=== PATIENT | male | born 1960 | race Caucasian/White ===

== ENCOUNTER 2017-07-26 04:50 | Inpatient (IN) | payer OTHER, SELFPAY ==
[2017-07-26] MEDS ORDERED: Acetaminophen 500 MG TAB ONE (05:17)
[2017-07-26 06:10] LABS: #Basophils 0.1 thou/uL (0.0-0.2); #Eosinphils 0.1 thou/uL (0.0-0.7); #Lymphocytes 1.2 thou/uL (1.20-3.40); #Monocytes 0.4 thou/uL (0.11-0.59); #Neutrophils 7.2 thou/uL (1.40-6.50); %Eosinophils 1.2 % (0.0-10.0); %Lymphocytes 13.4 % (21.0-51.0); %Monocytes 4.5 % (0.0-10.0); Hematocrit 31.2 % (42.0-52.0); Mean Platelet Volume 7.3 fL (7.4-10.4); Red Blood Cell (RBC) Count 3.68 mill/uL (4.70-6.10)
[2017-07-26 06:40] LABS: ALT (SGPT) 30 U/L (8-55); AST (SGOT) 28 U/L (5-34); Alkaline Phosphatase 161 U/L (40-150); Anion Gap 14 mmol/L (10-20); BUN (Urea Nitrogen) 40 mg/dL (8.4-25.7); Bilirubin, Total Less than 0.2 mg/dL (0.2-1.2); CK (CPK) 163 U/L (30-200); Calc. Creatinine Clearance 0 mL/min (70-130); Calcium 7.5 mg/dL (7.8-10.44); Carbon Dioxide 17 mmol/L (22-29); Chloride 94 mmol/L (98-107); Estimated GFR-MDRD 53; Globulin 3.2 g/dL (2.4-3.5); Lipase 13 U/L (8-78); Protein, Total 5.5 g/dL (6.0-8.3)
[2017-07-26 06:49] LABS: Troponin I 0.165 ng/mL (< 0.028)
[2017-07-26] MEDS ORDERED: niCARdipine 20MG In NaCl 20 MG/200 ML BAG ONE (07:05)
[2017-07-26] MEDS ORDERED: Insulin Regular 300 UNITS/3 ML VIAL ONE (07:06)
[2017-07-26 07:12] LABS: Acetaminophen Less than 6.0 mcg/mL (10.0-30.0); Salicylate Less than 8.0 mg/dL (15.0-30.0)
[2017-07-26] MEDS ORDERED: Insulin Regular 100 units/100 ml in NS IVPB SCH (07:45)
[2017-07-26 07:56] LABS: Prothrombin Time 12.1 SEC (12.0-14.7)
[2017-07-26 08:03] LABS: PTT 22.5 SEC (22.9-36.1)
--- NOTE | 2017-07-26 08:35 | HP ---
PRIMARY CARE PHYSICIAN: Dr. Mena Duenas. However, the patient says that he was recently dropped by Dr. Mena Duenas because he said she could not do anything more for him. The patient currentl y does not have any physicians and recently lost his insurance. CHIEF COMPLAINT: Chest pain for 4 days as well as increasing leg weakness for 3 months. HISTORY OF PORESENT ILLNESS: Mr. Robles is a 57-year-old gentleman that has a history of hyperte nsion and diabetes as well as coronary artery disease. He presented to the emergency room with comp laints of pain in his chest, which has been constant for the last 4 days in the center of his chest and then radiating into his left arm. He says it is sharp, stabbing like pain and very severe. He does not really rate the pain. He denies any shortness of breath or diaphoresis, but did have some nausea. He also complains of pain in his legs, which he originally said was pain, but then said it was weakness as well. He says he has trouble standing and walking on them and this has been progres sive over the past 3 months. He says that his legs have no energy and they always heard. He says t hat he lost his insurance at the beginning of this month and as a result, he ran out of his medicati ons and he has not had any medications in the last 4 days. He also admits to chronic back pain. He says that he was going to have some type of back fusion a few years ago, which was recommended, but he did not have it done. The patient is currently a bit groggy and says that he is in pain. He do es not appear to be in any type of distress; however, he is lying on the stretcher and his most conc erned seems to be in relief of his pain in his legs and his chest at this time. REVIEW OF SYSTEMS: Constitutional: There have been no fevers, chills, no night sweats, no weight l oss. HEENT: No headaches, no dizziness, no visual changes, no sore throat, no rhinorrhea, neck courtney n or adenopathy. Pulmonary: No hemoptysis, no cough, no wheezing. Cardiovascular: As the history of present illness. There is no PND, no orthopnea, but he has had l ower extremity edema. Gastrointestinal: No abdominal pain. He has had some nausea, but no vomitin g, no change in bowels. Genitourinary: No urinary frequency, hematuria, no hesitancy. Neurologic: No focal weakness, numbness, no seizures. Psychiatric: No symptoms of anxiety or depression. Sk in and Integument: No significant skin changes. No rash. PAST MEDICAL HISTORY: Significant for coronary artery disease, status post 4-vessel bypass, diabete s mellitus, hypertension, chronic low back pain and chronic kidney disease. PAST SURGICAL HISTORY: Right knee surgery, right shoulder arthroplasty, esophageal ulcer repair, 4- vessel bypass surgery, cholecystectomy, and appendectomy. ALLERGIES: PENICILLIN, ULTRAM, VALIUM, VERSED and VANCOMYCIN. FAMILY HISTORY: Significant for cerebrovascular disease in his father. SOCIAL HISTORY: The patient has a 2 pack a day history of smoking, but says he is reduced somewhat, but he still smokes, denies any alcohol, no drug use. He is , has two children. His , Sussy is his surrogate decision maker and he wishes to be a full code. MEDICATIONS: He remembers some of the names, but not the doses of his medicines and these include C oreg, Imdur, lisinopril, Lasix, metolazone and another blood pressure medicine as well as Wylie. He takes insulin 70/30 15 units twice a day. PHYSICAL EXAMINATION: GENERAL: He is alert and oriented. He is moderately cooperative, sometimes he says he does not fee l like talking and just to leave him alone and other times, he will answer some questions, albeit re luctantly. VITAL SIGNS: His blood pressure was 229/109, heart rate is in the 80s, respiratory rate 18, tempera ture is 98.1. HEENT: Pupils equal, round, and reactive. Extraocular muscles are intact. Sclerae are anicteric. Throat, no erythema, no exudates. He has got very poor dentition. NECK: No adenopathy, no bruits. LUNGS: Clear. There is no wheezing, no rales. CARDIOVASCULAR: He has a normal S1 and S2. I did not appreciate an S3 or S4. No murmurs, clicks o r rubs. ABDOMEN: Soft, nontender, nondistended. Positive for bowel sounds. No rebound, no guarding. EXTREMITIES: He has got 1-2+ pitting edema bilaterally. He has got some chronic venous stasis hernández ges. His nails are mycotic and long. His pulses are palpable; however, his feet are warm and he quezada s got good capillary refill. NEUROLOGICALLY: His exam is grossly nonfocal. SIGNIFICANT LABORATORY DATA: White blood cell count was 9, hemoglobin 10.1, hematocrit 31.2, platel et count is 266. Sodium was 120, potassium 5.0, chloride is 94, CO2 17, anion gap is 14, BUN 40, cr eatinine 1.38, glucose is 795. ASSESSMENT AND PLAN: This is a 57-year-old gentleman that presents with hypertensive urgency. The chest pain of which is likely as a result of the hypertensive urgency and some demand ischemia due t o the blood pressure being so high. It is noted that he was here back in October and had a very si milar presentation. At that time, he had a very thorough workup including a CT angiogram of the ezio st to rule out dissection, which was negative. He had a cardiac catheterization, which showed that three of the 4 grafts were patent and he also had an echocardiogram done demonstrating an ejection f raction of 55%-60% and some evidence of diastolic dysfunction. His medications were adjusted and he was able to be discharged home. I suspect that his symptoms are likely the result of medical nonco mpliance and we will hold off on doing or repeating a lot of the tests that were done previously, st art him back on a medication regimen. Hopefully, some related to what he had been prescribed before and see if his symptoms resolve. Since he will be admitted to the ICU due to the elevated blood pr essure, we will get a Critical Care consult. 1. Diabetes mellitus, this is uncontrolled, likely again due to noncompliance. We will place him o n an insulin drip until his blood sugars are under reasonable control and then transition him to sub cu insulin. 2. Leg pain. This likely could be due to either neuropathy from his lower back or possibly from di abetes mellitus. It appears he has got fairly decent circulation clinically, but we can check an ar terial Doppler to be sure and we will also be placing him on deep venous thrombosis and gastrointest inal prophylaxis. Further treatment will be based on how the patient progresses during his hospital stay.
[2017-07-26] MEDS ORDERED: Ondansetron HCl/PF 4 MG/2 ML Vial IVP PRN (08:58)
[2017-07-26] MEDS ORDERED: D5 1/2 NS w/20 mEq KCL 1,000 ML IV PRN (08:58)
[2017-07-26] MEDS ORDERED: Insulin Regular (Human) 100 UNITS, Admixture Fee 1 EACH in Sodium Chloride 0.9% 100 ML IVPB SCH (08:58)
[2017-07-26] MEDS ORDERED: CCU Electrolyte Replacement 1 EACH IVPB SCH (08:58)
[2017-07-26] MEDS ORDERED: SODIUM CHLORIDE IVPB SCH (08:58)
[2017-07-26] MEDS ORDERED: Ondansetron ODT 4 MG TAB PO PRN (08:58)
[2017-07-26] MEDS ORDERED: Sodium Chloride 0.9% 1,000 ML IV PRN ×4 (08:58)
[2017-07-26] MEDS ORDERED: NS 0.9% w/ 20 MEQ KCL 1,000 ML IV PRN ×2 (08:58)
[2017-07-26] MEDS ORDERED: ADMIXTURE FEE IVPB SCH (08:58)
[2017-07-26] MEDS ORDERED: Acetaminophen 325 MG TAB PO PRN (08:58)
[2017-07-26] MEDS ORDERED: Dextrose 5 %-0.45 % NaCl 1,000 ML IV PRN (08:58)
[2017-07-26] MEDS ORDERED: NICARDIPINE HCL IVPB SCH (08:58)
[2017-07-26] MEDS ORDERED: Carvedilol 6.25 MG TAB PO SCH (09:00)
--- NOTE | 2017-07-26 09:04 | RAD ---
FRONTAL VIEW CHEST: COMPARISON: November 21, 2016. INDICATION: Emergent exam with new-onset chest pain. FINDINGS: Lungs are hyperinflated with interstitial prominence bilaterally. There is no lobar consolidation, effusion, or discrete pneumothorax. Postoperative findings of the chest are again seen. Mediastina l structures are stable. IMPRESSION: 1. Chronic obstructive pulmonary disease. 2. No lobar consolidation. POS: [facility]
[2017-07-26 09:08] LABS: Anion Gap 3 mmol/L (-14-95); Critical Call POC Critical Value; pH (Venous) 7.554 (7.35-7.45); vO2 Saturation-calc 99.9 % (0.0-100.0)
[2017-07-26 09:28] LABS: Troponin I 0.203 ng/mL (< 0.028)
[2017-07-26 09:48] LABS: Anion Gap 13 mmol/L (10-20); BUN (Urea Nitrogen) 38 mg/dL (8.4-25.7); Calc. Creatinine Clearance 0 mL/min (70-130); Calcium 7.6 mg/dL (7.8-10.44); Carbon Dioxide 17 mmol/L (22-29); Chloride 95 mmol/L (98-107); Estimated GFR-MDRD 52
[2017-07-26] MEDS ORDERED: HYDROcodone/Acetaminophen 10/325 mg Tablet ONE (09:49)
[2017-07-26 10:22] LABS: Bilirubin Negative (Negative); Glucose, Urine (Dipstick) 500 mg/dL (Negative); Ketone, Urine Negative (Negative); Nitrite Negative (Negative); Protein, Urine (Dipstick) 100 mg/dL (Neg-Trace); Urobilinogen 0.2 mg/dL (0.2-1.0)
[2017-07-26 10:23] LABS: Blood, Urine Moderate (Negative)
[2017-07-26 10:34] LABS: Bacteria/HPF None Seen HPF (None Seen); Hyaline Casts/LPF 0-3 HYALINE CAST LPF (0-3 Hyaline); Squamous Epithelial None Seen HPF (0-3); WBC/HPF None Seen HPF (0-3)
[2017-07-26] MEDS ORDERED: Famotidine 20 MG TAB ONE (10:52)
[2017-07-26] MEDS ORDERED: Clopidogrel Bisulfate 75 MG TAB ONE (10:52)
[2017-07-26 11:13] LABS: Amphetamine Not Detected (NotDetected); Methadone Not Detected (NotDetected); Methamphetamine Not Detected (NotDetected)
[2017-07-26] MEDS ORDERED: Morphine Sulfate 2 MG/ML SYRINGE ONE ×2 (12:50→17:35)
[2017-07-26 13:00] LABS: Anion Gap 11 mmol/L (10-20); BUN (Urea Nitrogen) 36 mg/dL (8.4-25.7); Calc. Creatinine Clearance 0 mL/min (70-130); Calcium 7.1 mg/dL (7.8-10.44); Carbon Dioxide 17 mmol/L (22-29); Chloride 101 mmol/L (98-107); Estimated GFR-MDRD 66; Troponin I 0.206 ng/mL (< 0.028)
[2017-07-26] MEDS ORDERED: Dextrose 5% in Water 1,000 ML IV PRN (13:02)
[2017-07-26] MEDS ORDERED: Dextrose 50% Abboject 50 ML SYRINGE SLOW IVP PRN (13:02)
[2017-07-26] MEDS ORDERED: Acetaminophen/Codeine 30-300mg Tablet PO PRN (13:04)
[2017-07-26] MEDS ORDERED: Insulin Detemir 100 UNITS/ML 15 UNITS in Pre-Filled Syringe 1 EACH SC SCH (13:30)
[2017-07-26] MEDS ORDERED: Labetalol HCl 100 MG/20 ML VIAL ONE ×2 (13:35→18:30)
[2017-07-26] MEDS ORDERED: Nicotine 14 MG PATCH TOP SCH (16:30)
[2017-07-26 17:57] LABS: Anion Gap 10 mmol/L (10-20); BUN (Urea Nitrogen) 34 mg/dL (8.4-25.7); Calc. Creatinine Clearance 0 mL/min (70-130); Calcium 7.2 mg/dL (7.8-10.44); Carbon Dioxide 18 mmol/L (22-29); Chloride 102 mmol/L (98-107); Estimated GFR-MDRD 70
[2017-07-26] MEDS: Morphine Sulfate 2 MG/ML SYRINGE SLOW IVP PRN (19:59)
[2017-07-26] MEDS: Carvedilol 25 MG TAB PO SCH (20:03)
[2017-07-26] MEDS: Nitroglycerin 2% Ointment 1 INCH/1 GM Packet TOP SCH ×2 (20:04→20:12)
[2017-07-26] MEDS: Clopidogrel Bisulfate 75 MG TAB PO SCH (20:04)
[2017-07-26] MEDS: Heparin 5,000 UNITS/ML VIAL SC SCH ×2 (20:04→20:06)
[2017-07-26] MEDS: Docusate 100 MG CAP PO SCH ×2 (20:05)
[2017-07-26] MEDS: Atorvastatin Calcium 20 MG TAB PO SCH (20:05)
[2017-07-26] MEDS: Famotidine 20 MG TAB PO SCH ×2 (20:05)
[2017-07-26] MEDS: HYDROcodone/Acetaminophen 10/325 mg Tablet PO PRN (20:14)
[2017-07-26] MEDS: HumaLOG 300 UNITS/3 ML VIAL SC PRN (20:50)
[2017-07-26] MEDS ORDERED: Labetalol HCl 100 MG/20 ML VIAL SLOW IVP PRN (22:02)
[2017-07-27] MEDS: HumaLOG 300 UNITS/3 ML VIAL SC PRN ×3 (00:05→12:22)
[2017-07-27] MEDS: HYDROcodone/Acetaminophen 10/325 mg Tablet PO PRN ×6 (01:20→23:05)
[2017-07-27] MEDS: Morphine Sulfate 2 MG/ML SYRINGE SLOW IVP PRN (04:04)
[2017-07-27 06:22] LABS: #Eosinphils 0.3 thou/uL (0.0-0.7); #Lymphocytes 2.7 thou/uL (1.20-3.40); #Monocytes 0.8 thou/uL (0.11-0.59); #Neutrophils 9.8 thou/uL (1.40-6.50); %Basophils 0.3 % (0.0-1.0); %Eosinophils 1.9 % (0.0-10.0); %Monocytes 5.7 % (0.0-10.0); Hematocrit 30.9 % (42.0-52.0); Mean Platelet Volume 7.4 fL (7.4-10.4); Red Blood Cell (RBC) Count 3.74 mill/uL (4.70-6.10); White Blood Cell (WBC) Count 13.6 thou/uL (4.8-10.8)
[2017-07-27 06:34] LABS: Anion Gap 13 mmol/L (10-20); BUN (Urea Nitrogen) 33 mg/dL (8.4-25.7); Calc. Creatinine Clearance 71 mL/min (70-130); Calcium 7.4 mg/dL (7.8-10.44); Carbon Dioxide 18 mmol/L (22-29); Chloride 103 mmol/L (98-107); Cholesterol 142 mg/dl (< 200 Desired); Estimated GFR-MDRD 72; LDL Cholesterol, Calculated 85 mg/dL
[2017-07-27] MEDS: Nitroglycerin 2% Ointment 1 INCH/1 GM Packet TOP SCH (07:10)
[2017-07-27] MEDS: Carvedilol 25 MG TAB PO SCH ×2 (08:10→16:30)
[2017-07-27] MEDS ORDERED: Lisinopril 10 MG TAB PO SCH (09:00)
[2017-07-27] MEDS: Famotidine 20 MG TAB PO SCH ×2 (09:15→20:38)
[2017-07-27] MEDS: Lisinopril 20 MG TAB PO SCH (09:15)
[2017-07-27] MEDS: Clopidogrel Bisulfate 75 MG TAB PO SCH (09:16)
[2017-07-27] MEDS: Docusate 100 MG CAP PO SCH ×2 (09:16→20:40)
[2017-07-27] MEDS: Heparin 5,000 UNITS/ML VIAL SC SCH ×3 (09:16→20:31)
--- NOTE | 2017-07-27 12:32 | PDOC.PN ---
- Subjective Encounter Start Date: 07/27/17 Encounter Start Time: 12:30 Mr. Robles is complaining of pain in his legs, and says they are still weak. He had refused to take the lower extremity doppler yesterday, because he says he was tired from laying on the stretcher in the ER all day. He says he is willing to do this now. He also says that Pawlet, and Morphine, even at 4 mg is not helping to alleviate his pain. - Objective Resuscitation Status: Resuscitation Status FULL:Full Resuscitation MAR Reviewed: Yes Vital Signs & Weight: Vital Signs (12 hours) Temp Pulse Resp BP BP Pulse Ox 07/27/17 09:15 180/87 H 07/27/17 09:13 59 L 07/27/17 07:43 98 F 59 L 20 187/87 H 99 07/27/17 01:22 62 161/80 H Weight Weight 142 lb 11.2 oz I&O: 07/26/17 07/27/17 07/28/17 06:59 06:59 06:59 Intake Total 1100 Output Total 565 Balance 535 Result Diagrams: 07/27/17 06:12 07/27/17 06:12 Additional Labs: Accuchecks 07/27/17 07/27/17 07/27/17 11:35 04:16 01:26 POC Glucose 235 H 190 H 236 H 07/27/17 07/26/17 07/26/17 00:00 20:16 16:23 POC Glucose 301 H 332 H 369 H 07/26/17 07/26/17 13:11 12:18 POC Glucose 402 H 472 H Phys Exam - Physical Examination HEENT: PERRLA Respiratory: no wheezing, no rales, no rhonchi, clear to auscultation bilateral Cardiovascular: RRR, no significant murmur Gastrointestinal: soft, non-tender, positive bowel sounds Musculoskeletal: edema present + bilateral lower extemity edema pulses are diminished but palpable Dx/Plan (1) Diabetes mellitus type 2 in nonobese Code(s): E11.9 - TYPE 2 DIABETES MELLITUS WITHOUT COMPLICATIONS Status: Acute (2) Acute on chronic combined systolic and diastolic CHF (congestive heart failure) Code(s): I50.43 - ACUTE ON CHRONIC COMBINED SYSTOLIC AND DIASTOLIC HRT FAIL Status: Chronic (3) Anxiety and depression Code(s): F41.9 - ANXIETY DISORDER, UNSPECIFIED; F32.9 - MAJOR DEPRESSIVE DISORDER, SINGLE EPISODE, UNSPECIFIED Status: Chronic (4) CAD (coronary artery disease), autologous vein bypass graft Code(s): I25.810 - ATHEROSCLEROSIS OF CABG W/O ANGINA PECTORIS Status: Chronic (5) Tobacco abuse Code(s): Z72.0 - TOBACCO USE Status: Chronic (6) Hypertensive urgency Code(s): I10 - ESSENTIAL (PRIMARY) HYPERTENSION Status: Resolved - Plan * Hypertensive Urgency, and Uncontrolled Diabetes mellitus- due to medical non- compliance * HTN- home medications for blood pressure have been re-started- will also add Amlodipine * DM- will re-start Insulin 70/30 * Leg Pain- this could be from Radiculopathy, or PVD- he is at risk for both- will check lower extremity arterial dopplers, and an MRI of his Lumbar spine * It is noted however that he has demonstrates some clinical characteristics of drug seeking behavior. * CAD- stable * Hyponatremia- better, after blood glucose has improved, but still low, in reviewing his previous records, he has chronic hyponatremia- will monitor
[2017-07-27] MEDS ORDERED: Lorazepam 2 MG/ML VIAL SLOW IVP PRN (13:10)
--- NOTE | 2017-07-27 15:23 | ULT ---
BILATERAL LOWER EXTREMITY ARTERIAL ULTRASOUND: Technique: Grayscale, color doppler and spectral analysis performed. Clinical history: Lower extremity pain and weakness. FINDINGS: The left common femoral artery demonstrates a triphasic waveform. Otherwise, within the left lower e xtremity there is diffuse monophasic waveform aside from the profunda femoris which revealed a bipha sic waveform. Within the right lower extremity, there is a biphasic waveform of the right common femoral artery. T he right superficial femoral artery demonstrates triphasic waveform. Profunda femoris artery of righ t lower extremity demonstrates a biphasic waveform. Below the level of the popliteal artery in the right lower extremity there is a diffuse monophasic w aveform. There is some tissue edema. Correlate clinically. Documented peak systolic velocity of the right lower extremity at the level of the right common femo ral artery is 137 cm/sec and of the left lower extremity at the level of the common femoral artery i s 174 cm/sec. IMPRESSION: Diffuse monophasic waveforms of the left lower extremity and monophasic waveforms of the right lower extremity at and below the level of the popliteal artery indicate moderate to severe degree of winsome pheral vascular disease. Correlate clinically. POS: [facility]
[2017-07-27] MEDS: Atorvastatin Calcium 20 MG TAB PO SCH (20:38)
[2017-07-27] MEDS: Insulin NPH/Reg Insulin Hm 300 UNITS/3 ML VIAL SC SCH (23:10)
[2017-07-28] MEDS: HYDROcodone/Acetaminophen 10/325 mg Tablet PO PRN ×5 (03:04→21:07)
[2017-07-28] MEDS: Metolazone 5 MG TAB PO SCH (04:36)
[2017-07-28] MEDS: Furosemide 80 MG TAB PO SCH (04:36)
[2017-07-28 06:43] LABS: Anion Gap 11 mmol/L (10-20); BUN (Urea Nitrogen) 35 mg/dL (8.4-25.7); Calc. Creatinine Clearance 59 mL/min (70-130); Calcium 7.5 mg/dL (7.8-10.44); Carbon Dioxide 18 mmol/L (22-29); Chloride 104 mmol/L (98-107); Estimated GFR-MDRD 56
[2017-07-28] MEDS: Carvedilol 25 MG TAB PO SCH ×2 (06:49→16:45)
[2017-07-28] MEDS: Morphine Sulfate 2 MG/ML SYRINGE SLOW IVP PRN ×2 (08:40→13:05)
[2017-07-28] MEDS: Docusate 100 MG CAP PO SCH ×2 (08:45→21:07)
[2017-07-28] MEDS: Famotidine 20 MG TAB PO SCH ×2 (08:45→21:08)
[2017-07-28] MEDS: Heparin 5,000 UNITS/ML VIAL SC SCH ×3 (08:45→21:08)
[2017-07-28] MEDS: Lisinopril 20 MG TAB PO SCH (08:46)
[2017-07-28] MEDS: Insulin NPH/Reg Insulin Hm 300 UNITS/3 ML VIAL SC SCH ×2 (10:00→21:12)
--- NOTE | 2017-07-28 10:59 | PDOC.PN ---
- Subjective Encounter Start Date: 07/28/17 Encounter Start Time: 10:58 Mr. Robles does not have any new complaints other than leg pain. The patient completed the arterial ultrasund, but did not do the MRI. They came to get him, but he had walked off the floor, even after being instructed by the nurse to stay. - Objective Resuscitation Status: Resuscitation Status FULL:Full Resuscitation MAR Reviewed: Yes Vital Signs & Weight: Vital Signs (12 hours) Temp Pulse Resp BP BP BP BP 07/28/17 08:46 59 L 154/77 H 07/28/17 08:45 59 L 07/28/17 08:00 97.6 F 59 L 18 154/77 H 07/28/17 06:50 66 16 181/84 H 07/28/17 04:40 98.1 F 66 18 162/78 H 07/28/17 03:09 66 183/86 H 07/28/17 00:30 67 16 166/80 H 07/27/17 23:14 70 191/86 H 07/27/17 23:07 70 16 191/86 H Pulse Ox 07/28/17 08:46 07/28/17 08:45 07/28/17 08:00 97 07/28/17 06:50 96 07/28/17 04:40 94 L 07/28/17 03:09 07/28/17 00:30 94 L 07/27/17 23:14 07/27/17 23:07 95 Weight Weight 146 lb 8 oz I&O: 07/27/17 07/28/17 07/29/17 06:59 06:59 06:59 Intake Total 1100 1797 Output Total 565 2740 Balance 535 -943 Result Diagrams: 07/27/17 06:12 07/28/17 04:58 Additional Labs: Accuchecks 07/28/17 07/27/17 07/27/17 04:27 23:08 20:05 POC Glucose 211 H 329 H 250 H 07/27/17 07/27/17 17:08 11:35 POC Glucose 118 H 235 H Phys Exam - Physical Examination HEENT: PERRLA Respiratory: no wheezing, no rales, no rhonchi, clear to auscultation bilateral Cardiovascular: RRR, no significant murmur Gastrointestinal: soft, non-tender, positive bowel sounds Musculoskeletal: no edema Dx/Plan (1) Diabetes mellitus type 2 in nonobese Code(s): E11.9 - TYPE 2 DIABETES MELLITUS WITHOUT COMPLICATIONS Status: Acute (2) Acute on chronic combined systolic and diastolic CHF (congestive heart failure) Code(s): I50.43 - ACUTE ON CHRONIC COMBINED SYSTOLIC AND DIASTOLIC HRT FAIL Status: Chronic (3) Anxiety and depression Code(s): F41.9 - ANXIETY DISORDER, UNSPECIFIED; F32.9 - MAJOR DEPRESSIVE DISORDER, SINGLE EPISODE, UNSPECIFIED Status: Chronic (4) CAD (coronary artery disease), autologous vein bypass graft Code(s): I25.810 - ATHEROSCLEROSIS OF CABG W/O ANGINA PECTORIS Status: Chronic (5) Tobacco abuse Code(s): Z72.0 - TOBACCO USE Status: Chronic (6) Hypertensive urgency Code(s): I10 - ESSENTIAL (PRIMARY) HYPERTENSION Status: Resolved - Plan * Leg pain- likely multi-factorial- from peripheral vascular disease, radiculopathy form L-S Spine disease, and peripheral neuropathy from diabetes. Arterial doppler demonstrates some degree of PVD- however his GFR is relatively low-, and his pulses are palpable- will consult CV surgery to determine if it is worth the risk of worsening his renal function to obtain a CTA of the legs * Patient says he will follow- through with the MRI today * HTN- blood pressure is better * DM- blood glucose is overall better * Continue PT/OT to assess needs ( however the nurses have noted that the patient will leave the floor on his own to go smoke.
--- NOTE | 2017-07-28 12:01 | PQF ---
RADHA FRANK TONI MD [id number] [facility]283 [id number] CLINICAL DOCUMENTATION IMPROVEMENT CLARIFICATION FORM: ICD-10 Updated PLEASE DO AN ADDENDUM TO THE PROGRESS NOTE WITH ANY DOCUMENTATION UPDATES OR ADDITIONS AND CARRY THROUGH TO DC SUMMARY. THANK YOU. DATE: 07-28-17 ATTN: DR. HULL Please provide a response below if a more specific term indicating a diagnosis and/or acuity level for this condition can be identified. Please exercise your independent, professional judgment in responding to the clarification form. Clinical indicators are provided at the bottom of this form for your review. Thank you. [ ] Diabetes Type I w/ Hyperglycemia [ X ] Diabetes Type II w/ Hyperglycemia [ ] Does not apply to this patient [ ] Unable to determine [ ] Other diagnosis [ ] Present on Admission (POA): [ X ] Yes [ ] No [ ] Unable to determine The following CLINICAL INDICATORS - SIGNS / SYMPTOMS are present in the medical record: ER: GLUCOSE 795 PMH - DIABETES TYPE 1 H&P: DM DM - UNCONTROLLED - NONCOMPLIANCE LABS: 07-26 @ 1042 GLUCOSE > 550 @ 1218 472 @ 1311 369 @ 1623 369 @ 2016 332 RISKS: H&P - HYPERTENSIVE URGENCY HX - DM PN 07-27 - DM TYPE 2 TREATMENTS: H&P - INSULIN DRIP THANK YOU, ALIYAH (This form is maintained as a part of the permanent medical record) 2014 [employer]. All Rights Reserved Aliyah Mcneil, RN, BS [email or web address] [facility]
--- NOTE | 2017-07-28 12:05 | PQF ---
RADHA FRANK TONI MD [id number] [facility]-283 [id number] CLINICAL DOCUMENTATION IMPROVEMENT CLARIFICATION FORM: ICD-10 Updated PLEASE DO AN ADDENDUM TO THE PROGRESS NOTE WITH ANY DOCUMENTATION UPDATES OR ADDITIONS AND CARRY THROUGH TO DC SUMMARY. THANK YOU. DATE: 07-28-17 ATTN: DR. HULL Please provide a response below if a more specific term indicating a diagnosis and/or acuity level for this condition can be identified. Please exercise your independent, professional judgment in responding to the clarification form. [ X] Chronic Renal Failure (CRF) / Chronic Kidney Disease (CKD) Stage: _3 (I to V or ESRDsee below) [ ] Does not apply to this to this patient [ ] Unable to determine [ ] Other diagnosis The following CLINICAL INDICATORS - SIGNS / SYMPTOMS are present in the medical record: ER: PMH - DM TYPE 1 HTN; LEFT KIDNEY DAMAGE H&P: CKD LABS: 07-26 BUN 34 - 40 33 35 CREAT 1.09 - 1.40 1.06 1.32 GFR 52 - 70 72 56 RISKS: H&P: HYPERTENSION ; CKD TREATMENTS: CPOE - SERIAL LABS CKD- National Kidney Foundation Guidelines for CKD Staging Stage I Kidney damage with normal or increased GFR GFR > 90 Stage II Kidney damage with mildly decreased GFR GFR 60-89 Stage III Kidney damage with moderately decreased GFR GFR 30-59 Stage IV Kidney damage with severely decreased GFR GFR 16-29 Stage V Kidney failure GFR<15 ESRD End Stage Renal Disease On dialysis THANK YOU, ALIYAH (This form is maintained as a part of the permanent medical record) 2014 [employer]. All Rights Reserved Aliyah Mcneil RN, BS [email or web address] Cell [facility]
--- NOTE | 2017-07-28 15:18 | MRI ---
MRI LUMBAR SPINE WITHOUT CONTRAST: History: Bilateral lower extremity pain and weakness. Comparison: None. FINDINGS: Mild straightening of the lumbar spine. The conus medullaris terminates at the mid body of L1. There are T2 hyperintense foci within both kidneys, the largest in the inferior pole of the left kidney m easuring 2.3 cm. Paraspinal musculature is normal. No dilated loops of bowel. Levels are as follows: T12-L1: Mild degenerative disc space height loss. Mild facet arthrosis. No significant neural forami nal, spinal canal narrowing. L1-2: There is a left paracentral and ==== posterior disc protrusion with moderate sized stenosis. T here is a mild left sided neural foraminal narrowing. Spinal canal is not narrowed. Right sided neur al foramen is not narrowed. L2-3: No significant degenerative disc space height loss. Mild facet arthrosis. L3-4: Mild degenerative disc space height loss. Moderate facet arthropathy. There is a right subfora paco and paracentral disc protrusion causing moderate neural foraminal narrowing. No significant ri ght sided neural foraminal narrowing. L4-5: Moderate circumferential disc space height bulge. Large right sided bridging osteophytes. The spinal canal is not narrowed. Moderate to severe facet arthropathy. Moderate to severe right and mod erate left sided neural foraminal narrowing. L5-S1: Moderate degenerative disc space height loss. Circumferential disc bulge. Moderate facet arth ropathy. Moderate to severe bilateral neural foraminal narrowing. Moderate degenerative disease of the spinus processes of the lumbar spine. IMPRESSION: 1. Moderate to severe spondylosis as described above. POS: [facility]
[2017-07-28] MEDS: Atorvastatin Calcium 20 MG TAB PO SCH (21:08)
[2017-07-29] MEDS: HYDROcodone/Acetaminophen 10/325 mg Tablet PO PRN ×6 (01:08→22:35)
[2017-07-29 07:07] LABS: Anion Gap 13 mmol/L (10-20); BUN (Urea Nitrogen) 43 mg/dL (8.4-25.7); Calc. Creatinine Clearance 55 mL/min (70-130); Calcium 7.4 mg/dL (7.8-10.44); Carbon Dioxide 17 mmol/L (22-29); Chloride 106 mmol/L (98-107); Estimated GFR-MDRD 51
[2017-07-29] MEDS: Famotidine 20 MG TAB PO SCH ×2 (09:29→20:03)
[2017-07-29] MEDS: Carvedilol 25 MG TAB PO SCH ×2 (09:29→18:19)
[2017-07-29] MEDS: Docusate 100 MG CAP PO SCH ×2 (09:29→20:03)
[2017-07-29] MEDS: Lisinopril 20 MG TAB PO SCH (09:30)
[2017-07-29] MEDS: Metolazone 5 MG TAB PO SCH (09:30)
[2017-07-29] MEDS: Furosemide 80 MG TAB PO SCH (09:30)
[2017-07-29] MEDS: Insulin NPH/Reg Insulin Hm 300 UNITS/3 ML VIAL SC SCH ×2 (11:02→22:35)
[2017-07-29] MEDS: Heparin 5,000 UNITS/ML VIAL SC SCH ×3 (11:05→20:03)
--- NOTE | 2017-07-29 11:55 | PDOC.PN ---
- Subjective Encounter Start Date: 07/29/17 Encounter Start Time: 11:53 Mr. Robles is complaining of leg pain. He denies chest pain or dyspnea. - Objective Resuscitation Status: Resuscitation Status FULL:Full Resuscitation MAR Reviewed: Yes Vital Signs & Weight: Vital Signs (12 hours) Temp Pulse Resp BP BP Pulse Ox 07/29/17 09:30 69 169/80 H 07/29/17 09:29 69 169/80 H 07/29/17 09:00 98.3 F 69 20 169/80 H 94 L 07/29/17 08:00 98.4 F 66 18 94 L 07/29/17 04:00 98.4 F 66 18 158/72 H 95 Weight Weight 148 lb 6.4 oz I&O: 07/28/17 07/29/17 07/30/17 06:59 06:59 06:59 Intake Total 1797 120 120 Output Total 2740 900 Balance -943 -780 120 Result Diagrams: 07/27/17 06:12 07/29/17 06:31 Additional Labs: Accuchecks 07/28/17 07/28/17 07/28/17 21:07 17:55 11:24 POC Glucose 242 H 158 H 213 H 07/26/17 08:40 POC Glucose Greater than 550 H* Phys Exam - Physical Examination HEENT: PERRLA Respiratory: no wheezing, no rales, no rhonchi, clear to auscultation bilateral Cardiovascular: RRR, no significant murmur Gastrointestinal: soft, non-tender, positive bowel sounds Musculoskeletal: edema present Dx/Plan (1) Diabetes mellitus type 2 in nonobese Code(s): E11.9 - TYPE 2 DIABETES MELLITUS WITHOUT COMPLICATIONS Status: Acute (2) Acute on chronic combined systolic and diastolic CHF (congestive heart failure) Code(s): I50.43 - ACUTE ON CHRONIC COMBINED SYSTOLIC AND DIASTOLIC HRT FAIL Status: Chronic (3) Anxiety and depression Code(s): F41.9 - ANXIETY DISORDER, UNSPECIFIED; F32.9 - MAJOR DEPRESSIVE DISORDER, SINGLE EPISODE, UNSPECIFIED Status: Chronic (4) CAD (coronary artery disease), autologous vein bypass graft Code(s): I25.810 - ATHEROSCLEROSIS OF CABG W/O ANGINA PECTORIS Status: Chronic (5) Tobacco abuse Code(s): Z72.0 - TOBACCO USE Status: Chronic (6) Hypertensive urgency Code(s): I10 - ESSENTIAL (PRIMARY) HYPERTENSION Status: Resolved - Plan * Leg Pain- again multi-factorial - will add Gabapentin- MRI results noted. Patient does not have any leg weakness- he is walking without difficulty, and there is no bowel or bladder dysfunction- therefore he does not require urgent Neurosurgical evaluation. * Peripheral vascular disease- will hold Lasix and Zaroxyln and see if his creatinine improves, possible can have CTA then if needed. smoking cessation was discussed * Chronic kidney disease stage 3- Lasix and Zaroxyln will be held * HTN- will increase Hydralazine * Hyperkalemia- will hold Lisinopril * DM- blood glucose is better .
[2017-07-29] MEDS: HumaLOG 300 UNITS/3 ML VIAL SC PRN (14:04)
[2017-07-29] MEDS: Atorvastatin Calcium 20 MG TAB PO SCH (20:03)
--- NOTE | 2017-07-29 20:43 | ULT ---
CAROTID ULTRASOUND: 07/29/17 COMPARISON: None. HISTORY: Right carotid bruit. TECHNIQUE: Multiplanar ram scale and color doppler images were obtained in a carotid ultrasound. Spectral beth lysis of the doppler waveforms were performed. FINDINGS: There is amount of plaque surrounding both carotid bifurcations. There is a small amount of complex plaque also seen in the right common carotid artery. The doppler waveforms are normal bilaterally . Peak systolic velocity in the right ICA is 88 cm/s. Peak systolic velocity in the right CCA is 92 cm /s. The right ICA/CCA ratio is 1.0. Peak systolic velocity in the left ICA is 67 cm/s. Peak systolic velocity in the left CCA is 113 cm/ s. The left ICA/CCA ratio is 0.6. Both vertebral arteries demonstrate antegrade flow without focal stenosis. IMPRESSION: No evidence of hemodynamically significant stenosis. POS: [facility]
--- NOTE | 2017-07-30 02:06 | CON ---
DATE OF CONSULTATION: 07/29/2017 REASON FOR CONSULTATION: Lower extremity vascular evaluation. PERTINENT HISTORY: Patient is a 57-year-old male admitted 3 days ago with chest pain and lower extremity discomfort. He was found to be in hypertensive crisis with out of controlled diabetes. Troponin I's were mildly elevated. BNP was elevated at 4133. Admission glucose was 795. The lower extremity discomfort began approximately 6 months ago at which time he developed significant tight and brawny edema involving each ankle and lower leg. The edema has been attempted to be managed with diuretic therapy consisting of Lasix 80 mg b.i.d. and Zaroxolyn 5 mg daily. The patient, however, has recently lost his insurance and ran out of his medications. Patient is able to walk without much difficulty; however, his lower extremities become weak with stairs. MRI of the back did demonstrate [id number] lumbar spondylosis. Lower extremity arterial Doppler study demonstrated triphasic waveforms at each common femoral artery, biphasic waveforms at each profunda femoris artery, monophasic waveforms through the remainder of the left lower extremity, and triphasic waveform at the right superficial femoral artery with monophasic waveforms below the right knee. On examination, each femoral pulse is strongly palpable. He has good Doppler signals heard at each popliteal, PT, and DP. The edema of each ankle and leg is indeed significant and appears to represent chronic venous insufficiency based on associated skin color and pigmented spots. He has no ulcerations or gangrene on either foot. PAST MEDICAL HISTORY: 1. Hypertension. 2. Diabetes. 3. Chronic pain syndrome. 4. Chronic anemia. 5. Chronic back pain. 6. Chronic renal insufficiency with current creatinine of 1.44. 7. Chronic obstructive pulmonary disease. 8. Coronary artery disease. PAST SURGICAL HISTORY: 1. Multiple bilateral lower extremity operations related to defects and trauma with left side culminating in total knee replacement in 2005. 2. Right rotator cuff repair. 3. Cholecystectomy. 4. Appendectomy. 5. Coronary artery bypass grafting x4 in 06/2015 with catheterization 11/2015 demonstrating patency of the left internal mammary artery graft to the LAD and vein grafts to the OM and distal RCA with occlusion of the vein graft to the ramus. 6. 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 ALLERGIES: PENICILLIN, VANCOMYCIN, ULTRAM, VERSED, and VALIUM. SOCIAL HISTORY: Long-term smoker, currently a half a pack per day. Denies drinking for the past 7+ years. FAMILY HISTORY: Noncontributory for lower extremity vascular disease. REVIEW OF SYSTEMS: No history of stroke. LABORATORY DATA AND X-RAY FINDINGS: Current creatinine 1.44. Hemoglobin 10.2, platelet count 287,000. INR of 0.9. Transthoracic echo in 10/2016, demonstrated preserved left ventricular function. Chest x-ray on this admission demonstrated changes consistent with COPD. CURRENT MEDICATIONS: Norvasc 5 mg daily, aspirin 162 mg daily, Lipitor 20 mg daily, Coreg 25 mg b.i.d., Colace 100 mg b.i.d., Pepcid 20 mg b.i.d., Lasix 80 mg daily, heparin 5000 units t.i.d., insulin 70/30 of 15 units b.i.d., Imdur 120 mg daily, Zaroxolyn 5 mg daily, and multiple p.r.n. medications. PHYSICAL EXAMINATION: VITAL SIGNS: Height 5 feet 10 inches, weight 148 pounds, blood pressure 187/87 , heart rate 59, temperature 98.0. GENERAL: Thin, disheveled male, in no acute distress. He is fully oriented. HEENT: Significant for poor dentition. NECK: Without JVD or adenopathy. LUNGS: With distant breath sounds, but no rales or wheeze. HEART: Sinus bradycardia without murmur or rub. ABDOMEN: Soft and nontender without palpable mass. EXTREMITIES: As described above. VASCULAR: As described above. Radial pulses are palpable. Abdominal aorta is nonpalpable. He does have a soft right carotid bruit. NEUROLOGIC: No focal motor deficits. IMPRESSION: 1. Bilateral lower extremity peripheral artery disease as indicated by examination and formal Doppler study as described above. This may, however, not be the most prominent issue contributing to his lower extremity discomfort. 2. Significant bilateral lower extremity chronic venous insufficiency as described above. This may be the more salient issue related to his lower extremity complaints. RECOMMENDATIONS: Consider CTA and/or conventional lower extremity angiography once his kidney function is stabilized and lower extremity edema better managed. Obtain carotid ultrasound at this time to evaluate the right carotid bruit. Will follow for now. [facility]
[2017-07-30] MEDS: HYDROcodone/Acetaminophen 10/325 mg Tablet PO PRN ×5 (02:55→20:22)
[2017-07-30] MEDS: Carvedilol 25 MG TAB PO SCH ×2 (08:18→16:19)
[2017-07-30] MEDS: Heparin 5,000 UNITS/ML VIAL SC SCH ×3 (08:19→20:23)
[2017-07-30] MEDS: Docusate 100 MG CAP PO SCH ×2 (08:19→20:22)
[2017-07-30] MEDS: Famotidine 20 MG TAB PO SCH ×2 (08:19→20:23)
[2017-07-30] MEDS: Insulin NPH/Reg Insulin Hm 300 UNITS/3 ML VIAL SC SCH (08:20)
[2017-07-30 09:34] LABS: Anion Gap 14 mmol/L (10-20); BUN (Urea Nitrogen) 51 mg/dL (8.4-25.7); Calc. Creatinine Clearance 45 mL/min (70-130); Calcium 7.9 mg/dL (7.8-10.44); Carbon Dioxide 17 mmol/L (22-29); Chloride 105 mmol/L (98-107); Estimated GFR-MDRD 43
--- NOTE | 2017-07-30 11:05 | PDOC.PN ---
- Subjective Encounter Start Date: 07/30/17 Encounter Start Time: 11:01 Mr. Robles is continue to complain of leg pain. He is requesting Morphine, but for Blood draws. He is leaving the room, and going to smoke. - Objective Resuscitation Status: Resuscitation Status FULL:Full Resuscitation MAR Reviewed: Yes Vital Signs & Weight: Vital Signs (12 hours) Temp Pulse Resp BP BP BP BP 07/30/17 09:47 97.1 F L 70 16 175/77 H 07/30/17 09:45 175/77 H 07/30/17 08:20 70 07/30/17 08:19 70 07/30/17 07:31 98.1 F 70 16 07/30/17 06:12 98.1 F 70 16 162/75 H 07/30/17 00:00 98.7 F 72 14 141/67 H Pulse Ox 07/30/17 09:47 96 07/30/17 09:45 07/30/17 08:20 07/30/17 08:19 07/30/17 07:31 97 07/30/17 06:12 93 L 07/30/17 00:00 94 L Weight Weight 142 lb 6.4 oz I&O: 07/29/17 07/30/17 07/31/17 06:59 06:59 06:59 Intake Total 120 1810 Output Total 900 1600 Balance -780 210 Result Diagrams: 07/27/17 06:12 07/30/17 08:54 Additional Labs: Accuchecks 07/30/17 07/29/17 07/29/17 05:59 20:36 16:57 POC Glucose 245 H 162 H 157 H 07/29/17 07/29/17 07/29/17 10:59 05:54 05:38 POC Glucose 291 H 175 H 344 H Phys Exam - Physical Examination HEENT: PERRLA Respiratory: no wheezing, no rales, no rhonchi, clear to auscultation bilateral Cardiovascular: RRR, no significant murmur Gastrointestinal: soft, non-tender, positive bowel sounds Musculoskeletal: edema present trace pedal edema Dx/Plan (1) Diabetes mellitus type 2 in nonobese Code(s): E11.9 - TYPE 2 DIABETES MELLITUS WITHOUT COMPLICATIONS Status: Acute (2) Acute on chronic combined systolic and diastolic CHF (congestive heart failure) Code(s): I50.43 - ACUTE ON CHRONIC COMBINED SYSTOLIC AND DIASTOLIC HRT FAIL Status: Chronic (3) Anxiety and depression Code(s): F41.9 - ANXIETY DISORDER, UNSPECIFIED; F32.9 - MAJOR DEPRESSIVE DISORDER, SINGLE EPISODE, UNSPECIFIED Status: Chronic (4) CAD (coronary artery disease), autologous vein bypass graft Code(s): I25.810 - ATHEROSCLEROSIS OF CABG W/O ANGINA PECTORIS Status: Chronic (5) Tobacco abuse Code(s): Z72.0 - TOBACCO USE Status: Chronic (6) Hypertensive urgency Code(s): I10 - ESSENTIAL (PRIMARY) HYPERTENSION Status: Resolved - Plan * Acute on chronic kidney disease- Lasix and Metolazone are on hold. Will give some fluid back and re-check his creatinine in the AM * If his GFR has improved, will proceed with a CTA of the lower extremities * Will discontinue Morphine, IV and will not re-start- [place], and Gabapentin, which was started yesterday should be sufficient. I explained to him that SOMA, and Lyrica also are medications which tend to be abused, and will not start these medications * HTN- blood pressure is slightly better * DM- blood glucose is labile, but overall better.
[2017-07-30] MEDS: Sodium Chloride 0.9% 1,000 ML IV SCH (11:12)
[2017-07-30] MEDS: HumaLOG 300 UNITS/3 ML VIAL SC PRN ×2 (11:47→16:15)
[2017-07-30] MEDS: Atorvastatin Calcium 20 MG TAB PO SCH (20:23)
[2017-07-31] MEDS: HYDROcodone/Acetaminophen 10/325 mg Tablet PO PRN ×6 (00:52→21:12)
[2017-07-31] MEDS: Sodium Chloride 0.9% 1,000 ML IV SCH ×3 (00:57→08:15)
[2017-07-31] MEDS: Insulin NPH/Reg Insulin Hm 300 UNITS/3 ML VIAL SC SCH ×3 (05:02→21:13)
[2017-07-31] MEDS: Carvedilol 25 MG TAB PO SCH ×2 (08:58→16:23)
[2017-07-31] MEDS: Docusate 100 MG CAP PO SCH ×2 (08:58→21:13)
[2017-07-31] MEDS: Heparin 5,000 UNITS/ML VIAL SC SCH ×3 (08:58→21:13)
[2017-07-31] MEDS: Famotidine 20 MG TAB PO SCH ×2 (08:58→21:11)
[2017-07-31 09:50] LABS: Anion Gap 11 mmol/L (10-20); BUN (Urea Nitrogen) 57 mg/dL (8.4-25.7); Calc. Creatinine Clearance 44 mL/min (70-130); Calcium 7.4 mg/dL (7.8-10.44); Carbon Dioxide 17 mmol/L (22-29); Chloride 106 mmol/L (98-107); Estimated GFR-MDRD 40
[2017-07-31] MEDS: Furosemide 80 MG TAB PO SCH (11:04)
--- NOTE | 2017-07-31 11:34 | PDOC.PN ---
- Subjective Encounter Start Date: 07/31/17 Encounter Start Time: 09:55 Pt seen on rounds earlier thismoviolettaning, chart reviewed in its entirety. This is my first visit with this patient No complaints of leg pain at present. Got IV fluids overnight, 1800ml positive over last 24 hours. Denied SOB or orthopnea. Was started on these IVFs to prehydrate with hopes to improve Cr today and then proceed with CTA of BLE. unfortunately, pt had increase in his Cr again. Dr Forrester had cleared for discharge if chem normal, i suspect not expecting to get the CTA at this time. I have asked renal to evalaute the pt for acute kidney injury and have restarted his diuretics. No F/C, no N/V/d/C, no CP 10 point ROS performed and neg except as above - Objective Resuscitation Status: Resuscitation Status FULL:Full Resuscitation MAR Reviewed: Yes Vital Signs & Weight: Vital Signs (12 hours) Temp Pulse Resp BP BP Pulse Ox 07/31/17 07:51 98.1 F 68 18 182/86 H 96 07/31/17 04:00 98.2 F 69 18 160/76 H 95 07/30/17 23:43 98.4 F 69 18 147/70 H 92 L Weight Weight 146 lb 8 oz I&O: 07/30/17 07/31/17 08/01/17 06:59 06:59 06:59 Intake Total 1810 3427 Output Total 1600 1550 Balance 210 1877 Result Diagrams: 07/27/17 06:12 07/31/17 09:18 Additional Labs: Accuchecks 07/30/17 07/30/17 16:14 11:43 POC Glucose 265 H 329 H Radiology Reviewed by me: Yes EKG Reviewed by me: Yes Phys Exam - Physical Examination Constitutional: NAD dissheveled/unkempt HEENT: PERRLA, moist MMs, sclera anicteric, oral pharynx no lesions Neck: no nodes, no JVD, supple, full ROM Respiratory: no wheezing, no rales, no rhonchi, clear to auscultation bilateral Cardiovascular: no significant murmur, no rub, gallop, irregular Gastrointestinal: soft, non-tender, no distention, positive bowel sounds Musculoskeletal: edema present weak DP, cannot palpate PT pulses bilaterally Neurological: non-focal, normal sensation, moves all 4 limbs BLE tender in the distla lower legs bilaterally Lymphatic: no nodes Psychiatric: normal affect, A&O x 3 Skin: no rash, normal turgor, cap refill <2 seconds Dx/Plan (1) Acute kidney injury Code(s): N17.9 - ACUTE KIDNEY FAILURE, UNSPECIFIED Status: Acute Comment: have asked nephrology to eval, stopped IVF and starte dhis po lasix. may need to restart ARABELLA as well (2) Fluid overload Code(s): E87.70 - FLUID OVERLOAD, UNSPECIFIED Status: Acute Qualifiers: Hypervolemia type: other Qualified Code(s): E87.79 - Other fluid overload (3) Acute on chronic combined systolic and diastolic CHF (congestive heart failure) Code(s): I50.43 - ACUTE ON CHRONIC COMBINED SYSTOLIC AND DIASTOLIC HRT FAIL Status: Acute Comment: responded well to diuresis, Cr improved, no worse after rehydrating (4) Anxiety and depression Code(s): F41.9 - ANXIETY DISORDER, UNSPECIFIED; F32.9 - MAJOR DEPRESSIVE DISORDER, SINGLE EPISODE, UNSPECIFIED Status: Chronic (5) CAD (coronary artery disease), autologous vein bypass graft Code(s): I25.810 - ATHEROSCLEROSIS OF CABG W/O ANGINA PECTORIS Status: Chronic Qualifiers: Associated angina: without angina Qualified Code(s): I25.810 - Atherosclerosis of coronary artery bypass graft(s) without angina pectoris (6) CKD (chronic kidney disease), stage III Status: Chronic (7) Diabetes type 2, controlled Code(s): E11.9 - TYPE 2 DIABETES MELLITUS WITHOUT COMPLICATIONS Status: Chronic Qualifiers: Diabetes mellitus complication status: with kidney complications Diabetes mellitus complication detail: with chronic kidney disease Diabetes mellitus adjunct faculty for medical terminology insulin use: without adjunct faculty for medical terminology use Chronic kidney disease stage: stage 3 (moderate) Qualified Code(s): E11.22 - Type 2 diabetes mellitus with diabetic chronic kidney disease; N18.3 - Chronic kidney disease, stage 3 ( moderate) (8) Dyslipidemia Code(s): E78.5 - HYPERLIPIDEMIA, UNSPECIFIED Status: Chronic (9) Hypertensive urgency Code(s): I10 - ESSENTIAL (PRIMARY) HYPERTENSION Status: Chronic - Plan 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
[2017-07-31] MEDS: HumaLOG 300 UNITS/3 ML VIAL SC PRN ×2 (12:07→18:03)
[2017-07-31 18:23] LABS: Anion Gap 15 mmol/L (10-20); BUN (Urea Nitrogen) 63 mg/dL (8.4-25.7); Calc. Creatinine Clearance 42 mL/min (70-130); Calcium 7.3 mg/dL (7.8-10.44); Carbon Dioxide 14 mmol/L (22-29); Chloride 107 mmol/L (98-107); Estimated GFR-MDRD 38
[2017-07-31] MEDS: Atorvastatin Calcium 20 MG TAB PO SCH (21:12)
--- NOTE | 2017-07-31 22:57 | CON ---
DATE OF CONSULTATION: 07/31/2017 CONSULTING PHYSICIAN: Dr. Reed. REASON FOR CONSULTATION: Acute kidney injury and hyperkalemia. REASON FOR ADMISSION: Increasing leg weakness. HISTORY OF PRESENT ILLNESS: A 57-year-old male with a history of coronary artery disease, type 2 di abetes, hypertension, and CKD, who came to the hospital with leg weakness and worsening leg swelling and Nephrology is currently consulted for acute kidney injury. His baseline creatinine is around 1 .06, which was on 07/27/2017 and this morning was 1.78 with a potassium of 6.1. The patient was on IV fluids and being on positive balance per the computer chart, negative balance couple of days back . The patient is complaining of massive leg swelling and leg weakness. No fever or chills. No [place] sea, vomiting, or diarrhea. No skin rash. No chills reported. PAST MEDICAL HISTORY: Positive for coronary artery disease, type 2 diabetes, hypertension, low back pain, CKD. PAST SURGICAL HISTORY: Right knee surgery, right shoulder surgery, cholecystectomy, appendectomy. HOME MEDICATIONS: Lasix, lisinopril, Imdur, Coreg, insulin. ALLERGIES: PENICILLIN, ULTRAM, VALIUM, VERSED, VANCOMYCIN. FAMILY HISTORY: Positive for CVA. SOCIAL HISTORY: Smokes 2 packs per day. No alcohol or illicit drug abuse. REVIEW OF SYSTEMS: The following complete review of systems was negative, unless otherwise mentione d in the HPI or below: Constitutional: Weight loss or gain, ability to conduct usual activities. Skin: Rash, itching. Eyes: Double vision, pain. ENT/Mouth: Nose bleeding, neck stiffness, pain, tenderness. Cardiovascular: Palpitations, dyspnea on exertion, orthopnea. Respiratory: Shortness of breath, wheezing, cough, hemoptysis, fever, or night sweats. Gastrointestinal: Poor appetite, abdominal pain, heartburn, nausea, vomiting, constipation, or diar franklyn. Genitourinary: Urgency, frequency, dysuria, nocturia. Musculoskeletal: Pain, swelling. Neurologic/Psychiatric: Anxiety, depression. Allergy/Immunologic: Skin rash, bleeding tendency. PHYSICAL EXAMINATION: GENERAL: This is an elderly male in no apparent distress. VITAL SIGNS: Temperature 98.3, pulse 74, respiratory rate 18, blood pressure 142/72. HEENT: Atraumatic, normocephalic. Oral mucosa is moist. NECK: Supple, no masses. CARDIOVASCULAR: S1, S2. Rate and rhythm regular. RESPIRATORY: Clear. ABDOMEN: Soft. MUSCULOSKELETAL: 3+ edema. DERMATOLOGIC: No rash. NEUROLOGIC: Alert and awake. PSYCHIATRIC: Mood and affect normal. LABORATORY DATA: Hemoglobin is 10.2. Potassium is 6.1, sodium is 128, BUN is 57, creatinine is 1.7 . ASSESSMENT AND PLAN: 1. Acute kidney injury, most likely cardiorenal syndrome. Agree with Lasix for now. 2. Hyperkalemia. I will give Lasix, recommend . 3. Hyponatremia. Limit fluid intake. 4. Edema. Lasix today. ____. 5. Anemia, rule out bleed. Plan is to try Lasix. The patient was given IV fluids. We will avoid nephrotoxins, avoid sepsis. Continue supportive care. Renally dose all the medicines. The patient is currently on metolazone a nd Lasix. The patient was started on home dose of Lasix. We will continue to follow. Thank you for the consultation.
[2017-08-01] MEDS: HYDROcodone/Acetaminophen 10/325 mg Tablet PO PRN ×6 (01:27→23:12)
[2017-08-01 08:33] LABS: Anion Gap 14 mmol/L (10-20); BUN (Urea Nitrogen) 62 mg/dL (8.4-25.7); Calc. Creatinine Clearance 48 mL/min (70-130); Calcium 7.8 mg/dL (7.8-10.44); Carbon Dioxide 16 mmol/L (22-29); Chloride 108 mmol/L (98-107); Estimated GFR-MDRD 43
[2017-08-01] MEDS: Famotidine 20 MG TAB PO SCH ×2 (09:08→23:08)
[2017-08-01] MEDS: Furosemide 80 MG TAB PO SCH (09:08)
[2017-08-01] MEDS: Metolazone 5 MG TAB PO SCH (09:08)
[2017-08-01] MEDS: Carvedilol 25 MG TAB PO SCH ×2 (09:08→18:33)
[2017-08-01] MEDS: Docusate 100 MG CAP PO SCH ×2 (09:09→23:17)
[2017-08-01] MEDS: Insulin NPH/Reg Insulin Hm 300 UNITS/3 ML VIAL SC SCH ×2 (09:09→23:11)
[2017-08-01] MEDS: Heparin 5,000 UNITS/ML VIAL SC SCH ×3 (09:09→23:18)
--- NOTE | 2017-08-01 11:02 | PDOC.PN ---
- Subjective Encounter Start Date: 08/01/17 Encounter Start Time: 10:15 Subjective: c/o back and legs pain. - Objective Resuscitation Status: Resuscitation Status FULL:Full Resuscitation Vital Signs & Weight: Vital Signs (12 hours) Temp Pulse Resp BP BP BP Pulse Ox 08/01/17 09:08 72 186/87 H 08/01/17 07:45 97.9 F 72 18 186/87 H 97 08/01/17 04:00 98.3 F 72 18 159/71 H 94 L 07/31/17 23:21 98.4 F 73 18 133/65 93 L Weight Weight 148 lb 12.8 oz I&O: 07/31/17 08/01/17 08/02/17 06:59 06:59 06:59 Intake Total 3427 2070 Output Total 1550 2500 Balance 1877 -430 Result Diagrams: 07/27/17 06:12 08/01/17 08:04 Additional Labs: Accuchecks 08/01/17 08/01/17 07/31/17 07:40 05:48 20:15 POC Glucose 116 H 69 L 260 H 07/31/17 07/31/17 16:51 12:00 POC Glucose 234 H 355 H Phys Exam - Physical Examination HEENT: sclera anicteric, oral pharynx no lesions Neck: no JVD Respiratory: clear to auscultation bilateral Cardiovascular: RRR Gastrointestinal: soft, non-tender, no distention Musculoskeletal: edema present Neurological: moves all 4 limbs Psychiatric: A&O x 3 Dx/Plan (1) Acute kidney injury Code(s): N17.9 - ACUTE KIDNEY FAILURE, UNSPECIFIED Status: Acute Comment: Kidney function better. f/u chemistry. (2) Diabetes mellitus type 2 in nonobese Code(s): E11.9 - TYPE 2 DIABETES MELLITUS WITHOUT COMPLICATIONS Status: Acute Comment: on sliding scale.. (3) Acute on chronic combined systolic and diastolic CHF (congestive heart failure) Code(s): I50.43 - ACUTE ON CHRONIC COMBINED SYSTOLIC AND DIASTOLIC HRT FAIL Status: Acute Comment: compensated.. (4) CAD (coronary artery disease), autologous vein bypass graft Code(s): I25.810 - ATHEROSCLEROSIS OF CABG W/O ANGINA PECTORIS Status: Chronic Qualifiers: Associated angina: without angina Qualified Code(s): I25.810 - Atherosclerosis of coronary artery bypass graft(s) without angina pectoris - Plan overall condition stable. -: Serum K is elevated. -: Not on ARABELLA inhibitor ,. -: Start [place]. -: Possible discharge tomorrow. * .
--- NOTE | 2017-08-01 18:14 | PRG ---
DATE OF SERVICE: 08/01/2017 SUBJECTIVE: Patient was seen and examined at bedside and overnight events noted. Patient denies an y shortness of breath or chest pain or palpitation. No history of nausea or vomiting or diarrhea or fever or chills or cramps. OBJECTIVE: GENERAL: This is a well-built male, in no apparent distress. VITAL SIGNS: Temperature 97.9, pulse 72, respirations 18, and blood pressure 186/87. HEENT: Atraumatic, normocephalic. Oral mucosa is moist. NECK: Supple. CARDIOVASCULAR: S1, S2 heard. Rate and rhythm regular. RESPIRATORY: Clear to auscultation. GASTROINTESTINAL: Abdomen is soft. MUSCULOSKELETAL: No tenderness, no edema. DERMATOLOGIC: No skin rash. NEUROLOGIC: Alert and awake and oriented x3. No focal neurologic deficits. Moving all the extremi ties. PSYCHIATRIC: Mood and affect normal. LABORATORY DATA: Potassium is 5.4, BUN is 62, creatinine 1.7. ASSESSMENT AND PLAN: 1. Acute kidney injury, getting better. Continue on Lasix. 2. Hyperkalemia. Limit potassium in the diet. 3. Hyponatremia, limit fluid. 4. Edema and tobacco abuse, counseled. 5. Anemia, possible chronic disease. We will followup.
[2017-08-01] MEDS: HumaLOG 300 UNITS/3 ML VIAL SC PRN (18:33)
[2017-08-01] MEDS: Atorvastatin Calcium 20 MG TAB PO SCH (23:10)
[2017-08-02] MEDS: HYDROcodone/Acetaminophen 10/325 mg Tablet PO PRN ×6 (03:49→23:22)
[2017-08-02] MEDS: Famotidine 20 MG TAB PO SCH ×2 (08:55→22:31)
[2017-08-02] MEDS: Docusate 100 MG CAP PO SCH ×2 (08:55→22:31)
[2017-08-02] MEDS: Carvedilol 25 MG TAB PO SCH ×2 (08:55→18:04)
[2017-08-02] MEDS: Furosemide 80 MG TAB PO SCH (08:55)
[2017-08-02] MEDS: Heparin 5,000 UNITS/ML VIAL SC SCH ×4 (08:55→22:32)
[2017-08-02] MEDS: Metolazone 5 MG TAB PO SCH (08:55)
[2017-08-02] MEDS: Insulin NPH/Reg Insulin Hm 300 UNITS/3 ML VIAL SC SCH ×2 (09:00→22:40)
--- NOTE | 2017-08-02 10:27 | PDOC.PN ---
- Subjective Encounter Start Date: 08/02/17 Encounter Start Time: 10:27 Subjective: 6 mos back pain into legs - Objective Resuscitation Status: Resuscitation Status FULL:Full Resuscitation Vital Signs & Weight: Vital Signs (12 hours) Temp Pulse Resp BP Pulse Ox 08/02/17 04:00 97.0 F L 68 20 192/88 H 97 Weight Weight 148 lb 4.8 oz I&O: 08/01/17 08/02/17 08/03/17 06:59 06:59 06:59 Intake Total 2070 1560 990 Output Total 2500 600 400 Balance -430 960 590 Result Diagrams: 07/27/17 06:12 08/01/17 08:04 Additional Labs: Accuchecks 08/01/17 08/01/17 08/01/17 20:59 17:53 11:18 POC Glucose 410 H 293 H 184 H Phys Exam - Physical Examination Constitutional: NAD Neck: no JVD Respiratory: clear to auscultation bilateral Cardiovascular: RRR, no significant murmur Gastrointestinal: soft, non-tender, positive bowel sounds Musculoskeletal: edema present Dx/Plan (1) DM type 2, uncontrolled, with renal complications Code(s): E11.29 - TYPE 2 DIABETES MELLITUS W OTH DIABETIC KIDNEY COMPLICATION; E11.65 - TYPE 2 DIABETES MELLITUS WITH HYPERGLYCEMIA Status: Acute Qualifiers: Diabetes mellitus complication detail: with chronic kidney disease Chronic kidney disease stage: stage 3 (moderate) (2) CKD (chronic kidney disease) stage 3, GFR 30-59 ml/min Code(s): N18.3 - CHRONIC KIDNEY DISEASE, STAGE 3 (MODERATE) Status: Chronic (3) Hypertension, uncontrolled Code(s): I10 - ESSENTIAL (PRIMARY) HYPERTENSION Status: Chronic (4) CAD (coronary artery disease) Code(s): I25.10 - ATHSCL HEART DISEASE OF [place] CORONARY ARTERY W/O ANG PCTRS Status: Chronic Qualifiers: Coronary Disease-Associated Artery/Lesion type: [place] artery [place] vs. transplanted heart: [place] heart Associated angina: without angina Qualified Code(s): I25.10 - Atherosclerotic heart disease of [place] coronary artery without angina pectoris (5) Chronic diastolic (congestive) heart failure Code(s): I50.32 - CHRONIC DIASTOLIC (CONGESTIVE) HEART FAILURE Status: Chronic (6) PAD (peripheral artery disease) Code(s): I73.9 - PERIPHERAL VASCULAR DISEASE, UNSPECIFIED Status: Chronic - Plan increase amlodipine to 10mg qd, increase ins 70/30 to 20 bid -: CT ls spine, RO spinal stenosis * .
[2017-08-02 11:18] LABS: Anion Gap 16 mmol/L (10-20); BUN (Urea Nitrogen) 62 mg/dL (8.4-25.7); Calc. Creatinine Clearance 46 mL/min (70-130); Calcium 7.4 mg/dL (7.8-10.44); Carbon Dioxide 16 mmol/L (22-29); Chloride 103 mmol/L (98-107); Estimated GFR-MDRD 42
[2017-08-02] MEDS ORDERED: Insulin NPH/Reg Insulin Hm 300 UNITS/3 ML VIAL SC SCH (12:00)
[2017-08-02] MEDS: HumaLOG 300 UNITS/3 ML VIAL SC PRN (12:25)
--- NOTE | 2017-08-02 15:53 | CT ---
HISTORY: Back pain, weakness in legs. CT LUMBAR SPINE; 08/02/17 FINDINGS/IMPRESSION: Axial images are obtained with coronal and sagittal reconstructions. There is vacuum disc changes wi th disc space height loss at L1-2, L3-4, L4-5 and L5-S1. Broad based central disc protrusions seen at L3-4, L4-5 and L5-S1. No significant evidence of lumbar spine fractures seen. There is some moderate significant right L3-4, L4-5 and L5-S1 neural foramina l narrowing. Moderate left L5-S1 neural foraminal narrowing is seen. Atherosclerotic calcifications of the abdominal aorta seen. Lower lumbar degenerative changes. Multilevel disc degeneration is seen as described above. Incidentally noted pancreatic calcifications also seen. Also see patient's MRI which was obtained on 07/28/17. POS: DESIREE
[2017-08-02] MEDS ORDERED: Furosemide 40 MG/4 ML VIAL SLOW IVP SCH (16:00)
--- NOTE | 2017-08-02 19:23 | PRG ---
DATE OF SERVICE: 08/02/2017 SUBJECTIVE: Patient was seen and examined at bedside and overnight events noted. Patient denies an y shortness of breath or chest pain or palpitation. No history of nausea or vomiting or diarrhea or fever or chills or cramps. OBJECTIVE: GENERAL: This is a well-built male, in no acute distress. VITAL SIGNS: Temperature 97.7, pulse 60, respirations 18, and blood pressure 192/88. HEENT: Atraumatic, normocephalic, oral mucosa is moist. NECK: Supple. CARDIOVASCULAR: S1, S2 heard, rate and rhythm regular. RESPIRATORY: Clear to auscultation. GASTROINTESTINAL: Abdomen is soft. MUSCULOSKELETAL: 2+ edema. DERMATOLOGIC: No skin rash. NEUROLOGIC: Alert and awake and oriented x3, no focal neurologic deficits. Moving all the extremit ies. PSYCHIATRIC: Mood and affect normal. LABORATORY DATA: Potassium is 5.5, sodium 129, BUN 62, creatinine was 1.7. ASSESSMENT AND PLAN: 1. Acute kidney injury, stable, most likely cardiorenal syndrome. We will change to IV Lasix. 2. Hyperkalemia. Limit potassium in the diet and recommend renal diet and we will add Lasix. We w ill stop metolazone for now. 3. Hyponatremia, we will stop metolazone and limit fluid intake. 4. Edema. 5. Tobacco abuse. 6. Anemia of chronic disease. The plan is to change Lasix to IV and we will follow.
[2017-08-02] MEDS: Atorvastatin Calcium 20 MG TAB PO SCH (22:31)
[2017-08-03] MEDS: HYDROcodone/Acetaminophen 10/325 mg Tablet PO PRN ×5 (04:00→20:26)
[2017-08-03] MEDS: Furosemide 40 MG/4 ML VIAL SLOW IVP SCH ×3 (05:19→21:38)
[2017-08-03] MEDS: Carvedilol 25 MG TAB PO SCH ×2 (08:26→16:34)
[2017-08-03] MEDS: Docusate 100 MG CAP PO SCH ×2 (08:29→20:26)
[2017-08-03] MEDS: Famotidine 20 MG TAB PO SCH ×2 (08:30→20:30)
[2017-08-03] MEDS: Heparin 5,000 UNITS/ML VIAL SC SCH ×3 (08:32→20:31)
[2017-08-03] MEDS: Insulin NPH/Reg Insulin Hm 300 UNITS/3 ML VIAL SC SCH ×2 (08:33→20:30)
[2017-08-03] MEDS: HumaLOG 300 UNITS/3 ML VIAL SC PRN (08:35)
--- NOTE | 2017-08-03 11:27 | PDOC.PN ---
- Subjective Encounter Start Date: 08/03/17 Encounter Start Time: 11:25 Subjective: only CO is back , leg pain - Objective Resuscitation Status: Resuscitation Status FULL:Full Resuscitation MAR Reviewed: Yes Vital Signs & Weight: Vital Signs (12 hours) Pulse BP 08/03/17 08:30 79 216/99 H 08/03/17 08:27 72 216/99 H Weight Weight 146 lb 14.4 oz I&O: 08/02/17 08/03/17 08/04/17 06:59 06:59 06:59 Intake Total 1560 5690 360 Output Total 600 1800 Balance 960 3890 360 Result Diagrams: 07/27/17 06:12 08/02/17 10:13 Additional Labs: Accuchecks 08/03/17 08/02/17 08/02/17 05:36 20:06 17:18 POC Glucose 291 H 536 H 321 H 08/02/17 08/02/17 10:46 04:05 POC Glucose 247 H 98 Phys Exam - Physical Examination Constitutional: NAD Neck: no JVD Respiratory: clear to auscultation bilateral Cardiovascular: RRR, no significant murmur Gastrointestinal: soft, positive bowel sounds Musculoskeletal: no edema Dx/Plan (1) DM type 2, uncontrolled, with renal complications Code(s): E11.29 - TYPE 2 DIABETES MELLITUS W OTH DIABETIC KIDNEY COMPLICATION; E11.65 - TYPE 2 DIABETES MELLITUS WITH HYPERGLYCEMIA Status: Acute Qualifiers: Diabetes mellitus complication detail: with chronic kidney disease Chronic kidney disease stage: stage 3 (moderate) (2) CKD (chronic kidney disease) stage 3, GFR 30-59 ml/min Code(s): N18.3 - CHRONIC KIDNEY DISEASE, STAGE 3 (MODERATE) Status: Chronic (3) CAD (coronary artery disease) Code(s): I25.10 - ATHSCL HEART DISEASE OF [place] CORONARY ARTERY W/O ANG PCTRS Status: Chronic Qualifiers: Coronary Disease-Associated Artery/Lesion type: [place] artery [place] vs. transplanted heart: [place] heart Associated angina: without angina Qualified Code(s): I25.10 - Atherosclerotic heart disease of [place] coronary artery without angina pectoris (4) Chronic diastolic (congestive) heart failure Code(s): I50.32 - CHRONIC DIASTOLIC (CONGESTIVE) HEART FAILURE Status: Chronic (5) PAD (peripheral artery disease) Code(s): I73.9 - PERIPHERAL VASCULAR DISEASE, UNSPECIFIED Status: Chronic (6) Malignant essential hypertension with CHF, NYHA class 3 Code(s): I11.0 - HYPERTENSIVE HEART DISEASE WITH HEART FAILURE Status: Acute - Plan htn remains uncontrolled, will add minoxidyl -: carlene SANDERS pending -: accu/ ss/ longacting insulin -: continues to refuse meds- suspect malingering in addition to other problems -: discussed with staff * .
[2017-08-03 12:42] LABS: Anion Gap 17 mmol/L (10-20); BUN (Urea Nitrogen) 61 mg/dL (8.4-25.7); Calc. Creatinine Clearance 45 mL/min (70-130); Calcium 7.7 mg/dL (7.8-10.44); Carbon Dioxide 16 mmol/L (22-29); Chloride 104 mmol/L (98-107); Estimated GFR-MDRD 41
[2017-08-03] MEDS: Minoxidil 10 MG TAB PO SCH (12:50)
--- NOTE | 2017-08-03 17:29 | PRG ---
DATE OF SERVICE: 08/03/2017 SUBJECTIVE: Patient was seen and examined at bedside and overnight events noted. Patient denies any shortness of breath or chest pain or palpitation. No history of nausea or vomiting or diarrhea or fever or chills or cramps. OBJECTIVE: GENERAL: This is a well-built male in no apparent distress. VITAL SIGNS: Temperature 97.9, pulse 71, respiratory rate 18, blood pressure 149/71. HEENT: Atraumatic, normocephalic. Oral mucosa is moist. NECK: Supple. CARDIOVASCULAR: S1 and S2 heard, rate and rhythm regular. RESPIRATORY: Clear to auscultation. GASTROINTESTINAL: Abdomen is soft. MUSCULOSKELETAL: No tenderness, no edema. DERMATOLOGIC: No skin rash. NEUROLOGIC: Alert and awake and oriented X3. No focal neurologic deficits. Moving all the extremities. PSYCHIATRIC: Mood and affect normal. LABORATORY DATA: Pending. ASSESSMENT AND PLAN: 1. Acute kidney injury. Recheck labs. 2. Hyperkalemia. Limit potassium intake. 3. Edema. 4. Tobacco abuse, counseled. 5. Anemia. 6. Hyponatremia. Overall prognosis is poor. Limit potassium intake and we will follow. SHIRAD
[2017-08-03] MEDS: Atorvastatin Calcium 20 MG TAB PO SCH (20:26)
[2017-08-03] MEDS: Hydrocortisone 1% Cream 1.5 GM Packet TOP PRN (20:42)
[2017-08-04] MEDS: HYDROcodone/Acetaminophen 10/325 mg Tablet PO PRN ×6 (00:17→21:31)
[2017-08-04 08:30] LABS: Anion Gap 13 mmol/L (10-20); BUN (Urea Nitrogen) 67 mg/dL (8.4-25.7); Calc. Creatinine Clearance 41 mL/min (70-130); Calcium 7.6 mg/dL (7.8-10.44); Carbon Dioxide 19 mmol/L (22-29); Chloride 102 mmol/L (98-107); Estimated GFR-MDRD 36
[2017-08-04] MEDS: Carvedilol 25 MG TAB PO SCH ×2 (08:44→17:40)
[2017-08-04] MEDS: Insulin NPH/Reg Insulin Hm 300 UNITS/3 ML VIAL SC SCH ×2 (08:44→20:34)
[2017-08-04] MEDS: Minoxidil 10 MG TAB PO SCH (08:45)
[2017-08-04] MEDS: Heparin 5,000 UNITS/ML VIAL SC SCH (08:46)
[2017-08-04] MEDS: Docusate 100 MG CAP PO SCH ×2 (08:48→20:25)
[2017-08-04] MEDS: Famotidine 20 MG TAB PO SCH ×2 (08:48→20:25)
[2017-08-04] MEDS: Sodium Chloride 0.9% 1,000 ML IV SCH (08:48)
--- NOTE | 2017-08-04 10:00 | PDOC.PN ---
- Subjective Encounter Start Date: 08/04/17 Encounter Start Time: 09:59 Subjective: runny nose, wants benedryl - Objective Resuscitation Status: Resuscitation Status FULL:Full Resuscitation MAR Reviewed: Yes Vital Signs & Weight: Vital Signs (12 hours) Temp Pulse Resp BP BP BP Pulse Ox 08/04/17 08:46 76 181/85 H 08/04/17 08:44 76 181/85 H 08/04/17 08:43 98.6 F 76 17 181/85 H 97 08/04/17 04:00 98.6 F 73 18 137/67 92 L Weight Weight 153 lb I&O: 08/03/17 08/04/17 08/05/17 06:59 06:59 06:59 Intake Total 5690 1440 Output Total 1800 Balance 3890 1440 Result Diagrams: 07/27/17 06:12 08/04/17 07:56 Additional Labs: Accuchecks 08/04/17 08/03/17 08/03/17 05:52 20:57 17:02 POC Glucose 250 H 169 H 74 08/03/17 11:24 POC Glucose 111 H Phys Exam - Physical Examination Constitutional: NAD Neck: no JVD Respiratory: clear to auscultation bilateral Cardiovascular: RRR, no significant murmur Gastrointestinal: soft, positive bowel sounds Musculoskeletal: edema present Dx/Plan (1) DM type 2, uncontrolled, with renal complications Code(s): E11.29 - TYPE 2 DIABETES MELLITUS W OTH DIABETIC KIDNEY COMPLICATION; E11.65 - TYPE 2 DIABETES MELLITUS WITH HYPERGLYCEMIA Status: Acute Qualifiers: Diabetes mellitus complication detail: with chronic kidney disease Chronic kidney disease stage: stage 3 (moderate) (2) CKD (chronic kidney disease) stage 3, GFR 30-59 ml/min Code(s): N18.3 - CHRONIC KIDNEY DISEASE, STAGE 3 (MODERATE) Status: Chronic (3) CAD (coronary artery disease) Code(s): I25.10 - ATHSCL HEART DISEASE OF [place] CORONARY ARTERY W/O ANG PCTRS Status: Chronic Qualifiers: Coronary Disease-Associated Artery/Lesion type: [place] artery [place] vs. transplanted heart: [place] heart Associated angina: without angina Qualified Code(s): I25.10 - Atherosclerotic heart disease of [place] coronary artery without angina pectoris (4) Chronic diastolic (congestive) heart failure Code(s): I50.32 - CHRONIC DIASTOLIC (CONGESTIVE) HEART FAILURE Status: Chronic (5) PAD (peripheral artery disease) Code(s): I73.9 - PERIPHERAL VASCULAR DISEASE, UNSPECIFIED Status: Chronic (6) Malignant essential hypertension with CHF, NYHA class 3 Code(s): I11.0 - HYPERTENSIVE HEART DISEASE WITH HEART FAILURE Status: Acute - Plan BP better on minovidyl(SP?) -: arteriograms legs today -: cont accu/ss, insulin * .
[2017-08-04] MEDS ORDERED: Fentanyl 100 MCG/2 ML VIAL ONE (11:34)
--- NOTE | 2017-08-04 11:58 | PRG ---
DATE OF SERVICE: 08/04/2017 SUBJECTIVE: This is a 57-year-old gentleman being seen for acute kidney injury. The patient denies any nausea, vomiting or chest pain. PHYSICAL EXAMINATION: GENERAL: Patient is awake, alert. VITAL SIGNS: Afebrile, pulse 66, breathing at 16, blood pressure 119/65. HEAD/NECK: Normocephalic, atraumatic. EYES: EOMI. No deformity. EARS: Clear. No ulcers. NOSE: Intact. No lesions. MOUTH: Clear. No discharge. THROAT: Clear. No exudate. LUNGS: Clear. No crackles. CARDIAC: S1, S2. No rub. ABDOMEN: Benign. BS+. GENITALIA/RECTUM: Flaherty absent. BACK/EXTREMITIES: Edema 0+ Ulcer-. NEUROLOGICAL: Alert and motor intact. SKIN: Rash- Bruise- LYMPHATICS: Edema- Ulcer-. LABORATORY DATA: Show hemoglobin 10.2. Sodium 129, potassium 5.0. ASSESSMENT AND RECOMMENDATIONS: 1. Chronic kidney disease stage 3, stable. 2. Hypertension, stable. 3. Anemia, stable. 4. Medications based on glomerular filtration rate are appropriate. [facility] and then decide if further intervention is needed.
[2017-08-04] MEDS ORDERED: Heparin 10,000 UNITS/1 ML VIAL ONE (12:03)
[2017-08-04] MEDS ORDERED: Protamine Sulfate 50 MG/5 ML VIAL ONE (13:12)
--- NOTE | 2017-08-04 14:49 | OP ---
PREOPERATIVE DIAGNOSES: Severe bilateral lower extremity peripheral arterial disease with lifestyle limiting calf claudication, left greater than right. SURGEON: Epi Forrester M.D. RESTAURANT AREA DIRECTOR: Jack. POSTOPERATIVE DIAGNOSES: Severe bilateral lower extremity peripheral arterial disease with lifestyle limiting calf claudication, left greater than right. ANESTHESIA: Intravenous sedation and local at right groin access site. PROCEDURES PERFORMED: 1. Ultrasound-guided access right common femoral artery. 2. Aortogram with iliofemoral runoff. 3. Selective left superficial femoral angiogram. 4. BILLIARD TABLE MECHANIC distal left SFA (Lutonix 6 x 80 at 7 atmospheres for 3 minutes). 5. BILLIARD TABLE MECHANIC mid left SFA (Lutonix 5 x 80 at 6 atmospheres for 3 minutes). 6. Sheath injection right lower extremity runoff. FINDINGS/INTERPRETATION: 1. Patent right and left renal arteries with no evident stenoses. 2. Patent but small infrarenal abdominal aorta. 3. Patent but small bilateral iliac artery systems with mild to moderate atherosclerotic irregularities. 4. Patent left common femoral artery and profunda. Diffusely calcified SFA. Moderate to severe mid SFA stenotic disease culminating in a focal, 1 cm subtotaled lesion. Severe distal SFA stenotic disease just prior to crossing the femur. Popliteal artery appeared patent across the knee giving rise to three-vessel runoff to the foot. The posterior tibial and peroneal arteries had no apparent disease. The proximal aspect of the anterior tibial artery had sequential areas of moderate stenosis. 6. Patent right common femoral artery and profunda. Diffuse SFA disease with multiple areas of mild to moderate stenosis. Popliteal artery appeared patent across the knee giving rise to what appeared to represent at least proximally 3- vessel runoff to the foot. DESCRIPTION OF PROCEDURE: The patient was taken to the angiography suite. He was prepped and draped in the usual sterile fashion. Intravenous sedation was achieved with fentanyl. At the proposed access site, local anesthesia was achieved with 1% Xylocaine. Using ultrasound guidance, the right common femoral artery was easily accessed with passage of the [employer] guidewire and 5- Irish sheath. Contra catheter was advanced. Aortogram with iliofemoral runoff was performed. Bifurcation was able to be negotiated. Catheter tip was parked in the proximal left common femoral artery and selective left lower extremity runoff performed. To better ascertain the runoff status below the knee, the Contra cath was exchanged for an angled glide cath. Catheter tip was parked just above the knee and selective left superficial femoral angiogram performed. Decision was made to intervene to the mid and distal SFA areas of stenosis. 5-Irish sheath was exchanged for a 6-Irish destination sheath. This was facilitated by exchanging the [employer] guidewire for Magic Torque wire. The distal SFA area of disease was treated with the Lutonix 6 x 80 balloon at 7 atmospheres for 3 minutes. This balloon was then carried cephalad and used to predilate the subtotaled mid SFA stenosis. Balloon catheter was removed and exchanged for the 5 x 80 Lutonix balloon. Inflation was carried across the mid SFA, including the area of subtotal stenosis, at 6 atmospheres for 3 minutes. Balloon catheter was removed. Sheath injection revealed what appeared to represent a mild area of dissection at the distal SFA. This was successfully treated with repassage of the 6 x 80 Lutonix balloon. Destination sheath was backed out over the Magic Torque Wire. Catheter tip was parked in the distal right external iliac artery. Sheath injection right lower extremity runoff was performed. Findings as described above. Previously, given total of 8,000 units of heparin was reversed with 15 mg of protamine as ACT was 180. Sheath was subsequently pulled and pressure held. The patient appeared to tolerate the procedure without evident problems. Blood loss less than 20 mL. Total contrast 36 mL FLUOROSCOPY TIME: 15.5 minutes. MTDD
[2017-08-04] MEDS ORDERED: Iopamidol 370 76% 50 ML VIAL FS ONE (17:13)
[2017-08-04] MEDS: Atorvastatin Calcium 20 MG TAB PO SCH (20:25)
[2017-08-05] MEDS: HYDROcodone/Acetaminophen 10/325 mg Tablet PO PRN ×5 (01:53→22:49)
[2017-08-05] MEDS: diphenhydrAMINE HCl 25 MG CAP PO PRN (01:55)
[2017-08-05] MEDS: Sodium Chloride 0.9% 1,000 ML IV SCH ×2 (01:59→22:55)
[2017-08-05] MEDS: Carvedilol 25 MG TAB PO SCH ×2 (08:31→17:12)
[2017-08-05] MEDS: Famotidine 20 MG TAB PO SCH ×2 (08:35→21:24)
[2017-08-05] MEDS: Minoxidil 10 MG TAB PO SCH (08:35)
[2017-08-05] MEDS: Docusate 100 MG CAP PO SCH ×2 (08:35→21:23)
[2017-08-05] MEDS: Insulin NPH/Reg Insulin Hm 300 UNITS/3 ML VIAL SC SCH ×2 (09:00→21:28)
--- NOTE | 2017-08-05 09:09 | PDOC.PN ---
- Subjective Encounter Start Date: 08/05/17 Encounter Start Time: 09:07 Subjective: No f/c -: No n/v -: b/l le pain controlled - Objective Resuscitation Status: Resuscitation Status FULL:Full Resuscitation MAR Reviewed: Yes Vital Signs & Weight: Vital Signs (12 hours) Temp Pulse Resp BP Pulse Ox 08/05/17 08:34 108 H 08/05/17 08:32 108 H 08/05/17 08:17 98.7 F 108 H 18 160/75 H 95 08/05/17 04:00 98.3 F 76 18 127/66 96 Weight Weight 161 lb I&O: 08/04/17 08/05/17 08/06/17 06:59 06:59 06:59 Intake Total 1440 Balance 1440 Result Diagrams: 07/27/17 06:12 08/05/17 08:32 Additional Labs: Accuchecks 08/05/17 08/04/17 08/04/17 05:41 20:31 17:48 POC Glucose 222 H 535 H Greater than 550 H* 08/04/17 11:10 POC Glucose 282 H Phys Exam - Physical Examination Constitutional: NAD HEENT: moist MMs, sclera anicteric Neck: no nodes, no JVD Respiratory: no wheezing, no rales Cardiovascular: no significant murmur, no rub Gastrointestinal: soft, non-tender, positive bowel sounds Neurological: non-focal Psychiatric: normal affect Dx/Plan (1) Acute kidney injury Code(s): N17.9 - ACUTE KIDNEY FAILURE, UNSPECIFIED Status: Acute Comment: Kidney function better. f/u chemistry. (2) DM type 2, uncontrolled, with renal complications Code(s): E11.29 - TYPE 2 DIABETES MELLITUS W OTH DIABETIC KIDNEY COMPLICATION; E11.65 - TYPE 2 DIABETES MELLITUS WITH HYPERGLYCEMIA Status: Acute Qualifiers: Diabetes mellitus complication detail: with chronic kidney disease Chronic kidney disease stage: stage 3 (moderate) (3) Hypertension, uncontrolled Code(s): I10 - ESSENTIAL (PRIMARY) HYPERTENSION Status: Chronic (4) PAD (peripheral artery disease) Code(s): I73.9 - PERIPHERAL VASCULAR DISEASE, UNSPECIFIED Status: Chronic - Plan Severe PAD resulting in b/l LE pain * appreciate cardiovascular surgery input * s/p b/l LE arteriograms on 08-04-17 with LEATHER BELT LOOP CUTTER of distal Left SFA and mid Left SFA * continue current meds * check labs in AM CHRISTINA on CKD3 * avoid nephrotoxic agents * check renal labs in AM Tobacco Abuse * pt counseled on cessation, but unfortunately he is very resistant. Last time he tried to quit, he lasted 9 months but "gained too much weight" and he doesn' t want to "go through that again". He is aware that smoking will contribute to the worsening of his PAD symptoms. Dispo: Continue inpt.
[2017-08-05 09:11] LABS: Anion Gap 11 mmol/L (10-20); BUN (Urea Nitrogen) 68 mg/dL (8.4-25.7); Calc. Creatinine Clearance 46 mL/min (70-130); Carbon Dioxide 19 mmol/L (22-29); Chloride 101 mmol/L (98-107); Estimated GFR-MDRD 38
[2017-08-05] MEDS: Hydrocortisone 1% Cream 1.5 GM Packet TOP PRN (10:12)
--- NOTE | 2017-08-05 10:31 | PRG ---
DATE OF SERVICE: 08/05/2017 SUBJECTIVE: This is a 57-year-old gentleman being seen for acute kidney injury. The patient denies any nausea, vomiting or chest pain. PHYSICAL EXAMINATION: GENERAL: Patient is awake, alert. VITAL SIGNS: Afebrile, pulse 108, breathing at 16, blood pressure 160/75. HEAD/NECK: Normocephalic, atraumatic. EYES: EOMI. No deformity. EARS: Clear. No ulcers. NOSE: Intact. No lesions. MOUTH: Clear. No discharge. THROAT: Clear. No exudate. LUNGS: Clear. No crackles. CARDIAC: S1, S2. No rub. ABDOMEN: Benign. BS+. GENITALIA/RECTUM: Flaherty absent. BACK/EXTREMITIES: Edema 0+ Ulcer-. NEUROLOGICAL: Alert and motor intact. SKIN: Rash- Bruise- LYMPHATICS: Edema- Ulcer-. LABORATORY DATA: Show hemoglobin 9.2, creatinine 1.8. ASSESSMENT AND RECOMMENDATIONS: 1. Chronic kidney disease stage 3, stable. 2. Hypertension, stable. 3. Hyponatremia. Recommend limiting fluid intake. 4. Medication based on glomerular filtration rate are appropriate. 5. Edema. 6. Congestive heart failure. We would recommend Lasix 40 mg p.o.
[2017-08-05] MEDS: HumaLOG 300 UNITS/3 ML VIAL SC PRN ×2 (14:49→17:13)
[2017-08-05] MEDS: Atorvastatin Calcium 20 MG TAB PO SCH (21:24)
[2017-08-06] MEDS: HYDROcodone/Acetaminophen 10/325 mg Tablet PO PRN ×6 (02:51→23:01)
[2017-08-06 07:23] LABS: Anion Gap 15 mmol/L (10-20); BUN (Urea Nitrogen) 73 mg/dL (8.4-25.7); Calc. Creatinine Clearance 40 mL/min (70-130); Calcium 7.5 mg/dL (7.8-10.44); Carbon Dioxide 16 mmol/L (22-29); Chloride 102 mmol/L (98-107); Estimated GFR-MDRD 32
[2017-08-06] MEDS: Carvedilol 25 MG TAB PO SCH ×2 (07:59→17:56)
--- NOTE | 2017-08-06 09:46 | PDOC.PN ---
- Subjective Encounter Start Date: 08/06/17 Encounter Start Time: 09:43 Subjective: B/L LE pain worse today -: No palpitations/cp/sob - Objective Resuscitation Status: Resuscitation Status FULL:Full Resuscitation MAR Reviewed: Yes Vital Signs & Weight: Vital Signs (12 hours) Temp Pulse Resp BP Pulse Ox 08/06/17 04:00 98.6 F 77 18 135/70 95 Weight Weight 160 lb I&O: 08/05/17 08/06/17 08/07/17 06:59 06:59 06:59 Intake Total 480 Output Total 420 Balance 60 Result Diagrams: 07/27/17 06:12 08/06/17 06:41 Additional Labs: Accuchecks 08/05/17 08/05/17 08/05/17 20:35 16:48 11:21 POC Glucose 288 H 272 H 246 H Phys Exam - Physical Examination Constitutional: NAD HEENT: moist MMs, sclera anicteric Neck: no nodes, no JVD Respiratory: no rales, no rhonchi Cardiovascular: no significant murmur, no rub Gastrointestinal: soft, non-tender, positive bowel sounds b/l le edema Deviation from normal: flat affect Dx/Plan (1) Acute kidney injury Code(s): N17.9 - ACUTE KIDNEY FAILURE, UNSPECIFIED Status: Acute Comment: Kidney function better. f/u chemistry. (2) DM type 2, uncontrolled, with renal complications Code(s): E11.29 - TYPE 2 DIABETES MELLITUS W OTH DIABETIC KIDNEY COMPLICATION; E11.65 - TYPE 2 DIABETES MELLITUS WITH HYPERGLYCEMIA Status: Acute Qualifiers: Diabetes mellitus complication detail: with chronic kidney disease Chronic kidney disease stage: stage 3 (moderate) (3) Hypertension, uncontrolled Code(s): I10 - ESSENTIAL (PRIMARY) HYPERTENSION Status: Chronic (4) PAD (peripheral artery disease) Code(s): I73.9 - PERIPHERAL VASCULAR DISEASE, UNSPECIFIED Status: Chronic - Plan Severe PAD resulting in b/l LE pain * appreciate cardiovascular surgery input * s/p b/l LE arteriograms on 08-04-17 with STORAGE GARAGE MANAGER of distal Left SFA and mid Left SFA * pain worse today - will need to get this controlled prior to discharge * check labs in AM CHRISTINA on CKD3 (now with hyperkalemia) * avoid nephrotoxic agents * check renal labs in AM Tobacco Abuse * pt counseled on cessation, but unfortunately he is very resistant. Last time he tried to quit, he lasted 9 months but "gained too much weight" and he doesn' t want to "go through that again". He is aware that smoking will contribute to the worsening of his PAD symptoms. Dispo: Continue inpt. Will need to work on pain control and hyperkalemia prior to discharge.
[2017-08-06] MEDS: Minoxidil 10 MG TAB PO SCH (09:57)
[2017-08-06] MEDS: Famotidine 20 MG TAB PO SCH ×2 (09:58→20:54)
[2017-08-06] MEDS: Docusate 100 MG CAP PO SCH ×2 (09:59→20:54)
[2017-08-06] MEDS ORDERED: Furosemide 20 MG/2 ML VIAL SLOW IVP SCH (10:30)
[2017-08-06] MEDS: Heparin 5,000 UNITS/ML VIAL SC SCH ×3 (10:49→20:55)
[2017-08-06] MEDS: Insulin NPH/Reg Insulin Hm 300 UNITS/3 ML VIAL SC SCH ×2 (11:19→20:55)
--- NOTE | 2017-08-06 12:13 | PRG ---
DATE OF SERVICE: 08/06/2017 SUBJECTIVE: This is a 57-year-old gentleman being seen for acute kidney injury. The patient denies any nausea, vomiting or chest pain. PHYSICAL EXAMINATION: GENERAL: Patient is awake, alert. VITAL SIGNS: Afebrile, pulse 72, breathing at 16, blood pressure 135/70. OBJECTIVE: See above. Awake, alert, in no acute distress. GENERAL APPEARANCE AND MENTAL STATUS: Fair. HEAD/NECK: Normocephalic. Atraumatic. EYES: EOMI. No deformity. EARS: Clear. No ulcers. NOSE: Intact. No lesions. MOUTH: Clear. No discharge. THROAT: Clear. No exudate. LUNGS: Clear. No crackles. CARDIAC: S1, S2. No rub. ABDOMEN: Benign. BS+. GENITALIA/RECTUM: Flaherty absent. BACK/EXTREMITIES: Edema 0+ Ulcer- NEUROLOGICAL: Alert and motor intact. SKIN: Rash- Bruise- LYMPHATICS: Edema- Ulcer- LABORATORY: Sodium 128, potassium 5.3, creatinine 2.1. ASSESSMENT AND RECOMMENDATIONS: 1. Acute kidney injury with chronic kidney disease due to cardiorenal syndrome. Continue diuresis. 2. Hypertension, stable. 3. Hyperkalemia. Start Lasix. 4. Metabolic acidosis. Start sodium bicarbonate. The risks versus benefits for treatment were discussed. Overall prognosis is poor.
[2017-08-06 14:23] VITALS: BMI 22.9
[2017-08-06] MEDS: Sodium Bicarbonate Tab 325 MG TAB PO SCH ×2 (15:14→20:54)
[2017-08-06] MEDS: Atorvastatin Calcium 20 MG TAB PO SCH (20:54)
[2017-08-06] MEDS: Sodium Chloride 0.9% 1,000 ML IV SCH (20:56)
[2017-08-07] MEDS: HYDROcodone/Acetaminophen 10/325 mg Tablet PO PRN ×6 (03:00→23:28)
[2017-08-07 08:02] LABS: Anion Gap 15 mmol/L (10-20); BUN (Urea Nitrogen) 74 mg/dL (8.4-25.7); Calc. Creatinine Clearance 39 mL/min (70-130); Calcium 8.1 mg/dL (7.8-10.44); Carbon Dioxide 17 mmol/L (22-29); Chloride 103 mmol/L (98-107); Estimated GFR-MDRD 31
--- NOTE | 2017-08-07 08:42 | PDOC.PN ---
- Subjective Encounter Start Date: 08/07/17 Encounter Start Time: 09:06 Subjective: B/l Leg pain still an issue -: Hyperkalemic today -: No f/c - Objective Resuscitation Status: Resuscitation Status FULL:Full Resuscitation MAR Reviewed: Yes Vital Signs & Weight: Vital Signs (12 hours) Temp Pulse Resp BP Pulse Ox 08/07/17 04:00 82 18 138/67 93 L 08/06/17 20:55 98.6 F 71 18 95 08/06/17 20:51 98.6 F 71 18 124/60 95 Weight Admit Weight 143 lb 9 oz Weight 162 lb I&O: 08/06/17 08/07/17 08/08/17 06:59 06:59 06:59 Intake Total 480 400 Output Total 420 Balance 60 400 Result Diagrams: 07/27/17 06:12 08/07/17 07:29 Additional Labs: Accuchecks 08/06/17 08/06/17 08/06/17 20:07 16:45 11:47 POC Glucose 401 H 321 H 374 H 08/06/17 06:09 POC Glucose 183 H Phys Exam - Physical Examination Constitutional: NAD HEENT: moist MMs, sclera anicteric Neck: no nodes, no JVD Respiratory: no rales, no rhonchi Cardiovascular: no significant murmur, no rub Gastrointestinal: non-tender, positive bowel sounds Neurological: non-focal Lymphatic: no nodes Deviation from normal: b/l LE edema Dx/Plan (1) Acute kidney injury Code(s): N17.9 - ACUTE KIDNEY FAILURE, UNSPECIFIED Status: Acute Comment: Kidney function better. f/u chemistry. (2) DM type 2, uncontrolled, with renal complications Code(s): E11.29 - TYPE 2 DIABETES MELLITUS W OTH DIABETIC KIDNEY COMPLICATION; E11.65 - TYPE 2 DIABETES MELLITUS WITH HYPERGLYCEMIA Status: Acute Qualifiers: Diabetes mellitus complication detail: with chronic kidney disease Chronic kidney disease stage: stage 3 (moderate) (3) Hypertension, uncontrolled Code(s): I10 - ESSENTIAL (PRIMARY) HYPERTENSION Status: Chronic (4) PAD (peripheral artery disease) Code(s): I73.9 - PERIPHERAL VASCULAR DISEASE, UNSPECIFIED Status: Chronic - Plan Severe PAD resulting in b/l LE pain * appreciate cardiovascular surgery input * s/p b/l LE arteriograms on 9-25-17 with SHOW JUMPING INSTRUCTOR of distal Left SFA and mid Left SFA * pain worse today - will need to get this controlled prior to discharge * check labs in AM CHRISTINA on CKD3 (now with hyperkalemia) * avoid nephrotoxic agents * check renal labs in AM Tobacco Abuse * pt counseled on cessation, but unfortunately he is very resistant. Last time he tried to quit, he lasted 9 months but "gained too much weight" and he doesn' t want to "go through that again". He is aware that smoking will contribute to the worsening of his PAD symptoms. Physical Deconditioning * consult CM for SNF eval Dispo: CM consulted for SNF eval.
[2017-08-07] MEDS: Carvedilol 25 MG TAB PO SCH ×2 (09:50→15:23)
[2017-08-07] MEDS: Docusate 100 MG CAP PO SCH ×2 (09:50→21:20)
[2017-08-07] MEDS: Minoxidil 10 MG TAB PO SCH (09:50)
[2017-08-07] MEDS: Famotidine 20 MG TAB PO SCH ×2 (09:50→21:20)
[2017-08-07] MEDS: Sodium Bicarbonate Tab 325 MG TAB PO SCH ×3 (09:50→21:21)
[2017-08-07] MEDS: Insulin NPH/Reg Insulin Hm 300 UNITS/3 ML VIAL SC SCH ×2 (09:53→23:34)
--- NOTE | 2017-08-07 10:21 | PRG ---
DATE OF SERVICE: 08/07/2017 SUBJECTIVE: This is a 57-year-old gentleman being seen for acute kidney injury, hyperkalemia. The patient denies any nausea, vomiting or chest pain. PHYSICAL EXAMINATION: GENERAL: Patient is awake, alert. VITAL SIGNS: Afebrile, pulse 82, breathing at 16, blood pressure 138/67. OBJECTIVE: See above. Awake, alert, in no acute distress. GENERAL APPEARANCE AND MENTAL STATUS: Fair. HEAD/NECK: Normocephalic. Atraumatic. EYES: EOMI. No deformity. EARS: Clear. No ulcers. NOSE: Intact. No lesions. MOUTH: Clear. No discharge. THROAT: Clear. No exudate. LUNGS: Clear. No crackles. CARDIAC: S1, S2. No rub. ABDOMEN: Benign. BS+. GENITALIA/RECTUM: Flaherty absent. BACK/EXTREMITIES: Edema 0+ Ulcer- NEUROLOGICAL: Alert and motor intact. SKIN: Rash- Bruise- LYMPHATICS: Edema- Ulcer- LABORATORY: Sodium 130, potassium 5.2, bicarbonate 17, creatinine 2.1. ASSESSMENT AND RECOMMENDATIONS: 1. Chronic kidney disease 3, stable with acute kidney injury. 2. Hyperkalemia. We will give Kayexalate. 3. Hyponatremia, stable. 4. Metabolic acidosis. Increase sodium bicarbonate to 975 t.i.d. No urgent indication for dialysis. Continue aggressive diuresis.
[2017-08-07] MEDS: Heparin 5,000 UNITS/ML VIAL SC SCH ×3 (11:33→21:19)
[2017-08-07] MEDS: Hydrocortisone 1% Cream 1.5 GM Packet TOP PRN (21:18)
[2017-08-07] MEDS: diphenhydrAMINE HCl 25 MG CAP PO PRN (21:19)
[2017-08-07] MEDS: Atorvastatin Calcium 20 MG TAB PO SCH (21:20)
[2017-08-08] MEDS: HYDROcodone/Acetaminophen 10/325 mg Tablet PO PRN ×5 (03:39→22:34)
[2017-08-08] MEDS ORDERED: Dextrose 50% Abboject 50 ML SYRINGE ONE (05:55)
[2017-08-08 06:12] LABS: Anion Gap 15 mmol/L (10-20); BUN (Urea Nitrogen) 69 mg/dL (8.4-25.7); Calc. Creatinine Clearance 41 mL/min (70-130); Calcium 7.8 mg/dL (7.8-10.44); Carbon Dioxide 18 mmol/L (22-29); Chloride 104 mmol/L (98-107); Estimated GFR-MDRD 33
[2017-08-08] MEDS ORDERED: Mag-Al 1200 mg/1200 mg/30 ML UDCUP PO PRN (07:23)
[2017-08-08] MEDS ORDERED: Milk Of Magnesia 30 ML UDCUP PO PRN (07:23)
[2017-08-08] MEDS ORDERED: Eucerin (Mineral Oil/Petrolatum,White) 30 gm Jar TOP PRN (07:23)
[2017-08-08] MEDS ORDERED: cloNIDine HCl 0.1 MG TAB PO PRN (07:23)
[2017-08-08] MEDS ORDERED: Artificial Tears 18 DROP/0.9 ML EA EYE PRN (07:23)
[2017-08-08] MEDS ORDERED: Sodium Chloride 0.65% Nasal 44 ML BOT EA NARE PRN (07:23)
[2017-08-08] MEDS ORDERED: Senokot 8.6 MG TAB PO PRN (07:23)
[2017-08-08] MEDS ORDERED: Diabetic Tussin 200 MG/10 ML UDCUP PO PRN (07:23)
--- NOTE | 2017-08-08 07:43 | PRG ---
DATE OF SERVICE: 08/08/2017 SUBJECTIVE: This is a 57-year-old gentleman being seen for acute kidney injury. The patient denies any nausea, vomiting or chest pain. PHYSICAL EXAMINATION: GENERAL: Patient is awake, alert. VITAL SIGNS: Afebrile, pulse 95, breathing 16, blood pressure 183/86. GENERAL APPEARANCE AND MENTAL STATUS: Fair. HEAD/NECK: Normocephalic. Atraumatic. EYES: EOMI. No deformity. EARS: Clear. No ulcers. NOSE: Intact. No lesions. MOUTH: Clear. No discharge. THROAT: Clear. No exudate. LUNGS: Clear. No crackles. CARDIAC: S1, S2. No rub. ABDOMEN: Benign. BS+. GENITALIA/RECTUM: Flaherty absent. BACK/EXTREMITIES: Edema 0+ Ulcer- NEUROLOGICAL: Alert and motor intact. SKIN: Rash- Bruise- LYMPHATICS: Edema- Ulcer- LABORATORY DATA: Show hemoglobin 10.2, creatinine 2.1. ASSESSMENT AND RECOMMENDATIONS: 1. Chronic kidney disease, stage 4, stable. 2. Hyponatremia, stable. 3. Anemia, stable. 4. Medications based on glomerular filtration rate are appropriate. 5. Edema. Continue Lasix 40 mg daily. I will order that medicine.
--- NOTE | 2017-08-08 09:12 | PDOC.PN ---
- Subjective Encounter Start Date: 08/08/17 Encounter Start Time: 07:50 -: old records requested/rev last night his blood sugar dropped, he prefers to go to [facility] on discharge - Objective Resuscitation Status: Resuscitation Status FULL:Full Resuscitation MAR Reviewed: Yes Vital Signs & Weight: Vital Signs (12 hours) Temp Pulse Resp BP BP BP Pulse Ox 08/08/17 08:21 72 16 154/72 H 93 L 08/08/17 05:37 80 182/86 H 08/08/17 04:33 95 200/90 H 08/08/17 04:32 98.4 F 87 18 200/90 H 97 08/07/17 21:20 95 Weight Admit Weight 143 lb 9 oz Weight 163 lb 8 oz I&O: 08/07/17 08/08/17 08/09/17 06:59 06:59 06:59 Intake Total 400 810 Output Total 1250 Balance 400 -440 Result Diagrams: 07/27/17 06:12 08/08/17 05:19 Additional Labs: Accuchecks 08/08/17 08/08/17 08/08/17 08:26 06:41 06:12 POC Glucose 159 H 135 H 198 H 08/08/17 08/07/17 08/07/17 05:53 23:33 20:33 POC Glucose Less than 35 L* 237 H 214 H 08/07/17 08/07/17 16:32 11:30 POC Glucose 139 H 235 H EKG Reviewed by me: Yes (nsr) Phys Exam - Physical Examination Constitutional: NAD HEENT: PERRLA, moist MMs, sclera anicteric Neck: no JVD, supple Respiratory: no wheezing, no rales, no rhonchi Cardiovascular: RRR, no significant murmur, no rub Gastrointestinal: soft, non-tender, no distention, positive bowel sounds Musculoskeletal: pulses present, edema present Neurological: non-focal, normal sensation Lymphatic: no nodes Psychiatric: normal affect Skin: no rash, normal turgor Dx/Plan (1) Acute kidney injury Code(s): N17.9 - ACUTE KIDNEY FAILURE, UNSPECIFIED Status: Acute (2) DM type 2, uncontrolled, with renal complications Code(s): E11.29 - TYPE 2 DIABETES MELLITUS W OTH DIABETIC KIDNEY COMPLICATION; E11.65 - TYPE 2 DIABETES MELLITUS WITH HYPERGLYCEMIA Status: Chronic Qualifiers: Diabetes mellitus complication detail: with chronic kidney disease Chronic kidney disease stage: stage 3 (moderate) (3) CAD (coronary artery disease) Code(s): I25.10 - ATHSCL HEART DISEASE OF [place] CORONARY ARTERY W/O ANG PCTRS Status: Chronic Qualifiers: Coronary Disease-Associated Artery/Lesion type: [place] artery [place] vs. transplanted heart: [place] heart Associated angina: without angina Qualified Code(s): I25.10 - Atherosclerotic heart disease of [place] coronary artery without angina pectoris (4) CKD (chronic kidney disease) stage 3, GFR 30-59 ml/min Code(s): N18.3 - CHRONIC KIDNEY DISEASE, STAGE 3 (MODERATE) Status: Chronic (5) Chronic diastolic (congestive) heart failure Code(s): I50.32 - CHRONIC DIASTOLIC (CONGESTIVE) HEART FAILURE Status: Chronic (6) Hypertension, uncontrolled Code(s): I10 - ESSENTIAL (PRIMARY) HYPERTENSION Status: Chronic (7) PAD (peripheral artery disease) Code(s): I73.9 - PERIPHERAL VASCULAR DISEASE, UNSPECIFIED Status: Chronic (8) Anxiety and depression Code(s): F41.9 - ANXIETY DISORDER, UNSPECIFIED; F32.9 - MAJOR DEPRESSIVE DISORDER, SINGLE EPISODE, UNSPECIFIED Status: Chronic (9) Diabetes type 2, controlled Code(s): E11.9 - TYPE 2 DIABETES MELLITUS WITHOUT COMPLICATIONS Status: Chronic Qualifiers: Diabetes mellitus complication status: with kidney complications Diabetes mellitus complication detail: with chronic kidney disease 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 use: without [place] [facility] use Chronic kidney disease stage: stage 3 (moderate) Qualified Code(s): E11.22 - Type 2 diabetes mellitus with diabetic chronic kidney disease; N18.3 - Chronic kidney disease, stage 3 ( moderate) (10) Diabetic neuropathy Code(s): E11.40 - TYPE 2 DIABETES MELLITUS WITH DIABETIC NEUROPATHY, UNSP Status: Chronic Qualifiers: Diabetes mellitus type: type 2 (11) Nephrotic syndrome Code(s): N04.9 - NEPHROTIC SYNDROME WITH UNSPECIFIED MORPHOLOGIC CHANGES Status: Chronic (12) Tobacco abuse Code(s): Z72.0 - TOBACCO USE Status: Chronic (13) Hypoglycemia associated with type 2 diabetes mellitus Code(s): E11.649 - TYPE 2 DIABETES MELLITUS WITH HYPOGLYCEMIA WITHOUT COMA Status: Acute - Plan cont current plan of care, psych social worker * nephrology following * watch for hypoglycemia * dc schedule insulin today * social work for his placement * medication reviewed as below * symptomatic treatment. * renal function slowly improving Review of Systems - Review of Systems ENT: negative: Ear Pain, Ear Discharge, Nose Pain, Nose Discharge, Nose Congestion, Mouth Pain, Mouth Swelling, Throat Pain, Throat Swelling, Other Respiratory: negative: Cough, Dry, Shortness of Breath, Hemoptysis, SOB with Excertion, Pleuritic Pain, Sputum, Wheezing Cardiovascular: negative: Chest Pain, Palpitations, Orthopnea, Paroxysmal Noc. Dyspnea, Edema, Light Headedness, Other Gastrointestinal: negative: Nausea, Vomiting, Abdominal Pain, Diarrhea, Constipation, Melena, Hematochezia, Other Genitourinary: negative: Dysuria, Frequency, Incontinence, Hematuria, Retention , Other Musculoskeletal: negative: Neck Pain, Shoulder Pain, Arm Pain, Back Pain, Hand Pain, Leg Pain, Foot Pain, Other - Medications/Allergies Allergies/Adverse Reactions: Allergies Allergy/AdvReac Type Severity Reaction Status Date / Time celecoxib [From Celebrex] Allergy Verified 07/11/16 22:46 clindamycin Allergy Verified 10/15/16 17:09 NSAIDS (Non-Steroidal Allergy Verified 07/11/16 22:46 Anti-Inflamma Penicillins Allergy Verified 07/11/16 22:46 tramadol HCl [From Ultram] Allergy Verified 07/11/16 22:46 vancomycin Allergy Verified 07/11/16 22:46 midazolam HCl [From Versed] AdvReac Intermediate Verified 08/08/17 03:44 Medications: Current Medications Acetaminophen (Tylenol) 650 mg PO Q4H PRN PRN Reason: Headache/Fever or Pain Hydrocodone Bitart/Acetaminophen ([place] 10/325) 1 tab PO Q4H PRN PRN Reason: Pain Last Admin: 08/08/17 03:39 Dose: 1 tab Al Hydroxide/Mg Hydroxide (Maalox) 15 ml PO Q4H PRN PRN Reason: Heartburn or Indigestion Artificial Tears (Tears Naturale) 0 drop EA EYE PRN PRN PRN Reason: Dry Eyes Aspirin (Aspirin Chewable) 162 mg PO DAILY [facility] Last Admin: 08/07/17 09:50 Dose: 162 mg Atorvastatin Calcium (Lipitor) 20 mg PO HS [facility] Last Admin: 08/07/17 21:20 Dose: 20 mg Carvedilol (Coreg) 25 mg PO BID[facility] Last Admin: 08/07/17 15:23 Dose: 25 mg Clonidine HCl (Catapres) 0.1 mg PO Q4H PRN PRN Reason: Systolic BP > 180 Dextrose/Water (Dextrose 50%) 25 gm SLOW IVP PRN PRN PRN Reason: Hypoglycemia Diphenhydramine HCl (Benadryl) 25 mg PO Q6H PRN PRN Reason: Itching & Insomnia Last Admin: 08/07/17 21:19 Dose: 25 mg Docusate Sodium (Colace) 100 mg PO BID [facility] Last Admin: 08/07/17 21:20 Dose: 100 mg Famotidine (Pepcid) 20 mg PO BID [facility] Last Admin: 08/07/17 21:20 Dose: 20 mg Furosemide (Lasix) 40 mg PO DAILY[facility] Glucagon (Glucagon) 1 mg IM PRN PRN PRN Reason: Hypoglycemia Last Admin: 08/08/17 06:00 Dose: 1 mg Guaifenesin (Robitussin Sf) 200 mg PO Q4H PRN PRN Reason: Cough Heparin Sodium (Porcine) (Heparin) 5,000 units SC TID [facility] Last Admin: 08/07/17 21:19 Dose: Not Given Hydralazine HCl (Apresoline) 10 mg SLOW IVP Q6H PRN PRN Reason: FOR SBP > 170 mmHg Last Admin: 08/08/17 04:33 Dose: 10 mg Hydralazine HCl (Apresoline) 50 mg PO TID [facility] Last Admin: 08/07/17 21:20 Dose: 50 mg Hydrocortisone Sodium Succinate (Hydrocortisone 1%) 0 gm TOP PRN PRN PRN Reason: . Last Admin: 08/07/17 21:18 Dose: 1.5 gm Dextrose/Water (D5w) 1,000 mls @ 0 mls/hr IV .Q0M PRN; As Directed PRN Reason: Hypoglycemia Insulin Human Lispro (Humalog) 0 units SC .MODERATE SLIDING SC PRN PRN Reason: Moderate Correctional Scale Last Admin: 08/05/17 17:13 Dose: 6 units Isosorbide Mononitrate (Imdur) 120 mg PO DAILY [facility] Last Admin: 08/07/17 09:49 Dose: 120 mg Labetalol HCl (Normodyne) 10 mg SLOW IVP Q6H PRN PRN Reason: SBP > 160, DBP > 100 Last Admin: 07/27/17 23:14 Dose: 10 mg Magnesium Hydroxide (Milk Of Magnesium) 30 ml PO DAILYPRN PRN PRN Reason: Constipation Mineral Oil/White Petrolatum (Eucerin Cream) 0 gm TOP BIDPRN PRN PRN Reason: Dry Skin Minoxidil (Minoxidil) 5 mg PO DAILY [facility] Last Admin: 08/07/17 09:50 Dose: 5 mg Nifedipine (Procardia Xl) 60 mg PO DAILY [facility] Ondansetron HCl (Zofran Odt) 4 mg PO Q6H PRN PRN Reason: Nausea/Vomiting Ondansetron HCl (Zofran) 4 mg IVP Q6H PRN PRN Reason: Nausea/Vomiting Promethazine HCl (Phenergan) 12.5 mg PO Q6H PRN PRN Reason: Nausea Senna (Senokot) 2 tab PO HSPRN PRN PRN Reason: Constipation Sodium Bicarbonate (Bicarbonate, Sodium) 975 mg PO TID [facility] Last Admin: 08/07/17 21:21 Dose: Not Given Sodium Chloride (Flush - Normal Saline) 10 ml IVF Q12HR [facility] Last Admin: 08/07/17 21:23 Dose: 10 ml Sodium Chloride (Flush - Normal Saline) 10 ml IVF PRN PRN PRN Reason: Saline Flush Last Admin: 08/03/17 05:19 Dose: 10 ml Sodium Chloride ([place] 0.65%) 0 ml EA NARE QIDPRN PRN PRN Reason: Nasal Congestion Temazepam (Restoril) 15 mg PO HSPRN PRN PRN Reason: Insomnia
[2017-08-08] MEDS: Sodium Bicarbonate Tab 325 MG TAB PO SCH ×3 (10:06→21:08)
[2017-08-08] MEDS: Minoxidil 10 MG TAB PO SCH (10:08)
[2017-08-08] MEDS: Famotidine 20 MG TAB PO SCH ×2 (10:08→21:07)
[2017-08-08] MEDS: Heparin 5,000 UNITS/ML VIAL SC SCH ×3 (10:09→21:06)
[2017-08-08] MEDS: NIFEdipine XL 60 MG TAB PO SCH (10:09)
[2017-08-08] MEDS: Carvedilol 25 MG TAB PO SCH ×2 (10:09→17:16)
[2017-08-08] MEDS: Docusate 100 MG CAP PO SCH ×2 (10:10→21:06)
[2017-08-08] MEDS: Atorvastatin Calcium 20 MG TAB PO SCH (21:07)
[2017-08-08] MEDS: HumaLOG 300 UNITS/3 ML VIAL SC PRN (21:09)
[2017-08-08] MEDS: Temazepam 15 MG CAP PO PRN (22:53)
[2017-08-09] MEDS: HYDROcodone/Acetaminophen 10/325 mg Tablet PO PRN ×6 (02:33→22:50)
[2017-08-09] MEDS: diphenhydrAMINE HCl 25 MG CAP PO PRN (02:38)
[2017-08-09] MEDS: HumaLOG 300 UNITS/3 ML VIAL SC PRN ×2 (06:33→10:47)
[2017-08-09] MEDS ORDERED: Furosemide 40 MG TAB PO SCH ×2 (07:30→14:00)
[2017-08-09] MEDS: Carvedilol 25 MG TAB PO SCH ×2 (08:00→18:19)
[2017-08-09] MEDS: Famotidine 20 MG TAB PO SCH ×2 (08:00→21:07)
[2017-08-09] MEDS: NIFEdipine XL 60 MG TAB PO SCH (08:02)
[2017-08-09] MEDS: Minoxidil 10 MG TAB PO SCH (08:02)
[2017-08-09] MEDS: Docusate 100 MG CAP PO SCH ×2 (08:03→21:06)
[2017-08-09] MEDS: Heparin 5,000 UNITS/ML VIAL SC SCH ×2 (08:03→14:54)
[2017-08-09 09:11] LABS: #Basophils 0.1 thou/uL (0.0-0.2); #Eosinphils 0.4 thou/uL (0.0-0.7); #Lymphocytes 1.6 thou/uL (1.20-3.40); #Monocytes 0.8 thou/uL (0.11-0.59); #Neutrophils 7.4 thou/uL (1.40-6.50); %Basophils 1.2 % (0.0-1.0); %Eosinophils 3.8 % (0.0-10.0); %Lymphocytes 15.8 % (21.0-51.0); %Monocytes 7.3 % (0.0-10.0); Hematocrit 27.1 % (42.0-52.0); Mean Platelet Volume 6.6 fL (7.4-10.4); Red Blood Cell (RBC) Count 3.08 mill/uL (4.70-6.10); White Blood Cell (WBC) Count 10.3 thou/uL (4.8-10.8)
[2017-08-09 09:12] LABS: ALT (SGPT) 14 U/L (8-55); AST (SGOT) 13 U/L (5-34); Alkaline Phosphatase 93 U/L (40-150); Bilirubin, Direct 0.1 mg/dL (0.1-0.3); Bilirubin, Total 0.2 mg/dL (0.2-1.2); Protein, Total 6.1 g/dL (6.0-8.3)
[2017-08-09 09:13] LABS: Anion Gap 14 mmol/L (10-20); BUN (Urea Nitrogen) 69 mg/dL (8.4-25.7); Calc. Creatinine Clearance 41 mL/min (70-130); Calcium 7.7 mg/dL (7.8-10.44); Carbon Dioxide 17 mmol/L (22-29); Chloride 102 mmol/L (98-107); Estimated GFR-MDRD 31; Phosphorus 5.9 mg/dL (2.3-4.7)
[2017-08-09] MEDS: Sodium Bicarbonate Tab 325 MG TAB PO SCH ×3 (09:19→21:15)
--- NOTE | 2017-08-09 09:35 | PDOC.PN ---
- Subjective Encounter Start Date: 08/09/17 Encounter Start Time: 08:50 pt is walking around but he is interested in going to rehab as he has difficulty with his daily activities at home, c/o edema leg - Objective Resuscitation Status: Resuscitation Status FULL:Full Resuscitation MAR Reviewed: Yes Vital Signs & Weight: Vital Signs (12 hours) Temp Pulse Resp BP BP BP Pulse Ox 08/09/17 08:02 81 184/89 H 08/09/17 08:00 81 184/89 H 08/09/17 07:53 98.0 F 81 18 184/89 H 99 08/09/17 04:00 97.7 F 71 20 153/69 H 95 Weight Admit Weight 143 lb 9 oz Weight 171 lb 6.4 oz I&O: 08/08/17 08/09/17 08/10/17 06:59 06:59 06:59 Intake Total 810 1680 Output Total 1250 1000 Balance -440 680 Result Diagrams: 08/09/17 08:36 08/09/17 08:36 Additional Labs: Accuchecks 08/09/17 08/08/17 08/08/17 05:43 20:34 18:07 POC Glucose 390 H 454 H 329 H 08/08/17 11:36 POC Glucose 82 EKG Reviewed by me: Yes Phys Exam - Physical Examination Constitutional: NAD HEENT: PERRLA, moist MMs, sclera anicteric Neck: no JVD, supple Respiratory: no wheezing, no rales, no rhonchi Cardiovascular: RRR, no significant murmur, no rub Gastrointestinal: soft, non-tender, no distention, positive bowel sounds Musculoskeletal: pulses present, edema present Neurological: non-focal, normal sensation Lymphatic: no nodes Psychiatric: normal affect Skin: no rash, normal turgor Dx/Plan (1) Acute kidney injury Code(s): N17.9 - ACUTE KIDNEY FAILURE, UNSPECIFIED Status: Acute (2) DM type 2, uncontrolled, with renal complications Code(s): E11.29 - TYPE 2 DIABETES MELLITUS W OTH DIABETIC KIDNEY COMPLICATION; E11.65 - TYPE 2 DIABETES MELLITUS WITH HYPERGLYCEMIA Status: Chronic Qualifiers: Diabetes mellitus complication detail: with chronic kidney disease Chronic kidney disease stage: stage 3 (moderate) (3) CAD (coronary artery disease) Code(s): I25.10 - ATHSCL HEART DISEASE OF [place] CORONARY ARTERY W/O ANG PCTRS Status: Chronic Qualifiers: Coronary Disease-Associated Artery/Lesion type: [place] artery [place] vs. transplanted heart: [place] heart Associated angina: without angina Qualified Code(s): I25.10 - Atherosclerotic heart disease of [place] coronary artery without angina pectoris (4) CKD (chronic kidney disease) stage 3, GFR 30-59 ml/min Code(s): N18.3 - CHRONIC KIDNEY DISEASE, STAGE 3 (MODERATE) Status: Chronic (5) Chronic diastolic (congestive) heart failure Code(s): I50.32 - CHRONIC DIASTOLIC (CONGESTIVE) HEART FAILURE Status: Chronic (6) Hypertension, uncontrolled Code(s): I10 - ESSENTIAL (PRIMARY) HYPERTENSION Status: Chronic (7) PAD (peripheral artery disease) Code(s): I73.9 - PERIPHERAL VASCULAR DISEASE, UNSPECIFIED Status: Chronic (8) Anxiety and depression Code(s): F41.9 - ANXIETY DISORDER, UNSPECIFIED; F32.9 - MAJOR DEPRESSIVE DISORDER, SINGLE EPISODE, UNSPECIFIED Status: Chronic (9) Diabetic neuropathy Code(s): E11.40 - TYPE 2 DIABETES [place]LL[place] WITH DIABETIC NEUROPATHY, UNSP Status: Chronic Qualifiers: Diabetes mellitus type: type 2 (10) Nephrotic syndrome Code(s): N04.9 - NEPHROTIC SYNDROME WITH UNSPECIFIED MORPHOLOGIC CHANGES Status: Chronic (11) Tobacco abuse Code(s): Z72.0 - TOBACCO USE Status: Chronic (12) Hypoglycemia associated with type 2 diabetes mellitus Code(s): E11.649 - TYPE 2 DIABETES MELLITUS WITH HYPOGLYCEMIA WITHOUT COMA Status: Acute (13) Anasarca associated with disorder of kidney Code(s): N04.9 - NEPHROTIC SYNDROME WITH UNSPECIFIED MORPHOLOGIC CHANGES Status: Acute (14) Hyperkalemia Code(s): E87.5 - HYPERKALEMIA Status: Acute (15) Metabolic acidosis Code(s): E87.2 - ACIDOSIS Status: Chronic (16) Dyslipidemia Code(s): E78.5 - HYPERLIPIDEMIA, UNSPECIFIED Status: Chronic (17) Anemia of renal disease Code(s): D63.1 - ANEMIA IN CHRONIC KIDNEY DISEASE Status: Chronic (18) Secondary hyperparathyroidism of renal origin Code(s): N25.81 - SECONDARY HYPERPARATHYROIDISM OF RENAL ORIGIN Status: Acute - Plan cont current plan of care, PT/OT, social contact worker * nephrology following and managing diuretics * medication reviewed as below * symptomatic treatment * await rehab decision. * will check urine protein/creatinine ratio * will check PTH Review of Systems - Review of Systems Eyes: negative: Pain, Vision Change, Conjunctivae Inflammation, Eyelid Inflammation, Redness, Other ENT: negative: Ear Pain, Ear Discharge, Nose Pain, Nose Discharge, Nose Congestion, Mouth Pain, Mouth Swelling, Throat Pain, Throat Swelling, Other Respiratory: negative: Cough, Dry, Shortness of Breath, Hemoptysis, SOB with Excertion, Pleuritic Pain, Sputum, Wheezing Cardiovascular: Edema. negative: Chest Pain, Palpitations, Orthopnea, Paroxysmal Noc. Dyspnea, Light Headedness, Other Gastrointestinal: negative: Nausea, Vomiting, Abdominal Pain, Diarrhea, Constipation, Melena, Hematochezia, Other Genitourinary: negative: Dysuria, Frequency, Incontinence, Hematuria, Retention , Other Skin: negative: Rash, Lesions, Kevin, Bruising, Other - Medications/Allergies Allergies/Adverse Reactions: Allergies Allergy/AdvReac Type Severity Reaction Status Date / Time celecoxib [From Celebrex] Allergy Verified 07/11/16 22:46 clindamycin Allergy Verified 10/15/16 17:09 NSAIDS (Non-Steroidal Allergy Verified 07/11/16 22:46 Anti-Inflamma Penicillins Allergy Verified 07/11/16 22:46 tramadol HCl [From Ultram] Allergy Verified 07/11/16 22:46 vancomycin Allergy Verified 07/11/16 22:46 midazolam HCl [From Versed] AdvReac Intermediate Verified 08/08/17 20:56 Medications: Current Medications Acetaminophen (Tylenol) 650 mg PO Q4H PRN PRN Reason: Headache/Fever or Pain Hydrocodone Bitart/Acetaminophen ([place] 10/325) 1 tab PO Q4H PRN PRN Reason: Pain Last Admin: 08/09/17 06:33 Dose: 1 tab Al Hydroxide/Mg Hydroxide (Maalox) 15 ml PO Q4H PRN PRN Reason: Heartburn or Indigestion Artificial Tears (Tears Naturale) 0 drop EA EYE PRN PRN PRN Reason: Dry Eyes Aspirin (Aspirin Chewable) 162 mg PO DAILY [facility] Last Admin: 08/09/17 08:00 Dose: 162 mg Atorvastatin Calcium (Lipitor) 20 mg PO HS [facility] Last Admin: 08/08/17 21:07 Dose: 20 mg Carvedilol (Coreg) 25 mg PO BID-[facility] Last Admin: 08/09/17 08:00 Dose: 25 mg Clonidine HCl (Catapres) 0.1 mg PO Q4H PRN PRN Reason: Systolic BP > 180 Dextrose/Water (Dextrose 50%) 25 gm SLOW IVP PRN PRN PRN Reason: Hypoglycemia Diphenhydramine HCl (Benadryl) 25 mg PO Q6H PRN PRN Reason: Itching & Insomnia Last Admin: 08/09/17 02:38 Dose: 25 mg Docusate Sodium (Colace) 100 mg PO BID [facility] Last Admin: 08/09/17 08:03 Dose: Not Given Famotidine (Pepcid) 20 mg PO BID [facility] Last Admin: 08/09/17 08:00 Dose: 20 mg Furosemide (Lasix) 40 mg PO DAILY-[facility] Last Admin: 08/09/17 08:00 Dose: 40 mg Glucagon (Glucagon) 1 mg IM PRN PRN PRN Reason: Hypoglycemia Last Admin: 08/08/17 06:00 Dose: 1 mg Guaifenesin (Robitussin Sf) 200 mg PO Q4H PRN PRN Reason: Cough Heparin Sodium (Porcine) (Heparin) 5,000 units SC TID [facility] Last Admin: 08/09/17 08:03 Dose: Not Given Hydralazine HCl (Apresoline) 10 mg SLOW IVP Q6H PRN PRN Reason: FOR SBP > 170 mmHg Last Admin: 08/08/17 04:33 Dose: 10 mg Hydralazine HCl (Apresoline) 50 mg PO TID [facility] Last Admin: 08/09/17 08:00 Dose: 50 mg Hydrocortisone Sodium Succinate (Hydrocortisone 1%) 0 gm TOP PRN PRN PRN Reason: . Last Admin: 08/07/17 21:18 Dose: 1.5 gm Dextrose/Water (D5w) 1,000 mls @ 0 mls/hr IV .Q0M PRN; As Directed PRN Reason: Hypoglycemia Insulin Human Lispro (Humalog) 0 units SC .MODERATE SLIDING SC PRN PRN Reason: Moderate Correctional Scale Last Admin: 08/09/17 06:33 Dose: 10 units Isosorbide Mononitrate (Imdur) 120 mg PO DAILY [facility] Last Admin: 08/09/17 08:01 Dose: 120 mg Labetalol HCl (Normodyne) 10 mg SLOW IVP Q6H PRN PRN Reason: SBP > 160, DBP > 100 Last Admin: 07/27/17 23:14 Dose: 10 mg Magnesium Hydroxide (Milk Of Magnesium) 30 ml PO DAILYPRN PRN PRN Reason: Constipation Mineral Oil/White Petrolatum (Eucerin Cream) 0 gm TOP BIDPRN PRN PRN Reason: Dry Skin Minoxidil (Minoxidil) 5 mg PO DAILY [facility] Last Admin: 08/09/17 08:02 Dose: 5 mg Nifedipine (Procardia Xl) 60 mg PO DAILY [facility] Last Admin: 08/09/17 08:02 Dose: 60 mg Ondansetron HCl (Zofran Odt) 4 mg PO Q6H PRN PRN Reason: Nausea/Vomiting Ondansetron HCl (Zofran) 4 mg IVP Q6H PRN PRN Reason: Nausea/Vomiting Promethazine HCl (Phenergan) 12.5 mg PO Q6H PRN PRN Reason: Nausea Senna (Senokot) 2 tab PO HSPRN PRN PRN Reason: Constipation Sodium Bicarbonate (Bicarbonate, Sodium) 975 mg PO TID [facility] Last Admin: 08/09/17 09:19 Dose: 975 mg Sodium Chloride (Flush - Normal Saline) 10 ml IVF Q12HR [facility] Last Admin: 08/09/17 08:03 Dose: 10 ml Sodium Chloride (Flush - Normal Saline) 10 ml IVF PRN PRN PRN Reason: Saline Flush Last Admin: 08/03/17 05:19 Dose: 10 ml Sodium Chloride ([place] Nasal [place] 0.65%) 0 ml EA NARE QIDPRN PRN PRN Reason: Nasal Congestion Temazepam (Restoril) 15 mg PO HSPRN PRN PRN Reason: Insomnia Last Admin: 08/08/17 22:53 Dose: 15 mg
--- NOTE | 2017-08-09 10:22 | PRG ---
DATE OF SERVICE: 08/09/2017 SUBJECTIVE: This is a 57-year-old gentleman being seen for acute kidney injury. The patient denies any nausea, vomiting or chest pain. PHYSICAL EXAMINATION: GENERAL: Patient is awake, alert. VITAL SIGNS: Afebrile, pulse 71, breathing at 16, blood pressure was 150/69. GENERAL APPEARANCE AND MENTAL STATUS: Fair. HEAD/NECK: Normocephalic. Atraumatic. EYES: EOMI. No deformity. EARS: Clear. No ulcers. NOSE: Intact. No lesions. MOUTH: Clear. No discharge. THROAT: Clear. No exudate. LUNGS: Clear. No crackles. CARDIAC: S1, S2. No rub. ABDOMEN: Benign. BS+. GENITALIA/RECTUM: [place] absent. BACK/EXTREMITIES: Edema 0+ Ulcer- NEUROLOGICAL: Alert and motor intact. SKIN: Rash- Bruise- LYMPHATICS: Edema- Ulcer- LABORATORY DATA: Show hemoglobin is 8.8, creatinine is 2.1. ASSESSMENT AND PLAN: 1. Chronic kidney disease stage 3, stable. 2. Hypertension, stable. 3. Hyperkalemia. Would recommend giving Kayexalate and increasing Lasix 40 b.i.d. and increase ___ __. 4. Anemia, stable. 5. Metabolic acidosis. Continue sodium bicarbonate.
[2017-08-09] MEDS ORDERED: Furosemide 20 MG TAB PO SCH (14:00)
[2017-08-09 16:21] LABS: Anion Gap 15 mmol/L (10-20); BUN (Urea Nitrogen) 71 mg/dL (8.4-25.7); Calc. Creatinine Clearance 42 mL/min (70-130); Calcium 7.5 mg/dL (7.8-10.44); Carbon Dioxide 19 mmol/L (22-29); Chloride 102 mmol/L (98-107); Estimated GFR-MDRD 32
[2017-08-09] MEDS ORDERED: Albuterol Sulfate 2.5 mg/3 ml Neb NEB SCH (17:30)
[2017-08-09] MEDS ORDERED: Sodium Bicarb 50 MEQ/50 ML Abboject 8.4% SYRINGE IVP SCH (17:30)
[2017-08-09] MEDS ORDERED: Furosemide 40 MG/4 ML VIAL SLOW IVP SCH (17:45)
[2017-08-09 18:57] LABS: Sodium 130 mmol/L (135-148)
[2017-08-09 18:58] LABS: Mode Room Air @21%; Modified Allen's Test POSITIVE; Vent NO
[2017-08-09] MEDS ORDERED: Sodium Bicarbonate 50 MEQ in Dextrose 5% in Water 250 ML IV SCH ×2 (20:15)
[2017-08-09] MEDS ORDERED: Heparin 5,000 UNITS/ML VIAL SC SCH (21:00)
[2017-08-09] MEDS: Atorvastatin Calcium 20 MG TAB PO SCH (21:07)
[2017-08-09] MEDS: Temazepam 15 MG CAP PO PRN (22:51)
[2017-08-10] MEDS: HYDROcodone/Acetaminophen 10/325 mg Tablet PO PRN ×5 (03:29→21:12)
[2017-08-10 06:03] LABS: Anion Gap 11 mmol/L (10-20); BUN (Urea Nitrogen) 69 mg/dL (8.4-25.7); Calc. Creatinine Clearance 40 mL/min (70-130); Calcium 7.4 mg/dL (7.8-10.44); Carbon Dioxide 21 mmol/L (22-29); Chloride 103 mmol/L (98-107); Estimated GFR-MDRD 30
[2017-08-10] MEDS: HumaLOG 300 UNITS/3 ML VIAL SC PRN ×3 (06:21→17:42)
[2017-08-10] MEDS: Famotidine 20 MG TAB PO SCH ×2 (08:23→21:11)
[2017-08-10] MEDS: Furosemide 20 MG TAB PO SCH ×2 (08:23→14:28)
[2017-08-10] MEDS: NIFEdipine XL 60 MG TAB PO SCH (08:25)
[2017-08-10] MEDS: Carvedilol 25 MG TAB PO SCH ×2 (08:25→17:43)
[2017-08-10] MEDS: Sodium Bicarbonate Tab 325 MG TAB PO SCH ×4 (08:25→21:10)
[2017-08-10] MEDS: Minoxidil 10 MG TAB PO SCH (08:26)
[2017-08-10] MEDS: Docusate 100 MG CAP PO SCH ×2 (08:26→21:11)
--- NOTE | 2017-08-10 10:41 | PRG ---
DATE OF SERVICE: 08/10/2017 SUBJECTIVE: This is a 57-year-old gentleman being seen for acute kidney injury with stable creatini ne. The patient denies any nausea, vomiting or chest pain. PHYSICAL EXAMINATION: GENERAL: Patient is awake, alert. VITAL SIGNS: Afebrile, pulse 61, breathing at 16, blood pressure 121/69. GENERAL APPEARANCE AND MENTAL STATUS: Fair. HEAD/NECK: Normocephalic. Atraumatic. EYES: EOMI. No deformity. EARS: Clear. No ulcers. NOSE: Intact. No lesions. MOUTH: Clear. No discharge. THROAT: Clear. No exudate. LUNGS: Clear. No crackles. CARDIAC: S1, S2. No rub. ABDOMEN: Benign. BS+. GENITALIA/RECTUM: [place] absent. BACK/EXTREMITIES: Edema 0+ Ulcer- NEUROLOGICAL: Alert and motor intact. SKIN: Rash- Bruise- LYMPHATICS: Edema- Ulcer- LABORATORY DATA: Show hemoglobin 8.8, potassium 4.7. ASSESSMENT AND RECOMMENDATIONS: 1. Acute kidney injury, improved. 2. Hyperkalemia, improved. 3. Metabolic acidosis, stable. 4. Chronic kidney disease stage 4, stable. No indication for dialysis.
--- NOTE | 2017-08-10 14:35 | PDOC.PN ---
- Subjective Encounter Start Date: 08/10/17 Encounter Start Time: 11:10 -: old records requested/rev Patient seen and examined. No new complaints. No overnight events - Objective Resuscitation Status: Resuscitation Status FULL:Full Resuscitation MAR Reviewed: Yes Vital Signs & Weight: Vital Signs (12 hours) Temp Pulse Resp BP BP Pulse Ox 08/10/17 08:25 89 158/76 H 08/10/17 08:24 89 158/76 H 08/10/17 08:00 98.1 F 89 20 93 L 08/10/17 04:00 89 20 161/77 H 93 L Weight Admit Weight 143 lb 9 oz Weight 171 lb 6.4 oz I&O: 08/09/17 08/10/17 08/11/17 06:59 06:59 06:59 Intake Total 1680 440 730 Output Total 1000 Balance 680 440 730 Result Diagrams: 08/09/17 08:36 08/10/17 04:48 Additional Labs: Accuchecks 08/10/17 08/10/17 08/09/17 11:30 05:39 19:09 POC Glucose 263 H 245 H 259 H 08/09/17 16:07 POC Glucose 207 H Phys Exam - Physical Examination Constitutional: NAD HEENT: PERRLA, moist MMs, sclera anicteric Neck: no JVD, supple Respiratory: no wheezing, no rales, no rhonchi Cardiovascular: RRR, no significant murmur, no rub Gastrointestinal: soft, non-tender, no distention, positive bowel sounds Musculoskeletal: pulses present, edema present Neurological: non-focal, normal sensation Psychiatric: normal affect, A&O x 3 Skin: no rash, normal turgor Dx/Plan (1) Acute kidney injury Code(s): N17.9 - ACUTE KIDNEY FAILURE, UNSPECIFIED Status: Acute (2) DM type 2, uncontrolled, with renal complications Code(s): E11.29 - TYPE 2 DIABETES MELLITUS W OTH DIABETIC KIDNEY COMPLICATION; E11.65 - TYPE 2 DIABETES MELLITUS WITH HYPERGLYCEMIA Status: Chronic Qualifiers: Diabetes mellitus complication detail: with chronic kidney disease Chronic kidney disease stage: stage 3 (moderate) (3) CAD (coronary artery disease) Code(s): I25.10 - ATHSCL HEART DISEASE OF [place] CORONARY ARTERY W/O ANG PCTRS Status: Chronic Qualifiers: Coronary Disease-Associated Artery/Lesion type: [place] artery [place] vs. transplanted heart: [place] heart Associated angina: without angina Qualified Code(s): I25.10 - Atherosclerotic heart disease of [place] coronary artery without angina pectoris (4) CKD (chronic kidney disease) stage 3, GFR 30-59 ml/min Code(s): N18.3 - CHRONIC KIDNEY DISEASE, STAGE 3 (MODERATE) Status: Chronic (5) Chronic diastolic (congestive) heart failure Code(s): I50.32 - CHRONIC DIASTOLIC (CONGESTIVE) HEART FAILURE Status: Chronic (6) Hypertension, uncontrolled Code(s): I10 - ESSENTIAL (PRIMARY) HYPERTENSION Status: Chronic (7) PAD (peripheral artery disease) Code(s): I73.9 - PERIPHERAL VASCULAR DISEASE, UNSPECIFIED Status: Chronic (8) Anxiety and depression Code(s): F41.9 - ANXIETY DISORDER, UNSPECIFIED; F32.9 - MAJOR DEPRESSIVE DISORDER, SINGLE EPISODE, UNSPECIFIED Status: Chronic (9) Diabetic neuropathy Code(s): E11.40 - TYPE 2 DIABETES MELLITUS WITH DIABETIC NEUROPATHY, UNSP Status: Chronic Qualifiers: Diabetes mellitus type: type 2 (10) Nephrotic syndrome Code(s): N04.9 - NEPHROTIC SYNDROME WITH UNSPECIFIED MORPHOLOGIC CHANGES Status: Chronic (11) Tobacco abuse Code(s): Z72.0 - TOBACCO USE Status: Chronic (12) Hypoglycemia associated with type 2 diabetes mellitus Code(s): E11.649 - TYPE 2 DIABETES MELLITUS WITH HYPOGLYCEMIA WITHOUT COMA Status: Acute (13) Anasarca associated with disorder of kidney Code(s): N04.9 - NEPHROTIC SYNDROME WITH UNSPECIFIED MORPHOLOGIC CHANGES Status: Acute (14) Hyperkalemia Code(s): E87.5 - HYPERKALEMIA Status: Acute (15) Metabolic acidosis Code(s): E87.2 - ACIDOSIS Status: Chronic (16) Dyslipidemia Code(s): E78.5 - HYPERLIPIDEMIA, UNSPECIFIED Status: Chronic (17) Anemia of renal disease Code(s): D63.1 - ANEMIA IN CHRONIC KIDNEY DISEASE Status: Chronic (18) Secondary hyperparathyroidism of renal origin Code(s): N25.81 - SECONDARY HYPERPARATHYROIDISM OF RENAL ORIGIN Status: Acute - Plan cont current plan of care * will add morphi for his leg pain * pt does not want to go to home but he prefers to go to rehab if accepted * will see tomorrow if this option is open to pt or not * medication reviewed as below * symptomatic treatment. Review of Systems - Review of Systems Eyes: negative: Pain, Vision Change, Conjunctivae Inflammation, Eyelid Inflammation, Redness, Other ENT: negative: Ear Pain, Ear Discharge, Nose Pain, Nose Discharge, Nose Congestion, Mouth Pain, Mouth Swelling, Throat Pain, Throat Swelling, Other Respiratory: negative: Cough, Dry, Shortness of Breath, Hemoptysis, SOB with Excertion, Pleuritic Pain, Sputum, Wheezing Cardiovascular: Edema. negative: Chest Pain, Palpitations, Orthopnea, Paroxysmal Noc. Dyspnea, Light Headedness, Other Gastrointestinal: negative: Nausea, Vomiting, Abdominal Pain, Diarrhea, Constipation, Melena, Hematochezia, Other Genitourinary: negative: Dysuria, Frequency, Incontinence, Hematuria, Retention , Other Musculoskeletal: Leg Pain. negative: Neck Pain, Shoulder Pain, Arm Pain, Back Pain, Hand Pain, Foot Pain, Other - Medications/Allergies Allergies/Adverse Reactions: Allergies Allergy/AdvReac Type Severity Reaction Status Date / Time celecoxib [From Celebrex] Allergy Verified 07/11/16 22:46 clindamycin Allergy Verified 10/15/16 17:09 NSAIDS (Non-Steroidal Allergy Verified 07/11/16 22:46 Anti-Inflamma Penicillins Allergy Verified 07/11/16 22:46 tramadol HCl [From Ultram] Allergy Verified 07/11/16 22:46 vancomycin Allergy Verified 07/11/16 22:46 midazolam HCl [From Versed] AdvReac Intermediate Verified 08/08/17 20:56 Medications: Current Medications Acetaminophen (Tylenol) 650 mg PO Q4H PRN PRN Reason: Headache/Fever or Pain Hydrocodone Bitart/Acetaminophen ([place] 10/325) 1 tab PO Q4H PRN PRN Reason: Pain Last Admin: 08/10/17 13:12 Dose: 1 tab Artificial Tears (Tears Naturale) 0 drop EA EYE PRN PRN PRN Reason: Dry Eyes Aspirin (Aspirin Chewable) 162 mg PO DAILY [facility] Last Admin: 08/10/17 08:23 Dose: 162 mg Atorvastatin Calcium (Lipitor) 20 mg PO HS [facility] Last Admin: 08/09/17 21:07 Dose: 20 mg Carvedilol (Coreg) 25 mg PO BID-[facility] Last Admin: 08/10/17 08:25 Dose: 25 mg Clonidine HCl (Catapres) 0.1 mg PO Q4H PRN PRN Reason: Systolic BP > 180 Dextrose/Water (Dextrose 50%) 25 gm SLOW IVP PRN PRN PRN Reason: Hypoglycemia Diphenhydramine HCl (Benadryl) 25 mg PO Q6H PRN PRN Reason: Itching & Insomnia Last Admin: 08/09/17 02:38 Dose: 25 mg Docusate Sodium (Colace) 100 mg PO BID [facility] Last Admin: 08/10/17 08:26 Dose: Not Given Famotidine (Pepcid) 20 mg PO BID [facility] Last Admin: 08/10/17 08:23 Dose: 20 mg Furosemide (Lasix) 80 mg PO 0900,1400 [facility] Last Admin: 08/10/17 14:28 Dose: 80 mg Glucagon (Glucagon) 1 mg IM PRN PRN PRN Reason: Hypoglycemia Last Admin: 08/08/17 06:00 Dose: 1 mg Guaifenesin (Robitussin Sf) 200 mg PO Q4H PRN PRN Reason: Cough Hydralazine HCl (Apresoline) 10 mg SLOW IVP Q6H PRN PRN Reason: FOR SBP > 170 mmHg Last Admin: 08/08/17 04:33 Dose: 10 mg Hydralazine HCl (Apresoline) 50 mg PO TID [facility] Last Admin: 08/10/17 14:28 Dose: 50 mg Hydrocortisone Sodium Succinate (Hydrocortisone 1%) 0 gm TOP PRN PRN PRN Reason: . Last Admin: 08/07/17 21:18 Dose: 1.5 gm Dextrose/Water (D5w) 1,000 mls @ 0 mls/hr IV .Q0M PRN; As Directed PRN Reason: Hypoglycemia Insulin Human Lispro (Humalog) 0 units SC .MODERATE SLIDING SC PRN PRN Reason: Moderate Correctional Scale Last Admin: 08/10/17 13:12 Dose: 6 units Isosorbide Mononitrate (Imdur) 120 mg PO DAILY [facility] Last Admin: 08/10/17 08:25 Dose: 120 mg Labetalol HCl (Normodyne) 10 mg SLOW IVP Q6H PRN PRN Reason: SBP > 160, DBP > 100 Last Admin: 07/27/17 23:14 Dose: 10 mg Magnesium Hydroxide (Milk Of Magnesium) 30 ml PO DAILYPRN PRN PRN Reason: Constipation Mineral Oil/White Petrolatum (Eucerin Cream) 0 gm TOP BIDPRN PRN PRN Reason: Dry Skin Minoxidil (Minoxidil) 5 mg PO DAILY [facility] Last Admin: 08/10/17 08:26 Dose: 5 mg Morphine Sulfate (Morphine Sulfate) 4 mg SLOW IVP Q4H PRN PRN Reason: Pain Last Admin: 08/10/17 14:27 Dose: 4 mg Nifedipine (Procardia Xl) 60 mg PO DAILY [facility] Last Admin: 08/10/17 08:25 Dose: 60 mg Ondansetron HCl (Zofran Odt) 4 mg PO Q6H PRN PRN Reason: Nausea/Vomiting Ondansetron HCl (Zofran) 4 mg IVP Q6H PRN PRN Reason: Nausea/Vomiting Promethazine HCl (Phenergan) 12.5 mg PO Q6H PRN PRN Reason: Nausea Senna (Senokot) 2 tab PO HSPRN PRN PRN Reason: Constipation Sodium Bicarbonate (Bicarbonate, Sodium) 975 mg PO QID [facility] Last Admin: 08/10/17 13:13 Dose: 975 mg Sodium Chloride (Flush - Normal Saline) 10 ml IVF Q12HR [facility] Last Admin: 08/10/17 08:26 Dose: 10 ml Sodium Chloride (Flush - Normal Saline) 10 ml IVF PRN PRN PRN Reason: Saline Flush Last Admin: 08/03/17 05:19 Dose: 10 ml Sodium Chloride ([place] Nasal Trout 0.65%) 0 ml EA NARE QIDPRN PRN PRN Reason: Nasal Congestion Temazepam (Restoril) 15 mg PO HSPRN PRN PRN Reason: Insomnia Last Admin: 08/09/17 22:51 Dose: 15 mg
[2017-08-10] MEDS: Atorvastatin Calcium 20 MG TAB PO SCH (21:11)
[2017-08-10] MEDS: Temazepam 15 MG CAP PO PRN (21:12)
[2017-08-10 21:35] VITALS: TEMP 98.4
[2017-08-11] MEDS: HYDROcodone/Acetaminophen 10/325 mg Tablet PO PRN ×3 (01:12→09:46)
[2017-08-11] MEDS: HumaLOG 300 UNITS/3 ML VIAL SC PRN (05:40)
[2017-08-11 08:36] VITALS: BP 191/93
[2017-08-11] MEDS: Sodium Bicarbonate Tab 325 MG TAB PO SCH (09:43)
[2017-08-11] MEDS: Carvedilol 25 MG TAB PO SCH (09:44)
[2017-08-11] MEDS: NIFEdipine XL 60 MG TAB PO SCH (09:44)
[2017-08-11] MEDS: Furosemide 20 MG TAB PO SCH (09:45)
[2017-08-11] MEDS: Famotidine 20 MG TAB PO SCH (09:48)
[2017-08-11] MEDS: Docusate 100 MG CAP PO SCH (09:49)
[2017-08-11] MEDS: Minoxidil 10 MG TAB PO SCH (09:54)
--- NOTE | 2017-08-11 11:18 | DIS ---
DATE OF ADMISSION: 07/26/2017 DATE OF DISCHARGE: 08/11/2017 PRIMARY CARE PHYSICIAN: [facility] call admission. DISCHARGE DISPOSITION: Home. PRIMARY DISCHARGE DIAGNOSES: Acute kidney failure, anasarca associated with disorder of kidney, hyp erkalemia, hypoglycemia associated with diabetes type 2. SECONDARY DISCHARGE DIAGNOSES: Ongoing tobacco abuse disorder, noncompliance with medical treatment ; peripheral arterial disease; nephrotic syndrome; metabolic acidosis; secondary hyperparathyroidism of renal origin; hypertension, uncontrolled; dyslipidemia; diabetes type 2, uncontrolled with renal complications; diabetic neuropathy; chronic kidney disease stage 3; chronic diastolic heart failure ; coronary artery disease; anxiety and depression; anemia of renal disease; secondary hyperparathyro idism of renal origin. PRIMARY PROCEDURE/OPERATION: Dr. Ryan Briscoe did lower extremity angiography. RADIOLOGICAL INVESTIGATION: Chest x-ray, lower extremity arterial Doppler, lumbar spine MRI, caroti d Doppler, lumbar spine CT. SIGNIFICANT LABORATORY DATA: Hemoglobin 8.8. INR 0.9. Sodium 130, creatinine 2.27, potassium 4.7. Urinalysis protein plus. Urine drug screen unremarkable, positive for opiates. DISCHARGE MEDICATIONS: Aspirin 81 mg p.o. daily, Coreg 25 mg p.o. b.i.d., Lasix 80 mg p.o. b.i.d., [place] 10 one tablet q.4 hourly p.r.n., Humulin 70/30 15 units subcu b.i.d., Imdur 120 mg p.o. daily, Zaroxolyn 5 mg p.o. daily, minoxidil 5 mg p.o. daily, Procardia-XL 60 mg p.o. daily, promethazine 1 2.5 mg q.6 hourly p.r.n., sodium bicarbonate 975 mg p.o. q.i.d., hydralazine 50 mg t.i.d. CONTRAINDICATIONS: None. CODE STATUS: FULL CODE. INPATIENT CONSULTANTS: Dr. Escalona was following while in hospital. Dr. Forrester was consulted for [facility] ular study. TEST RESULTS PENDING ON DISCHARGE: None. ALLERGIES: CELECOXIB, CLINDAMYCIN, NSAID. DISCHARGE PLAN: Post hospital, the patient will follow up with primary care physician and above-men tioned consultants as instructed. HOSPITAL COURSE: A 57-year-old male who was admitted by Dr. Mckinney. Please see her H\T\P for furth er details. The patient was admitted on 07/26/2017, he was having chest pain and lower extremity pa in. During this admission, the patient had multiple investigations including lower extremity Dopple r study which showed vascular insufficiency and that is why Dr. Forrester was consulted who did angiogr aphy. Patient also had lumbar spine CT scan and lumbar spine MRI because he continued to complain of lower extremity pain, but that was unremarkable. Patient also developed acute kidney failure and that is why Dr. Escalona and group were managing his kid rd failure. He had hyperkalemia that was improved. He had metabolic acidosis that was also improv ed with bicarbonate therapy. Initially, this patient was interested in going to rehabilitation, but he is walking around and benoit g outside for smoking, he is noncompliant even in hospital with treatment. We provided counseling f or avoidance of smoking and compliance with medical treatment while in hospital. At this point, Nephrology and all consultants cleared him for discharge. Patient is not able to go to rehabilitation because he was not accepted for that as well. Today, we are discharging him home. He will follow up with primary care physician and the above-mentioned consultants. PHYSICAL EXAMINATION: VITAL SIGNS: The patient was seen and examined currently with temperature 98.4, pulse 84, respirato ry rate 18, saturation 94%, blood pressure 165/75, weight 171 pounds. GENERAL: The patient is alert, awake, no acute distress. HEAD: Normocephalic, atraumatic. LUNGS: Clear. CARDIAC: S1 and S2 regular without any murmur. ABDOMEN: Soft and benign. EXTREMITIES: Edema noted. NEUROLOGIC: Nonfocal examination. During this hospital course, we adjusted blood pressure medication as above. All new medication pre scriptions sent to his pharmacy.
--- NOTE | 2017-08-11 11:38 | PRG ---
DATE OF SERVICE: 08/11/2017 SUBJECTIVE: Patient was seen and examined at bedside and overnight events noted. Patient denies an y shortness of breath or chest pain or palpitation. No history of nausea or vomiting or diarrhea or fever or chills or cramps. OBJECTIVE: GENERAL: This is an elderly male in no apparent distress. VITAL SIGNS: Temperature 98.4, pulse 64, respiratory rate 18, blood pressure 165/75. HEENT: Atraumatic, normocephalic. Oral mucosa is moist. NECK: Supple. CARDIOVASCULAR: S1 and S2 heard, rate and rhythm regular. RESPIRATORY: Clear to auscultation. GASTROINTESTINAL: Abdomen is soft. MUSCULOSKELETAL: No tenderness, no edema. DERMATOLOGIC: No skin rash. NEUROLOGIC: Alert and awake and oriented X3. No focal neurologic deficits. Moving all the extremi ties. PSYCHIATRIC: Mood and affect normal. LABORATORY DATA: No labs done today. ASSESSMENT AND PLAN: 1. Acute kidney injury on chronic kidney disease stage 3. Renal function is stable. try and avoid nephrotoxins and hydration as tolerated. The patient continues to have edema though. 2. Chronic kidney disease. 3. Hyperkalemia, limit potassium in the diet. 4. Hyponatremia, limit fluid intake. 5. Anemia, rule out any bleed. 6. Monitor labs. Avoid nephrotoxins. Currently on furosemide. We will recommend to reduce fluids as tolerated. Limit fluid intake. 7. Avoid nephrotoxins, cautious diuretic use with close monitoring of creatinine. The patient migh t go to rehabilitation.
== END 2017-08-11 11:31 | disposition home or self-care (01) | DRG 252 ==
LOC: ERS 04:50 → ERHOLD 07:35 → 2NO 18:50 → T4-B 08-09 11:06
PROVIDERS: ADMIT Internal Medicine; ATTEND Internal Medicine
PROC: [UNRECOGNIZED PROCEDURE] (principal; 2017-08-04)
DX: I13.0 Hypertensive heart and chronic kidney disease with heart failure and stage 1 through stage 4 chronic kidney disease, or unspecified chronic kidney disease (principal); E11.00 Type 2 diabetes mellitus with hyperosmolarity without nonketotic hyperglycemic-hyperosmolar coma (NKHHC); I24.8 Other forms of acute ischemic heart disease; E87.2 Acidosis; I50.43 Acute on chronic combined systolic (congestive) and diastolic (congestive) heart failure; N17.9 Acute kidney failure, unspecified; E87.1 Hypo-osmolality and hyponatremia; N04.9 Nephrotic syndrome with unspecified morphologic changes; N25.81 Secondary hyperparathyroidism of renal origin; N18.3 Chronic kidney disease, stage 3 (moderate); E11.22 Type 2 diabetes mellitus with diabetic chronic kidney disease; I16.0 Hypertensive urgency; Z95.1 Presence of aortocoronary bypass graft; Z96.611 Presence of right artificial shoulder joint; Z90.49 Acquired absence of other specified parts of digestive tract; G89.29 Other chronic pain; M54.5 Low back pain; Z72.0 Tobacco use; E11.51 Type 2 diabetes mellitus with diabetic peripheral angiopathy without gangrene; E11.65 Type 2 diabetes mellitus with hyperglycemia; I70.213 Atherosclerosis of native arteries of extremities with intermittent claudication, bilateral legs; E87.5 Hyperkalemia; D63.1 Anemia in chronic kidney disease; E11.649 Type 2 diabetes mellitus with hypoglycemia without coma; E11.21 Type 2 diabetes mellitus with diabetic nephropathy; E78.5 Hyperlipidemia, unspecified; I25.10 Atherosclerotic heart disease of native coronary artery without angina pectoris; F41.9 Anxiety disorder, unspecified; F32.9 Major depressive disorder, single episode, unspecified; Z88.1 Allergy status to other antibiotic agents; Z88.0 Allergy status to penicillin; Z88.8 Allergy status to other drugs, medicaments and biological substances; M47.896 Other spondylosis, lumbar region; J44.9 Chronic obstructive pulmonary disease, unspecified; I87.2 Venous insufficiency (chronic) (peripheral)
CPT/HCPCS: 36415; 36416; 37224; 71010; 72131; 72148; 76942; 80048; 80053; 80061; 80076; 80306; 80307; 81003; 81015; 82010; 82330; 82550; 82553; 82570; 82803; 82805; 83690; 83880; 83930; 83935; 83970; 84100; 84156; 84300; 84484; 85025; 85347; 85610; 85730; 93005; 93880; 93923; 94760; 96361; 96365; 96366; 96367; 96372; 96375; 96376; A4216; C1769; G8978-GP-CJ; G8979-GP-CI; G8987-GO-CJ; G8988-GO-CJ; G8989-GO-CJ; J0360; J1610; J1644; J1815; J1940; J2060; J2270; J2405; J2720; J3010; J7050; J7070

== ENCOUNTER 2017-08-18 15:25 | Emergency (ER) | payer SELFPAY ==
[2017-08-18] MEDS ORDERED: Acetaminophen 325 MG TAB ONE (17:44)
[2017-08-18 17:45] LABS: #Basophils 0.1 thou/uL (0.0-0.2); #Eosinphils 0.2 thou/uL (0.0-0.7); #Lymphocytes 1.5 thou/uL (1.20-3.40); #Monocytes 0.6 thou/uL (0.11-0.59); #Neutrophils 6.2 thou/uL (1.40-6.50); %Basophils 0.8 % (0.0-1.0); %Eosinophils 2.2 % (0.0-10.0); %Lymphocytes 17.7 % (21.0-51.0); %Monocytes 6.7 % (0.0-10.0); Hematocrit 27.9 % (42.0-52.0); Red Blood Cell (RBC) Count 3.21 mill/uL (4.70-6.10); White Blood Cell (WBC) Count 8.6 thou/uL (4.8-10.8)
[2017-08-18] MEDS ORDERED: Carvedilol 25 MG TAB PO SCH (18:00)
[2017-08-18 18:07] LABS: ALT (SGPT) 10 U/L (8-55); AST (SGOT) 13 U/L (5-34); Alkaline Phosphatase 92 U/L (40-150); Anion Gap 14 mmol/L (10-20); BUN (Urea Nitrogen) 49 mg/dL (8.4-25.7); Bilirubin, Total 0.2 mg/dL (0.2-1.2); CK (CPK) 178 U/L (30-200); Calc. Creatinine Clearance 0 mL/min (70-130); Calcium 7.8 mg/dL (7.8-10.44); Carbon Dioxide 23 mmol/L (22-29); Chloride 101 mmol/L (98-107); Estimated GFR-MDRD 50; Globulin 3.4 g/dL (2.4-3.5); Magnesium 1.9 mg/dL (1.6-2.6); Protein, Total 6.1 g/dL (6.0-8.3)
[2017-08-18 18:11] LABS: Troponin I 0.202 ng/mL (< 0.028)
== END 2017-08-18 18:00 | disposition left against medical advice (07) ==
LOC: ERS 15:25
DX: Z76.5 Malingerer [conscious simulation] (principal); I11.0 Hypertensive heart disease with heart failure; I50.9 Heart failure, unspecified; Z91.14 Patient's other noncompliance with medication regimen; R60.1 Generalized edema; E10.9 Type 1 diabetes mellitus without complications; F17.210 Nicotine dependence, cigarettes, uncomplicated
CPT/HCPCS: 36415; 80053; 82550; 82553; 83735; 84484; 85025; 99285; J2270

== ENCOUNTER 2017-09-03 07:14 | Emergency (ER) | payer SELFPAY ==
[2017-09-03] MEDS ORDERED: Insulin Regular 300 UNITS/3 ML VIAL ONE (08:52)
[2017-09-03] MEDS ORDERED: Furosemide 40 MG/4 ML VIAL ONE (08:52)
--- NOTE | 2017-09-03 08:59 | RAD ---
PORTABLE CHEST ONE VIEW: Date: 09-03-17 Time: 7:47 a.m. History: Dyspnea, weakness, low back pain, abdominal pain, bilateral leg edema. FINDINGS/IMPRESSION: Comparison made with exam of 07-26-17. Changes of median sternotomy again seen. The heart size is normal. The aorta is tortuous. The lungs are well expanded with pulmonary vascular congestion. No pneumothoraces or large effusions are seen. No lobar consolidation is identified. POS: [facility]
[2017-09-03 09:05] LABS: #Eosinphils 0.2 thou/uL (0.0-0.7); #Lymphocytes 1.4 thou/uL (1.20-3.40); #Monocytes 0.6 thou/uL (0.11-0.59); #Neutrophils 4.9 thou/uL (1.40-6.50); %Basophils 0.6 % (0.0-1.0); %Eosinophils 3.3 % (0.0-10.0); %Lymphocytes 19.7 % (21.0-51.0); Hematocrit 29.6 % (42.0-52.0); Mean Platelet Volume 6.8 fL (7.4-10.4); Red Blood Cell (RBC) Count 3.43 mill/uL (4.70-6.10); White Blood Cell (WBC) Count 7.1 thou/uL (4.8-10.8)
[2017-09-03 09:09] LABS: PTT 25.8 SEC (22.9-36.1); Prothrombin Time 12.9 SEC (12.0-14.7)
[2017-09-03 09:25] LABS: ALT (SGPT) 12 U/L (8-55); AST (SGOT) 10 U/L (5-34); Alkaline Phosphatase 99 U/L (40-150); Anion Gap 9 mmol/L (10-20); BUN (Urea Nitrogen) 39 mg/dL (8.4-25.7); Bilirubin, Total Less than 0.2 mg/dL (0.2-1.2); CK (CPK) 119 U/L (30-200); Calc. Creatinine Clearance 0 mL/min (70-130); Calcium 7.8 mg/dL (7.8-10.44); Carbon Dioxide 24 mmol/L (22-29); Chloride 97 mmol/L (98-107); Estimated GFR-MDRD 49; Globulin 3.3 g/dL (2.4-3.5); Protein, Total 5.7 g/dL (6.0-8.3)
--- OUTSIDE RECORDS SUMMARY | 2017-09-04 14:04 | XMS | Clinical Summary ---
:1960 Author Organization [facility] Address [address] [place] [address] Phone Care Team Providers Name Role Phone , Primary Care Provider Unavailable Allergies Not on File Current Medications Not on file Active Problems Not on file Social History Tobacco Use Types Packs/Day Years Used Date Never Assessed Sex Assigned at Date Recorded Not on file Last Filed Vital Signs Not on file Plan of Treatment Not on file Results Not on filefrom Last 3 Months
== END 2017-09-03 13:13 | disposition home or self-care (01) ==
LOC: ERS 07:14
DX: E10.65 Type 1 diabetes mellitus with hyperglycemia (principal); G89.4 Chronic pain syndrome; E87.1 Hypo-osmolality and hyponatremia; F17.210 Nicotine dependence, cigarettes, uncomplicated; I11.0 Hypertensive heart disease with heart failure; I50.9 Heart failure, unspecified; Z91.14 Patient's other noncompliance with medication regimen; Z79.82 Long term (current) use of aspirin; Z79.4 Long term (current) use of insulin; Z79.899 Other long term (current) drug therapy
CPT/HCPCS: 36416; 71010; 80053; 82550; 85025; 85610; 85730; 86140; 93005; 94760; 96374; 96375; 96376; 99406; J1815; J1940

== ENCOUNTER 2017-09-07 03:16 | Observation (INO) | payer SELFPAY ==
--- OUTSIDE RECORDS SUMMARY | 2017-09-07 03:19 | XMS | Clinical Summary ---
:1960 Author Organization [facility] Address [address] [place] [address] Phone Care Team Providers Name Role Phone [...]
[2017-09-07] MEDS ORDERED: Furosemide 40 MG/4 ML VIAL ONE (03:55)
[2017-09-07 04:01] LABS: #Eosinphils 0.3 thou/uL (0.0-0.7); #Lymphocytes 1.1 thou/uL (1.20-3.40); #Monocytes 0.3 thou/uL (0.11-0.59); #Neutrophils 9.7 thou/uL (1.40-6.50); %Basophils 0.2 % (0.0-1.0); %Eosinophils 2.8 % (0.0-10.0); %Lymphocytes 9.9 % (21.0-51.0); Hematocrit 23.3 % (42.0-52.0); Mean Platelet Volume 6.7 fL (7.4-10.4); Red Blood Cell (RBC) Count 2.71 mill/uL (4.70-6.10); White Blood Cell (WBC) Count 11.5 thou/uL (4.8-10.8)
[2017-09-07 04:24] LABS: ALT (SGPT) 13 U/L (8-55); AST (SGOT) 14 U/L (5-34); Alkaline Phosphatase 91 U/L (40-150); Anion Gap 11 mmol/L (10-20); BUN (Urea Nitrogen) 41 mg/dL (8.4-25.7); Bilirubin, Total 0.2 mg/dL (0.2-1.2); CK (CPK) 208 U/L (30-200); Calc. Creatinine Clearance 0 mL/min (70-130); Calcium 7.5 mg/dL (7.8-10.44); Carbon Dioxide 24 mmol/L (22-29); Chloride 98 mmol/L (98-107); Estimated GFR-MDRD 53; Globulin 2.9 g/dL (2.4-3.5); Protein, Total 5.4 g/dL (6.0-8.3)
[2017-09-07] MEDS ORDERED: Enoxaparin Sodium 80 MG/0.8 ML SYRINGE ONE (06:03)
[2017-09-07 07:24] LABS: Troponin I 0.216 ng/mL (< 0.028)
--- NOTE | 2017-09-07 07:54 | ULT ---
PRELIMINARY REPORT/[facility]/EMERGENCY AFTER HOURS PROCEDURE: EXAM: US Scrotum CLINICAL HISTORY: 57 years old, male; Pain; Scrotum pain and other: Swelling TECHNIQUE: Real-time ultrasound of the scrotum with color Doppler and image documentation. COMPARISON: No relevant prior studies available. FINDINGS: Right testicle: Unremarkable. No mass. No torsion. Left testicle: Unremarkable. No mass. No torsion. Epididymides: Within normal limits. Question visualized appendix epididymis on the left Scrotum: Bilateral hydroceles. Scrotal wall thickening and but edema noted bilaterally IMPRESSION: No sonographic evidence for testicular torsion. Bilateral hydroceles and scrotal wall thickening/edema Thank you for allowing us to participate in the care of your patient. Dictated and Authenticated by: Juliocesar Zamarripa MD 09/07/2017 5:20 AM Central Time ([place] \T\ [place]) FINAL REPORT TESTICULAR DOPPLER: Date: 09/07/17 HISTORY: Bilateral testicular pain and swelling. COMPARISON: None. TECHNIQUE: Hyatt scale, color flow, Doppler imaging and spectral waveform analysis performed of left and right t esticle. FINDINGS: This report is in agreement with the preliminary report by Karmen. There is appropriate echotexture of the left and right testicle. There is symmetric vascular flow. There are bilateral hydroceles with bilateral scrotal wall thickening. POS: [facility]
[2017-09-07] MEDS ORDERED: Chloraseptic Spray 180 ml Bottle PO PRN (08:17)
[2017-09-07] MEDS ORDERED: Mag-Al 1200 mg/1200 mg/30 ML UDCUP PO PRN (08:17)
[2017-09-07] MEDS ORDERED: Eucerin (Mineral Oil/Petrolatum,White) 30 gm Jar TOP PRN (08:17)
[2017-09-07] MEDS ORDERED: Sodium Chloride 0.65% Nasal 44 ML BOT EA NARE PRN (08:17)
[2017-09-07] MEDS ORDERED: Acetaminophen 325 MG TAB PO PRN (08:17)
[2017-09-07] MEDS ORDERED: Dextrose 5% in Water 1,000 ML IV PRN (08:17)
[2017-09-07] MEDS ORDERED: Ondansetron HCl/PF 4 MG/2 ML Vial IVP PRN (08:17)
[2017-09-07] MEDS ORDERED: cloNIDine 0.1 MG TAB PO PRN (08:17)
[2017-09-07] MEDS ORDERED: Loperamide HCl 2 MG CAP PO PRN (08:17)
[2017-09-07] MEDS ORDERED: Artificial Tears 18 DROP/0.9 ML EA EYE PRN (08:17)
[2017-09-07] MEDS ORDERED: Diabetic Tussin 200 MG/10 ML UDCUP PO PRN (08:17)
[2017-09-07] MEDS ORDERED: Zolpidem Tartrate 5 MG TAB PO PRN (08:17)
[2017-09-07] MEDS ORDERED: Milk Of Magnesia 30 ML UDCUP PO PRN (08:17)
[2017-09-07] MEDS ORDERED: Nitroglycerin 0.4 MG TAB (25 Tab Bottle) SL PRN (08:17)
[2017-09-07] MEDS ORDERED: Labetalol HCl 100 MG/20 ML VIAL SLOW IVP PRN (08:17)
[2017-09-07] MEDS ORDERED: hydrALAZINE 20 MG/ML VIAL SLOW IVP PRN (08:17)
[2017-09-07] MEDS ORDERED: Benzonatate 100 MG CAP PO PRN (08:17)
[2017-09-07] MEDS ORDERED: Senokot 8.6 MG TAB PO PRN (08:17)
[2017-09-07] MEDS ORDERED: Insulin Regular 300 UNITS/3 ML VIAL SC PRN (08:17)
[2017-09-07] MEDS ORDERED: Loratadine 10 MG TAB PO PRN (08:17)
[2017-09-07] MEDS ORDERED: Ondansetron ODT 4 MG TAB PO PRN (08:17)
[2017-09-07] MEDS ORDERED: Dextrose 50% Abboject 50 ML SYRINGE SLOW IVP PRN (08:17)
[2017-09-07] MEDS: hydrALAZINE 25 MG TAB PO SCH ×2 (08:57→21:08)
[2017-09-07] MEDS: Minoxidil 2.5 MG TAB PO SCH (08:57)
[2017-09-07] MEDS: Metolazone 5 MG TAB PO SCH (08:58)
[2017-09-07] MEDS: NIFEdipine XL 60 MG TAB PO SCH (08:58)
[2017-09-07] MEDS: Heparin 5,000 UNITS/ML VIAL SC SCH ×2 (08:59→23:29)
[2017-09-07] MEDS: Carvedilol 25 MG TAB PO SCH ×2 (09:02→17:38)
[2017-09-07 09:27] VITALS: BMI 22.2
[2017-09-07] MEDS: HYDROcodone/Acetaminophen 10/325 mg Tablet PO PRN ×3 (10:13→20:06)
[2017-09-07] MEDS: Insulin Regular 300 UNITS/3 ML VIAL SC PRN ×3 (12:03→17:11)
[2017-09-07] MEDS: Insulin NPH/Reg Insulin Hm 300 UNITS/3 ML VIAL SC SCH ×2 (12:06→23:30)
[2017-09-07] MEDS ORDERED: Insulin Regular 300 UNITS/3 ML VIAL SC SCH (12:30)
[2017-09-07] MEDS: Nitroglycerin 2% Ointment 1 INCH/1 GM Packet TOP SCH ×2 (13:34→21:09)
[2017-09-07] MEDS: Furosemide 40 MG/4 ML VIAL SLOW IVP SCH (13:34)
--- NOTE | 2017-09-07 15:21 | HP ---
PRIMARY CARE PHYSICIAN: [facility]. REASON FOR ADMISSION: Chest pain, acute on chronic, diastolic congestive heart failure exacerbation and hyperglycemia. HISTORY OF PRESENT ILLNESS: A 57-year-old male who has multiple medical problems including nephroti c syndrome, diabetes type 2 which is pretty much labile, chronic kidney disease stage 3 and chronic diastolic heart failure who came to the emergency room mainly complaining of scrotal swelling and sc rotal pain. Patient also noticed that his both lower extremities more swollen and more edematous th an he was recently discharged from the hospital. He also gained some weight. He was also having co nstant ongoing chest pain on the left side without any stop and that was sharp in nature without any specific relation with food, respiration or activity. He is also having bilateral lower extremity pain. Patient reports that after walking a few distance, he gets claudication in his both lower ext remities and that is why he has to rest. This is going on for the last several months. The patient also continued to smoke and he is trying to cut down to smoke up to about 6 cigarettes per day. When he presented to emergency room, he was having high blood pressure with blood pressure 214/102 a nd his blood sugar was also out of control. He has chronically elevated troponin and his BNP was mo re better than before. Patient was mainly interested in getting pain medication in the emergency room. He was on room air. When I saw this patient at that time, patient's blood pressure was already improved. He had a janie ticular ultrasound in the emergency room for his testicular pain, which did not show any acute proce ss, only found with bilateral hydrocele and scrotal wall thickening. PAST MEDICAL HISTORY: Coronary artery disease required CABG, diabetes type 2, hypertension, chronic low back pain, chronic kidney disease, diabetic nephropathy, chronic diastolic heart failure, perip heral vascular disease, diabetic neuropathy, dyslipidemia, tobacco abuse disorder, medication noncom pliance. PAST SURGICAL HISTORY: CABG x4, right shoulder arthroplasty, right knee surgery, esophageal ulcer r epair, cholecystectomy, appendicectomy. PAST PSYCHIATRIC HISTORY: Anxiety and depression. SOCIAL HISTORY: Patient has now cut down to smoke 6 cigarettes on a daily basis. He denies any alc ohol abuse. He denies any other illicit drug abuse. He lives at home with his family. FAMILY HISTORY: Positive for stroke to his father. No strong family history of cancer or heart dis ease. ALLERGIES: PENICILLIN, ULTRAM, VALIUM, VERSED, VANCOMYCIN. CURRENT HOME MEDICATIONS: The patient does not have any medication when he arrived to the ER. Base d on our previous discharge summary, the patient is on following medication: Aspirin 81 mg p.o. carlos ly, Coreg 25 mg twice daily, Lasix 80 mg daily, Humulin 70/30, 15 units subQ b.i.d., Imdur 120 mg p. o. daily, Zaroxolyn 5 mg p.o. daily, Procardia-XL 60 mg daily, promethazine 12.5 mg q.6 hourly p.r.n ., hydralazine 50 mg t.i.d. REVIEW OF SYSTEMS: The following complete review of systems was negative, unless otherwise mentione d in the HPI or below: CONSTITUTIONAL: Weight loss or gain, ability to conduct usual activities. SKIN: Rash, itching. EYES: Double vision, pain. ENT/MOUTH: Nose bleeding, neck stiffness, pain, tenderness. CARDIOVASCULAR: Palpitations, dyspnea on exertion, orthopnea. RESPIRATORY: Shortness of breath, wheezing, cough, hemoptysis, fever or night sweats. GASTROINTESTINAL: Poor appetite, abdominal pain, heartburn, nausea, vomiting, constipation, or diar franklyn. GENITOURINARY: Urgency, frequency, dysuria, nocturia. MUSCULOSKELETAL: Pain, swelling. NEUROLOGIC/PSYCHIATRIC: Anxiety, depression. ALLERGY/IMMUNOLOGIC: Skin rash, bleeding tendency. Please see my HPI for pertinent positives and negatives. All other review of systems reviewed and n egative except as mentioned in the HPI. EMERGENCY ROOM COURSE: Reviewed. The patient is given Lovenox 70 mg and Lasix 40 mg. PHYSICAL EXAMINATION: VITAL SIGNS: On arrival, blood pressure 214/102, pulse 87, respiratory rate 18, temperature 98.7, s aturation 98%. Weight 77.1 kilograms. GENERAL: Patient is currently alert, awake, no obvious acute distress. HEAD: Normocephalic, atraumatic. EYES: Pupils round, reactive to light. Extraocular muscles intact. ENT: Oropharynx within normal limits. Moist mucous membranes. No oral lesions. No pharyngeal nemesio thema. No exudate. NECK: Supple. Range of motion is normal. No meningeal signs of irritation. LUNGS: Clear to auscultation without any rhonchi or rales. CARDIAC: S1, S2 regular. No murmur elicited, no gallop, no rub. ABDOMEN: Soft, bowel sounds present, nontender, nondistended. No organomegaly, no mass, no suprapu bic tenderness. BACK: Unremarkable, no CVA tenderness. GENITOURINARY: Testicle is normal. Epididymis is normal. Scrotal wall edema noted. EXTREMITIES: Upper extremity: Passive movement of all joints are normal. Lower extremity: Bilate ral lower extremity pitting edema noted. Good peripheral pulsation. SKIN: No skin rash. HEMATOLOGICAL SYSTEM: No lymphadenopathy. PSYCHIATRIC: Normal affect. SIGNIFICANT LABS: EKG showing normal sinus rhythm, left axis deviation, nonspecific ST-T changes. CBC: WBC 11.5, hemoglobin 7.8, platelet 296. BMP: Sodium 129, potassium 4.1, chloride 98, carbon dioxide 24, anion gap 11, BUN 41, creatinine 1.38, glucose 461, calcium 7.5. LFT: AST 14, ALT 13, alkaline phosphatase 91, albumin 2.5. CK of 208, CK-MB 3.5, troponin 0.210. BNP 2774. ASSESSMENT AND PLAN/IMPRESSION: 1. Chest pain. Patient has 12 hours constant chest pain on the left side, which is sharp in nature without any new EKG changes consistent with musculoskeletal pain. This patient has troponin indete rminate range, which is chronically elevated. His chest pain description is noncardiac and nonangin al. At this point, this patient does not need any further investigation. 2. Hyperglycemia associated with diabetes type 2. At this point, I will treat his hyperglycemia wi th Accu-Chek every 2 hourly and will cover each time aggressive sliding scale, Humulin regular insul in and I will continue him insulin 70/30, 15 units subQ b.i.d. and based on his requirement, we will increase insulin 70/30 dose tomorrow. We will provide diabetic diet. 3. Acute on chronic diastolic congestive heart failure. We will continue with Lasix 60 mg IV b.i.d . along with Zaroxolyn 5 mg p.o. daily with a fluid restriction 1200 mL per day. 4. Diabetic nephropathy with chronic kidney disease stage 3. This patient has hypoalbuminemia and he has nephrotic syndrome that also contributes to his bilateral lower extremity edema. We will con tinue diuresis with Lasix and Zaroxolyn and we will monitor renal function. 5. Hypertensive urgency. At this point, we will continue the nitropatch q.8 hourly. We will ion nue with minoxidil 5 mg p.o. daily, Procardia-XL 60 mg p.o. daily, hydralazine 50 mg twice daily and will use hydralazine and clonidine on p.r.n. basis. We will also continue Coreg 25 mg p.o. b.i.d. 6. Hyponatremia likely due to hyperglycemia and this is pseudohyponatremia. We will repeat BMP pancho orrow. 7. Chronic kidney disease stage 3. Currently, renal function is stable at baseline. We will repea t BMP tomorrow. We will avoid nephrotoxic agents. 8. Anemia of renal disease. We will continue with ferrous sulfate 325 mg p.o. b.i.d. 9. Elevated troponin. This is chronically elevated troponin. Does not have any acute coronary syn drome. 10. Tobacco abuse disorder. Smoking cessation counseling given. Healthy lifestyle measures discus sed with the patient. 11. Peripheral vascular disease with claudication. Patient already had vascular evaluation during previous admission. Patient needs to stop smoking and he needs to continue aspirin. We will also a dd Lipitor therapy. 12. Deep venous thrombosis prophylaxis, heparin 5000 units subQ twice daily. 13. Gastrointestinal prophylaxis, Protonix 40 mg p.o. daily. 14. CODE STATUS: The patient is FULL CODE. The patient's is surrogate decision maker. Disposition plan based on clinical course. Most likely, this patient will be discharged in 24-48 ho urs.
[2017-09-07] MEDS: Ferrous Sulfate 325 MG TAB PO SCH (17:38)
[2017-09-07] MEDS ORDERED: Atorvastatin Calcium 10 MG TAB PO SCH (21:00)
[2017-09-08] MEDS: HYDROcodone/Acetaminophen 10/325 mg Tablet PO PRN ×4 (01:30→14:38)
[2017-09-08] MEDS ORDERED: Morphine 10 MG/ML VIAL SLOW IVP PRN (05:04)
[2017-09-08 05:24] LABS: #Basophils 0.1 thou/uL (0.0-0.2); #Eosinphils 0.7 thou/uL (0.0-0.7); #Lymphocytes 1.7 thou/uL (1.20-3.40); #Monocytes 0.6 thou/uL (0.11-0.59); #Neutrophils 8.6 thou/uL (1.40-6.50); %Basophils 0.8 % (0.0-1.0); %Eosinophils 5.9 % (0.0-10.0); %Lymphocytes 14.5 % (21.0-51.0); Mean Platelet Volume 6.9 fL (7.4-10.4); Red Blood Cell (RBC) Count 3.02 mill/uL (4.70-6.10); White Blood Cell (WBC) Count 11.6 thou/uL (4.8-10.8)
[2017-09-08 05:48] LABS: Anion Gap 12 mmol/L (10-20); BUN (Urea Nitrogen) 44 mg/dL (8.4-25.7); Calc. Creatinine Clearance 51 mL/min (70-130); Calcium 7.4 mg/dL (7.8-10.44); Carbon Dioxide 23 mmol/L (22-29); Chloride 99 mmol/L (98-107); Estimated GFR-MDRD 45; Magnesium 1.5 mg/dL (1.6-2.6); Phosphorus 3.4 mg/dL (2.3-4.7); Uric Acid 9.9 mg/dL (3.5-7.2)
[2017-09-08] MEDS: Furosemide 40 MG/4 ML VIAL SLOW IVP SCH ×2 (06:16→15:17)
[2017-09-08] MEDS: Insulin Regular 300 UNITS/3 ML VIAL SC PRN ×2 (06:23→11:15)
[2017-09-08] MEDS: Nitroglycerin 2% Ointment 1 INCH/1 GM Packet TOP SCH ×2 (06:33→15:17)
--- NOTE | 2017-09-08 09:11 | PDOC.PN ---
- Subjective Encounter Start Date: 09/08/17 Encounter Start Time: 09:00 Subjective: Patient with improved scrotal swelling. Chest pain resolved. Patient not -: taking any meds for past 6 days due to pain in legs when ran out of his -: home [place]. Working on getting SS back on tomorrow so can see PCP - Objective Resuscitation Status: Resuscitation Status FULL:Full Resuscitation MAR Reviewed: Yes Vital Signs & Weight: Vital Signs (12 hours) Temp Pulse Resp BP BP Pulse Ox 09/08/17 07:38 97.5 F L 70 16 179/87 H 98 09/08/17 04:00 97.8 F 67 16 139/65 93 L 09/08/17 00:52 68 18 131/67 92 L Weight Weight 155 lb I&O: 09/07/17 09/08/17 09/09/17 06:59 06:59 06:59 Intake Total 1478 Output Total 1550 Balance -72 Result Diagrams: 09/08/17 04:50 09/08/17 04:50 Additional Labs: Accuchecks 09/08/17 09/08/17 09/08/17 08:10 06:16 03:06 POC Glucose 109 225 H 232 H 09/08/17 09/07/17 09/07/17 00:52 22:31 20:34 POC Glucose 201 H 166 H 127 H 09/07/17 09/07/17 09/07/17 18:35 16:35 14:37 POC Glucose 217 H 341 H 470 H 09/07/17 11:30 POC Glucose Greater than 550 H* Phys Exam - Physical Examination Constitutional: NAD HEENT: moist MMs Respiratory: no wheezing, no rales, no rhonchi Cardiovascular: RRR, no significant murmur Gastrointestinal: soft, positive bowel sounds Neurological: non-focal, moves all 4 limbs Psychiatric: normal affect, A&O x 3 Dx/Plan (1) Acute on chronic diastolic (congestive) heart failure Code(s): I50.33 - ACUTE ON CHRONIC DIASTOLIC (CONGESTIVE) HEART FAILURE Status : Acute Comment: Improved with resuming home diuretics. (2) Chest pain not due to acute coronary syndrome Code(s): R07.89 - OTHER CHEST PAIN Status: Resolved Comment: Non-cardiac, CM neg x3. (3) Hypertension, uncontrolled Code(s): I10 - ESSENTIAL (PRIMARY) HYPERTENSION Status: Chronic Comment: Improved in hospital with institution of home medications and nitro patch. (4) DM type 2, uncontrolled, with renal complications Code(s): E11.29 - TYPE 2 DIABETES MELLITUS W OTH DIABETIC KIDNEY COMPLICATION; E11.65 - TYPE 2 DIABETES MELLITUS WITH HYPERGLYCEMIA Status: Chronic Comment : Blood sugar normalized with small amount of sliding scale insulin and control of diet. Suspect medication non-compliance and diet as source of hyperglycemia. Stay at 15 units NPH BID for now. - Plan cont current plan of care D/c Home. Will give some Tramadol for pain. Refill home meds x1 month while -: waiting to get back in with PCP. * . - Discharge Day Encounter end time: 09:40
[2017-09-08] MEDS: Insulin NPH/Reg Insulin Hm 300 UNITS/3 ML VIAL SC SCH (10:27)
[2017-09-08] MEDS: Heparin 5,000 UNITS/ML VIAL SC SCH (10:51)
[2017-09-08] MEDS: Ferrous Sulfate 325 MG TAB PO SCH (10:55)
[2017-09-08] MEDS: Metolazone 5 MG TAB PO SCH (10:56)
[2017-09-08] MEDS: NIFEdipine XL 60 MG TAB PO SCH (10:57)
[2017-09-08] MEDS: Minoxidil 2.5 MG TAB PO SCH (10:58)
[2017-09-08] MEDS: hydrALAZINE 25 MG TAB PO SCH (10:59)
[2017-09-08] MEDS: Carvedilol 25 MG TAB PO SCH (10:59)
[2017-09-08 11:09] VITALS: BP 172/84; TEMP 98
--- NOTE | 2017-09-08 14:00 | DIS ---
DATE OF ADMISSION: 09/07/2017 DATE OF DISCHARGE: 09/08/2017 PRIMARY CARE PHYSICIAN: [facility]. DIAGNOSES ON ADMISSION: 1. Atypical chest pain. 2. Hyperglycemia from diabetes mellitus type 2. 3. Acute on chronic diastolic congestive heart failure with scrotal edema. 4. Hypertensive urgency. 5. Chronic kidney disease, stage 3. 6. Chronic lower extremity pain from peripheral vascular disease, out of narcotics. DIAGNOSES ON DISCHARGE: 1. Chest pain, resolved, negative cardiac markers x3. 2. Hyperglycemia, resolved with resumption of home insulin. 3. Acute on chronic diastolic congestive heart failure, resolving with reinstitution of diuretics. 4. Hypertensive urgency, resolved with resumption of home blood pressure medications. 5. Chronic lower extremity pain from peripheral vascular disease. 6. Chronic kidney disease, stage 3, slightly worsened after diuretic resumption. CONSULTATIONS: None. PROCEDURE: Testicular ultrasound showing no evidence of torsion, just bilateral hydrocele, some scr otal wall thickening and edema. PERTINENT LABORATORY DATA: Hemoglobin 8.2, stable. Initial creatinine 1.38, up to 1.60 after resum ption of the diuretics, which is his baseline. Blood sugars initially 600, down to 109 at discharge . Troponins 0.21 up to 0.24; this is a chronic elevation for him. SUMMARY OF HOSPITAL COURSE: This is a 57-year-old white male with multiple medical problems includi ng nephrotic syndrome; diabetes mellitus, type 2; chronic kidney disease, stage 3; chronic diastolic congestive heart failure; and coronary artery disease with a previous CABG. Patient reports that guerita conway has lost his primary care doctor, who was providing [employer] for the last couple of years. Over the last month, he has run out of his [place], had severe worsening of his bilateral lower extremity pain, which is related to back problems as well as peripheral vascular disease. He stated the pain becam e so worse. About 5 days ago, he stopped taking any of his other medications. After this, he noted increasing scrotal swelling, so they brought him into the emergency room. He was also having some left-sided chest pain that was big concern for him and it has since resolved. This pain was sharp i n nature and not related to any food, respiration, or activity. He also was noted to have severe hy perglycemia in the emergency room and hypertensive urgency. The patient's home medications were res umed with resolution of his hyperglycemia and hypertension. He was given pain medications in the ho spital with improvement in his lower extremity pain, and he was given IV Lasix along with his metola zone with improvement in his lower extremity edema and good diuresis. Day of discharge, the patient was doing much better, had no more chest pain. His cardiac marker sets were at baseline for him an d stable. So, he is being discharged home. DISCHARGE MANAGEMENT: Discharge home. The patient is going to work with social security, so that h e can get back in to see his primary care physician in the next 1-2 weeks. We will give him 1 month supply of all of his medications and we will give him some tramadol to go home on. DIET: Low sodium, diabetic diet. ACTIVITIES: As tolerated. MEDICATIONS: 1. Tramadol 50 mg 2 tablets 4 times a day as needed for pain, 100 tablets dispensed. 2. Hydralazine 50 mg 3 times a day, 90 tablets dispensed. 3. Promethazine 12.5 mg every 6 hours as needed for nausea and vomiting, 60 tablets dispensed. 4. Procardia-XL 60 mg daily, 30 tablets dispensed. 5. Zaroxolyn 5 mg daily, 30 tablets dispensed. 6. Imdur ER 120 mg daily, 30 tablets dispensed. 7. Humulin 70/30 15 units subcu twice a day, 3 vials dispensed. 8. Lasix 80 mg daily, 30 tablets dispensed. 9. Coreg 25 mg twice a day, 60 tablets dispensed. 10. Lipitor 10 mg daily, 30 tablets dispensed. 11. Aspirin 81 mg 1 tablet daily, 30 tablets dispensed.
== END 2017-09-08 16:40 | disposition home or self-care (01) ==
LOC: ERS 03:16 → 2SW 07:56
PROVIDERS: ADMIT Internal Medicine; ATTEND Internal Medicine
DX: R07.89 Other chest pain (principal); E11.65 Type 2 diabetes mellitus with hyperglycemia; E11.22 Type 2 diabetes mellitus with diabetic chronic kidney disease; I16.0 Hypertensive urgency; I13.0 Hypertensive heart and chronic kidney disease with heart failure and stage 1 through stage 4 chronic kidney disease, or unspecified chronic kidney disease; N18.3 Chronic kidney disease, stage 3 (moderate); I50.33 Acute on chronic diastolic (congestive) heart failure; I73.9 Peripheral vascular disease, unspecified; G89.29 Other chronic pain; I25.10 Atherosclerotic heart disease of native coronary artery without angina pectoris; E11.21 Type 2 diabetes mellitus with diabetic nephropathy; N50.89 Other specified disorders of the male genital organs; E11.40 Type 2 diabetes mellitus with diabetic neuropathy, unspecified; F17.210 Nicotine dependence, cigarettes, uncomplicated; F41.9 Anxiety disorder, unspecified; F32.9 Major depressive disorder, single episode, unspecified; Z91.14 Patient's other noncompliance with medication regimen; Z79.4 Long term (current) use of insulin; Z79.82 Long term (current) use of aspirin; Z79.899 Other long term (current) drug therapy; Z88.6 Allergy status to analgesic agent; Z88.1 Allergy status to other antibiotic agents; Z88.0 Allergy status to penicillin; Z88.8 Allergy status to other drugs, medicaments and biological substances; Z95.1 Presence of aortocoronary bypass graft; Z90.49 Acquired absence of other specified parts of digestive tract; Z98.890 Other specified postprocedural states; Z82.3 Family history of stroke
CPT/HCPCS: 36415; 36416; 76870; 80053; 80069; 82550; 82553; 83735; 83880; 84484; 84550; 85025; 90471; 90732; 93005; 93798; 93976; 96372; 96374; 96375; 96376; G0009; G0378; J1644; J1650; J1815; J1940; J2270

== ENCOUNTER 2017-09-18 05:43 | Observation (INO) | payer SELFPAY ==
[2017-09-18 06:30] LABS: #Basophils 0.1 thou/uL (0.0-0.2); #Eosinphils 0.2 thou/uL (0.0-0.7); #Lymphocytes 1.2 thou/uL (1.20-3.40); #Monocytes 0.6 thou/uL (0.11-0.59); #Neutrophils 8.8 thou/uL (1.40-6.50); %Basophils 0.8 % (0.0-1.0); %Lymphocytes 11.3 % (21.0-51.0); %Monocytes 5.5 % (0.0-10.0); Hematocrit 29.5 % (42.0-52.0); Mean Platelet Volume 7.2 fL (7.4-10.4); Red Blood Cell (RBC) Count 3.46 mill/uL (4.70-6.10)
[2017-09-18] MEDS ORDERED: Aspirin 325 MG TAB ONE (06:40)
[2017-09-18] MEDS ORDERED: Nitroglycerin 0.4 MG TAB (25 Tab Bottle) ONE (06:40)
[2017-09-18 06:52] LABS: ALT (SGPT) 11 U/L (8-55); AST (SGOT) 10 U/L (5-34); Alkaline Phosphatase 128 U/L (40-150); Anion Gap 13 mmol/L (10-20); BUN (Urea Nitrogen) 38 mg/dL (8.4-25.7); Bilirubin, Total 0.2 mg/dL (0.2-1.2); CK (CPK) 105 U/L (30-200); Calc. Creatinine Clearance 0 mL/min (70-130); Calcium 7.6 mg/dL (7.8-10.44); Carbon Dioxide 21 mmol/L (22-29); Chloride 95 mmol/L (98-107); Estimated GFR-MDRD 41; Globulin 3.4 g/dL (2.4-3.5); Lipase 8 U/L (8-78); Protein, Total 5.9 g/dL (6.0-8.3)
[2017-09-18] MEDS ORDERED: Nitroglycerin 2% Ointment 1 INCH/1 GM Packet ONE (06:55)
[2017-09-18 06:56] LABS: Troponin I 0.225 ng/mL (< 0.028)
[2017-09-18] MEDS ORDERED: Lisinopril 10 MG TAB ONE (07:20)
[2017-09-18] MEDS ORDERED: hydrALAZINE 25 MG TAB ONE (07:20)
[2017-09-18] MEDS ORDERED: Furosemide 40 MG/4 ML VIAL ONE (07:21)
[2017-09-18] MEDS ORDERED: Carvedilol 25 MG TAB PO SCH (07:30)
[2017-09-18] MEDS ORDERED: Insulin NPH/Reg Insulin Hm 300 UNITS/3 ML VIAL SC SCH (07:30)
--- NOTE | 2017-09-18 07:50 | RAD ---
SINGLE VIEW OF CHEST: Date: 09/18/17 COMPARISON: 09/03/17 . HISTORY: Low back pain with weakness. FINDINGS: Single view of the chest shows a normal sized cardiomediastinal silhouette with atherosclerotic calc ifications in the aorta. There is no evidence of consolidation, mass, or pleural effusion. IMPRESSION: 1. No evidence of acute cardiopulmonary disease. 2. Atherosclerotic disease. POS: [facility]
[2017-09-18] MEDS ORDERED: Nitroglycerin 0.4 MG TAB (25 Tab Bottle) PO PRN (08:41)
[2017-09-18] MEDS ORDERED: Dextrose 5% in Water 1,000 ML IV PRN (08:41)
[2017-09-18] MEDS ORDERED: Dextrose 50% Abboject 50 ML SYRINGE SLOW IVP PRN (08:41)
[2017-09-18] MEDS ORDERED: Insulin Regular 300 UNITS/3 ML VIAL SC PRN (08:41)
[2017-09-18] MEDS ORDERED: HYDROcodone/Acetaminophen 5/325 mg Tablet PO PRN (08:47)
[2017-09-18] MEDS ORDERED: hydrALAZINE 20 MG/ML VIAL SLOW IVP PRN (08:47)
[2017-09-18] MEDS ORDERED: Calcium Carbonate 500 MG ChewTAB PO PRN (08:49)
[2017-09-18] MEDS ORDERED: Ondansetron HCl/PF 4 MG/2 ML Vial IVP PRN (08:49)
[2017-09-18] MEDS ORDERED: Ondansetron ODT 4 MG TAB PO PRN (08:49)
[2017-09-18] MEDS ORDERED: Senokot 8.6 MG TAB PO PRN (08:49)
--- NOTE | 2017-09-18 09:04 | HP ---
DATE OF ADMISSION: 09/18/2017 PRIMARY CARE PHYSICIAN: Patient does not have a primary care. He goes to [facility] on and off . CHIEF COMPLAINT: Chest discomfort. HISTORY OF PRESENT ILLNESS: The patient is a 57-year-old male with diabetes mellitus type 2, chroni c diastolic heart failure, CKD stage 3, chronic pain syndrome and status post CABG in the past, pres ented to the emergency room with chest discomfort. He was discharged from this facility more than 1 week ago. He was admitted for congestive heart failure exacerbation. He lost around 12 pounds pos t-discharge and he did well. His weight on the day of discharge was 155 pounds. The patient presented to the emergency room with chest discomfort that has been going on since 6 p.m . yesterday. He felt nauseous; however, denies any vomiting or syncope. No palpitations reported. He does not take any medications at this time since he lost social security per patient's report. He was advised to take multiple medications including Lasix 80 mg daily, Imdur, Zaroxolyn, Procardia -XL, hydralazine, and carvedilol. Please note that over the last one week, patient has not taken an y of the above medications. He also had some shortness of breath without any leg swelling. He has chronic low back pain and has been taking over the counter medications. He only takes 81 mg aspirin on a daily basis. His pain was dull/aching in nature /10, worse on exertion. In the emergency room, initial vital signs showed temperature 97.7, respirations 16, pulse of 92, an d blood pressure of 216/115 with O2 saturation 92% on room air. His labs were consistent with blood sugar of 581 with BNP of 4481. Please note that patient has chronically elevated BNP. A month ago , it was 4000 and last month it was around 3000. His troponin was 0.2. Patient also has chronicall y elevated troponins in 0.2 range. His sodium was also 125. A week ago, it was 129. He received i nsulin, carvedilol 40 mg, IV Lasix, lisinopril, hydralazine, nitroglycerin patch with 2 sublingual n itroglycerin and aspirin. His chest pain has improved since then. PAST MEDICAL HISTORY: 1. Medication noncompliance. 2. Diabetes mellitus type 2. 3. Chronic diastolic heart failure with recent exacerbation. 4. Hypertension. 5. CKD stage 3. 6. Chronic pain syndrome. 7. Coronary artery disease, status post CABG. 8. GERD. 9. Dyslipidemia. 10. Ongoing tobacco abuse. 11. Anxiety and depression. PAST SURGICAL HISTORY: 1. Coronary artery bypass grafting x4. 2. Right shoulder surgery. 3. Right knee surgery. 4. Esophageal ulcer repair. 5. Cholecystectomy. 6. Appendectomy. ALLERGIES: The patient IS ALLERGIC TO PENICILLIN, ULTRAM, VALIUM, VERSED, and VANCOMYCIN. CURRENT HOME MEDICATION: Patient only takes aspirin 81 mg daily. SOCIAL HISTORY: Patient continues to smoke on a daily basis, no alcohol or drug use. His urine debbie g screen a month ago was negative. FAMILY HISTORY: Stroke in his father. No premature coronary artery disease. REVIEW OF SYSTEMS: The following complete review of systems was negative, unless otherwise mentione d in the HPI or below: Constitutional: Weight loss or gain, ability to conduct usual activities. Skin: Rash, itching. Eyes: Double vision, pain. ENT/Mouth: Nose bleeding, neck stiffness, pain, tenderness. Cardiovascular: Palpitations, dyspnea on exertion, orthopnea. Respiratory: Shortness of breath, wheezing, cough, hemoptysis, fever or night sweats. Gastrointestinal: Poor appetite, abdominal pain, heartburn, nausea, vomiting, constipation, or diar franklyn. Genitourinary: Urgency, frequency, dysuria, nocturia. Musculoskeletal: Pain, swelling. Neurologic/Psychiatric: Anxiety, depression. Allergy/Immunologic: Skin rash, bleeding tendency. PHYSICAL EXAMINATION: VITAL SIGNS: As discussed above. GENERAL: A 57-year-old male in no significant distress. Complaining of low back pain which is slurry tank tender libby. HEENT: Head is atraumatic, normocephalic. Sclerae are anicteric. Moist mucous membranes. No oral lesion. NECK: Supple, no JVD, no carotid bruit. LUNGS: Showed scattered bibasilar rales. HEART: S1 and S2 present. Regular rate and rhythm. A 2/6 systolic murmur over the mitral area. H ealed midline scar from previous CABG. ABDOMEN: Soft, nontender, bowel sounds present, no rebound or guarding. There was some tenderness over the paraspinal region. EXTREMITIES: 1+ edema in bilateral lower extremities. SKIN: Warm and dry. LYMPH NODES: No palpable lymph nodes in the neck. PERIPHERAL VASCULAR: Radial pulses palpable bilaterally. MUSCULOSKELETAL: As discussed above. SKIN: Warm and dry. LYMPH NODES: No palpable lymph nodes in the neck. PERIPHERAL VASCULAR: Radial pulses palpable bilaterally. MUSCULOSKELETAL: No joint swelling or tenderness. LABORATORY DATA AND IMAGIN. Troponins chronically elevated at 0.2. BNP 4481, albumin 2.5, creatinine 1.75, sodium 125, hemo globin 9.7. 2. Chest x-ray by my review was negative for infiltrate or edema. There was no significant pulmona ry vascular congestion. 3. EKG by my review showed normal sinus rhythm with nonspecific ST-T wave changes. IMPRESSION: 1. Chest discomfort, probably precipitated by hypertensive urgency. 2. Uncontrolled hypertension secondary to medication noncompliance. 3. Coronary artery disease status post coronary artery bypass graft. 4. Peripheral vascular disease. 5. Chronic kidney disease stage 3, probably secondary to diabetic nephropathy. 6. Hypoalbuminemia, probably secondary to proteinuria from diabetes. 7. Dyslipidemia. 8. Chronic low back pain. 9. Ongoing tobacco abuse. 10. Diabetes mellitus type 2, uncontrolled. 11. Acute on chronic hyponatremia, probably secondary to hyperglycemia. 12. Chronically elevated troponins. 13. Chronic anemia. PLAN: The patient will be monitored as a 23-hour observation. We will try to resume all of his michael e medications. We will start him on insulin sliding scale. We will consult case assistant for assist ance with medications if possible. Most of his medications are in the 4 dollar list. Tobacco cessa tion was emphasized. Pain controlled. Patient is allergic to nonsteroidal antiinflammatory drugs. We will repeat labs in a.m. Sodium is low, probably secondary to hyperglycemia. He also has chron ic hyponatremia. His troponins are also chronically elevated. acute on chronic hyponatremia, probably secondary to hyperglycemia. Plan of care was discussed with the patient and he stated understanding.
[2017-09-18] MEDS ORDERED: Morphine PF 1 MG/ML SYR IVP PRN (09:13)
[2017-09-18 09:17] VITALS: BMI 19.3
[2017-09-18] MEDS: Aspirin 325 MG TAB PO SCH (09:22)
[2017-09-18] MEDS: hydrALAZINE 25 MG TAB PO SCH ×3 (09:22→19:44)
[2017-09-18 10:21] LABS: Troponin I 0.232 ng/mL (< 0.028)
[2017-09-18] MEDS: NIFEdipine XL 60 MG TAB PO SCH (10:41)
[2017-09-18] MEDS ORDERED: NPH, Human Insulin Isophane 300 UNIT/3 ML VIAL SC SCH (12:30)
[2017-09-18] MEDS: HYDROcodone/Acetaminophen 5/325 mg Tablet PO PRN ×2 (12:46→18:48)
[2017-09-18] MEDS: Insulin Regular 300 UNITS/3 ML VIAL SC PRN ×2 (12:52→20:17)
[2017-09-18] MEDS ORDERED: Nitroglycerin 2% Ointment 1 INCH/1 GM Packet TOP SCH (14:00)
[2017-09-18] MEDS ORDERED: Furosemide 20 MG TAB PO SCH (14:00)
[2017-09-18] MEDS: Furosemide 40 MG TAB PO SCH (15:07)
[2017-09-18] MEDS: traMADol HCl 50 MG TAB PO PRN ×3 (15:12→23:53)
[2017-09-18 15:23] LABS: Troponin I 0.268 ng/mL (< 0.028)
[2017-09-18] MEDS: Carvedilol 25 MG TAB PO SCH (16:46)
[2017-09-18] MEDS: Acetaminophen 325 MG TAB PO PRN ×2 (19:44→23:54)
[2017-09-18] MEDS ORDERED: Atorvastatin Calcium 10 MG TAB PO SCH (21:00)
[2017-09-19] MEDS: HYDROcodone/Acetaminophen 5/325 mg Tablet PO PRN ×2 (00:56→06:04)
[2017-09-19] MEDS: traMADol HCl 50 MG TAB PO PRN ×3 (04:03→12:11)
[2017-09-19 05:47] LABS: Anion Gap 11 mmol/L (10-20); BUN (Urea Nitrogen) 41 mg/dL (8.4-25.7); Calc. Creatinine Clearance 41 mL/min (70-130); Calcium 7.8 mg/dL (7.8-10.44); Carbon Dioxide 23 mmol/L (22-29); Chloride 96 mmol/L (98-107); Estimated GFR-MDRD 40
[2017-09-19] MEDS: Insulin Regular 300 UNITS/3 ML VIAL SC PRN (06:05)
[2017-09-19] MEDS: Carvedilol 25 MG TAB PO SCH (08:24)
[2017-09-19] MEDS: Furosemide 40 MG TAB PO SCH (08:24)
[2017-09-19] MEDS: Aspirin 325 MG TAB PO SCH (08:24)
[2017-09-19] MEDS: hydrALAZINE 25 MG TAB PO SCH (08:24)
[2017-09-19] MEDS: NIFEdipine XL 60 MG TAB PO SCH (08:26)
[2017-09-19 11:04] VITALS: BP 149/72; TEMP 98.1
--- NOTE | 2017-09-19 14:18 | DIS ---
DATE OF ADMISSION: 09/18/2017 DATE OF DISCHARGE: 09/19/2017 DIAGNOSES AT THE TIME OF DISCHARGE: 1. Chest discomfort, probably precipitated by hypertensive urgency. 2. Uncontrolled hypertension, secondary to medication noncompliance. 3. Coronary artery disease, status post coronary artery bypass graft. 4. Peripheral vascular disease. 5. Chronic kidney disease, stage 3, most likely secondary to diabetic nephropathy. 6. Hypoalbuminemia, secondary to proteinuria from diabetes. 7. Dyslipidemia. 8. Chronic low back pain. 9. Ongoing tobacco abuse. 10. Diabetes mellitus, type 2, uncontrolled. 11. Acute on chronic hyponatremia, probably secondary to hyperglycemia. 12. Chronic elevated troponins. 13. Chronic anemia. HOSPITAL COURSE: The patient is a 57-year-old male with diabetes mellitus, type 2; chroni c diastolic heart failure; CKD, stage 3; chronic pain syndrome; and status post CABG in the past; wh o presented to the emergency room with chest discomfort. He was just discharged 1 week ago from the same hospital. Apparently, he has multiple admissions to this hospital. He is not very compliant. He does not take his medications at home and he comes in frequently. This time, his troponins wer e elevated at 0.2, which was found to be chronic, and BNP was at 4481, which was chronic too. Creat inine was 1.75 and hemoglobin was 9.7. Chest x-ray did not show any infiltrate or edema. There was not any pulmonary vascular congestion. EKG showed normal sinus rhythm with no specific ST-T wave c hanges. The patient was admitted for 23-hour observation. He received insulin and his glycemia imp roved significantly to 150 level. 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 We stopped his Vicodin and gave him just tramadol, and he met with [facility] and we arranged that. All medications are paid in the local pharmacy, and they are waiting f or him to go there and to pick it up and he is discharged home with a recommendation to get medicine s, be compliant, take medications as how it is ordered, and follow up with the primary care physicia n in 1 week, and he is going to continue his all medications what he was discharged with last time f rom the hospital.
[2017-09-19] MEDS ORDERED: NPH, Human Insulin Isophane 300 UNIT/3 ML VIAL SC SCH (21:00)
== END 2017-09-19 13:57 | disposition home or self-care (01) ==
LOC: ERS 05:43 → 2SW 07:53
PROVIDERS: ADMIT Internal Medicine; ATTEND Internal Medicine
DX: R07.89 Other chest pain (principal); I25.10 Atherosclerotic heart disease of native coronary artery without angina pectoris; E11.51 Type 2 diabetes mellitus with diabetic peripheral angiopathy without gangrene; E11.22 Type 2 diabetes mellitus with diabetic chronic kidney disease; N18.3 Chronic kidney disease, stage 3 (moderate); E88.09 Other disorders of plasma-protein metabolism, not elsewhere classified; E78.5 Hyperlipidemia, unspecified; F17.200 Nicotine dependence, unspecified, uncomplicated; E11.65 Type 2 diabetes mellitus with hyperglycemia; E87.1 Hypo-osmolality and hyponatremia; D64.9 Anemia, unspecified; G89.4 Chronic pain syndrome; I13.0 Hypertensive heart and chronic kidney disease with heart failure and stage 1 through stage 4 chronic kidney disease, or unspecified chronic kidney disease; I50.32 Chronic diastolic (congestive) heart failure; F41.8 Other specified anxiety disorders; K21.9 Gastro-esophageal reflux disease without esophagitis; Z91.14 Patient's other noncompliance with medication regimen; Z79.4 Long term (current) use of insulin; Z79.82 Long term (current) use of aspirin; Z79.899 Other long term (current) drug therapy; Z88.6 Allergy status to analgesic agent; Z88.1 Allergy status to other antibiotic agents; Z88.0 Allergy status to penicillin; Z88.8 Allergy status to other drugs, medicaments and biological substances; Z95.1 Presence of aortocoronary bypass graft; Z90.49 Acquired absence of other specified parts of digestive tract; Z98.890 Other specified postprocedural states; Z82.3 Family history of stroke
CPT/HCPCS: 36415; 36416; 71010; 80048; 80053; 82553; 83690; 83880; 84484; 85025; 93005; 94760; 96374; 96375; A4216; G0378; J1815; J1940; J2274

== ENCOUNTER 2017-09-26 01:57 | Inpatient (IN) | payer SELFPAY ==
[2017-09-26] MEDS ORDERED: Nitroglycerin 2% Ointment 1 INCH/1 GM Packet ONE (02:31)
[2017-09-26] MEDS ORDERED: Aspirin 325 MG TAB ONE ×2 (02:31→09:19)
[2017-09-26 02:43] LABS: #Basophils 0.1 thou/uL (0.0-0.2); #Eosinphils 0.2 thou/uL (0.0-0.7); #Lymphocytes 1.4 thou/uL (1.20-3.40); #Monocytes 0.6 thou/uL (0.11-0.59); #Neutrophils 7.4 thou/uL (1.40-6.50); %Basophils 0.7 % (0.0-1.0); %Lymphocytes 14.3 % (21.0-51.0); %Monocytes 6.4 % (0.0-10.0); Hematocrit 26.8 % (42.0-52.0); Mean Platelet Volume 7.3 fL (7.4-10.4); Red Blood Cell (RBC) Count 3.09 mill/uL (4.70-6.10); White Blood Cell (WBC) Count 9.6 thou/uL (4.8-10.8)
[2017-09-26 02:53] LABS: PTT 25.7 SEC (22.9-36.1); Prothrombin Time 13.1 SEC (12.0-14.7)
[2017-09-26 02:55] LABS: ALT (SGPT) 8 U/L (8-55); AST (SGOT) 10 U/L (5-34); Alkaline Phosphatase 110 U/L (40-150); Anion Gap 11 mmol/L (10-20); BUN (Urea Nitrogen) 37 mg/dL (8.4-25.7); Bilirubin, Total 0.2 mg/dL (0.2-1.2); CK (CPK) 94 U/L (30-200); Calc. Creatinine Clearance 0 mL/min (70-130); Calcium 7.3 mg/dL (7.8-10.44); Carbon Dioxide 22 mmol/L (22-29); Chloride 94 mmol/L (98-107); Estimated GFR-MDRD 40; Globulin 3.2 g/dL (2.4-3.5); Lipase 17 U/L (8-78); Magnesium 1.8 mg/dL (1.6-2.6); Phosphorus 3.7 mg/dL (2.3-4.7); Protein, Total 5.7 g/dL (6.0-8.3)
[2017-09-26 02:58] LABS: Troponin I 0.165 ng/mL (< 0.028)
[2017-09-26] MEDS ORDERED: Acetaminophen 500 MG TAB ONE (03:17)
[2017-09-26] MEDS ORDERED: Insulin Regular 300 UNITS/3 ML VIAL ONE (03:17)
[2017-09-26] MEDS ORDERED: Ketorolac Tromethamine 30 MG/ML VIAL ONE (03:46)
[2017-09-26] MEDS ORDERED: Labetalol HCl 100 MG/20 ML VIAL ONE (03:46)
[2017-09-26 04:18] LABS: Anion Gap 10 mmol/L (-14-95); T. Carbon Dioxide 23.1 mmol/L (1.0-85.0); pH (Venous) 7.419 (7.35-7.45); vO2 Saturation-calc 99.3 % (0.0-100.0)
[2017-09-26] MEDS ORDERED: Mag-Al 1200 mg/1200 mg/30 ML UDCUP PO PRN (04:59)
[2017-09-26] MEDS ORDERED: Insulin Regular 300 UNITS/3 ML VIAL SC PRN ×2 (04:59)
[2017-09-26] MEDS ORDERED: Senokot 8.6 MG TAB PO PRN (04:59)
[2017-09-26] MEDS ORDERED: Loperamide HCl 2 MG CAP PO PRN ×2 (04:59)
[2017-09-26] MEDS ORDERED: Sodium Chloride 0.65% Nasal 44 ML BOT EA NARE PRN (04:59)
[2017-09-26] MEDS ORDERED: Eucerin (Mineral Oil/Petrolatum,White) 30 gm Jar TOP PRN (04:59)
[2017-09-26] MEDS ORDERED: Nitroglycerin 0.4 MG TAB (25 Tab Bottle) SL PRN (04:59)
[2017-09-26] MEDS ORDERED: Acetaminophen 325 MG TAB PO PRN (04:59)
[2017-09-26] MEDS ORDERED: Benzonatate 100 MG CAP PO PRN (04:59)
[2017-09-26] MEDS ORDERED: Loratadine 10 MG TAB PO PRN (04:59)
[2017-09-26] MEDS ORDERED: traMADol HCl 50 MG TAB PO PRN (04:59)
[2017-09-26] MEDS ORDERED: cloNIDine 0.1 MG TAB PO PRN (04:59)
[2017-09-26] MEDS ORDERED: Labetalol HCl 100 MG/20 ML VIAL SLOW IVP PRN (04:59)
[2017-09-26] MEDS ORDERED: Artificial Tears 18 DROP/0.9 ML EA EYE PRN (04:59)
[2017-09-26] MEDS ORDERED: Dextrose 5% in Water 1,000 ML IV PRN (04:59)
[2017-09-26] MEDS ORDERED: Chloraseptic Spray 180 ml Bottle PO PRN (04:59)
[2017-09-26] MEDS ORDERED: hydrALAZINE 20 MG/ML VIAL SLOW IVP PRN (04:59)
[2017-09-26] MEDS ORDERED: Zolpidem Tartrate 5 MG TAB PO PRN (04:59)
[2017-09-26] MEDS ORDERED: Milk Of Magnesia 30 ML UDCUP PO PRN (04:59)
[2017-09-26] MEDS ORDERED: Diabetic Tussin 200 MG/10 ML UDCUP PO PRN (04:59)
[2017-09-26] MEDS ORDERED: HYDROcodone/Acetaminophen 10/325 mg Tablet PO PRN (04:59)
[2017-09-26] MEDS ORDERED: Dextrose 50% Abboject 50 ML SYRINGE SLOW IVP PRN (04:59)
[2017-09-26 05:00] LABS: Bilirubin Negative (Negative); Blood, Urine Large (Negative); Glucose, Urine (Dipstick) >=1000 mg/dL (Negative); Ketone, Urine Negative (Negative); Nitrite Negative (Negative); Protein, Urine (Dipstick) 100 mg/dL (Neg-Trace); Urobilinogen 0.2 mg/dL (0.2-1.0)
[2017-09-26 05:10] LABS: Bacteria/HPF None Seen HPF (None Seen); Hyaline Casts/LPF 0-3 HYALINE CAST LPF (0-3 Hyaline); Squamous Epithelial 0-3 HPF (0-3); WBC/HPF 0-3 HPF (0-3)
--- NOTE | 2017-09-26 05:50 | HP ---
PRIMARY CARE PHYSICIAN: [facility]. REASON FOR ADMISSION: Chest pain. HISTORY OF PRESENT ILLNESS: A 57-year-old male who has multiple medical problems including diabetes type 2, hypertension, dyslipidemia, coronary artery disease, gastroesophageal reflux disease, chronic pain disorder, and medication noncompliance who came to the emergency room today with a complaint of chest pain for the last 5 hours. The patient reports that he is describing tightness and stabbing p ain at the same time on the left side of the chest, which radiates to entire left side of the body. He also reports leg pain. He denies any relation of chest pain with respiration, but it gets worse w ith movement. He denies any associated nausea, vomiting, diaphoresis. He denies any specific reliev ing factor. Patient did not take his diabetes medicine as well as blood pressure medicine before coming to the em ergency room. The patient was given aspirin on the route. When he came to the emergency room, he wa s hypertensive and hyperglycemic. The patient had elevated D-dimer and that is why ultrasound was or dered and we are also going to do a VQ scan. This patient also has recurrent admissions in our hospital. Lately, he has two admission back to [facility] in our hospital. Most recently, he was admitted on 09/07/2017, at that time he was having chest pa in and similarly when he presented again on 09/18/2017, he had chest pain. This patient is fully rubin luated in the recent past including cardiac catheterization was done. The patient denies any hemopty sis. He denies any calf tenderness. He denies any pleuritic chest pain. He denies any cough, short ness of breath. In the emergency room, he was saturating normal on room air. PAST MEDICAL HISTORY: Medication noncompliance, diabetes type 2, hypertension, dyslipidemia, coronar y artery disease required CABG, chronic systolic and diastolic heart failure, chronic kidney disease stage 3, gastroesophageal reflux disease, ongoing tobacco abuse. PAST PSYCHIATRIC HISTORY: Anxiety and depression. PAST SURGICAL HISTORY: Coronary artery bypass grafting x4, right shoulder surgery, right knee surger y, esophageal ulcer repair, cholecystectomy, appendicectomy. ALLERGIES: The patient is allergic to PENICILLIN, ULTRAM, VALIUM, VERSED and VANCOMYCIN. SOCIAL HISTORY: Patient is smoking on daily basis. His quantity of smoking is variable. He denies any alcohol or other illicit drug abuse. FAMILY HISTORY: Stroke to his father. No premature coronary artery disease or cancer. CURRENT HOME MEDICATIONS: The patient was discharged from the hospital on following medication. He does not have any medication to verify. Currently, the patient is on following medication: Aspirin 81 mg p.o. daily, Lipitor 10 mg p.o. at bedtime, Coreg 25 mg p.o. b.i.d., Lasix 80 mg p.o. daily, hyd ralazine 50 mg p.o. t.i.d. and Humulin 70/30 15 units subcu b.i.d., Imdur 120 mg p.o. daily, Zaroxoly n 5 mg p.o. daily, Procardia-XL 60 mg p.o. daily, promethazine 12.5 mg p.o. q.6 hours p.r.n., tramado l 100 mg q.i.d. p.r.n. REVIEW OF SYSTEMS: The following complete review of systems was negative, unless otherwise mentioned in the HPI or below: Constitutional: Weight loss or gain, ability to conduct usual activities. Skin: Rash, itching. Eyes: Double vision, pain. ENT/Mouth: Nose bleeding, neck stiffness, pain, tenderness. Cardiovascular: Palpitations, dyspnea on exertion, orthopnea. Respiratory: Shortness of breath, wheezing, cough, hemoptysis, fever or night sweats. Gastrointestinal: Poor appetite, abdominal pain, heartburn, nausea, vomiting, constipation, or diarr hea. Genitourinary: Urgency, frequency, dysuria, nocturia. Musculoskeletal: Pain, swelling. Neurologic/Psychiatric: Anxiety, depression. Allergy/Immunologic: Skin rash, bleeding tendency. Please see my HPI for pertinent positives and negatives. All other review of systems reviewed and ne gative except that mentioned in the HPI. EMERGENCY ROOM COURSE: Today, the patient is given Toradol 15 mg, labetalol 10 mg, Novolin R 10 unit s, Tylenol 1 gram, IV fluid 1 liter, nitroglycerin patch and aspirin 324 mg. PHYSICAL EXAMINATION: VITAL SIGNS: On arrival, blood pressure 203/115, pulse 81, respiratory rate 18, temperature 98.4, sa turation 95% on room air, weight 77.1 kilograms. GENERAL: Patient is currently alert, awake, no obvious acute distress. HEAD: Normocephalic, atraumatic. EYES: Pupils round, reactive to light. Extraocular muscle intact. ENT: Oropharynx within normal limits. Moist mucous membranes. No oral lesions. No pharyngeal eryt kelvin, no exudate. NECK: Supple. Range of motion is normal. No meningeal signs of irritation. LUNGS: Clear to auscultation without any rhonchi or rales. CARDIAC: S1, S2 regular without any murmur. ABDOMEN: Soft, bowel sounds present, nontender, nondistended. No organomegaly, no mass, no suprapub ic tenderness. BACK: Unremarkable, no CVA tenderness. EXTREMITIES: Upper extremity: Passive movement of all joints are normal. Lower extremity: Trace e tony noted. Good peripheral pulsation. SKIN: No skin rash. HEMATOLOGICAL: No lymphadenopathy. SIGNIFICANT LABORATORY DATA AND IMAGING: EKG showing first degree AV block, nonspecific intraventric ular conduction delay, nonspecific ST-T changes noted. Chest x-ray based on my review, no acute card iopulmonary process. CBC: WBC 9.6, hemoglobin 8.9, platelets 300. INR 1.0. D-dimer 1.76. VBG: p H 7.41, CO2 34.2, O2 146.6, bicarbonate 22.1. BMP shows sodium 122, potassium 4.6, chloride 94, carb on dioxide 22, anion gap 11, BUN 37, creatinine 1.78, glucose 704, calcium 7.3. LFT: AST 10, ALT 8, alkaline phosphatase 110, albumin 2.5. Lipase 17, CK 94, CK-MB 3.8, troponin I 0.165. Lactic acid 0.95 subsequently. Serum ketones 0.08. ASSESSMENT AND PLAN: 1. Chest pain. Patient has recurrent chest pain. The patient's description is atypical. It does n ot sound like anginal pain. This patient will require to rule out thromboembolic disorder. We will do ultrasound of bilateral lower extremity, as well as VQ scan given his slightly elevated D-dimer. If both test is negative, then we will consider discharging him home and he will continue all his michael e medication. 2. Hypertensive urgency, likely due to noncompliance with treatment. I will start back on his hydra lazine, Imdur, Procardia-XL, Lasix, Coreg, and then we will monitor blood pressure while in hospital and adjust blood pressure medication if needed. 3. Hyperglycemia associated with diabetes type 2, likely due to noncompliance. We will resume the p atbushra's insulin 70/30 15 units subcu b.i.d. and Humulin regular insulin as per sliding scale and tit rate insulin dose based on requirement. 4. Chronic systolic and diastolic heart failure. Currently, the patient appears euvolemic. We will continue Lasix 80 mg in the morning and 40 mg in the evening. We will also continue Coreg 25 mg p.o . b.i.d. along with hydralazine 50 mg t.i.d. and Imdur 120 mg p.o. daily. The patient is not on ARABELLA inhibitor, because of renal insufficiency, instead the patient is on hydralazine and mononitrate elena men. 5. Hyponatremia likely due to hyperglycemia and this is pseudohyponatremia. We will repeat BMP neva rrow. 6. Chronically elevated troponin. No need of repeating serial cardiac enzymes at this point. 7. Anemia of renal disease versus normocytic normochromic. We will continue ferrous sulfate 325 mg p.o. daily. 8. Chronic pain disorder. We will avoid narcotic medication on this particular patient, because of his drug seeking behavior. We will continue his home medication. 9. Dyslipidemia. Continue Lipitor 10 mg p.o. at bedtime. 10. Deep venous thrombosis prophylaxis not needed, because we are expecting discharge in 24 hours. 11. Gastrointestinal prophylaxis, Protonix 40 mg p.o. daily. CODE STATUS: The patient is FULL CODE. The patient's is the surrogate decision maker. Disposition and plan based on clinical course. We are expecting the patient's stay in hospital 24 ho urs and we will consider discharging him home tomorrow.
[2017-09-26 06:14] LABS: Troponin I 0.148 ng/mL (< 0.028)
[2017-09-26] MEDS ORDERED: Carvedilol 25 MG TAB PO SCH (08:00)
[2017-09-26] MEDS ORDERED: Sodium Chloride 0.9% 1,000 ML IV SCH (08:00)
--- NOTE | 2017-09-26 08:10 | RAD ---
PORTABLE CHEST: HISTORY: Chest pain. COMPARISON: 09/18/17 exam. FINDINGS: Heart size appears borderline enlarged with postop sternotomy changes. There is some blunting to the left costophrenic angle suggesting small pleural effusion or pleural thickening. No signs of overt failure. IMPRESSION: 1. Mild cardiomegaly. 2. Small left pleural effusion versus pleural thickening. POS: [facility]
--- NOTE | 2017-09-26 08:12 | ULT ---
PRELIMINARY REPORT/[facility]/EMERGENCY AFTER HOURS PROCEDURE: EXAM: US Duplex Left Lower Extremity Veins CLINICAL HISTORY: 57 years old, male; Pain; Leg, upper; Left TECHNIQUE: Real-time ultrasound scan of the veins of the left lower extremity with color Doppler flow, spectral waveform analysis and compression. COMPARISON: No relevant prior studies available. FINDINGS: Deep veins: No acute findings. No DVT in the visualized common femoral, femoral, popliteal, visualize d calf veins. The veins demonstrate normal color flow, are normally compressible, with normal phasic flow and/or augmentation response. Superficial veins: No acute findings. No thrombus in the visualized great saphenous vein. Other findings: Soft tissue edema. Atherosclerotic plaques in the visualized arteries. IMPRESSION: No deep venous thrombosis. Edema. Arterial atherosclerotic disease. Thank you for allowing us to participate in the care of your patient. Dictated and Authenticated by: Bal Javed MD 09/26/2017 4:47 AM Central Time ([place] & [place]) FINAL REPORT EXAM: LEFT LOWER EXTREMITY VENOUS ULTRASOUND WITH DOPPLER: HISTORY: Pain. COMPARISON: None. TECHNIQUE: Hyatt scale, color flow, Doppler imaging with spectral waveform analysis was performed of the left low er extremity venous system. FINDINGS: There is compressibility, presence of flow, and augmentation in the common femoral vein, femoral vein , and popliteal vein. There is flow in the greater saphenous vein and profunda vein. Posterior tibi al vein compresses and has flow and augmentation. There is atherosclerosis of the popliteal artery. Soft tissue edema is present. IMPRESSION: 1. No evidence of thrombus in the left lower extremity deep venous system. 2. Atherosclerosis of the popliteal artery. 3. Soft tissue edema. 4. This report is in agreement with the preliminary report by [facility]. POS: [facility]
[2017-09-26] MEDS ORDERED: HYDROcodone/Acetaminophen 10/325 mg Tablet ONE (08:42)
[2017-09-26] MEDS ORDERED: Metolazone 5 MG TAB PO SCH (09:00)
[2017-09-26] MEDS ORDERED: Enoxaparin Sodium 40 MG/0.4 ML SYRINGE SC SCH (09:00)
[2017-09-26] MEDS ORDERED: Aspirin 325 MG TAB PO SCH (09:00)
[2017-09-26] MEDS ORDERED: Insulin NPH/Reg Insulin Hm 300 UNITS/3 ML VIAL SC SCH (09:00)
[2017-09-26] MEDS ORDERED: NIFEdipine XL 60 MG TAB PO SCH (09:00)
[2017-09-26] MEDS ORDERED: Enoxaparin Sodium 40 MG/0.4 ML SYRINGE ONE (09:19)
[2017-09-26] MEDS ORDERED: hydrALAZINE 25 MG TAB ONE (09:19)
[2017-09-26 09:21] LABS: Troponin I 0.179 ng/mL (< 0.028)
[2017-09-26] MEDS ORDERED: Lorazepam 2 MG/ML VIAL SLOW IVP ONE (11:07)
--- NOTE | 2017-09-26 11:08 | PDOC.EVN ---
Event Note - Event Note Event Note: pt seen and evaluated continue current mx f/u v/q scan
[2017-09-26 12:25] VITALS: BP 174/85; TEMP 97.4
--- NOTE | 2017-09-26 12:27 | NM ---
RADIONUCLIDE VENTILATION PERFUSION LUNG SCAN: HISTORY: Chest pain. Dyspnea. FINDINGS: Ventilation images show patchy areas of air trapping. Perfusion images show nonsegmental tiny defect s with a heterogeneous uptake throughout each lung. No segmental perfusion mismatches are apparent. IMPRESSION: Exam is low probability for clinically significant pulmonary embolus. POS: [facility]
[2017-09-26 14:32] VITALS: BMI 20.3
[2017-09-26] MEDS: Nitroglycerin 2% Ointment 1 INCH/1 GM Packet TOP SCH ×2 (14:38→15:29)
[2017-09-26] MEDS: hydrALAZINE 25 MG TAB PO SCH ×2 (14:39→15:29)
[2017-09-26] MEDS ORDERED: Atorvastatin Calcium 10 MG TAB PO SCH (21:00)
--- NOTE | 2017-09-26 22:34 | DIS ---
DATE OF ADMISSION: 09/26/2017 DATE OF DISCHARGE: 09/26/2017 DIAGNOSES ON DISCHARGE: Chest pain, noncardiac in origin; deep venous thrombosis is negative for amelie t and V/Q scan is low probability for clot; hypertensive urgency secondary to noncompliance; hypergly cemia associated with diabetes type 2 due to noncompliance; chronic systolic and diastolic congestive heart failure; chronic elevated troponin; anemia of renal disease versus normocytic normochromic dis ease; chronic pain disorder; drug-seeking behavior; dyslipidemia. DISCHARGE MEDICATIONS: Same as medications. DISPOSITION: Against medical advice. BRIEF HOSPITAL COURSE: A 57-year-old pleasant gentleman came in with chest pain. Please refer to Dr Radha Poon's H&P for further details. The primary diagnosis was possible PE. Because of his creatini ne, he had a V/Q scan and had DVT Doppler. The Doppler ruled out DVT in the lower extremity and V/Q scan was low probability. He wanted to go down to smoke when I was called and I spoke to him. I willard d him that I could not take the responsibility for him to go down out of the hospital when he was adm itted under my name. When he was admitted to me, he chose to leave the hospital against medical advi ce and he said that he will come back to the hospital in case he needs it. He understands the conseq uences of his situation. He is right now going to leave the hospital against medical advice. He is asked to come back to the hospital anyway in case symptoms recur. Total time for this discharge took 35 minutes.
== END 2017-09-26 16:42 | disposition left against medical advice (07) | DRG 638 ==
LOC: ERS 01:57 → ERHOLD 04:20 → 2NO 11:33
PROVIDERS: ADMIT Internal Medicine; ATTEND Internal Medicine
DX: E11.65 Type 2 diabetes mellitus with hyperglycemia (principal); I13.0 Hypertensive heart and chronic kidney disease with heart failure and stage 1 through stage 4 chronic kidney disease, or unspecified chronic kidney disease; E11.22 Type 2 diabetes mellitus with diabetic chronic kidney disease; I50.42 Chronic combined systolic (congestive) and diastolic (congestive) heart failure; E87.1 Hypo-osmolality and hyponatremia; R07.89 Other chest pain; I25.10 Atherosclerotic heart disease of native coronary artery without angina pectoris; N18.3 Chronic kidney disease, stage 3 (moderate); E78.5 Hyperlipidemia, unspecified; K21.9 Gastro-esophageal reflux disease without esophagitis; G89.4 Chronic pain syndrome; Z91.14 Patient's other noncompliance with medication regimen; Z95.1 Presence of aortocoronary bypass graft; F17.210 Nicotine dependence, cigarettes, uncomplicated; F41.9 Anxiety disorder, unspecified; F32.9 Major depressive disorder, single episode, unspecified; Z88.0 Allergy status to penicillin; Z88.8 Allergy status to other drugs, medicaments and biological substances; Z79.82 Long term (current) use of aspirin; Z79.4 Long term (current) use of insulin; I44.0 Atrioventricular block, first degree; I16.0 Hypertensive urgency; D63.1 Anemia in chronic kidney disease
CPT/HCPCS: 36415; 36416; 71010; 78582; 80053; 81003; 81015; 82010; 82330; 82550; 82553; 82803; 83690; 83735; 84100; 84484; 85025; 85379; 85610; 85730; 93005; 94760; 96361; 96372; 96374; 96375; 96376; 99406; A9540; A9558; J1650; J1815; J1885; J2060

== ENCOUNTER 2017-09-28 17:10 | Inpatient (IN) | payer OTHER, SELFPAY ==
[2017-09-28] MEDS ORDERED: hydrALAZINE 20 MG/ML VIAL ONE ×2 (18:00→22:00)
[2017-09-28] MEDS ORDERED: Nitroglycerin 2% Ointment 1 INCH/1 GM Packet ONE (18:00)
[2017-09-28 18:11] LABS: #Basophils 0.1 thou/uL (0.0-0.2); #Eosinphils 0.1 thou/uL (0.0-0.7); #Monocytes 0.4 thou/uL (0.11-0.59); #Neutrophils 7.8 thou/uL (1.40-6.50); %Basophils 0.7 % (0.0-1.0); %Lymphocytes 10.7 % (21.0-51.0); %Monocytes 4.7 % (0.0-10.0); Hematocrit 27.6 % (42.0-52.0); Mean Platelet Volume 7.2 fL (7.4-10.4); Red Blood Cell (RBC) Count 3.19 mill/uL (4.70-6.10); White Blood Cell (WBC) Count 9.4 thou/uL (4.8-10.8)
[2017-09-28 18:24] LABS: ALT (SGPT) 7 U/L (8-55); AST (SGOT) 8 U/L (5-34); Alkaline Phosphatase 117 U/L (40-150); Anion Gap 12 mmol/L (10-20); BUN (Urea Nitrogen) 37 mg/dL (8.4-25.7); Bilirubin, Total 0.2 mg/dL (0.2-1.2); Calc. Creatinine Clearance 0 mL/min (70-130); Calcium 7.6 mg/dL (7.8-10.44); Carbon Dioxide 20 mmol/L (22-29); Chloride 97 mmol/L (98-107); Estimated GFR-MDRD 46; Globulin 3.3 g/dL (2.4-3.5); Protein, Total 5.8 g/dL (6.0-8.3)
[2017-09-28 18:28] LABS: Troponin I 0.229 ng/mL (< 0.028)
[2017-09-28] MEDS ORDERED: Insulin Regular 300 UNITS/3 ML VIAL ONE (19:12)
[2017-09-28] MEDS ORDERED: Morphine 4 MG/ML VIAL ONE (19:14)
[2017-09-28] MEDS ORDERED: Labetalol HCl 100 MG/20 ML VIAL ONE (19:35)
--- NOTE | 2017-09-28 19:55 | RAD ---
CHEST 1 VIEW: Date: 09/28/17 HISTORY: Chest pain. COMPARISON: Chest 1 view two days prior. FINDINGS: There are progression lower lobe air space opacities. Small left effusion. No pneumothorax. There is engorgement of the pulmonary vasculature. IMPRESSION: 1. Worsening lower lobe opacities and pulmonary vascular engorgement suggests edema. 2. small left effusion. Follow-up recommended. POS: [facility]
[2017-09-28 20:16] LABS: Troponin I 0.232 ng/mL (< 0.028)
[2017-09-28] MEDS ORDERED: Lidocaine Viscous Sol 2% 15 ml UD Cup ONE (22:02)
[2017-09-28] MEDS ORDERED: Mag-Al 1200 mg/1200 mg/30 ML UDCUP ONE (22:02)
[2017-09-28] MEDS ORDERED: Insulin Regular 100 units/100 ml in NS IVPB SCH (22:15)
[2017-09-28] MEDS ORDERED: Acetaminophen 325 MG TAB PO PRN (22:53)
[2017-09-28] MEDS ORDERED: Ondansetron HCl/PF 4 MG/2 ML Vial IVP PRN (22:53)
--- NOTE | 2017-09-28 22:53 | PDOC.EVN ---
Event Note - Event Note Event Note: [id number] 1. Abnormal cardiac enzymes + Chest pain 2. HTN 3. DM type2 uncontrolled + Non gap metabolic acidosis Plan: see orders
[2017-09-28] MEDS ORDERED: hydrALAZINE 20 MG/ML VIAL SLOW IVP PRN (22:58)
[2017-09-28] MEDS ORDERED: cloNIDine 0.1 MG TAB PO PRN (22:59)
[2017-09-28 23:12] LABS: Troponin I 0.226 ng/mL (< 0.028)
[2017-09-28] MEDS: HYDROcodone/Acetaminophen 5/325 mg Tablet PO PRN (23:39)
[2017-09-28] MEDS: Sodium Chloride 0.9% 1,000 ML IV SCH (23:40)
[2017-09-28 23:51] VITALS: BMI 29.0
[2017-09-29] MEDS: Nitroglycerin 2% Ointment 1 INCH/1 GM Packet TOP SCH ×3 (01:26→17:27)
[2017-09-29] MEDS: Nicotine 14 MG PATCH TOP SCH (01:26)
[2017-09-29 04:24] LABS: #Basophils 0.1 thou/uL (0.0-0.2); #Eosinphils 0.2 thou/uL (0.0-0.7); #Lymphocytes 2.3 thou/uL (1.20-3.40); #Monocytes 0.8 thou/uL (0.11-0.59); #Neutrophils 6.6 thou/uL (1.40-6.50); %Basophils 0.6 % (0.0-1.0); %Eosinophils 1.8 % (0.0-10.0); %Lymphocytes 23.1 % (21.0-51.0); %Monocytes 7.6 % (0.0-10.0); Hematocrit 25.6 % (42.0-52.0); Mean Platelet Volume 7.2 fL (7.4-10.4); Red Blood Cell (RBC) Count 3.01 mill/uL (4.70-6.10); White Blood Cell (WBC) Count 9.8 thou/uL (4.8-10.8)
[2017-09-29] MEDS: HYDROcodone/Acetaminophen 5/325 mg Tablet PO PRN ×2 (04:42→09:11)
[2017-09-29 04:44] LABS: Anion Gap 11 mmol/L (10-20); BUN (Urea Nitrogen) 35 mg/dL (8.4-25.7); Calc. Creatinine Clearance 86 mL/min (70-130); Calcium 7.5 mg/dL (7.8-10.44); Carbon Dioxide 16 mmol/L (22-29); Chloride 103 mmol/L (98-107); Estimated GFR-MDRD 69
[2017-09-29 04:46] LABS: Troponin I 0.226 ng/mL (< 0.028)
--- NOTE | 2017-09-29 06:00 | HP ---
DATE OF ADMISSION: 09/28/2017 CHIEF COMPLAINT: Chest pain. HISTORY OF PRESENT ILLNESS: The patient is a 57-year-old male with past medical history of diabetes type 2, hypertension, hyperlipidemia, coronary artery disease, chronic pain, history of GI bleed, now came to the ER because of chest pain. The patient left 2 days back from the hospital against medical advice on 09/26/2017. The patient came today complaining of chest pain, chest pain started all of a sudden, left side of the chest, constant pain, 10/10, and improved with some pain medication. Denies any nausea, denies any vomiting, denies any dizziness, denies any lightheadedness, denies any fever, denies any chills, denies any cough, denies sputum production. Chest pain is spasm kind of pain, improved with pain medication. PAST MEDICAL HISTORY: As per HPI. PAST SURGICAL HISTORY: CABG, knee and shoulder surgery, ulcer repair. SOCIAL HISTORY: Denies any drugs. Positive for smoking. Denies alcohol. FAMILY HISTORY: Positive for heart problems. REVIEW OF SYSTEMS: Constitutional: Denies any fever, denies any chills. Eyes : Denies vision problems. Ears: Denies hearing loss. Neck: Denies any neck pain. Cardiovascular System: Positive for chest pain. Respiratory System: Denies any cough, denies sputum production. Gastrointestinal: Denies any nausea or vomiting. Cranial Nerve System: Denies syncope. Psychiatric: Denies anxiety. Integumentary: Denies any rash. Musculoskeletal: Denies any joint deformities. All other review of systems are reviewed and are negative. PHYSICAL EXAMINATION: CONSTITUTIONAL/VITAL SIGNS: At the time of H and P performed, blood pressure is 200/90, afebrile, pulse ox 97%. GENERAL: The patient appears comfortable. HEENT: Pupils are equal, round, and reactive. Anterior nares patent. Nose normal. Ears normal. Teeth intact. Tongue is moist. NECK: Supple. No JVD. CARDIOVASCULAR SYSTEM: S1, S2 present. Regular rate and rhythm. No murmurs, no rubs, no gallops. RESPIRATORY SYSTEM: No wheezing, no rhonchi. Breath sounds bilaterally. GASTROINTESTINAL: Abdomen is soft, nontender, no guarding, no organomegaly. MUSCULOSKELETAL: Positive for edema 1+. CRANIAL NERVES SYSTEM: Awake, follows commands. Strength intact. Sensory intact. PSYCHIATRIC: Mood appropriate at this time. INTEGUMENT: No rashes were seen. LABORATORY DATA: At the time of H and P performed, white count is 9.4, hemoglobin 9, platelet count is 296. Sodium 124, potassium 3.5, chloride 97, CO2 of 20, BUN of 37, creatinine 1.57. ASSESSMENT AND PLAN: The patient is a 57-year-old male: 1. Abnormal cardiac enzymes plus chest pain. Need to rule out cardiac etiology. Plan to consult Cardiology to evaluate the patient. Plan to admit the patient to the IMU for close monitoring. 2. Hypertension, uncontrolled. Monitor blood pressure. Continue blood pressure medications. 3. Diabetes mellitus type 2, uncontrolled, plus pseudohyponatremia. Monitor sodium level. Continue insulin drip at 4 units. Will wean off subcu insulin in the a.m. We will start the patient on some IV fluids also. 4. History of coronary artery disease. Continue aspirin. The case was discussed in detail with the patient. JENNIFFER
[2017-09-29] MEDS: Famotidine 20 MG TAB PO SCH ×2 (08:00→20:59)
[2017-09-29] MEDS: Heparin 5,000 UNITS/ML VIAL SC SCH ×3 (08:00→20:59)
[2017-09-29 09:09] LABS: #Eosinphils 0.3 thou/uL (0.0-0.7); #Lymphocytes 2.1 thou/uL (1.20-3.40); #Monocytes 0.6 thou/uL (0.11-0.59); #Neutrophils 5.3 thou/uL (1.40-6.50); %Basophils 0.3 % (0.0-1.0); %Eosinophils 3.2 % (0.0-10.0); %Lymphocytes 25.4 % (21.0-51.0); %Monocytes 7.2 % (0.0-10.0); Hematocrit 25.9 % (42.0-52.0); Mean Platelet Volume 6.8 fL (7.4-10.4); Red Blood Cell (RBC) Count 3.05 mill/uL (4.70-6.10); White Blood Cell (WBC) Count 8.3 thou/uL (4.8-10.8)
[2017-09-29 09:34] LABS: Troponin I 0.235 ng/mL (< 0.028)
--- NOTE | 2017-09-29 10:30 | CON ---
DATE OF CONSULTATION: 09/29/2017 REASON FOR CONSULTATION: [facility] protocol. HISTORY OF PRESENT ILLNESS: Mr. Robles is a 57-year-old male who presented to the hospital yester day with back and chest pain. Symptoms have been present for quite sometime. He is dependent on [facility]ics for management of chronic back pain. He says that the chest pain that he has had at left side has been somewhat different. He had a ventilation perfusion scan done few days ago here, which was negative. He claims he had a reaction to the Ativan he got it coming down for the procedure. PAST MEDICAL HISTORY: 1. Chronic pain. 2. Hyperlipidemia. 3. Coronary artery disease. 4. Gastrointestinal bleeding. PAST SURGICAL HISTORY: 1. Coronary artery bypass grafting surgery 2 years ago at [facility] by Dr. Forrester. 2. Knee surgery. 3. Ulcer repair. SOCIAL HISTORY: Smokes about a pack per day. Does not consume alcohol, does not use illicit drugs. FAMILY MEDICAL HISTORY: Remarkable for coronary artery disease. REVIEW OF SYSTEMS: Complains of chest pain. No fever, chills, nausea, vomiting, hematemesis, melena , hematochezia, hematuria, or dysuria. PHYSICAL EXAMINATION: VITAL SIGNS: Temperature 98.8, pulse 78, respirations 18, O2 saturation 98%, blood pressure 151/72. HEENT: Unremarkable. NECK: No adenopathy or JVD. LUNGS: Clear to auscultation and he has palpable chest wall pain on the left. CARDIAC: S1, S2 regular, without murmur. ABDOMEN: Soft and nontender. EXTREMITIES: No clubbing, cyanosis, or edema. LABORATORY DATA: White blood cell count 8.3, hematocrit 45.9, platelet count 269. Sodium 126, potas sium 4.4, chloride 103, CO2 16, BUN 35, creatinine 1.1, glucose 164, troponin 0.226. X-RAY FINDINGS: Chest x-ray shows hyperinflation, no infiltrates. ASSESSMENT: 1. Chest pain - slight bump in troponins. 2. Chronic pain. 3. No evidence of pulmonary embolism by recent perfusion imaging. RECOMMENDATIONS: 1. Proceed with cardiac evaluation. 2. Smoking cessation is advised. 3. Hydrocodone for his chronic pain.
[2017-09-29] MEDS: HYDROcodone/Acetaminophen 10/325 mg Tablet PO PRN ×3 (12:59→21:25)
--- NOTE | 2017-09-29 14:02 | PDOC.PN ---
- Subjective Encounter Start Date: 09/29/17 Encounter Start Time: 08:25 -: old records requested/rev PT seen and examined, chart reviewed in its entirety. This is my first visit with this patient. Pt complaining of ongoing twisting pain in his central chest. No diaphoresis, no N/V, no SOB, no f/C, no cough. Pulm to see, awaiting cardiology eval. PT in here regularly with pain, get meds , goes. Was here last week, got Ativan and left AMA, though pt doesnt recall anything after getting the ativan] 10 point ROS performed and neg for all systems except as per HPI - Objective Resuscitation Status: FULL MAR Reviewed: Yes Vital Signs & Weight: Vital Signs (12 hours) Temp Pulse Resp BP Pulse Ox 09/29/17 12:21 97.9 F 74 18 157/80 H 95 09/29/17 07:30 98.8 F 78 18 98 09/29/17 07:00 98.8 F 77 16 151/72 H 93 L 09/29/17 04:46 98.8 F 78 18 147/72 H 95 Weight Weight 179 lb 9.6 oz Result Diagrams: 09/29/17 08:53 09/29/17 04:11 Additional Labs: Accuchecks 09/29/17 09/29/17 09/29/17 12:19 06:10 04:17 POC Glucose 131 H 126 H 182 H 09/29/17 09/29/17 09/29/17 03:04 02:04 01:03 POC Glucose 252 H 315 H 399 H 09/29/17 09/28/17 00:05 23:09 POC Glucose 408 H 467 H Radiology Reviewed by me: Yes EKG Reviewed by me: Yes Phys Exam - Physical Examination Constitutional: NAD HEENT: PERRLA, moist MMs, sclera anicteric, oral pharynx no lesions Neck: no nodes, no JVD, supple, full ROM Respiratory: no wheezing, no rales, no rhonchi, clear to auscultation bilateral Cardiovascular: RRR, no significant murmur, no rub Gastrointestinal: soft, non-tender, no distention, positive bowel sounds Musculoskeletal: no edema, pulses present Neurological: non-focal, normal sensation, moves all 4 limbs Lymphatic: no nodes Psychiatric: normal affect, A&O x 3 Skin: no rash, normal turgor, cap refill <2 seconds Dx/Plan (1) Chest pain Code(s): R07.9 - CHEST PAIN, UNSPECIFIED Status: Acute Qualifiers: Chest pain type: precordial pain Qualified Code(s): R07.2 - Precordial pain (2) CKD (chronic kidney disease) stage 3, GFR 30-59 ml/min Code(s): N18.3 - CHRONIC KIDNEY DISEASE, STAGE 3 (MODERATE) Status: Chronic (3) Chronic diastolic (congestive) heart failure Code(s): I50.32 - CHRONIC DIASTOLIC (CONGESTIVE) HEART FAILURE Status: Chronic (4) DM type 2, uncontrolled, with renal complications Code(s): E11.29 - TYPE 2 DIABETES MELLITUS W OTH DIABETIC KIDNEY COMPLICATION; E11.65 - TYPE 2 DIABETES MELLITUS WITH HYPERGLYCEMIA Status: Chronic Qualifiers: Diabetes mellitus complication detail: with chronic kidney disease Diabetes mellitus detention insulin use: without 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 operator 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 use Chronic kidney disease stage: stage 3 (moderate) Qualified Code(s): E11.22 - Type 2 diabetes mellitus with diabetic chronic kidney disease; E11.65 - Type 2 diabetes mellitus with hyperglycemia; E11.65 - Type 2 diabetes mellitus with hyperglycemia; E11.65 - Type 2 diabetes mellitus with hyperglycemia; E11.65 - Type 2 diabetes mellitus with hyperglycemia; N18.3 - Chronic kidney disease, stage 3 (moderate); N18.3 - Chronic kidney disease, stage 3 (moderate) Comment: [facility] (5) Diabetic neuropathy Code(s): E11.40 - TYPE 2 DIABETES MELLITUS WITH DIABETIC NEUROPATHY, UNSP Status: Chronic Qualifiers: Diabetes mellitus type: type 2 (6) Dyslipidemia Code(s): E78.5 - HYPERLIPIDEMIA, UNSPECIFIED Status: Chronic (7) Hypertension, uncontrolled Code(s): I10 - ESSENTIAL (PRIMARY) HYPERTENSION Status: Chronic Comment: continue home meds (8) Metabolic acidosis Code(s): E87.2 - ACIDOSIS Status: Chronic (9) PAD (peripheral artery disease) Code(s): I73.9 - PERIPHERAL VASCULAR DISEASE, UNSPECIFIED Status: Chronic (10) Tobacco abuse Code(s): Z72.0 - TOBACCO USE Status: Chronic (11) Chest pain not due to acute coronary syndrome Code(s): R07.89 - OTHER CHEST PAIN Status: Resolved Comment: Non-cardiac, CM neg x3. - Plan cont current plan of care, out of bed/ambulate * . Low risk CP, Troponin stable, follow up on cards eval. ? stress test, pt states no dstres since CABG/OK back in 2015
[2017-09-29] MEDS: Sodium Chloride 0.9% 1,000 ML IV SCH (17:27)
[2017-09-29] MEDS: Carvedilol 25 MG TAB PO SCH (17:27)
[2017-09-29] MEDS ORDERED: Dextrose 5% in Water 1,000 ML IV PRN (18:41)
[2017-09-29] MEDS ORDERED: Dextrose 50% Abboject 50 ML SYRINGE IVP PRN (18:41)
[2017-09-29] MEDS: HumaLOG 300 UNITS/3 ML VIAL SC PRN ×2 (18:50→20:57)
--- NOTE | 2017-09-29 20:57 | CON ---
DATE OF CONSULTATION: 09/29/2017 PRIMARY CARE PHYSICIAN: Dr. Wise. PRIMARY COMPTOMETRIST: Dr. Leyva. REFERRING PHYSICIAN: Stalin Breen MD REASON FOR CARDIOLOGY CONSULTATION: Positive troponins. HISTORY OF PRESENT ILLNESS: Mr. Robles is a 57-year-old male with a significant history of coronary artery disease with status post CABG x4 in 2014, insulin-dependent diabetes, hypertension, and a smoker. Patient was in the [facility] 2 days ago for shortness of breath. The patient left from the hospital against medical advice on 09/26/2017. The patient was transferred to the emergency department by EMS due to squeeze-like discomfort in his left upper chest for several hours, which started when he was lying in the bed around 5:00 p.m. He denies shortness of breath, numbness in his left arm, nausea, vomiting or diaphoresis or any other cardiac complaints during that episode. He did not take nitroglycerin. He said he does not have it home. After he received nitroglycerin at the ER, his symptoms were improved. During the initial Cardiology consult assessment, patient complained about an aching like pain in the left upper chest. He described the pain level was 2/10 on the pain scale. He have not taken his blood pressure medicine for 1 week because of the financial status. During the initial Cardiology consult assessment, patient denies shortness of breath, dizziness, lightheadedness, numbness in the left arm, nausea, diaphoresis or any other cardiac complaints and he expressed that he does not wish to have any cardiac studies such as stress test or cardiac catheterization at this time. He underwent coronary artery bypass graft x4 by Dr. Forrester in 2014 with MARAVILLA to LAD, vein graft to diagonal, vein graft of obtuse marginal, and vein graft to distal right coronary artery. The patient underwent cardiac catheterization in 2016, which revealed patent graft. Patient had an echocardiogram in 10/2016, which shows EF of 50-60%, grade 2/3 diastolic dysfunction, dilated left atrium, and mild dilated right atrium and mild aortic valve insufficiency. 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 PAST MEDICAL HISTORY: 1. Coronary artery disease. 2. Insulin-dependent diabetes mellitus. 3. Damaged left kidney. 4. Status post cardiac arrest in 2005. 5. Chronic joint and low back pain. 6. Hypertension. PAST SURGICAL HISTORY: 1. Coronary artery bypass grafting x4 in 2015. 2. Cardiac catheterization in 2016, which revealed patent graft. 3. Multiple total of 7 knee surgeries. 4. History of esophageal and gastrointestinal bleeding after taking CELEBREX. 5. A right shoulder surgery. 6. Appendectomy. 7. Cholecystectomy. FAMILY HISTORY: Patient's father due to stroke at age of 59 and the patient's paternal grandmother had a history of diabetes. Other than that, the patient does not have any significant cardiac related family history. SOCIAL HISTORY: He is . He is disabled. He had 2 children who are alive and live well. One of his children has a history of autism. He still smokes a half pack of cigarettes a day, but he denies ETOH or illicit drug abuse. REVIEW OF SYSTEMS: The following complete review of systems was negative, unless otherwise mentioned in the HPI or below. Constitutional: Weight loss or gain, sense of well being, ability to conduct usual activities and exercise tolerance. Skin: Positive for dry skin in his bilateral lower extremities, but negative for rash, itching, change in hair growth or loss, nail change, breast lump, tenderness, swelling, nipple discharge. Eyes: Vision change, double vision, tearing, blind spots, pain. ENT: Headache, vertigo, lightheadedness, obstruction, discharge dental difficulty, gingival bleeding, dentures. Neck: Neck stiffness, pain, tenderness or masses in thyroid or other areas. Cardiovascular: He denies palpitations, syncope, dyspnea on exertion, orthopnea, nocturnal dyspnea, cyanosis, heart murmurs, varicosities and claudication after he has peripheral vascular procedure by Dr. Forrester in 07/2017. Respiratory: Shortness of breath , wheezing, stridor, cough, hemoptysis. Gastrointestinal: Poor appetite, dysphagia, indigestion, abdominal pain, heartburn, eructation, nausea, vomiting , hematemesis, jaundice, constipation, or diarrhea, abnormal stool. Genitourinary: Urgency, frequency, dysuria, nocturia, hematuria, polyuria, oliguria, unusual color of urine. Musculoskeletal: Pain, swelling, redness or heat of muscle or joint, limited motion, muscular weakness, atrophy, cramps. Neurologic: paralysis, tremor, incoordination, difficulty with memory of speech, sensory or motor disturbance. Psychiatric: Emotional problem, anxiety , depression, previous psychiatric care, unusual perception, hallucination. PHYSICAL EXAMINATION: VITAL SIGNS: Blood pressure 157/80, heart rate is 74 with sinus rhythm, respiratory rate is 18, O2 sat 95% with room air, temperature 97.9. GENERAL: Well-developed, well-nourished without any acute distress. HEAD: Normocephalic, atraumatic. EYES: Extraocular muscle movement intact. ENT: Oral and nasal mucosa were moist without lesion. NECK: No JVD. Neck is supple. Normal range of motion. LUNGS: Clear to auscultation bilaterally, but diminished at the bases. No wheezing, rales or rhonchi noted. CARDIOVASCULAR: Regular rate and rhythm. Normal S1, S2. There are no S3 or S4. No significant murmur, hives, thrill, bruit or rub noted. EXTREMITIES: There are 2+ pulses in bilateral dorsal pedis, posterior tibial, and popliteal. Carotid pulse present without bruits or thrills, 1+ pitting edema in his right lower extremity and 2+ pitting edema in his left lower extremity. ABDOMEN: Bowel sounds are present. Soft and nontender to palpate, nondistended. MUSCULOSKELETAL: Able to move all extremities. SKIN: Warm and dry skin in the bilateral lower extremities. No skin rash, lesion or bruise noted. NEUROLOGIC: Alert, oriented x4, awake. Normal affect and nonfocal. PSYCHIATRIC: Mood and affect are normal. IMAGING: EKG: A 12 lead EKG in the ER showing sinus rhythm with a heart rate 84 with T- wave inversion in V4, V5, V6 and lateral leads. LABORATORY DATA: Patient's WBC 8.3, hemoglobin 8.2, hematocrit 25.9 and platelet 269. Sodium 126, potassium 4.4, BUN 35, creatinine 1.11, glucose 164. Patient's troponin, last 3 number today was 0.230, 0.226 and 0.235, CK-MB was 4.5. ALLERGIES: He is allergic to CELEBREX, PENICILLIN, VANCOMYCIN, VALIUM and VERSED. HOME MEDICATIONS: Atorvastatin 10 mg once a day, aspirin 81 mg once a day, Carvedilol 25 mg twice a day, insulin NPH 50 units twice a day, Imdur 30 mg once a day, metolazone 5 mg once a day, Procardia 60 mg once a day, promethazine 12.5 mg every 16 hours as needed, hydralazine 50 mg 3 times a day, Lasix 40 mg twice a day, tramadol 50 mg every 4 hours p.r.n. ASSESSMENT AND PLAN: 1. Chest pain with indeterminate troponin level. The patient's condition and the symptom is stable at this time, possible high troponin level is secondary due to patient's high blood pressure which was 199/90 while the patient was admitted to the hospital. He describes he has not take the blood pressure medicine for 1 week. His systolic blood pressure was more than 200 in the ER prior to admission to the hospital. Patient's Coreg 25 mg twice a day will be resumed for his high blood pressure and hypertension and history of coronary artery disease. 2. Hypertension. Again, we would like to resume the patient to Coreg 25 mg twice a day. We would like to continue to monitor. 3. Hyperlipidemia. We like to resume the patient's atorvastatin 10 mg once a day. 4. Insulin dependent diabetes. His blood glucose is stable with a.c. and h.s. blood glucose check with sliding insulin scale. 5. Tobacco abuse. Smoking cessation education was given to the patient. He does not want to quit smoking at this time. We would like to continue educate the patient. Thank you very much for allowing the Cardiology service to participate in the care of this patient. We will follow along with the patient care team and make further recommendations as appropriate. JENNIFFER
[2017-09-29] MEDS ORDERED: Atorvastatin Calcium 10 MG TAB PO SCH (21:00)
--- NOTE | 2017-09-29 21:31 | CON ---
DATE OF CONSULTATION: 09/29/2017 DATE OF ADMISSION: 09/28/2017 INDICATION FOR CONSULTATION: A 57-year-old patient with a history of known coronary artery disease w mamadou presented with chest pain. Please refer to the notes already dictated by the nurse practitioner Dallin taylor. I have discussed the patient with her and was agreeing with her assessment and plan. This gen selinaman has a history of coronary artery disease who underwent bypass surgery in 2014 with a MARAVILLA to l eft anterior descending artery. He has also been followed by Dr. Forrester. He has had peripheral vasc ular disease. He recently had what appeared to be an angioplasty to the left lower extremity. He sa id he was doing better, but he complains of weakness in the legs, not able to do very much ambulation . He has multiple medical problems. He has been in the hospital several times. He has history of i nsulin-dependent diabetes as well as the GI bleeding. He has had knee surgeries, but able to walk a few blocks without having pain. He presented at this time, saying that he was having problems with h is blood pressure, but apparently has stopped taking his medications several days ago, [facility], he was found to have blood pressure over 200 and was admitted to the [facility]. At this time, his blood pressure is under better control at 157/80, heart rate is 74. PHYSICAL EXAMINATION: HEENT: His examination shows the head to be normocephalic and atraumatic. At this time I did not he ar any significant bruits. CHEST: Actually clear to auscultation. I did not hear any rales, rhonchi or wheezing. CARDIOVASCULAR: Reveals a regular rate and rhythm, did not hear any gross murmurs at this time. ABDOMEN: Soft and nontender. Positive bowel sounds are present. EXTREMITIES: Showed mild pedal edema. I cannot palpate pedal pulses. NEUROLOGIC: The patient appears to be intact. IMPRESSION: 1. Patient with coronary artery disease and hypertension. He had been noncompliant with medications . Unfortunately, he continues to smoke and says he cannot afford his medications. He smokes at leas t half to 1 pack a day. 2. Slight abnormality of the cardiac enzymes which is still felt to be indeterminate. His first set was 0.226, second set was 0.235. This could be related to his significant hypertension, which had b een uncontrolled. 3. Anemia. His hemoglobin was 8.2. This would also contribute to some ischemia, most likely in thi s gentleman. 4. Hyponatremia, uncertain etiology of his hyponatremia, but we will volume restrict this patient in order to allow the sodium to increase. Otherwise he has some of the etiology for losing the sodium as his BUN and creatinine ratio would appear that he may be slightly dehydrated actually with a BUN o f 35 and creatinine at 1.1. His last cardiac catheterization by Dr. Leyva was I believe in 6 at which time the left main was normal. The left anterior descending had a 60% proximal stenosis a nd was filling from the left internal mammary artery. He had a saphenous vein graft to the [facility], the distal portion of the graft appeared to be occluded. Circumflex had a 90% mid stenosis. Th e right coronary had an 80% stenosis followed by 70% mid stenosis and then 50% distally. The left in ternal mammary artery to the left anterior descending was patent. The saphenous vein graft to the ra mus branch was piggyback from the obtuse marginal branch of the left circumflex, which was occluded. The portion to the obtuse marginal graft remained patent. The distal right coronary artery graft wa s patent and then the 20% stenosis in the right posterolateral artery, ejection fraction at that time was 50-55%. At this time, we will continue to just to monitor his cardiac enzymes. He did not appe ar to have any acute ST segment changes. The patient has refused to undergo stress testing or cardia c catheterization. His EKG does show evidence of nonspecific T-wave changes, which could be due to l eft ventricular hypertrophy. He has diffuse T-wave inversions in the lateral leads which could be re lated to his previous closure of the saphenous vein graft. At this time, he is pain free. He is asy mptomatic and we will continue to follow him with you. I believe Dr. Leyva will visit with the marion dickey tomorrow.
[2017-09-30] MEDS: HYDROcodone/Acetaminophen 10/325 mg Tablet PO PRN ×3 (02:01→10:02)
[2017-09-30] MEDS: Nitroglycerin 2% Ointment 1 INCH/1 GM Packet TOP SCH (02:02)
[2017-09-30] MEDS: Nicotine 14 MG PATCH TOP SCH (05:59)
[2017-09-30] MEDS: HumaLOG 300 UNITS/3 ML VIAL SC PRN (06:00)
[2017-09-30] MEDS ORDERED: Furosemide 40 MG TAB PO SCH (08:00)
[2017-09-30] MEDS ORDERED: hydrALAZINE 25 MG TAB PO SCH (09:00)
[2017-09-30] MEDS ORDERED: Aspirin 81 mg Enteric Coated Tablet PO SCH (09:00)
[2017-09-30] MEDS ORDERED: NIFEdipine XL 60 MG TAB PO SCH (09:00)
[2017-09-30] MEDS ORDERED: Insulin NPH/Reg Insulin Hm 300 UNITS/3 ML VIAL SC SCH (09:00)
[2017-09-30] MEDS ORDERED: Metolazone 5 MG TAB PO SCH (09:00)
[2017-09-30] MEDS: Carvedilol 25 MG TAB PO SCH (09:41)
[2017-09-30] MEDS: Famotidine 20 MG TAB PO SCH (09:41)
[2017-09-30 11:50] VITALS: BP 181/81; TEMP 97.7
--- NOTE | 2017-10-01 14:10 | DIS ---
DATE OF ADMISSION: 09/28/2017 DATE OF DISCHARGE: 09/30/2017 PRIMARY CARE PHYSICIAN: [facility]. DISCHARGE DIAGNOSES: 1. Polysubstance abuse with tobacco, cocaine in his history. 2. Noncardiac chest pain. 3. Chronic diastolic congestive heart failure without acute exacerbation. 4. Diabetes mellitus type 2, uncontrolled due to nonadherence with renal complications. 5. Diabetic neuropathy and nephropathy. 6. Hyperlipidemia, unspecified. 7. Essential hypertension. 8. Peripheral arterial disease without gangrene. 9. Ongoing tobacco abuse. CONSULTATIONS: 1. Cardiology, Dr. Almanza. 2. Pulmonary, Dr. Fernandez. PROCEDURES: 1. Echocardiogram 09/30/2017, which showed marked concentric left ventricular hypertrophy. 2. Ejection fraction 50% to 55%. 3. Mild MR, moderate AI and mild TR and PI. HISTORY OF PRESENT ILLNESS: Mr. Robles is a 57-year-old white male with a history as above who pr esented to the Emergency Department complaining of chest pain. He described it as a twisting sensati on in the center of his chest. He was seen in the ER, negative workup and was subsequently admitted to our service for further evaluation. HOSPITAL COURSE: The patient was seen and examined by Dr. Breen. On 09/28, his creatinine was el evated at his baseline of 1.57 and he had a mildly elevated troponin. The patient was placed in the IMCU for close monitoring, Cardiology has been consulted, serial cardiac biomarkers and cardioprotect vinicisu medications were ordered and the patient was watched overnight. Hypertension was uncontrolled. He was continued on his normal blood pressure medications and on insu denise drip for his uncontrolled diabetes. Overnight 09/28-09/29, the patient still complained of chest pain. I took the case over. His pain m edicines orally were restarted and his IVs were stopped. He was restarted on his home dose of insuli n and placed on diabetic diet. Cardiology evaluated the patient and felt there was no further cardia c workup needed and biomarkers remained negative. Echocardiogram was reviewed. Overnight 09/29-09/30, his sugars were brought under control. Blood pressure was better controlled, and he was stable for discharge with outpatient followup. PHYSICAL EXAMINATION: The patient was seen and examined on the day of discharge. Discharge plan and disposition was discussed with the patient [id number] at the bedside. DISCHARGE MEDICATIONS: 1. Aspirin 81 mg daily. 2. Lipitor 10 mg p.o. at bedtime. 3. Coreg 25 mg p.o. b.i.d. 4. Lasix 40 mg p.o. b.i.d. 5. Hydralazine 50 mg p.o. t.i.d. 6. Insulin 70/30, 15 units subcu b.i.d. 7. Isosorbide mononitrate 120 mg daily. 8. Metolazone 5 mg daily. 9. Nifedipine 60 mg daily. 10. Promethazine 12.5 mg p.o. q.6 hours p.r.n. 11. Ultram 50 mg p.o. q.4 hours p.r.n., a prescription for 60 tablets with no refills given. FOLLOWUP APPOINTMENTS: Primary care physician, [facility] within a week. DISCHARGE ACTIVITY: Per cardiopulmonary limits. Patient was encouraged to stay away from cocaine an d crack. DISCHARGE DIET: Heart healthy, diabetic, which the patient likely will not follow. DISCHARGE INSTRUCTIONS: Return to the Emergency Department for worsening symptoms.
== END 2017-09-30 12:33 | disposition home or self-care (01) | DRG 313 ==
LOC: ERS 17:10 → IMCU/EMU 23:06
PROVIDERS: ADMIT Internal Medicine; ATTEND Internal Medicine
DX: R07.89 Other chest pain (principal); I25.10 Atherosclerotic heart disease of native coronary artery without angina pectoris; I50.32 Chronic diastolic (congestive) heart failure; I13.0 Hypertensive heart and chronic kidney disease with heart failure and stage 1 through stage 4 chronic kidney disease, or unspecified chronic kidney disease; E87.2 Acidosis; E87.1 Hypo-osmolality and hyponatremia; E11.21 Type 2 diabetes mellitus with diabetic nephropathy; E11.40 Type 2 diabetes mellitus with diabetic neuropathy, unspecified; E11.65 Type 2 diabetes mellitus with hyperglycemia; D64.9 Anemia, unspecified; E78.5 Hyperlipidemia, unspecified; E86.0 Dehydration; F14.10 Cocaine abuse, uncomplicated; F17.210 Nicotine dependence, cigarettes, uncomplicated; M54.9 Dorsalgia, unspecified; G89.29 Other chronic pain; R74.8 Abnormal levels of other serum enzymes; Z95.1 Presence of aortocoronary bypass graft; Z91.19 Patient's noncompliance with other medical treatment and regimen; Z79.4 Long term (current) use of insulin; Z88.8 Allergy status to other drugs, medicaments and biological substances; Z88.0 Allergy status to penicillin; Z88.1 Allergy status to other antibiotic agents; Z87.19 Personal history of other diseases of the digestive system; Z82.49 Family history of ischemic heart disease and other diseases of the circulatory system; Z82.3 Family history of stroke; Z83.3 Family history of diabetes mellitus; N18.3 Chronic kidney disease, stage 3 (moderate)
CPT/HCPCS: 36415; 36416; 71010; 80048; 80053; 82553; 82947; 84484; 85025; 93005; 93306; 96361; 96365; 96375; 96376; J0360; J1815; J2270; J7050

== ENCOUNTER 2017-10-06 19:25 | Inpatient (IN) | payer SELFPAY ==
[~2017-10-06 19:25] MED LIST: ISOVUE-370 76%-LOCM 1 ML ONE; Iopamidol 370 76% 50 ML VIAL FS ONE
--- NOTE | 2017-10-06 20:17 | RAD ---
CHEST ONE VIEW HISTORY: Abdominal pain and chest pain. COMPARISON: Chest radiograph 09/28/2017. FINDINGS: There are bibasilar airspace opacities and small effusion bilaterally. Heart size is prominent as well as pulmonary vasculature. Mild pulmonary vascular congestion. IMPRESSION: 1. Layering effusions and left lower lobe consolidation suggesting pneumonia. 2. Concern for superimposed mild pulmonary edema. POS: [facility]
[2017-10-06 22:05] LABS: #Eosinphils 0.1 thou/uL (0.0-0.7); #Lymphocytes 1.2 thou/uL (1.20-3.40); #Monocytes 0.6 thou/uL (0.11-0.59); %Basophils 0.3 % (0.0-1.0); %Eosinophils 1.2 % (0.0-10.0); %Lymphocytes 15.3 % (21.0-51.0); %Monocytes 7.8 % (0.0-10.0); Hematocrit 25.4 % (42.0-52.0); Mean Platelet Volume 6.8 fL (7.4-10.4); Red Blood Cell (RBC) Count 2.96 mill/uL (4.70-6.10)
[2017-10-06 22:20] LABS: Troponin I 0.208 ng/mL (< 0.028)
[2017-10-06 22:22] LABS: ALT (SGPT) 9 U/L (8-55); AST (SGOT) 10 U/L (5-34); Alkaline Phosphatase 110 U/L (40-150); Anion Gap 11 mmol/L (10-20); BUN (Urea Nitrogen) 55 mg/dL (8.4-25.7); Bilirubin, Total 0.2 mg/dL (0.2-1.2); Calc. Creatinine Clearance 0 mL/min (70-130); Calcium 7.7 mg/dL (7.8-10.44); Carbon Dioxide 21 mmol/L (22-29); Chloride 98 mmol/L (98-107); Estimated GFR-MDRD 45; Globulin 3.2 g/dL (2.4-3.5); Protein, Total 5.9 g/dL (6.0-8.3)
[2017-10-06] MEDS ORDERED: Ketorolac Tromethamine 30 MG/ML VIAL ONE ×2 (23:13→23:47)
[2017-10-06] MEDS ORDERED: hydrALAZINE 20 MG/ML VIAL ONE (23:13)
[2017-10-07] MEDS ORDERED: cloNIDine 0.1 MG TAB ONE (00:25)
[2017-10-07] MEDS ORDERED: HYDROcodone/Acetaminophen 10/325 mg Tablet ONE (01:00)
[2017-10-07 01:43] LABS: Troponin I 0.216 ng/mL (< 0.028)
[2017-10-07] MEDS ORDERED: metroNIDAZOLE 500 MG/100 ML BAG ONE (03:25)
[2017-10-07 04:22] VITALS: BMI 21.2
[2017-10-07] MEDS ORDERED: Ondansetron HCl/PF 4 MG/2 ML Vial IVP PRN (04:24)
[2017-10-07] MEDS ORDERED: Acetaminophen 325 MG TAB PO PRN ×2 (04:24→07:38)
[2017-10-07] MEDS ORDERED: Ondansetron ODT 4 MG TAB SL PRN (04:24)
[2017-10-07] MEDS ORDERED: Sodium Chloride 0.9% 1,000 ML IV SCH (04:24)
[2017-10-07] MEDS ORDERED: HYDROcodone/Acetaminophen 10/325 mg Tablet PO PRN (05:11)
[2017-10-07] MEDS ORDERED: Ondansetron ODT 4 MG TAB PO PRN (07:38)
[2017-10-07] MEDS ORDERED: Non-Formulary Item 1 EACH (Promethazine Hcl [Promethazine Hcl] 12.5 MG) PO PRN (07:39)
[2017-10-07] MEDS ORDERED: Dextrose 5% in Water 1,000 ML IV PRN (08:08)
[2017-10-07] MEDS ORDERED: Dextrose 50% Abboject 50 ML SYRINGE SLOW IVP PRN (08:08)
[2017-10-07] MEDS: Sodium Chloride 0.9% 1,000 ML IV SCH ×2 (08:49→17:39)
[2017-10-07] MEDS: NIFEdipine XL 60 MG TAB PO SCH (08:52)
[2017-10-07] MEDS: Carvedilol 25 MG TAB PO SCH ×2 (08:53→17:39)
[2017-10-07] MEDS: hydrALAZINE 25 MG TAB PO SCH ×2 (08:54→20:02)
[2017-10-07] MEDS: Metolazone 5 MG TAB PO SCH (08:54)
[2017-10-07] MEDS: Furosemide 40 MG TAB PO SCH ×2 (08:54→14:09)
[2017-10-07] MEDS: Insulin NPH/Reg Insulin Hm 300 UNITS/3 ML VIAL SC SCH ×2 (08:56→21:40)
[2017-10-07] MEDS: cefTRIAXone\\ROCEPHIN 2 GM, Admixture Fee 1 EACH in Sodium Chloride 0.9% 100 ML IVPB SCH (09:45)
[2017-10-07] MEDS: Azithromycin 500 MG, Admixture Fee 1 EACH in Sodium Chloride 0.9% 250 ML 250 ML IVPB SCH (09:45)
--- NOTE | 2017-10-07 10:58 | HP ---
PRIMARY CARE PROVIDER: [facility] call admission for [facility]. Referred to the [facility] Hospitalist Service by [facility]. CHIEF COMPLAINT: Referred to [facility] Hospitalist Service by [facility] for chest pain, abdominal pain. HISTORY OF PRESENT ILLNESS: This is the sixth admission in the past couple of months for similar com plaints for this gentleman. The patient reports constipation 4 days ago. 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 He was told he had impacted bowel. He was discharged after enemas and manual disimpa ction. He said he has had pain in his lower abdomen since. No bowel movement since. No nausea and vomiting, no blood in his stools. He also complains of squeezing chest pain that lasts seconds, occu rs 3 to 4 times a minute for hours at a time. He states he has been taking his blood pressure medici guadalupe, but they are not working. He states he has no blood pressure machine at home, but every time he comes to the emergency room, it is elevated. PAST MEDICAL HISTORY: Medication noncompliance, coronary artery disease, post-coronary artery bypass graft, peripheral vascular disease post stents, hypertension, diabetes mellitus type 2 insulin-depen dent, dyslipidemia, cardiomyopathy, chronic kidney disease stage 3, gastroesophageal reflux disease, tobacco abuse, anxiety and depression. PAST SURGICAL HISTORY: Coronary artery bypass graft, right shoulder surgery, right knee surgery, eso phageal ulcer repair, cholecystectomy, and appendectomy. ALLERGIES: PENICILLIN, ULTRAM, VALIUM, VERSED and VANCOMYCIN. CURRENT MEDICATIONS: Hydrocodone 10/325 one every 6 hours for pain, aspirin 81 mg a day, Imdur 120 m g a day, NPH insulin 15 units subcu twice a day, Lasix 40 mg twice a day, Coreg 25 mg twice a day, Li pitor 10 mg at bedtime, nifedipine 60 mg a day, metolazone 5 mg a day, hydralazine 50 mg p.o. b.i.d. SOCIAL HISTORY: Smokes daily. He states he smokes 5 cigarettes a day. No alcohol or illicit drug u se. CODE STATUS: FULL CODE status. next of kin. FAMILY HISTORY: Stroke in father. No history of premature coronary artery disease or malignancies. REVIEW OF SYSTEMS: GENERAL: No headaches, dizziness, fainting. EYES: No double vision, blurred vi royce, flashing lights. EAR, NOSE, AND THROAT: No ear pain or drainage. No nasal bleeding. No trou ble swallowing. CARDIAC: See present illness. No orthopnea or paroxysmal nocturnal dyspnea. RESPI RATIONS: Dry cough, no wheezing or asthma. GASTROINTESTINAL: See present illness. GENITOURINARY: He stated he could not urinate when he was constipated, but sometimes he feels his urine passing whe n he did not know he needed to go. No blood in his urine. MUSCULOSKELETAL: No swelling in his legs . No pain in his legs at the current time. He does have chronic pain in legs. He has no acute pain . NEUROLOGIC: He states he had seizures as a child, nothing since. PSYCHIATRIC: Anxiety, depressi on. SKIN: Easy bruising or chronic rash on his legs. HEME/LYMPH: No tender or swollen lymph nodes in axilla, inguinal or cervical area. PHYSICAL EXAMINATION: GENERAL: Weeks of tobacco, unkempt, dirty, oriented x3, fair historian. VITAL SIGNS: Blood pressure 185/87, pulse 65, respirations 18, O2 sat 97%, temperature 98.4. HEENT: Examination of head, eyes, ears, nose, and throat reveal pupils are equal, round, and reactiv e to light. Extraocular movements are intact. Sclerae are white. Tympanic membranes clear. Nose c lear. Oral mucous membranes are wet. Dental hygiene is adequate. NECK: Supple without jugular venous distention, adenopathy, thyromegaly or bruits. CHEST: Hyperresonant with scattered wheezes and rhonchi in all morales. HEART: Had regular rate and rhythm. First and second heart sounds are clear, 2/6 systolic murmur. ABDOMEN: Minimally tender over the suprapubic area. Bowel sounds were good. There are no palpable masses, hepatosplenomegaly, no bruit. He declined a rectal exam saying that it was painful. EXTREMITIES: No cyanosis, clubbing or edema. SKIN: Warm and dry with ecchymoses on his arms. Chronic rash on his lower extremities. Dirt under his nails. LYMPHATIC: On survey, no tender or swollen lymph nodes in axilla, inguinal or cervical area. PULSES: Carotid, radial, and femoral pulses are intact. Pedal pulses markedly diminished. NEUROLOGIC: Cranial nerves II-XII are intact. Deep tendon reflexes grossly diminished. Moves all e xtremities. IMAGING: EKG, regular sinus rhythm, nonspecific ST-T abnormality, no acute findings reviewed by me. CT exam reveals some ascites, small bilateral pleural effusion, probable proctitis. Chest x-ray; pu lmonary vascular congestion, possible left lower lobe pneumonia, postoperative changes. LABORATORY DATA: Sodium 126, potassium 4.0, BUN 55, creatinine 1.61. Blood sugar 249. Cardiac enzy mes, 0.2, 0.21, and 0.21. These are comparable to previous numbers I have reviewed on his old chart. White count 8.0 with absolute neutrophilia, hemoglobin 8.4, platelet count 332,000. ADMITTING DIAGNOSES: 1. Abdominal pain, history of recent impaction, evidence of proctitis on CT scan. 2. Chest pain, atypical for coronary artery disease. Serial enzymes are unchanged from previous. 3. Pulmonary vascular congestion on chest x-ray consistent with acute on chronic diastolic heart dougie lure. Review of echocardiogram reveals a normal ejection fraction with grade 2/3 dysfunction. 4. Coronary artery disease. 5. Hypertension. 6. Chronic kidney disease stage 3. 7. Diabetes mellitus type 2, insulin-dependent. 8. Ascites. PLAN: 1. Blood and urine cultures, IV antibiotics with Rocephin and Zithromax. 2. Lactulose to clear stool. Consider GI consult for colonoscopy. 3. Diuresis with acute on chronic diastolic heart failure with ascites, edema and pulmonary va scular congestion. 4. Anemia. We will need anemia workup with stools for occult blood, iron studies, B12 studies.
[2017-10-07] MEDS: HYDROcodone/Acetaminophen 10/325 mg Tablet PO PRN ×3 (11:25→23:30)
--- NOTE | 2017-10-07 11:44 | CT ---
PRELIMINARY REPORT/[facility]/EMERGENCY AFTER HOURS PROCEDURE: EXAM: CT Abdomen and Pelvis With Intravenous Contrast EXAM DATE/TIME: 10/07/2017 12:08 AM CLINICAL HISTORY: 57 years old, male; Pain; Abdominal pain; Generalized; Prior surgery; Surgery type: Surgical history of coronary artery bypass graft surgery, four vessels (08/2015), 7 knee (bilateral); Right shoulder l apsocopy, surgical history of appendectomy, surgical history of cholecystectomy. Esophageal repair fr om "celebrex bleed". Right shoulder; Patient HX: 57 yo m here for cp and lower abd pain. Pt notes he had a fecal impaction on oct 01 and was disimpacted in er. CT scan show no obstruction. Pt notes he h as not had a bm since then. Denies urinary SX. He denies nv. Pt on chronic narcotics for back and kne e pain. He is taking narcotics 5 days per day. Pt is not on stool softeners. Pt denies hematochezia TECHNIQUE: Axial computed tomography images of the abdomen and pelvis with intravenous contrast. All CT scans at this facility use one or more dose reduction techniques, viz.: automated exposure control; ma/kV adj ustment per patient size (including targeted exams where dose is matched to indication; i.e. head); or iterative reconstruction technique. Coronal reformatted images were created and reviewed. CONTRAST: 70 mL of [id number] administered intravenously. COMPARISON: No relevant prior studies available. FINDINGS: Lower thorax: Small bilateral pleural effusions with adjacent atelectasis.Moderate bilateral centrilo bular emphysematous changes are present. ABDOMEN: Liver: Unremarkable. No mass. Gallbladder and bile ducts: There has been a cholecystectomy. No ductal dilation. Pancreas: The pancreas demonstrates diffuse parenchymal calcification and duct dilatation consistent with chronic pancreatitis. Spleen: Unremarkable. No splenomegaly. Adrenals: Unremarkable. No mass. Kidneys and ureters: There are multiple simple renal cysts. No hydronephrosis. Stomach and bowel: Rectal wall thickening. No obstruction. Appendix: No findings to suggest acute appendicitis. PELVIS: Bladder: Distended bladder. No mass. Reproductive: Unremarkable as visualized. ABDOMEN and PELVIS: Intraperitoneal space: Moderate ascites. No free air. Bones/joints: Degenerative changes of the spine without acute osseous abnormality. No acute fracture. No dislocation. Soft tissues: There is generalized anasarca. Vasculature: The aorta demonstrates marked atherosclerotic calcification without aneurysm. Lymph nodes: Unremarkable. No enlarged lymph nodes. IMPRESSION: Moderate ascites and bilateral pleural effusions. Rectal wall thickening consistent with proctitis. Additional findings as described. Thank you for allowing us to participate in the care of your patient. Dictated and Authenticated by: Francine Soriano MD 10/07/2017 12:39 AM Central Time ([place] & [place]) FINAL REPORT EMERGENCY AFTER HOURS CT ABDOMEN AND PELVIS WITH IV CONTRAST: Date: 10/07/17 HISTORY: Chest pain and lower abdominal pain. Patient denies recent bowel movement. COMPARISON: 11/17/16. IMPRESSION: 1. Small to moderate size bilateral pleural effusions. Pleural effusion at the right lung base has i ncreased from the prior exam. There is associated bibasilar atelectasis. 2. Pleural based nodular density right middle lobe adjacent to the fissure measuring 12.0 mm, which could be related to an area of pleural thickening, but this has increased in size when compared to [facility] on 05/21/15. This area was not imaged on the most recent exam. 3. Median sternotomy. Vascular calcifications are seen in the abdominal aorta and iliac arteries. 4. Calcifications in the region of the pancreas likely sequelae of prior pancreatitis. 5. Cholecystectomy. 6. Subcentimeter, too small to characterize, hypodense lesions in each kidney, with the larger exoph ytic hypodense lesion mid portion of left kidney, also seen on prior study and probably represents a cyst. 7. Prominent distention of the urinary bladder. 8. Anasarca, as well as diffuse haziness within the mesentery suggesting edema within the mesentery. 9. Thickening of the hong of the rectum, which may be related to proctitis. There is pericolonic in flammatory change in this region, but this may be related to the generalized anasarca. Findings are in agreement with the preliminary report by Karmen. POS: [facility]
[2017-10-07] MEDS: HumaLOG 300 UNITS/3 ML VIAL SC PRN (17:39)
[2017-10-07] MEDS: Atorvastatin Calcium 10 MG TAB PO SCH (20:02)
[2017-10-07] MEDS ORDERED: Insulin Regular 300 UNITS/3 ML VIAL SC PRN (20:20)
[2017-10-07] MEDS ORDERED: HumaLOG 300 UNITS/3 ML VIAL SC PRN (21:18)
[2017-10-08] MEDS: Zolpidem Tartrate 5 MG TAB PO PRN (00:39)
[2017-10-08] MEDS: Sodium Chloride 0.9% 1,000 ML IV SCH ×3 (03:55→22:55)
[2017-10-08] MEDS ORDERED: cloNIDine 0.1 MG TAB PO PRN (04:11)
[2017-10-08] MEDS ORDERED: Morphine 4 MG/ML VIAL SLOW IVP SCH (04:15)
[2017-10-08 05:17] LABS: #Eosinphils 0.1 thou/uL (0.0-0.7); #Lymphocytes 1.2 thou/uL (1.20-3.40); #Monocytes 0.6 thou/uL (0.11-0.59); #Neutrophils 5.3 thou/uL (1.40-6.50); %Basophils 0.4 % (0.0-1.0); %Eosinophils 1.8 % (0.0-10.0); %Lymphocytes 15.8 % (21.0-51.0); %Monocytes 8.7 % (0.0-10.0); Hematocrit 26.6 % (42.0-52.0); Mean Platelet Volume 7.4 fL (7.4-10.4); Red Blood Cell (RBC) Count 3.11 mill/uL (4.70-6.10); White Blood Cell (WBC) Count 7.3 thou/uL (4.8-10.8)
[2017-10-08 05:23] LABS: Anion Gap 12 mmol/L (10-20); BUN (Urea Nitrogen) 56 mg/dL (8.4-25.7); Calc. Creatinine Clearance 43 mL/min (70-130); Calcium 7.3 mg/dL (7.8-10.44); Carbon Dioxide 20 mmol/L (22-29); Chloride 98 mmol/L (98-107); Estimated GFR-MDRD 37
[2017-10-08] MEDS ORDERED: HumaLOG 300 UNITS/3 ML VIAL SC SCH (06:00)
[2017-10-08] MEDS: HYDROcodone/Acetaminophen 10/325 mg Tablet PO PRN ×4 (06:00→23:20)
--- NOTE | 2017-10-08 09:22 | PDOC.PN ---
- Subjective Encounter Start Date: 10/08/17 Encounter Start Time: 09:19 Subjective: smoking in room, refusing meds - Objective Resuscitation Status: Resuscitation Status FULL:Full Resuscitation MAR Reviewed: Yes Vital Signs & Weight: Vital Signs (12 hours) Temp Pulse Resp BP BP BP Pulse Ox 10/08/17 05:57 68 16 186/88 H 10/08/17 04:20 217/98 H 10/08/17 04:00 98.5 F 77 20 93 L 10/08/17 00:00 98.4 F 73 20 157/71 H 94 L Weight Weight 153 lb 8 oz I&O: 10/07/17 10/08/17 10/09/17 06:59 06:59 06:59 Intake Total 3280 Output Total 700 Balance 2580 Result Diagrams: 10/08/17 04:18 10/08/17 04:18 Additional Labs: Accuchecks 10/08/17 10/07/17 10/07/17 05:34 19:58 17:15 POC Glucose 506 H 442 H 349 H 10/07/17 11:47 POC Glucose 190 H Phys Exam - Physical Examination unkempt Neck: no nodes distant, non focal Cardiovascular: RRR, no significant murmur Gastrointestinal: soft, positive bowel sounds Musculoskeletal: edema present Dx/Plan (1) PNA (pneumonia) Code(s): J18.9 - PNEUMONIA, UNSPECIFIED ORGANISM Status: Acute Qualifiers: Pneumonia type: due to unspecified organism Laterality: left Lung location: lower lobe of lung Qualified Code(s): J18.1 - Lobar pneumonia, unspecified organism (2) Anasarca associated with disorder of kidney Code(s): N04.9 - NEPHROTIC SYNDROME WITH UNSPECIFIED MORPHOLOGIC CHANGES Status: Chronic (3) Anemia of renal disease Code(s): D63.1 - ANEMIA IN CHRONIC KIDNEY DISEASE Status: Chronic (4) Anxiety and depression Code(s): F41.9 - ANXIETY DISORDER, UNSPECIFIED; F32.9 - MAJOR DEPRESSIVE DISORDER, SINGLE EPISODE, UNSPECIFIED Status: Chronic (5) Chronic diastolic (congestive) heart failure Code(s): I50.32 - CHRONIC DIASTOLIC (CONGESTIVE) HEART FAILURE Status: Chronic (6) DM type 2, uncontrolled, with renal complications Code(s): E11.29 - TYPE 2 DIABETES MELLITUS W OTH DIABETIC KIDNEY COMPLICATION; E11.65 - TYPE 2 DIABETES MELLITUS WITH HYPERGLYCEMIA Status: Chronic Qualifiers: Diabetes mellitus complication detail: with chronic kidney disease Diabetes mellitus group home insulin use: without group home use Chronic kidney disease stage: stage 3 (moderate) Qualified Code(s): E11.22 - Type 2 diabetes mellitus with diabetic chronic kidney disease; E11.65 - Type 2 diabetes mellitus with hyperglycemia; E11.65 - Type 2 diabetes mellitus with hyperglycemia; E11.65 - Type 2 diabetes mellitus with hyperglycemia; E11.65 - Type 2 diabetes mellitus with hyperglycemia; N18.3 - Chronic kidney disease, stage 3 (moderate); N18.3 - Chronic kidney disease, stage 3 (moderate) Comment: [facility] (7) Diabetic neuropathy Code(s): E11.40 - TYPE 2 DIABETES MELLITUS WITH DIABETIC NEUROPATHY, UNSP Status: Chronic Qualifiers: Diabetes mellitus type: type 2 (8) Dyslipidemia Code(s): E78.5 - HYPERLIPIDEMIA, UNSPECIFIED Status: Chronic (9) Hypertension, uncontrolled Code(s): I10 - ESSENTIAL (PRIMARY) HYPERTENSION Status: Chronic Comment: continue home meds (10) PAD (peripheral artery disease) Code(s): I73.9 - PERIPHERAL VASCULAR DISEASE, UNSPECIFIED Status: Chronic (11) Tobacco abuse Code(s): Z72.0 - TOBACCO USE Status: Chronic (12) Chest pain not due to acute coronary syndrome Code(s): R07.89 - OTHER CHEST PAIN Status: Resolved Comment: Non-cardiac, CM neg x3. - Plan very uncooperative patient, needs colon exam, GI in consult -: cont antibx, etc. * .
[2017-10-08] MEDS: cefTRIAXone\\ROCEPHIN 2 GM, Admixture Fee 1 EACH in Sodium Chloride 0.9% 100 ML IVPB SCH (09:34)
[2017-10-08] MEDS: Furosemide 40 MG TAB PO SCH ×2 (09:36→14:43)
[2017-10-08] MEDS: Metolazone 5 MG TAB PO SCH (09:36)
[2017-10-08] MEDS: NIFEdipine XL 60 MG TAB PO SCH (09:36)
[2017-10-08] MEDS: hydrALAZINE 25 MG TAB PO SCH ×2 (09:37→20:43)
[2017-10-08] MEDS: Carvedilol 25 MG TAB PO SCH ×2 (09:37→17:11)
[2017-10-08] MEDS: Insulin NPH/Reg Insulin Hm 300 UNITS/3 ML VIAL SC SCH ×2 (09:38→20:44)
[2017-10-08] MEDS: Azithromycin 500 MG, Admixture Fee 1 EACH in Sodium Chloride 0.9% 250 ML 250 ML IVPB SCH (09:38)
[2017-10-08] MEDS: HumaLOG 300 UNITS/3 ML VIAL SC PRN ×2 (11:46→17:11)
[2017-10-08] MEDS: Atorvastatin Calcium 10 MG TAB PO SCH (20:43)
[2017-10-09] MEDS: Zolpidem Tartrate 5 MG TAB PO PRN (00:56)
[2017-10-09] MEDS: HYDROcodone/Acetaminophen 10/325 mg Tablet PO PRN (05:22)
[2017-10-09] MEDS: HumaLOG 300 UNITS/3 ML VIAL SC PRN (05:43)
[2017-10-09] MEDS: NIFEdipine XL 60 MG TAB PO SCH (07:54)
[2017-10-09] MEDS: Carvedilol 25 MG TAB PO SCH (07:55)
[2017-10-09] MEDS: hydrALAZINE 25 MG TAB PO SCH (07:55)
[2017-10-09] MEDS: Furosemide 40 MG TAB PO SCH (07:55)
[2017-10-09 07:56] VITALS: BP 178/91
[2017-10-09] MEDS: Insulin NPH/Reg Insulin Hm 300 UNITS/3 ML VIAL SC SCH (07:56)
--- NOTE | 2017-10-09 08:06 | PDOC.PN ---
- Subjective Encounter Start Date: 10/09/17 Encounter Start Time: 07:58 - Objective Resuscitation Status: Resuscitation Status FULL:Full Resuscitation MAR Reviewed: Yes Vital Signs & Weight: Vital Signs (12 hours) Temp Pulse Resp BP BP Pulse Ox 10/09/17 07:55 69 178/91 H 10/09/17 07:54 69 10/09/17 00:14 98.2 F 69 20 141/72 H 94 L 10/08/17 20:43 65 147/74 H 10/08/17 20:00 97.9 F 65 20 94 L Weight Weight 153 lb 8 oz I&O: 10/08/17 10/09/17 10/10/17 06:59 06:59 06:59 Intake Total 3280 185 Output Total 700 Balance 2580 185 Result Diagrams: 10/08/17 04:18 10/08/17 04:18 Additional Labs: Accuchecks 10/09/17 10/08/17 10/08/17 04:38 19:33 16:08 POC Glucose 155 H 195 H 176 H 10/08/17 11:22 POC Glucose 300 H Dx/Plan (1) PNA (pneumonia) Code(s): J18.9 - PNEUMONIA, UNSPECIFIED ORGANISM Status: Acute Qualifiers: Pneumonia type: due to unspecified organism Laterality: left Lung location: lower lobe of lung Qualified Code(s): J18.1 - Lobar pneumonia, unspecified organism (2) Anasarca associated with disorder of kidney Code(s): N04.9 - NEPHROTIC SYNDROME WITH UNSPECIFIED MORPHOLOGIC CHANGES Status: Chronic (3) Anemia of renal disease Code(s): D63.1 - ANEMIA IN CHRONIC KIDNEY DISEASE Status: Chronic (4) Anxiety and depression Code(s): F41.9 - ANXIETY DISORDER, UNSPECIFIED; F32.9 - MAJOR DEPRESSIVE DISORDER, SINGLE EPISODE, UNSPECIFIED Status: Chronic (5) Chronic diastolic (congestive) heart failure Code(s): I50.32 - CHRONIC DIASTOLIC (CONGESTIVE) HEART FAILURE Status: Chronic (6) DM type 2, uncontrolled, with renal complications Code(s): E11.29 - TYPE 2 DIABETES MELLITUS W OTH DIABETIC KIDNEY COMPLICATION; E11.65 - TYPE 2 DIABETES MELLITUS WITH HYPERGLYCEMIA Status: Chronic Qualifiers: Diabetes mellitus complication detail: with chronic kidney disease Diabetes mellitus [facility] insulin use: without rat exterminator use Chronic kidney disease stage: stage 3 (moderate) Qualified Code(s): E11.22 - Type 2 diabetes mellitus with diabetic chronic kidney disease; E11.65 - Type 2 diabetes mellitus with hyperglycemia; E11.65 - Type 2 diabetes mellitus with hyperglycemia; E11.65 - Type 2 diabetes mellitus with hyperglycemia; E11.65 - Type 2 diabetes mellitus with hyperglycemia; N18.3 - Chronic kidney disease, stage 3 (moderate); N18.3 - Chronic kidney disease, stage 3 (moderate) Comment: [facility] (7) Diabetic neuropathy Code(s): E11.40 - TYPE 2 DIABETES MELLITUS WITH DIABETIC NEUROPATHY, UNSP Status: Chronic Qualifiers: Diabetes mellitus type: type 2 (8) Dyslipidemia Code(s): E78.5 - HYPERLIPIDEMIA, UNSPECIFIED Status: Chronic (9) Hypertension, uncontrolled Code(s): I10 - ESSENTIAL (PRIMARY) HYPERTENSION Status: Chronic Comment: continue home meds (10) PAD (peripheral artery disease) Code(s): I73.9 - PERIPHERAL VASCULAR DISEASE, UNSPECIFIED Status: Chronic (11) Tobacco abuse Code(s): Z72.0 - TOBACCO USE Status: Chronic - Plan * .
[2017-10-09 08:17] VITALS: TEMP 98.3
[2017-10-09] MEDS ORDERED: Cefdinir 300 MG CAP PO SCH (09:00)
--- NOTE | 2017-10-09 10:04 | DIS ---
DATE OF ADMISSION: 10/07/2017 DATE OF DISCHARGE: 10/09/2017 DISCHARGE DISPOSITION: Home. FINAL DIAGNOSES: 1. Pneumonia, culture negative. 2. Abdominal pain, resolved. 3. Atypical chest pain. 4. Diabetes mellitus type 2 with chronic kidney disease stage 3. 5. Nephrotic syndrome. 6. Anasarca secondary to nephrotic syndrome. 7. Anemia of chronic renal disease. 8. Anxiety. 9. Depression. 10. History of coronary artery disease. 11. Diabetic neuropathy. 12. Dyslipidemia. 13. Hypertension. 14. Peripheral arterial disease. 15. Tobacco abuse. DISCHARGE MEDICATIONS: Omnicef 300 mg p.o. b.i.d. for 7 more days, tramadol 50 mg p.o. q.i.d. p.r.n. , hydralazine 50 mg p.o. b.i.d., Zaroxolyn 5 mg a day, nifedipine 60 mg a day, Lipitor 10 mg a day, C oreg 25 mg p.o. b.i.d., Lasix 40 mg p.o. b.i.d., 70/30 insulin 15 units subcu twice a day, Imdur 120 mg a day, and aspirin 81 mg a day. ALLERGIES: CELEBREX, CLINDAMYCIN, all NSAIDS, PENICILLIN, VANCOMYCIN, and VERSED CODE STATUS: FULL. PENDING AT THE TIME OF DISCHARGE: Cultures are negative at 48 hours. HOSPITAL COURSE: The patient with multiple admissions to the hospital in the past few months. He quezada s chronic atypical chest pain with chronic elevated troponins in the range of 0.2 documented on multi ple admissions. This time he was complaining of some abdominal pain and rectal pain. He had been in the [facility] Room with a fecal impaction, was digitally disimpacted, was complaining he still w ould not have a bowel movement. His CT of the abdomen reveals some proctitis. He was given lactulos e, it was clearing of his constipation. Unfortunately, this gentleman is abusive to the staff, uncoo perative, he was found smoking in the bathroom of his room and in his room multiple occasions requiri ng sweeps of his room to get cigarettes out. He refused his insulin over and over and over again and had blood sugars as high as 500. After a ghazal discussion of his lack of cooperation and abusive na dannye, he has taken his insulin and he is back to the 155 range at this time. He is currently alert a nd appropriate. Vital signs are stable. He is no longer having abdominal pain or rectal pain, consi deration because of the CT scan was given to obtaining a sigmoidoscopic exam. He is currently not de sirous of having that done. He is desirous of being discharged. He is being discharged on the medic ations as written. He states he is getting his insurance back tomorrow and he will find a new PCP an d see them within a week. Otherwise, he is to see [facility] in a week. PERTINENT LABORATORY DATA: At the time of admission with a chronic hyponatremia of 126, elevated BUN 55, creatinine 1.61. These numbers remained elevated and consistent. His hemoglobin is 8.4 and 8.5 , white count was 8.0, 7.3, platelet count was normal. CONSULTATIONS: None. PROCEDURES: None.
== END 2017-10-09 08:20 | disposition home or self-care (01) | DRG 194 ==
LOC: ERS 19:25 → 2NO 10-07 01:21 → T4-A 10-08 16:35
PROVIDERS: ADMIT Internal Medicine; ATTEND Internal Medicine
DX: J18.1 Lobar pneumonia, unspecified organism (principal); N04.9 Nephrotic syndrome with unspecified morphologic changes; R18.8 Other ascites; E11.22 Type 2 diabetes mellitus with diabetic chronic kidney disease; I13.0 Hypertensive heart and chronic kidney disease with heart failure and stage 1 through stage 4 chronic kidney disease, or unspecified chronic kidney disease; E87.1 Hypo-osmolality and hyponatremia; I50.32 Chronic diastolic (congestive) heart failure; N18.3 Chronic kidney disease, stage 3 (moderate); E11.40 Type 2 diabetes mellitus with diabetic neuropathy, unspecified; I12.9 Hypertensive chronic kidney disease with stage 1 through stage 4 chronic kidney disease, or unspecified chronic kidney disease; D63.1 Anemia in chronic kidney disease; E78.5 Hyperlipidemia, unspecified; F17.210 Nicotine dependence, cigarettes, uncomplicated; E11.51 Type 2 diabetes mellitus with diabetic peripheral angiopathy without gangrene; I25.10 Atherosclerotic heart disease of native coronary artery without angina pectoris; F41.9 Anxiety disorder, unspecified; F32.9 Major depressive disorder, single episode, unspecified; R07.89 Other chest pain; K59.00 Constipation, unspecified; K62.89 Other specified diseases of anus and rectum; Z53.20 Procedure and treatment not carried out because of patient's decision for unspecified reasons; Z91.14 Patient's other noncompliance with medication regimen; R46.89 Other symptoms and signs involving appearance and behavior; Z95.1 Presence of aortocoronary bypass graft; Z79.4 Long term (current) use of insulin; K21.9 Gastro-esophageal reflux disease without esophagitis; E11.65 Type 2 diabetes mellitus with hyperglycemia; R74.8 Abnormal levels of other serum enzymes
CPT/HCPCS: 36415; 36416; 71010; 74177; 80048; 80053; 82553; 84484; 85025; 93005; 96361; 96365; 96366; 96375; 96376; 99406; A4216; J0360; J0456; J0696; J1885; J1956; J2270; J7050

== ENCOUNTER 2017-10-20 03:50 | Emergency (ER) | payer SELFPAY | END 2017-10-20 05:03 | disposition left against medical advice (07) | LOC: ERS 03:50 | DX: M25.422 Effusion, left elbow (principal); M25.421 Effusion, right elbow; M79.89 Other specified soft tissue disorders; R51 Headache; R07.9 Chest pain, unspecified; M54.9 Dorsalgia, unspecified; M79.605 Pain in left leg; M79.604 Pain in right leg; E10.9 Type 1 diabetes mellitus without complications; I10 Essential (primary) hypertension; F17.210 Nicotine dependence, cigarettes, uncomplicated; Z79.899 Other long term (current) drug therapy; Z79.82 Long term (current) use of aspirin | CPT/HCPCS: 93005; 99406 ==

== ENCOUNTER 2017-10-22 08:21 | Inpatient (IN) | payer OTHER, SELFPAY ==
[2017-10-22] MEDS ORDERED: hydrALAZINE 20 MG/ML VIAL ONE (09:18)
[2017-10-22 09:27] LABS: #Basophils 0.1 thou/uL (0.0-0.2); #Eosinphils 0.1 thou/uL (0.0-0.7); #Lymphocytes 1.4 thou/uL (1.20-3.40); #Monocytes 0.4 thou/uL (0.11-0.59); #Neutrophils 5.4 thou/uL (1.40-6.50); %Basophils 0.7 % (0.0-1.0); %Eosinophils 1.2 % (0.0-10.0); %Lymphocytes 18.5 % (21.0-51.0); %Monocytes 5.5 % (0.0-10.0); Hematocrit 26.8 % (42.0-52.0); Red Blood Cell (RBC) Count 3.22 mill/uL (4.70-6.10); White Blood Cell (WBC) Count 7.4 thou/uL (4.8-10.8)
[2017-10-22 09:44] LABS: Troponin I 0.276 ng/mL (< 0.028)
[2017-10-22 09:46] LABS: ALT (SGPT) 15 U/L (8-55); AST (SGOT) 27 U/L (5-34); Alkaline Phosphatase 111 U/L (40-150); Anion Gap 12 mmol/L (10-20); BUN (Urea Nitrogen) 51 mg/dL (8.4-25.7); Bilirubin, Total 0.2 mg/dL (0.2-1.2); CK (CPK) 132 U/L (30-200); Calc. Creatinine Clearance 0 mL/min (70-130); Calcium 7.8 mg/dL (7.8-10.44); Carbon Dioxide 20 mmol/L (22-29); Chloride 97 mmol/L (98-107); Estimated GFR-MDRD 44; Globulin 3.4 g/dL (2.4-3.5); Lipase 14 U/L (8-78); Protein, Total 5.8 g/dL (6.0-8.3)
--- NOTE | 2017-10-22 10:14 | RAD ---
RADIOGRAPH CHEST 1 VIEW: Date: 10-22-17 Time: 8:52 a.m. HISTORY: 57-year-old male with chest pain for two days. COMPARISON: 10-06-17 FINDINGS: Sternotomy wires. Hyperinflation consistent with COPD. New or interval increase in small right pleura l effusion. Small left pleural effusion appears smaller now than before, with improved aeration of le ft lung base. Previously demonstrated diffuse interstitial densities which may have representing mild pulmonary interstitial edema appears to have improved in the left lung. On the right, new finding of diffuse, veil-like opacity involving the entire right lung except for the apex, may represent administrative liaison iorly layering pleural effusion. New finding of a focal ill-defined mass-like right inferior hilar op acity probably represents either atelectasis or pneumonia. No pneumothorax identified. IMPRESSION: 1. Bilateral pleural effusions, shifting in volume since the prior study. 2. Emphysema. 3. A new right inferior hilar, dense airspace opacity. JN POS: [facility]
[2017-10-22] MEDS ORDERED: Insulin Regular 300 UNITS/3 ML VIAL ONE (10:23)
[2017-10-22] MEDS ORDERED: Azithromycin 500 MG VIAL ONE (10:23)
[2017-10-22 10:31] LABS: Lactic Acid - Sepsis 1.6 mmol/L (0.5-2.2)
[2017-10-22] MEDS ORDERED: cefTRIAXone\\ROCEPHIN 2 GM, Admixture Fee 1 EACH in Sodium Chloride 0.9% 100 ML IVPB SCH (10:45)
[2017-10-22] MEDS ORDERED: Morphine 4 MG/ML VIAL ONE (10:58)
[2017-10-22] MEDS ORDERED: Ondansetron HCl/PF 4 MG/2 ML Vial IVP PRN (11:24)
[2017-10-22] MEDS ORDERED: Dextrose 5% in Water 1,000 ML IV PRN (11:24)
[2017-10-22] MEDS ORDERED: Acetaminophen 325 MG TAB PO PRN (11:24)
[2017-10-22] MEDS ORDERED: Dextrose 50% Abboject 50 ML SYRINGE SLOW IVP PRN (11:24)
--- NOTE | 2017-10-22 12:22 | CT ---
CT OF THE THORAX WITH IV CONTRAST: Date: 10/22/17 INDICATION: Possible obstructing mass lesion of the chest. COMPARISON: Chest radiograph dated 10/22/17. FINDINGS: There is subsegmental volume loss seen within the right middle lobe. There is suggestion of some bron chiectasis within the medial bronchus of the right middle lobe. The lateral segment bronchus is not w ell seen. No definite intraluminal mass is grossly evident. There is suspicion of some mucus debris s een within the distal aspect of the right mainstem bronchus. There are moderate bilateral pleural effusions. There is a moderate pericardial effusion. There is po stsurgical change of prior CABG. There is scattered emphysema. There is diffuse anasarca. There are numerous calcifications involving the visualized aspect of the pancreas, suspicious for cliff nges of chronic pancreatitis. Visualized aspects of the adrenal glands appear within normal limits. T here are suspected small cysts within the superior pole of the left kidney. There is scattered degenerative and osteoarthritic change. IMPRESSION: 1. Diffuse anasarca with moderate size bilateral pleural effusions. 2. There is atelectasis of the majority of the right middle lobe without visible obstructing mass le royce. This may be related to an obscured endobronchial lesion within the right middle lobe versus muc us debris. Recommend pulmonary consultation and consideration for bronchoscopy. 3. Postsurgical change of a prior CABG. 4. Findings of chronic pancreatitis. POS: [facility]
--- NOTE | 2017-10-22 12:23 | HP ---
HISTORY OF PRESENT ILLNESS: [facility] admission for Jacky, brought to the hospital by EMS complainin g of stabbing chest pain, low back pain, worse in his legs, worse and worse, wheezing, cough producti ve of clear white sputum, short of breath, no fever, chills or sweats. He admits to smoking 4-5 ciga rettes a day. He was recently in the hospital, discharged on Omnicef 300 mg twice a day for 7 more d ays. He states the pharmacist told him that since he was allergic to PENICILLIN, he might have troub les with it and he did not complete it. PAST MEDICAL HISTORY: Pertinent for recurrent admissions for atypical chest pain, diabetes mellitus type 2 with chronic kidney disease stage 3, nephrotic syndrome, anasarca secondary to nephrotic syndr ome, anemia of chronic disease, anxiety, depression, coronary artery disease, diabetic neuropathy, dy slipidemia, hypertension, severe peripheral arterial disease, ongoing tobacco abuse. CURRENT MEDICATIONS: At the time of discharge were Omnicef 300 mg twice a day which he did not compl ete, tramadol 50 mg p.o. q.i.d. p.r.n., hydralazine 50 mg p.o. b.i.d., Zaroxolyn 5 mg, nifedipine 60 mg a day, Lipitor 10 mg day, Coreg 25 mg p.o. b.i.d., Lasix 40 mg p.o. b.i.d., insulin 70/30 15 units subcu twice a day, Imdur 120 mg a day, aspirin 81 mg a day. ALLERGIES: CELEBREX, CLINDAMYCIN, ALL NSAIDS, PENICILLIN, VANCOMYCIN and VERSED. CODE STATUS: FULL. is next of kin. PAST SURGICAL HISTORY: Coronary artery bypass graft, right shoulder surgery, right knee surgery, eso phageal ulcer repair, cholecystectomy, and appendectomy. SOCIAL HISTORY: Smokes daily. He states he smokes 5 cigarettes a day. No alcohol or illicit drug u se. FAMILY HISTORY: Father had a stroke. No premature coronary artery disease or malignancies. REVIEW OF SYSTEMS: General: He gets little dizzy with the present illness. No fainting. No headac hes. Eyes: He states his vision is little blurry vision. No double vision, flashing lights. Ears, nose and throat: No ear pain or drainage. No nasal bleeding. No trouble swallowing. Cardiac: No pressure, chest pain, no orthopnea, no paroxysmal nocturnal dyspnea. Respiratory: Dyspnea on exert ion, wheezing, cough. Gastrointestinal: Nausea, no vomiting, no abdominal pain, no diarrhea or cons tipation. Genitourinary: He has some occasional incontinence. No painful urination, no blood in hi s urine. Musculoskeletal: Swells in his legs, has chronic neuropathic pain in his legs. Neurologic : No strokes, seizures or focal weakness. Psychiatric: Chronic anxiety or depression. Skin: No b ruising, bleeding or rash. HEME/LYMPH: No tender or swollen lymph nodes in axilla, inguinal or cervical area. PHYSICAL EXAMINATION: GENERAL: He is alert, unkempt, cooperative. VITAL SIGNS: Blood pressure 150/79, pulse 76, respirations 17-21, temperature 97.8, O2 sat 94-95 on room air, pain recorded to 10 at all times. HEENT: Reveal pupils equal, round, and reactive. Extraocular movements are intact. Sclerae white. Tympanic membranes clear. Nose clear. Oral mucous membranes are wet. Dental hygiene is fair. NECK: No jugular venous distention, adenopathy, thyromegaly or bruits. CHEST: Hyperresonant with marked wheezes in all lung morales. No focal findings. HEART: Regular rate and rhythm. First and second heart sounds clear, 2/6 systolic murmur. ABDOMEN: Soft, bowel sounds normal. No hepatosplenomegaly, no mass, no bruits. EXTREMITIES: 1+ edema, no cyanosis or clubbing. SKIN: Warm and dry, dirt under nails, dirt in the creases of his skin. LYMPHATIC: No tender or swollen lymph nodes in the inguinal, axillary or cervical area. No petechia l hemorrhages. PULSES: Carotid, radial, and femoral pulses intact. Pedal pulses minimally palpable. Feet are warm ; however. NEUROLOGICAL: Cranial nerves II-XII are intact. Deep tendon reflexes diminished. Moves all extremi ties. LABORATORY DATA AND X-RAY FINDINGS: EKG: Regular sinus rhythm, ST-T abnormality consistent with LVH and repolarization abnormality. Chest x-ray surgical changes apparent mass infiltrate in the right hilar area, definite bilateral pleural effusion, worse on the right than the left, reviewed by me. L aboratory: White count 7.4, hemoglobin 8.6, platelet count 250,000. Chemistries: Sodium 124, potas sium 5.4, creatinine 1.6, BUN 51, CO2 20, chloride 97, troponin 0.276 which is consistent with past v alues. BNP 8600. Liver function tests normal. Echocardiogram done on 09/30/2017, LVEF 50%-55% with LVH. ADMITTING DIAGNOSES: Apparent treatment failure of pneumonia. Blood cultures have been drawn. I se e no evidence of Staphylococcal pneumonia in this patient at this time. We will treat with cefepime and Levaquin pending cultures. The patient has had a CT of the abdomen and pelvis. We will proceed with a CT of the chest looking for an obstructing mass in the bronchi. Accu-Cheks and sliding scale will be followed. Selected home medicines will be continued. The patient has ongoing evidence of ch ronic obstructive pulmonary disease and continued tobacco abuse. He will be treated with steroids an d q.6 hours nebulizer therapies. Other diagnoses, coronary artery disease without evidence of involv ement at this time; hypertension, tobacco abuse, anxiety, severe peripheral vascular disease.
[2017-10-22] MEDS ORDERED: ISOVUE-370 76%-LOCM 1 ML ONE (13:53)
[2017-10-22 13:56] LABS: #Eosinphils 0.1 thou/uL (0.0-0.7); #Lymphocytes 1.2 thou/uL (1.20-3.40); #Monocytes 0.4 thou/uL (0.11-0.59); #Neutrophils 5.8 thou/uL (1.40-6.50); %Basophils 0.2 % (0.0-1.0); %Eosinophils 1.4 % (0.0-10.0); %Lymphocytes 15.7 % (21.0-51.0); %Monocytes 5.4 % (0.0-10.0); Hematocrit 24.9 % (42.0-52.0); White Blood Cell (WBC) Count 7.5 thou/uL (4.8-10.8)
[2017-10-22 14:10] LABS: Lactic Acid - Sepsis 2.1 mmol/L (0.5-2.2)
[2017-10-22 15:33] VITALS: BMI 22.4
[2017-10-22] MEDS ORDERED: Promethazine 25 MG TAB PO PRN (16:14)
[2017-10-22] MEDS: traMADol HCl 50 MG TAB PO SCH ×2 (16:36→21:03)
[2017-10-22] MEDS: Carvedilol 25 MG TAB PO SCH (16:37)
[2017-10-22] MEDS ORDERED: Cefepime 2 GM in Sodium Chloride 0.9% 100 ML IVPB SCH (21:00)
[2017-10-22] MEDS: hydrALAZINE 25 MG TAB PO SCH (21:02)
[2017-10-22] MEDS: Atorvastatin Calcium 10 MG TAB PO SCH (21:03)
[2017-10-22] MEDS: Zolpidem Tartrate 5 MG TAB PO PRN (22:11)
[2017-10-22] MEDS: Insulin NPH/Reg Insulin Hm 300 UNITS/3 ML VIAL SC SCH (22:11)
[2017-10-22] MEDS: Cefepime 2 GM, Syringe 2.5 ML in Sterile Water 10 ML SLOW IVP SCH (22:12)
[2017-10-22] MEDS: HYDROcodone/Acetaminophen 10/325 mg Tablet PO PRN (23:15)
[2017-10-23] MEDS: HYDROcodone/Acetaminophen 10/325 mg Tablet PO PRN ×4 (05:22→21:52)
[2017-10-23 05:47] LABS: Anion Gap 12 mmol/L (10-20); BUN (Urea Nitrogen) 53 mg/dL (8.4-25.7); Calc. Creatinine Clearance 55 mL/min (70-130); Calcium 7.6 mg/dL (7.8-10.44); Carbon Dioxide 20 mmol/L (22-29); Chloride 101 mmol/L (98-107); Estimated GFR-MDRD 48
[2017-10-23 06:16] LABS: Band 1 % (5-11); Hematocrit 28.6 % (42.0-52.0); Mean Platelet Volume 8.1 fL (7.4-10.4); Neutrophil 90 % (42-75); Red Blood Cell (RBC) Count 3.39 mill/uL (4.70-6.10)
[2017-10-23] MEDS: Metolazone 5 MG TAB PO SCH (07:59)
[2017-10-23] MEDS: Furosemide 40 MG TAB PO SCH ×2 (07:59→14:28)
[2017-10-23] MEDS: Carvedilol 25 MG TAB PO SCH ×2 (07:59→15:59)
[2017-10-23] MEDS: NIFEdipine XL 60 MG TAB PO SCH (07:59)
[2017-10-23] MEDS: hydrALAZINE 25 MG TAB PO SCH ×2 (08:00→21:51)
[2017-10-23] MEDS: Enoxaparin Sodium 40 MG/0.4 ML SYRINGE SC SCH (08:01)
[2017-10-23] MEDS: Insulin NPH/Reg Insulin Hm 300 UNITS/3 ML VIAL SC SCH ×2 (08:15→21:53)
--- NOTE | 2017-10-23 09:41 | PDOC.PN ---
- Subjective Encounter Start Date: 10/23/17 Encounter Start Time: 09:37 Subjective: back pain persists, chronic - Objective Resuscitation Status: Resuscitation Status FULL:Full Resuscitation MAR Reviewed: Yes Vital Signs & Weight: Vital Signs (12 hours) Temp Pulse Resp BP Pulse Ox 10/23/17 08:00 97.4 F L 74 18 10/23/17 07:59 74 10/23/17 07:29 97.4 F L 74 22 H 179/89 H 95 10/23/17 07:20 72 20 92 L 10/23/17 04:05 97.7 F 72 18 189/99 H 92 L 10/23/17 02:00 97.4 F L 73 20 174/93 H 93 L 10/23/17 01:42 73 16 93 L Weight Weight 156 lb Result Diagrams: 10/23/17 04:52 10/23/17 04:52 Additional Labs: Accuchecks 10/23/17 10/22/17 10/22/17 06:03 20:07 16:36 POC Glucose 139 H 225 H 194 H 10/22/17 11:31 POC Glucose 363 H Radiology Reviewed by me: Yes (CT chest- collapse middle lobe) Phys Exam - Physical Examination Constitutional: NAD Neck: no JVD decreased BS, diffuse wheezes Cardiovascular: RRR, no significant murmur Gastrointestinal: soft, positive bowel sounds Musculoskeletal: no edema Dx/Plan (1) Chest pain Code(s): R07.9 - CHEST PAIN, UNSPECIFIED Status: Acute Qualifiers: Chest pain type: precordial pain Qualified Code(s): R07.2 - Precordial pain (2) PNA (pneumonia) Code(s): J18.9 - PNEUMONIA, UNSPECIFIED ORGANISM Status: Acute Qualifiers: Pneumonia type: due to unspecified organism Laterality: right Lung location: middle lobe of lung Qualified Code(s): J18.1 - Lobar pneumonia, unspecified organism (3) Anasarca associated with disorder of kidney Code(s): N04.9 - NEPHROTIC SYNDROME WITH UNSPECIFIED MORPHOLOGIC CHANGES Status: Chronic (4) Chronic diastolic (congestive) heart failure Code(s): I50.32 - CHRONIC DIASTOLIC (CONGESTIVE) HEART FAILURE Status: Chronic (5) DM type 2, uncontrolled, with renal complications Code(s): E11.29 - TYPE 2 DIABETES MELLITUS W OTH DIABETIC KIDNEY COMPLICATION; E11.65 - TYPE 2 DIABETES MELLITUS WITH HYPERGLYCEMIA Status: Chronic Qualifiers: Diabetes mellitus complication detail: with chronic kidney disease Diabetes mellitus intermodal dispatcher insulin use: without intermediate use Chronic kidney disease stage: stage 3 (moderate) Qualified Code(s): E11.22 - Type 2 diabetes mellitus with diabetic chronic kidney disease; E11.65 - Type 2 diabetes mellitus with hyperglycemia; E11.65 - Type 2 diabetes mellitus with hyperglycemia; E11.65 - Type 2 diabetes mellitus with hyperglycemia; E11.65 - Type 2 diabetes mellitus with hyperglycemia; N18.3 - Chronic kidney disease, stage 3 (moderate); N18.3 - Chronic kidney disease, stage 3 (moderate) Comment: [facility] (6) Diabetic neuropathy Code(s): E11.40 - TYPE 2 DIABETES MELLITUS WITH DIABETIC NEUROPATHY, UNSP Status: Chronic Qualifiers: Diabetes mellitus type: type 2 (7) Dyslipidemia Code(s): E78.5 - HYPERLIPIDEMIA, UNSPECIFIED Status: Chronic (8) Hypertension, uncontrolled Code(s): I10 - ESSENTIAL (PRIMARY) HYPERTENSION Status: Chronic Comment: continue home meds (9) Nephrotic syndrome Code(s): N04.9 - NEPHROTIC SYNDROME WITH UNSPECIFIED MORPHOLOGIC CHANGES Status: Chronic (10) PAD (peripheral artery disease) Code(s): I73.9 - PERIPHERAL VASCULAR DISEASE, UNSPECIFIED Status: Chronic (11) Tobacco abuse Code(s): Z72.0 - TOBACCO USE Status: Chronic (12) Chest pain not due to acute coronary syndrome Code(s): R07.89 - OTHER CHEST PAIN Status: Resolved Comment: Non-cardiac, CM neg x3. - Plan consult pulmonology -: cont antibx, nebs, steroids -: cont accu/ss/etc * .
[2017-10-23] MEDS: Cefepime 2 GM, Syringe 2.5 ML in Sterile Water 10 ML SLOW IVP SCH ×2 (11:07→21:53)
[2017-10-23] MEDS: HumaLOG 300 UNITS/3 ML VIAL SC PRN (11:30)
[2017-10-23] MEDS: Atorvastatin Calcium 10 MG TAB PO SCH (21:51)
[2017-10-24] MEDS: HYDROcodone/Acetaminophen 10/325 mg Tablet PO PRN ×2 (03:52→09:04)
[2017-10-24] MEDS: HumaLOG 300 UNITS/3 ML VIAL SC PRN ×2 (05:53→16:33)
[2017-10-24] MEDS: NIFEdipine XL 60 MG TAB PO SCH (08:56)
[2017-10-24] MEDS: hydrALAZINE 25 MG TAB PO SCH ×2 (08:56→20:56)
[2017-10-24] MEDS: Metolazone 5 MG TAB PO SCH (09:05)
[2017-10-24] MEDS: Furosemide 40 MG TAB PO SCH ×2 (09:05→11:46)
[2017-10-24] MEDS: Carvedilol 25 MG TAB PO SCH ×2 (09:11→16:29)
[2017-10-24] MEDS: Insulin NPH/Reg Insulin Hm 300 UNITS/3 ML VIAL SC SCH ×2 (09:11→21:08)
[2017-10-24] MEDS: Enoxaparin Sodium 40 MG/0.4 ML SYRINGE SC SCH (09:11)
[2017-10-24] MEDS: Cefepime 2 GM, Syringe 2.5 ML in Sterile Water 10 ML SLOW IVP SCH ×2 (09:11→22:12)
[2017-10-24] MEDS ORDERED: hydrALAZINE 20 MG/ML VIAL SLOW IVP PRN (09:57)
[2017-10-24] MEDS ORDERED: HumaLOG 300 UNITS/3 ML VIAL SC SCH (10:15)
--- NOTE | 2017-10-24 11:06 | PRG ---
DATE OF SERVICE: 10/24/2017 SUBJECTIVE: The patient is seen and examined at the bedside. He is complaining about a lot of pain in his back, knees, and feet. Apparently, he had this issue for quite sometime in July, he was cut off his social security and he could not get his medications because they are too expensive and h e did not have bowel movement for the last 2 days. His appetite is fair. Apparently, he smoked 1 ci garette at 10:00 p.m. last night, then his oxygenation went down to 70s during the night. OBJECTIVE: VITAL SIGNS: Blood pressure is 191/92, respirations 22, pulse is 88, and temperature is 97.8. GENERAL: He looks tired, sick, emaciated and malnourished. HEENT: His head is atraumatic, normocephalic. Eyes are PERRLA. Conjunctivae pinkish. Sclerae alley cteric. Oral mucosa is moist. NECK: Supple, no lymphadenopathy. Thyroid is not palpable. LUNGS: Breath sounds diminished at the both bases with left side base dullness. HEART: S1, S2 normal, no S3, no S4. ABDOMEN: Soft, nontender, nondistended. Bowel sounds are present. No organomegaly. EXTREMITIES: 1+ peripheral edema and the right lower extremity shows little bit more than probably 1 .5-2 plus peripheral edema. He has scars on both knees, which are well healed. NEUROLOGIC: He follows my commands. He does not have any motor deficits. SKIN: No rash or erythema. LABORATORY DATA: Showed a glucose ranging from 139-506. CBC is not ordered and chemistry is not ord ered. Microbiology showed 2 blood cultures, no growth. IMPRESSION: 1. Chest pain, most likely related to his bilateral pleural effusions. The patient does not have an y chest pain at the time of my visit. 2. Pneumonia, right hilar area. The patient is on cefepime and levofloxacin. 3. Anasarca associated with disorder of kidney. 4. Chronic diastolic congestive heart failure. 5. Diabetes mellitus, uncontrolled. The patient is placed back on his long-acting insulin and that he will use also sliding scale. 6. Diabetic neuropathy. 7. Dyslipidemia. 8. Hypertension, uncontrolled. The patient is placed on all his home medications plus hydralazine p .r.n. every 4 hours for systolic blood pressure more than 160 and diastolic more than 100. 9. Hyponatremia, unclear etiology at this point. We will restrict his p.o. fluids to 1000 and check his comprehensive metabolic panel today and tomorrow morning. 10. Peripheral artery disease. 11. Tobacco abuse. We will put him on Nicoderm patch 14 mg changed everyday, since he smoked yester day and his oxygenation went down to 70s after he smoked. PLAN: To restrict his p.o. oral intake, fluids to 1000 to help his hyponatremia, change his pain med ications to every 4 hours from every 6. Obtain medical records about his back problem. Obtain UA on him and place him on Nicoderm 14 grams. Audio Visual Specialist is supposed to see him and we are going to wa it until we have an echocardiogram, also I am planning to do the BNP on him.
[2017-10-24] MEDS: HYDROcodone/Acetaminophen 10/325 mg Tablet PO SCH ×3 (11:32→20:57)
[2017-10-24 12:00] LABS: ALT (SGPT) 13 U/L (8-55); AST (SGOT) 15 U/L (5-34); Alkaline Phosphatase 92 U/L (40-150); Anion Gap 13 mmol/L (10-20); BUN (Urea Nitrogen) 63 mg/dL (8.4-25.7); Bilirubin, Total Less than 0.2 mg/dL (0.2-1.2); Calc. Creatinine Clearance 45 mL/min (70-130); Calcium 7.5 mg/dL (7.8-10.44); Carbon Dioxide 20 mmol/L (22-29); Chloride 101 mmol/L (98-107); Estimated GFR-MDRD 38; Globulin 3.3 g/dL (2.4-3.5)
[2017-10-24 13:44] LABS: Bilirubin Negative (Negative); Blood, Urine Small (Negative); Glucose, Urine (Dipstick) 500 mg/dL (Negative); Ketone, Urine Negative (Negative); Nitrite Negative (Negative); Protein, Urine (Dipstick) 300 mg/dL (Neg-Trace); Urobilinogen 0.2 mg/dL (0.2-1.0)
[2017-10-24 13:46] LABS: Bacteria/HPF None Seen HPF (None Seen); Hyaline Casts/LPF 0-3 HYALINE CAST LPF (0-3 Hyaline); Squamous Epithelial None Seen HPF (0-3); WBC/HPF None Seen HPF (0-3)
--- NOTE | 2017-10-24 13:48 | CON ---
DATE OF CONSULTATION: 10/24/2017 A 57-year-old gentleman, 5 feet 10, 156 pounds, who admitted to the hospital with chest pain, leg courtney n, back pain. Here for several days. His x-ray and CT showed bilateral pleural effusion and right middle lung atel ectasis is the reason for consultation. He saw Dr. Fernandez no more than 3 weeks ago. He has had chr onic pain, lipidemia, coronary artery disease, and GI bleed. He smokes, but mostly he can walk a block without getting marked short of breath. He is coughing up some yellow sputum, green sputum, but no blood. PAST MEDICAL HISTORY: Coronary artery disease 2 years ago, knee surgery, ulcer disease. He smokes. No alcohol or tobacco abuse. Disabled from previous trauma that he sustained. HOME MEDICATIONS: List of medicine from home includes Tramadol, hydralazine 50, Procardia 60, Zaroxo jorge l 5, 120, insulin, Lasix, Coreg, and aspirin. SOCIAL HISTORY: Unremarkable. FAMILY HISTORY: Unremarkable. PHYSICAL EXAMINATION: VITAL SIGNS: On examination, his blood pressure is 190/92, sats are 90%, respiratory rate 18, temper ature 97. CHEST: Decreased breath sounds without any wheezing. CARDIAC: Normal S1 and S2. No gallops. IMAGING AND LABORATORY DATA: CAT scan shows pleural effusions, right middle lobe atelectasis. The p luis fernando's chest x-ray normal 3 weeks ago, did not show any atelectatic area. White count 5.8, hemoglo bin and hematocrit 9 and 28, platelet count normal. Blood sugar is elevated. Chemistry profile show ed BUN 53 and creatinine 1.5. IMPRESSION: Bilateral pleural effusion, right middle lung atelectasis, tobacco abuse, coronary arter y disease, congestive heart failure, renal failure, diabetes. PLAN: Continue present treatment. Cardiac consult would be appropriate. I have ordered an echo. Most of the findings appeared to be secondary to CHF. We will follow.
[2017-10-24] MEDS ORDERED: Polyethylene Glycol 3350 17 GM Packet PO SCH (19:15)
[2017-10-24] MEDS: Atorvastatin Calcium 10 MG TAB PO SCH (21:03)
[2017-10-24] MEDS: Zolpidem Tartrate 5 MG TAB PO PRN (22:12)
[2017-10-25] MEDS: HYDROcodone/Acetaminophen 10/325 mg Tablet PO SCH ×6 (01:16→20:32)
[2017-10-25 04:48] LABS: ALT (SGPT) 12 U/L (8-55); AST (SGOT) 17 U/L (5-34); Alkaline Phosphatase 79 U/L (40-150); Anion Gap 13 mmol/L (10-20); BUN (Urea Nitrogen) 66 mg/dL (8.4-25.7); Bilirubin, Total Less than 0.2 mg/dL (0.2-1.2); Calc. Creatinine Clearance 46 mL/min (70-130); Calcium 7.4 mg/dL (7.8-10.44); Carbon Dioxide 20 mmol/L (22-29); Chloride 103 mmol/L (98-107); Estimated GFR-MDRD 39; Globulin 3.1 g/dL (2.4-3.5); Protein, Total 5.6 g/dL (6.0-8.3)
[2017-10-25] MEDS: HumaLOG 300 UNITS/3 ML VIAL SC PRN ×4 (06:25→20:44)
[2017-10-25] MEDS: NIFEdipine XL 60 MG TAB PO SCH (08:22)
[2017-10-25] MEDS: Carvedilol 25 MG TAB PO SCH ×2 (08:23→16:06)
[2017-10-25] MEDS: Furosemide 40 MG TAB PO SCH (08:23)
[2017-10-25] MEDS: hydrALAZINE 25 MG TAB PO SCH ×2 (08:23→20:31)
[2017-10-25] MEDS: Metolazone 5 MG TAB PO SCH (08:23)
[2017-10-25] MEDS: Cefepime 2 GM, Syringe 2.5 ML in Sterile Water 10 ML SLOW IVP SCH ×2 (08:24→20:32)
[2017-10-25] MEDS: Enoxaparin Sodium 40 MG/0.4 ML SYRINGE SC SCH ×2 (08:24→08:27)
[2017-10-25] MEDS: Insulin NPH/Reg Insulin Hm 300 UNITS/3 ML VIAL SC SCH ×2 (08:28→20:33)
--- NOTE | 2017-10-25 11:42 | PRG ---
DATE OF SERVICE: 10/25/2017 SUBJECTIVE: This morning, he is complaining of back pain, less shortness of breath. OBJECTIVE: VITAL SIGNS: Blood pressure is markedly elevated in 190/80, pulse 83, sats 95% on 4 liters, temperat ure 97. CHEST: Chest reveals decreased breath sounds without any wheezing. CARDIAC: Normal S1, S2, no gallops. LABORATORY DATA: His creatinine 1.8, BUN 66, glucose 208. IMPRESSION AND PLAN: 1. Bilateral pleural effusion, right lung atelectasis. Continue aggressive diuretics. His echocard iogram shows EF was 35% accounting for large account of his problem. 2. Congestive heart failure, questionable right middle lung atelectasis. Continue cardiac care, neb treatments, antibiotics, steroids. We will notify Dr. Fernandez on Friday.
[2017-10-25] MEDS: Furosemide 40 MG/4 ML VIAL SLOW IVP SCH (13:50)
--- NOTE | 2017-10-25 14:54 | PRG ---
DATE OF SERVICE: 10/25/2017 SUBJECTIVE: The patient is seen and examined at the bedside. He is asking for more pain medications for his back pain. He states that his current medications are helping him, but he used to get Dilau did when he was in the hospital and this was very effective for his pain. His appetite is fair. He is telling me that for the last few months, he is not able to a walk much. He can take a few steps, but that is all he can do. It sounds that he is in a difficult financial situation he is not able to afford his medications. OBJECTIVE: VITAL SIGNS: Blood pressure is 193/93, pulse is 83, temperature is 97.6, respiratory rate is 18, and O2 saturation is 90% on 4 liters by nasal cannula. GENERAL: He is malnourished. He looks sick. HEENT: Sclerae nonicteric. Conjunctivae pinkish. Oral mucosa is moist. There is significant loss of subcutaneous tissue present almost everywhere. LUNGS: Breath sounds diminished significantly at both bases with crackles at both bases. No wheezin g. HEART: S1, S2 normal, no S3, no S4. ABDOMEN: Soft, nontender, bowel sounds are present, no organomegaly. EXTREMITIES: No clubbing, cyanosis or edema. NEUROLOGIC: He follows my commands. He moves all 4 extremities. There is no any motor deficits. S ensory system is affected below both knees. LABORATORY DATA: Showed sodium of 131, potassium 4.7, chloride 103, CO2 20, BUN 66, creatinine 1.81. Glycemia is ranging from 208-447. Urinalysis showed clear urine pH of 7.0, specific gravity 1.013, 300 of protein, 500 of glucose, small amount of blood, and 11-20 rbc's. IMPRESSION: 1. Congestive heart failure with bilateral pleural effusion on decreased left ventricular ejection f raction 35% on last echo done during this hospitalization. The patient is on IV Lasix. He will be s een by blockers skiver today. 2. Uncontrolled diabetes. The patient is on 70/30 Humulin 15 units twice a day. I am going to incr ease the dose to 25 twice a day along with sliding scale. 3. Questionable right hilar area pneumonia and covered with cefepime and ciprofloxacin. 4. Hypertension, uncontrolled. We will try to modify his regimen for now, but partially it is relat ed to the pain, he has in his back and feet. 5. L3-4, L4-5 and L5-S1 discopathy, which is presenting with quite severe back pain. Patient is on oral opioids. We will obtain PT and OT. 6. Malnutrition. We will get dietitian consult. We will ask him to drink more Ensure for now until he is seen by dietitian. 7. Severe peripheral artery disease. 8. Urine incontinence of unclear etiology. I will put the Flaherty in to input and output to help us manage his congestive heart failure. 9. Poor financial situation. The patient does not have finances to buy medications and follow up wi th the doctor. We will obtain a housing case manager consultation.
[2017-10-25 16:27] LABS: Oxyhemoglobin 78.6 % (94.0-97.0); Sodium 128 mmol/L (135-148)
[2017-10-25 16:30] LABS: Mode 4L NC; Vent NO
[2017-10-25] MEDS: Atorvastatin Calcium 10 MG TAB PO SCH (20:31)
[2017-10-26] MEDS: HYDROcodone/Acetaminophen 10/325 mg Tablet PO SCH ×6 (00:39→20:43)
[2017-10-26] MEDS: Furosemide 40 MG/4 ML VIAL SLOW IVP SCH ×2 (05:01→12:09)
[2017-10-26] MEDS: HumaLOG 300 UNITS/3 ML VIAL SC PRN ×3 (06:07→17:28)
[2017-10-26] MEDS: Carvedilol 25 MG TAB PO SCH ×2 (08:08→16:07)
[2017-10-26] MEDS: NIFEdipine XL 60 MG TAB PO SCH (08:08)
[2017-10-26] MEDS: hydrALAZINE 25 MG TAB PO SCH ×2 (08:10→20:43)
[2017-10-26] MEDS: Metolazone 5 MG TAB PO SCH (08:10)
[2017-10-26] MEDS: Enoxaparin Sodium 40 MG/0.4 ML SYRINGE SC SCH ×2 (08:10→08:25)
[2017-10-26] MEDS: Multivitamin W/ Minerals 1 TAB PO SCH (08:10)
[2017-10-26] MEDS: Insulin NPH/Reg Insulin Hm 300 UNITS/3 ML VIAL SC SCH ×2 (08:11→20:42)
--- NOTE | 2017-10-26 09:55 | RAD ---
AP VIEW OF THE CHEST: INDICATION: CHF. COMPARISON: Prior exam dated 10/22/17. FINDINGS: Cardiomegaly with pulmonary vascular congestion persists. Perihilar interstitial edema is similar. The pleural effusion has slightly decreased in size, now small. Patchy opacities within the right norma ng base persist. Subsegmental atelectasis within the right middle lobe is similar. No pneumothorax is evident. IMPRESSION: 1. Improved but persistent mild congestive heart failure. 2. Patchy opacities within the right lung base persist and may reflect subsegmental atelectasis. Co ntinued followup is recommended. POS: [facility]
[2017-10-26] MEDS: Cefepime 2 GM, Syringe 2.5 ML in Sterile Water 10 ML SLOW IVP SCH (10:23)
[2017-10-26 11:03] LABS: Anion Gap 14 mmol/L (10-20); BUN (Urea Nitrogen) 73 mg/dL (8.4-25.7); Calc. Creatinine Clearance 46 mL/min (70-130); Calcium 7.3 mg/dL (7.8-10.44); Carbon Dioxide 19 mmol/L (22-29); Chloride 100 mmol/L (98-107); Estimated GFR-MDRD 39
[2017-10-26] MEDS ORDERED: Azithromycin 250 MG TAB PO SCH (11:45)
[2017-10-26] MEDS ORDERED: Magnesium Citrate 300 ML BOT PO SCH (12:30)
[2017-10-26] MEDS: Nicotine 14 MG PATCH TOP SCH (12:59)
--- NOTE | 2017-10-26 15:24 | PRG ---
DATE OF SERVICE: 10/26/2017 SUBJECTIVE: Apparently, the patient was caught in the room when he was smoking cigarette with heavy oxygen on. Cigarettes and the research management associate were taken away from him and the patient was reprimanded and h e promised not to cause more trouble but that is the second attempt to smoke during this hospitalizat ion. The patient always complains about the pain and asking for Dilaudid that he is not getting enou gh relief from the current management. Also, he is constipated. He did not have bowel movements fro m the medications he was given 2 days ago. OBJECTIVE: VITAL SIGNS: Blood pressure is 170/81, pulse is 80, temperature is 98.6 and respiratory rate is 14. Pulse oximetry is 95% on room air. PHYSICAL EXAMINATION: GENERAL: He is malnourished. He looks emaciated. HEENT: Pupils are PERRLA. Oral mucosa moist. NECK: Supple. LUNGS: Clear. HEART: S1, S2. CHEST: Normal breath sounds, diminished at both bases. ABDOMEN: Soft, nontender, nondistended. EXTREMITIES: No clubbing, cyanosis, or edema. NEUROLOGIC: He has sensory deficits below the knees bilaterally similar. He has weakness in both lo wer extremities. He is not able to control his urine. He follows commands. LABORATORY DATA: Showed sodium of 129, potassium 4.4, chloride 100, CO2 19, BUN 73, creatinine 1.79. Glycemia is ranging from 218-420. Blood cultures negative. Acid fast bacilli negative. IMPRESSION: 1. Congestive heart failure with bilateral pleural effusions with left ventricular ejection fraction down to 35%. The patient is diuresed. He is on Coreg, awaiting Cardiology consultation today. 2. Uncontrolled diabetes. We will go up again on his insulin to 30 units twice a day. 3. Hypertension, which is still an issue despite of all agents we are using hydralazine, Coreg, and nifedipine. We will continue current regimen and continue diuresis. 4. L3-4, L4-5 and L5-S1 discopathy with presentation of severe pain and inability to walk. Neurosur gical consultation was requested. We will see what his opinion neurosurgeons has about his condition . 5. Malnutrition. 6. Severe peripheral arterial disease. 7. Urinary incontinence of unclear etiology. Flaherty is in. We will start doing input and output. PLAN: Is to put him on a Nicoderm patch. Continue diuresis. Awaiting Cardiology consultation by Dr Radha Leyva, also Neurosurgical consultation regarding his lumbar spine condition. We will continue P T, OT. We will start input and output measurements and we will continue pain management, antibiotics were stopped by Pulmonary. He does not look like he has pneumonia.
--- NOTE | 2017-10-26 16:29 | CON ---
DATE OF CONSULTATION: 10/26/2017 HISTORY OF PRESENT ILLNESS: Juni Robles is a 57-year-old white male admitted with chest discomfort and leg pain and weakness. He has no insurance or funds and has been noncompliant with his medications but does continue to smoke. In 07/2009, he was admitted here with chest pain and underwent Lexiscan Cardiolite testing and no ischemia. Again, in 04/2015, he was admitted with chest pain and underwent Lexiscan Cardiolite testing which revealed no evidence of ischemia. In 07/2015, he was admitted to [facility] with acute coronary syndrome. He underwent cardiac catheterization with Dr. Liu and was found to have 3-vessel coronary artery disease and underwent CABG x4 by Dr. Forrester with MARAVILLA to the LAD, vein graft to the diagonal, the obtuse marginal, and to distal right coronary artery. The proximal diagonal graft was anastomosed to the goff of the proximal obtuse marginal graft. He was then admitted here in 11/2015 with substernal chest pressure that would last 30 seconds and then 5 or 10 minutes later would recur. He had multiple such episodes. During that admission, he underwent cardiac catheterization. There was normal left ventricular function with an ejection fraction of 50%-55%. The left main was normal. The LAD had a 60% proximal stenosis and a competitive filling from the MARAVILLA. There was a dual ramus system with a distal portion of an occluded graft seen on the larger of the branches. There was a 90% mid circumflex stenosis. The right coronary artery had and 80 followed by 70% mid stenosis and then a 50 followed by another 50% distal stenosis. Bypass grafts revealed the MARAVILLA to the LAD to be patent. The ramus graft (not diagonal) was figured back down to the obtuse marginal graft was occluded. The obtuse marginal graft was patent. The distal right coronary artery graft was patent. He has multiple admissions for chest discomfort since that time. He continues to have a squeezing chest pressure that will come on at rest and will last approximately 1 or 2 seconds. Thirty seconds later, he may have a recurrence of this. He states that the pain is not better unless he takes [place]. His main complaint, however, is increasing leg pain and weakness to the point where he finds it difficult to even walk. Apparently, there has not been any evaluation of this. PAST MEDICAL HISTORY: Multiple admissions for atypical chest discomfort. 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 MEDICATIONS: Aspirin 81 daily, atorvastatin 10 daily, carvedilol 25 b.i.d., furosemide 40 b.i.d., hydralazine 50 b.i.d., isosorbide mononitrate 120 daily, metolazone 5 mg daily, nifedipine 60 daily, promethazine 12.5 q. 6 hours p.r.n. , tramadol. ALLERGIES: CELEBREX, CLINDAMYCIN, ALL NSAIDS, PENICILLIN, VANCOMYCIN, AND VERSED. SOCIAL HISTORY: He smoked 1-1/2 packs per day prior to CABG but is now down to 5-10 cigarettes per day. He was a heavy alcohol abuser until 2000. FAMILY HISTORY: Negative for coronary artery disease. REVIEW OF SYSTEMS: A Twelve-point review of systems is unremarkable except as noted above. PHYSICAL EXAMINATION: VITAL SIGNS: Blood pressure 199/91, pulse of 78. HEENT: PERRL. NECK: Supple. LUNGS: Reveals occasional rhonchi. CARDIOVASCULAR: S1 and S2 are normal, without any S3 or S4. There is a 2/6 systolic murmur. ABDOMEN: Normal bowel sounds, without tenderness, organomegaly. EXTREMITIES: Reveal no clubbing, cyanosis, or edema. NEUROLOGIC: Grossly intact. SKIN: Warm and dry. LABORATORY DATA: I do not see any EKG on the chart. Hemoglobin 9.2, hematocrit 28.6, white count 5000, platelets 269,000. PH 7.42, pCO2 of 28, pO2 of 48. Sodium 129, potassium 4.4, chloride 100, carbon dioxide 19, BUN 73, creatinine 1.79. Troponin I 0.276. He has chronically elevated troponin I's. IMPRESSION: 1. Atypical chest discomfort with discomfort only lasting for 1 second at a time. 2. Chronic kidney disease with a history of nephrotic syndrome. 3. Status post coronary artery bypass grafting x4 with ramus (not diagonal) graft occluded. 4. Diabetes. 5. Hyponatremia. 6. Chronic kidney disease. 7. Hypertension. 8. Hyperlipidemia. 9. Leg pain and weakness, probably related to a lumbar radiculopathy. 10. Hypercholesterolemia. 11. History of gastrointestinal bleeding. PLAN: It is unclear if Mr. Robles is taking his medications at home. These have been restarted and his blood pressure will be monitored. I do not feel any further cardiac evaluation is warranted at the present time with his continued atypical chest discomfort. JENNIFFER
--- NOTE | 2017-10-26 16:50 | PRG ---
DATE OF SERVICE: 10/26/2017 SUBJECTIVE: This morning, he looks better. PHYSICAL EXAMINATION: VITAL SIGNS: His sats are 97% on 4 liters, pulse 78, blood pressure is elevated at 119/91. His I's and O's are difficult to say. CHEST: Reveals minimal crackles, without any wheezing. CARDIAC: Normal S1, S2. No gallops. ABDOMEN: Soft, no masses. LABORATORY DATA: Sodium 129, BUN and creatinine are 73 and 1.79. Increasing azotemia, probably from diuretics. IMPRESSION: 1. Bilateral pleural effusions and congestive heart failure much improved. 2. Respiratory failure secondary to #1. 3. Right middle lung atelectasis seen on the CT chest. PLAN: We are awaiting input from Cardiology. His main problem appears to be cardiac in origin, congestive heart failure with worsening renal failu re secondary to diuretics. Switch over to oral antibiotics. P.o. steroids. We will follow. Notify Dr. Fernandez in the morning.
[2017-10-26] MEDS: Atorvastatin Calcium 10 MG TAB PO SCH (20:43)
[2017-10-27] MEDS: HYDROcodone/Acetaminophen 10/325 mg Tablet PO SCH ×3 (00:35→08:41)
[2017-10-27] MEDS: Furosemide 40 MG/4 ML VIAL SLOW IVP SCH ×2 (05:19→14:02)
[2017-10-27 06:08] LABS: Amphetamine Not Detected (NotDetected); Methadone Not Detected (NotDetected); Methamphetamine Not Detected (NotDetected)
--- NOTE | 2017-10-27 07:44 | PRG ---
DATE OF SERVICE: 10/27/2017 I personally interviewed and examined the patient and agree with documentation of Williams Turner PA-C, d atehoney 10/26/2017. Briefly, Juni Robles is a 57-year-old gentleman admitted for intractable pain. He has been on Dil audid in the past for pain. He smokes cigarettes at a high rate and is on oxygen for what is likely COPD. Mr. Robles had an MRI scan of the lumbar spine ordered by his primary care physician in [facility]. He did not see a personal security specialist at that time. Because of intractable and worsening pain h man came to the hospital for admission. Ms. Robles has a combination of low axial back pain and some radicular features. His MRI scan johnson s not show significant lumbar stenosis, but there is foraminal disease between L5 and S1, which could be affecting the L5 nerve roots. Right now Mr. Robles is not a candidate for surgical intervention. His pulmonary function likely he makes a high risk, his cigarette use means that he is not a candidate for a fusion. I would like to see him off cigarettes for at least a month or 2, I would like pain management to consider transfo raminal injections, nerve blocks, medial branch blocks, rhizotomies or any other intervention they sal alcala think could help in the meantime. Physical therapy can be initiated and then a consultation by Joanne servin to see if his lung function would tolerate prone position intubation and whether he can be on a ventilator after surgical intervention. We can see him in our office in followup in November or December after these have been done.
--- NOTE | 2017-10-27 08:14 | PRG ---
DATE OF SERVICE: 10/27/2017 Mr. Robles is complaining of back pain and lower leg pain. He has not been deemed a surgical cand idate for his back pain secondary to his pulmonary status. He has an echo showing severely decreased EF. PHYSICAL EXAMINATION: VITAL SIGNS: Temperature 97.7, pulse 60, respirations 18, O2 sat 92%, blood pressure 90/54. HEENT: Unremarkable. NECK: No adenopathy or JVD. LUNGS: He has crackles at the bases. CARDIOVASCULAR: S1, S2 regular. ABDOMEN: Soft. EXTREMITIES: No edema. Chest x-ray from yesterday demonstrates improved findings of congestive heart failure. ASSESSMENT: Congestive heart failure with edema and effusions. PLAN: 1. Continue Cardiology intervention with diuretics and fluid restriction. 2. Antibiotics have been stopped. 3. Begin weaning prednisone dose tomorrow.
[2017-10-27] MEDS: Enoxaparin Sodium 40 MG/0.4 ML SYRINGE SC SCH ×2 (08:39→08:45)
[2017-10-27] MEDS: hydrALAZINE 25 MG TAB PO SCH ×2 (08:40→21:06)
[2017-10-27] MEDS: NIFEdipine XL 60 MG TAB PO SCH (08:40)
[2017-10-27] MEDS: predniSONE 20 MG TAB PO SCH (08:41)
[2017-10-27] MEDS: Multivitamin W/ Minerals 1 TAB PO SCH (08:41)
[2017-10-27] MEDS: Carvedilol 25 MG TAB PO SCH ×2 (08:41→17:14)
[2017-10-27] MEDS: Insulin NPH/Reg Insulin Hm 300 UNITS/3 ML VIAL SC SCH ×2 (10:37→21:06)
[2017-10-27] MEDS ORDERED: HYDROcodone/Acetaminophen 10/325 mg Tablet PO PRN (12:26)
[2017-10-27] MEDS: HYDROcodone/Acetaminophen 10/325 mg Tablet PO PRN ×3 (12:52→21:04)
[2017-10-27] MEDS: Nicotine 14 MG PATCH TOP SCH (12:53)
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
[2017-10-27] MEDS: Atorvastatin Calcium 10 MG TAB PO SCH (21:06)
[2017-10-27] MEDS: Zolpidem Tartrate 5 MG TAB PO PRN (21:08)
[2017-10-28] MEDS: HYDROcodone/Acetaminophen 10/325 mg Tablet PO PRN ×4 (00:58→13:23)
[2017-10-28] MEDS: Zolpidem Tartrate 5 MG TAB PO PRN (01:02)
[2017-10-28 03:36] VITALS: TEMP 98.6
[2017-10-28] MEDS: Furosemide 40 MG/4 ML VIAL SLOW IVP SCH (05:14)
[2017-10-28] MEDS: predniSONE 20 MG TAB PO SCH (08:55)
[2017-10-28] MEDS: hydrALAZINE 25 MG TAB PO SCH (08:56)
[2017-10-28] MEDS: Multivitamin W/ Minerals 1 TAB PO SCH (08:57)
[2017-10-28] MEDS: NIFEdipine XL 60 MG TAB PO SCH (08:57)
[2017-10-28] MEDS: Carvedilol 25 MG TAB PO SCH (08:57)
[2017-10-28] MEDS: Enoxaparin Sodium 40 MG/0.4 ML SYRINGE SC SCH (09:00)
[2017-10-28] MEDS: Insulin NPH/Reg Insulin Hm 300 UNITS/3 ML VIAL SC SCH ×2 (09:04→09:08)
--- NOTE | 2017-10-28 10:08 | PQF ---
Date: 10-28-17 ATTN: DR. ASHLEY GAITAN Please exercise your independent, professional judgment in responding to the clarification form. Clinical indicators are provided on the bottom of this form for your review Please check appropriate box(s): [ ] Protein Calorie Malnutrition: [ ] Mild [ ] Moderate [ ] Severe [ ] Other Malnutrition (please specify) __ [ ] Other diagnosis [ ] Unable to determine In addition, please specify: Present on Admission (POA): [ ] Yes [ ] No [ ] Unable to determine CLINICAL INDICATORS - SIGNS / SYMPTOMS / LABS BMI: 19.3 ALBUMIN 10-22-17: 2.[address] JAIN 10-24-17: HE LOOKS TIRED, SICK, EMACIATED AND MALNOURISHED. PN DR. JAIN 10-25-17: MALNUTRITION. WE WILL GET SILK OPENER CONSULT. WE WILL ASK HIM TO DRINK MORE ENSURE FOR NOW UNTIL HE IS SEEN BY SILK OPENER SILK OPENER CONSULT 10-25-17: 10/22 last BM- bowel sounds are active, abdomen is flat and soft Benson= 18 patient observed with mild to moderate temporal muscle wasting. 1) Change to 1999 Consistent Carbohydrate, Heart Healthy, Renal Low Protein diet. 2) Supplement with Suplena BID. RISK FACTORS: SILK OPENER CONSULT 10-25-17: 10/22 last BM- bowel sounds are active, abdomen is flat and soft Benson= 18 patient observed with mild to moderate temporal muscle wasting. 1) Change to 1999 Consistent Carbohydrate, Heart Healthy, Renal Low Protein diet. 2) Supplement with Suplena BID. H&P: HX OF HTN, CKD3, DM2, SMOKER, CHF TREATMENT: SILK OPENER CONSULT 10-25-17: 10/22 last BM- bowel sounds are active, abdomen is flat and soft Benson= 18 patient observed with mild to moderate temporal muscle wasting. 1) Change to 1999 Consistent Carbohydrate, Heart Healthy, Renal Low Protein diet. 2) Supplement with Suplena BID. (This form is maintained as a part of the permanent medical record) 2014 [employer]. All Rights Reserved SANTANA [email or web address] Office: [phone] JENNIFFER
--- NOTE | 2017-10-28 10:40 | PRG ---
DATE OF SERVICE: 10/28/2017 SUBJECTIVE: From a breathing standpoint, he says he is back to normal. He is still complaining of b ack pain. OBJECTIVE: VITAL SIGNS: His temperature is 98.6, pulse 70, blood pressure 156/71, and O2 sat 95%. HEENT: Unremarkable. NECK: No JVD. CHEST: Clear to auscultation without wheezing or rhonchi. CARDIAC: S1 and S2 regular. ABDOMEN: Soft. EXTREMITIES: No edema. I rereviewed his chest x-ray from 10/26/2017 and he has a question of a right mid lung infiltrate. LABORATORY DATA: No new labs are present on the chart. ASSESSMENT: Possible pneumonia, but most likely congestive heart failure with effusions. PLAN: The patient can be sent home on a tapered dose of steroids. He should follow up with his prim peetz care provider in about 2 weeks.
--- NOTE | 2017-10-28 10:55 | PDOC.PN ---
- Subjective Encounter Start Date: 10/28/17 Encounter Start Time: 10:53 Patient seen and examined. No new complaints. No overnight events - Objective Resuscitation Status: Resuscitation Status FULL:Full Resuscitation MAR Reviewed: Yes Vital Signs & Weight: Vital Signs (12 hours) Temp Pulse Resp BP BP Pulse Ox 10/28/17 08:57 72 156/71 H 10/28/17 08:56 72 156/71 H 10/28/17 07:47 98.6 F 72 18 10/28/17 07:18 73 20 156/71 H 95 10/28/17 03:34 98.6 F 72 18 129/63 95 10/28/17 00:12 85 16 95 Weight Admit Weight 156 lb Weight 134 lb 6.4 oz I&O: 10/27/17 10/28/17 10/29/17 06:59 06:59 06:59 Intake Total 1744 1062 240 Output Total 2600 4050 Balance -298 -3334 240 Result Diagrams: 10/23/17 04:52 10/26/17 10:42 Additional Labs: Accuchecks 10/28/17 10/27/17 10/27/17 05:38 21:05 16:41 POC Glucose 99 112 H 143 H 10/27/17 10:54 POC Glucose 114 H Phys Exam - Physical Examination Constitutional: NAD HEENT: PERRLA Neck: no JVD Respiratory: no wheezing Cardiovascular: no significant murmur Gastrointestinal: non-tender Musculoskeletal: pulses present Neurological: moves all 4 limbs Psychiatric: A&O x 3 Dx/Plan (1) Acute kidney injury Code(s): N17.9 - ACUTE KIDNEY FAILURE, UNSPECIFIED Status: Resolved (2) Chest pain Code(s): R07.9 - CHEST PAIN, UNSPECIFIED Status: Resolved Qualifiers: Chest pain type: precordial pain Qualified Code(s): R07.2 - Precordial pain (3) PNA (pneumonia) Code(s): J18.9 - PNEUMONIA, UNSPECIFIED ORGANISM Status: Resolved Qualifiers: Pneumonia type: due to unspecified organism Laterality: right Lung location: middle lobe of lung Qualified Code(s): J18.1 - Lobar pneumonia, unspecified organism (4) Secondary hyperparathyroidism of renal origin Code(s): N25.81 - SECONDARY HYPERPARATHYROIDISM OF RENAL ORIGIN Status: Acute (5) Anemia of renal disease Code(s): D63.1 - ANEMIA IN CHRONIC KIDNEY DISEASE Status: Chronic (6) CAD (coronary artery disease) Code(s): I25.10 - ATHSCL HEART DISEASE OF [place] CORONARY ARTERY W/O ANG PCTRS Status: Chronic Qualifiers: Coronary Disease-Associated Artery/Lesion type: [place] artery [place] vs. transplanted heart: [place] heart Associated angina: without angina Qualified Code(s): I25.10 - Atherosclerotic heart disease of [place] coronary artery without angina pectoris (7) Dyslipidemia Code(s): E78.5 - HYPERLIPIDEMIA, UNSPECIFIED Status: Chronic (8) Hypertension, uncontrolled Code(s): I10 - ESSENTIAL (PRIMARY) HYPERTENSION Status: Chronic Comment: continue home meds (9) PAD (peripheral artery disease) Code(s): I73.9 - PERIPHERAL VASCULAR DISEASE, UNSPECIFIED Status: Chronic (10) Tobacco abuse Code(s): Z72.0 - TOBACCO USE Status: Chronic (11) Back pain Code(s): M54.9 - DORSALGIA, UNSPECIFIED Status: Acute - Plan * ok from card pulm and nsx standpoint to be d/c * out pt f/u with pcp
--- NOTE | 2017-10-28 11:07 | PDOC.EVN ---
Event Note - Event Note Event Note: patient has mod prot montse malnutrition
--- NOTE | 2017-10-28 11:21 | DIS ---
DATE OF ADMISSION: 10/22/2017 DATE OF DISCHARGE: 10/28/2017 DISCHARGE DIAGNOSES: 1. Pneumonia, improved. 2. Tobacco use. Patient has been counseled. 3. Atypical chest pain, stable. 4. Chronic kidney disease, stable. 6. Coronary artery disease status post coronary artery bypass graft, stable. 7. Diabetes, stable. 8. Hyponatremia, resolved. 9. Hypertension, resolved. 10 Hyperlipidemia, resolved. 11. Back pain, resolved. CONSULTANTS ON THE CASE: Cardiology, Pulmonary, and Neurosurgery. DISCHARGE MEDICATIONS: Include all home medications plus tramadol 50 mg p.o. q.6h. p.r.n. for pain, Tylenol #3 one tablet p.o. q.8h. p.r.n. for pain and Medrol Dosepak tapering dose in addition to all home medications. BRIEF HOSPITAL COURSE: This is a 57-year-old pleasant gentleman who is well known to this hospital, came into the hospital was having chest pain, low back pain, worsening leg pain and cough and wheezin g. The patient is a chronic smoker and pain medication abuser, well known to the hospital. He was f ound to have a CT scan of the chest was done on the 10/22/2017. It showed bilateral pleural effusion s and a small area of atelectasis versus infiltrate in the right middle lobe. The patient was admitt ed, was put on antibiotics and steroids. The patient also was found to be fluid overloaded for which he was given IV diuretics. Cardiology and Pulmonary evaluated the patient. They optimized medicati ons and IV Lasix was changed to p.o. down the road. He completed the antibiotic course. He is on ta pering steroids right now because of low back pain. He was seen by Neurosurgery who recommended he f ollow up with outpatient pain medications because their evaluation of the MRI scan did not show signi ficant lumbar stenosis. The patient right now is adequately pain controlled. He is asked to stop sm oking and to follow up with the Pulmonary, Cardiology, and Neurosurgery and PCP as an outpatient. He is asked to come back to the emergency room in case symptoms recur. Total time for this discharge took 35 minutes.
[2017-10-28 12:01] VITALS: BP 146/67
[2017-10-28] MEDS: Nicotine 14 MG PATCH TOP SCH (13:25)
[2017-10-28] MEDS ORDERED: Furosemide 20 MG TAB PO SCH (14:00)
== END 2017-10-28 14:05 | disposition home or self-care (01) | DRG 291 ==
LOC: ERS 08:21 → T4-B 10:55 → 2SE 10-25 15:55
PROVIDERS: ADMIT Internal Medicine; ATTEND Internal Medicine
DX: I13.0 Hypertensive heart and chronic kidney disease with heart failure and stage 1 through stage 4 chronic kidney disease, or unspecified chronic kidney disease (principal); J18.9 Pneumonia, unspecified organism; N17.9 Acute kidney failure, unspecified; E11.22 Type 2 diabetes mellitus with diabetic chronic kidney disease; E11.40 Type 2 diabetes mellitus with diabetic neuropathy, unspecified; N18.3 Chronic kidney disease, stage 3 (moderate); I50.33 Acute on chronic diastolic (congestive) heart failure; E44.0 Moderate protein-calorie malnutrition; J98.11 Atelectasis; Z68.1 Body mass index [BMI] 19.9 or less, adult; E87.1 Hypo-osmolality and hyponatremia; N25.81 Secondary hyperparathyroidism of renal origin; E11.65 Type 2 diabetes mellitus with hyperglycemia; I73.9 Peripheral vascular disease, unspecified; Z95.1 Presence of aortocoronary bypass graft; E78.5 Hyperlipidemia, unspecified; I25.10 Atherosclerotic heart disease of native coronary artery without angina pectoris; F41.9 Anxiety disorder, unspecified; J44.9 Chronic obstructive pulmonary disease, unspecified; M51.9 Unspecified thoracic, thoracolumbar and lumbosacral intervertebral disc disorder; R32 Unspecified urinary incontinence; D63.1 Anemia in chronic kidney disease; E11.649 Type 2 diabetes mellitus with hypoglycemia without coma; F17.210 Nicotine dependence, cigarettes, uncomplicated; Z88.1 Allergy status to other antibiotic agents; Z88.8 Allergy status to other drugs, medicaments and biological substances; Z88.0 Allergy status to penicillin; Z91.19 Patient's noncompliance with other medical treatment and regimen; Z79.82 Long term (current) use of aspirin; Z79.4 Long term (current) use of insulin; E78.00 Pure hypercholesterolemia, unspecified; Z82.3 Family history of stroke
CPT/HCPCS: 36415; 36416; 71010; 71260; 80048; 80053; 80306; 81001; 82550; 82553; 82805; 83605; 83690; 83880; 83935; 84484; 85007; 85025; 85027; 87040; 87116; 87206; 93005; 93306; 94640; 96361; 96365; 96367; 96375; A4216; G8978-GP-CM; G8979-GP-CJ; J0360; J0456; J0692; J0696; J1650; J1815; J1940; J1956; J2270; J2920; J7050; J7506; J7620

== ENCOUNTER 2017-11-12 11:07 | Inpatient (IN) | payer OTHER ==
--- NOTE | 2017-11-12 12:13 | RAD ---
PORTABLE CHEST ONE VIEW: 11/12/2017 12:00 p.m. HISTORY: Chest pain. COMPARISON: 10/26/2017 FINDINGS: Changes of median sternotomy are again seen. The heart size is normal. Patchy opacities in the righ t lung are again seen with accompanying small effusion. No pneumothoraces are identified. POS: [facility]
[2017-11-12 12:26] LABS: #Basophils 0.1 thou/uL (0.0-0.2); #Lymphocytes 0.7 thou/uL (1.20-3.40); #Monocytes 0.5 thou/uL (0.11-0.59); #Neutrophils 4.8 thou/uL (1.40-6.50); %Basophils 0.8 % (0.0-1.0); %Eosinophils 0.8 % (0.0-10.0); %Lymphocytes 11.8 % (21.0-51.0); %Monocytes 8.5 % (0.0-10.0); %Neutrophils 78.1 % (42.0-75.0); Hemoglobin 8.7 g/dL (14.0-18.0); Mean Corpuscular HGB CONC 32.4 g/dL (32.0-36.0); Mean Corpuscular Hemoglobin 25.6 pg (27.0-31.0); Mean Platelet Volume 8.8 fL (7.4-10.4); Platelet Count 242 thou/uL (130-400); RBC Distribution Width 16.5 % (11.5-14.5); Red Blood Cell (RBC) Count 3.39 mill/uL (4.70-6.10); White Blood Cell (WBC) Count 6.1 thou/uL (4.8-10.8)
[2017-11-12 12:35] LABS: INR-International Normal Ratio 0.9; PTT 22.7 SEC (22.9-36.1); Prothrombin Time 12.6 SEC (12.0-14.7)
[2017-11-12 12:49] LABS: ALT (SGPT) 102 U/L (8-55); AST (SGOT) 24 U/L (5-34); Albumin 2.5 g/dL (3.5-5.0); Alkaline Phosphatase 239 U/L (40-150); Anion Gap 13 mmol/L (10-20); BUN (Urea Nitrogen) 73 mg/dL (8.4-25.7); Bilirubin, Total 0.3 mg/dL (0.2-1.2); CK (CPK) 97 U/L (30-200); Calc. Creatinine Clearance 0 mL/min (70-130); Calcium 8.1 mg/dL (7.8-10.44); Carbon Dioxide 19 mmol/L (22-29); Chloride 93 mmol/L (98-107); Estimated GFR-MDRD 51; Globulin 3.1 g/dL (2.4-3.5); Potassium 5.2 mmol/L (3.5-5.1); Protein, Total 5.6 g/dL (6.0-8.3); Sodium 120 mmol/L (136-145)
[2017-11-12 12:55] LABS: CKMB 5.7 ng/mL (0-6.6)
[2017-11-12 12:57] LABS: Glucose 728 mg/dL (70-105)
[2017-11-12] MEDS ORDERED: Morphine 4 MG/ML VIAL ONE (13:28)
[2017-11-12] MEDS ORDERED: Ondansetron HCl/PF 4 MG/2 ML Vial ONE (13:28)
[2017-11-12] MEDS ORDERED: Acetaminophen 500 MG TAB ONE (13:28)
[2017-11-12] MEDS ORDERED: Metoprolol Tartrate 5 MG/5 ML VIAL ONE (14:03)
--- NOTE | 2017-11-12 15:24 | HP ---
DATE OF SERVICE: 11/12/2017 CHIEF COMPLAINT: Chest pain. HISTORY OF PRESENT ILLNESS: This is a 57-year-old white male with a known history of a complicated c ardiac history with a history of quadruple bypass done at [facility] in 2014. The min ent has been recently being admitted multiple times. Last month, he was admitted for chest pain with similar symptoms of elevated troponins and was seen by Cardiology at that time, but the patient stat es there was no stress test done. He was in his usual state of health today and developed a sudden o nset of chest pain at around 3:00 a.m. in the morning, which lasted for 2-3 hours, noted in the mid e pigastrium to mid sternal area, not associated with nausea or vomiting, not associated with dizziness . The pain was 7/10 in intensity, was not relieved with any oral pain medications. Patient denies h aving any recent cough and denies having any fever, denies having diarrhea or any constipation. The patient called the EMS and he was brought to the ER and was noted to have elevated troponin of 0.3, b ut EKG was unremarkable. The patient was also noted to have elevated blood sugars in 700s and also w ith low sodium level of 120. He has a known history of type 2 diabetes mellitus, which seems like it is poorly controlled. He has a history of nephrotic syndrome, but he seems to be euvolemic at this time. The patient is seen in the ER room. He was alert and oriented, did not appear to be in any acute dis tress. He was asking for pain medications. Patient has a long history of chronic narcotic abuse for his low back pains and his lower legs pains. PAST MEDICAL HISTORY: 1. Recurrent chest pains. 2. Type 2 diabetes mellitus, poorly controlled. 3. Chronic kidney disease, stage 3. 4. Nephrotic syndrome. 5. Anasarca. 6. Anemia of chronic disease. 7. Anxiety. 8. Depression. 9. Severe coronary artery disease with history of CABG and diabetic neuropathy. 10. Dyslipidemia. 11. Hypertension. 12. Severe peripheral arterial disease. PAST SURGICAL HISTORY: Coronary artery bypass graft in 2014, right shoulder surgery, a right knee cruz rgery, esophageal ulcer repair, cholecystectomy, and appendectomy. SOCIAL HISTORY: The patient states he smokes 5 cigarettes a day. No alcohol. No history of illicit drug use. He lives with his in his own house. FAMILY HISTORY: Father had a stroke at young age and no history of premature coronary artery disease or any malignancies. HOME MEDICATIONS: 1. Metolazone 5 mg. 2. Nifedipine 60 mg p.o. daily. 3. Lipitor 10 mg p.o. daily. 4. Coreg 25 mg p.o. b.i.d. 5. Lasix 40 mg p.o. b.i.d. 6. Insulin 70/30, takes 15 units subcu twice a day. 7. Imdur 120 mg a day. 8. Aspirin 81 mg p.o. daily. 9. Also takes tramadol 50 mg p.o. b.i.d. 10. Also is on methylprednisolone 4 mg p.o. daily. ALLERGIES: CELEBREX, CLINDAMYCIN, PENICILLIN, VANCOMYCIN, and VERSED. CODE STATUS: FULL. REVIEW OF SYSTEMS: All 12 systems are reviewed with the patient thoroughly and found to be negative at this time except the ones described in the HPI. The following complete review of systems was nega tive, unless otherwise mentioned in the HPI or below: Constitutional: Weight loss or gain, sense of well-being, ability to conduct usual activities, exercise tolerance. Skin/Breast: Rash, itching, c hanges in hair growth or loss, nail changes, breast lumps, tenderness, swelling, nipple discharge. H ead: Headaches (location, time of onset, duration, precipitating factors), vertigo, lightheadedness, injury. Eyes: Vision, double vision, tearing, blind spots, pain. ENT/Mouth: Nose bleeding, colds , obstruction, discharge, dental difficulties, gingival bleeding, dentures, neck stiffness, pain, ten derness, masses in thyroid or other areas. Cardiovascular: Precordial pain, substernal distress, pa lpitations, syncope, dyspnea on exertion, orthopnea, nocturnal paroxysmal dyspnea, edema, cyanosis, h ypertension, heart murmurs, varicosities, phlebitis, claudication. Respiratory: Pain, shortness of breath, wheezing, stridor, cough, hemoptysis, fever, or night sweats. Gastrointestinal: Poor appeti te, dysphagia, indigestion, abdominal pain, heartburn, eructation, nausea, vomiting, hematemesis, jau ndice, constipation, or diarrhea, abnormal stools (demetra-colored, tarry, bloody, greasy, foul smelling ), flatulence, hemorrhoids, recent changes in bowel habits. Genitourinary: Urgency, frequency, dysu fabiola, nocturia, hematuria, polyuria, oliguria, unusual (or change in) color of urine, stones, hesitanc y, change in size of stream, dribbling, acute retention or incontinence, libido, potency. Musculoske letal: Pain, swelling, redness or heat of muscles or joints, limitation, of motion, muscular weaknes s, atrophy, cramps. Neurologic/Psychiatric: Convulsions, paralyses, tremor, incoordination, paresth esias, difficulties with memory of speech, sensory or motor disturbances, or muscular coordination (a taxia, tremor), emotional problems, anxiety, depression, previous psychiatric care, unusual perceptio ns, hallucinations. Allergy/Immunologic: Skin rash, anemia, bleeding tendency, polydipsia, polyuria , intolerance to heat or cold. LABORATORY DATA: WBC 6.1, hemoglobin is 8.7, hematocrit is 26.8, platelets are 242. Sodium is 120, potassium is 5.2, chloride is 93, anion gap is 13, BUN is 73, creatinine is 1.43, bloo d sugar is 728. Troponin 0.3, alkaline phosphatase is 239. ASSESSMENT: 1. Non-ST elevation myocardial infarction. 2. Acute hyperglycemia with poorly controlled type 2 diabetes mellitus. 3. Acute severe hyponatremia. 4. Hyperkalemia. 5. History of coronary artery bypass grafting/ 6. Uncontrolled hypertension. PLAN: 1. Plan is to start the patient on insulin drip at this time. Patient has markedly elevated blood s ugars in 700s, likely from poorly controlled type 2 diabetes mellitus or it could be from the steroid s the patient is on. At this time, he is not in diabetic ketoacidosis, as he has a normal anion gap. His mental status has been stable. 2. The patient has elevated troponins, initial one was 0.3. We will continue with serial troponins every 6 hours and we will consult Cardiology, as the patient has been admitted second time. He is hi gh risk, because of the multiple comorbidities and poor compliance with medications. We will restart the patient on aspirin, beta adalid, statin, and we will closely monitor and do a 2D echocardiogram to look for any wall motion abnormalities. Patient may end up needing further evaluation with [facility] during this admission. 3. Patient has hyponatremia, most likely is relative hyponatremia from poorly controlled type 2 diab etes mellitus. We will continue with insulin drip at this time and we will start the patient on very low dose of normal saline at 50 mL an hour for gentle hydration. The patient is on metolazone, whic h could also be contributing to further hyponatremia. At this time, we will hold off on the metolazo ne, and also, on the Lasix at this time. 4. The patient has a history of chronic kidney disease. He has elevated BUN and a mildly elevated c reatinine at this time. We will closely monitor and consult Nephrology for any worsening renal funct ions. 5. History of coronary artery bypass grafting. We will closely monitor and follow up with the [facility] recommendations. 6. History of nephrotic syndrome. We will closely monitor for any volume overload state at this cristina e. 7. Deep vein thrombosis prophylaxis. We will start the patient on Lovenox 1 mg/kg b.i.d. for non-ST elevation myocardial infarction. I spent 75 minutes with this patient of this one hour as a critical care time.
[2017-11-12] MEDS ORDERED: Insulin Regular 300 UNITS/3 ML VIAL ONE (15:31)
[2017-11-12 16:34] LABS: Troponin I 0.362 ng/mL (< 0.028)
[2017-11-12 19:03] LABS: Troponin I 0.382 ng/mL (< 0.028)
[2017-11-12] MEDS ORDERED: Ondansetron ODT 4 MG TAB PO PRN (19:53)
[2017-11-12] MEDS ORDERED: Promethazine 25 MG TAB PO PRN (19:53)
[2017-11-12] MEDS ORDERED: Ondansetron HCl/PF 4 MG/2 ML Vial IVP PRN (19:53)
[2017-11-12] MEDS ORDERED: methylPREDNISolone 4 mg Tablet PO SCH (19:53)
[2017-11-12] MEDS ORDERED: Bisacodyl 5 MG TAB PO PRN (19:53)
[2017-11-12] MEDS ORDERED: Acetaminophen 325 MG TAB PO PRN (19:53)
[2017-11-12] MEDS ORDERED: Senokot 8.6 MG TAB PO PRN (19:53)
[2017-11-12] MEDS ORDERED: Sodium Chloride 0.9% 1,000 ML IV SCH ×2 (20:15→20:45)
[2017-11-12 20:16] LABS: Cardiac Risk 7.9 (Less than 4.5)
[2017-11-12] MEDS ORDERED: Carvedilol 25 MG TAB PO SCH (20:45)
[2017-11-12] MEDS ORDERED: Enoxaparin Sodium 80 MG/0.8 ML SYRINGE SC SCH (21:00)
[2017-11-12] MEDS: HYDROcodone/Acetaminophen 5/325 mg Tablet PO PRN (21:04)
[2017-11-12] MEDS: Famotidine/PF 20 mg/2ml Vial SLOW IVP SCH (21:06)
[2017-11-12] MEDS: hydrALAZINE 25 MG TAB PO SCH (21:06)
[2017-11-12] MEDS: Atorvastatin Calcium 10 MG TAB PO SCH (21:07)
[2017-11-12] MEDS ORDERED: Enoxaparin Sodium 60 MG/0.6 ML SYRINGE SC SCH (21:15)
[2017-11-12] MEDS: Nitroglycerin 2% Ointment 1 INCH/1 GM Packet TOP SCH (22:52)
[2017-11-12] MEDS: traMADol HCl 50 MG TAB PO PRN (23:44)
[2017-11-13] MEDS: HYDROcodone/Acetaminophen 5/325 mg Tablet PO PRN ×2 (02:36→08:43)
[2017-11-13 05:39] LABS: #Eosinphils 0.1 thou/uL (0.0-0.7); #Lymphocytes 1.4 thou/uL (1.20-3.40); #Monocytes 0.5 thou/uL (0.11-0.59); #Neutrophils 2.3 thou/uL (1.40-6.50); %Basophils 0.9 % (0.0-1.0); %Eosinophils 2.3 % (0.0-10.0); %Lymphocytes 33.2 % (21.0-51.0); %Monocytes 10.8 % (0.0-10.0); %Neutrophils 52.8 % (42.0-75.0); Mean Corpuscular HGB CONC 32.6 g/dL (32.0-36.0); Mean Corpuscular Volume 79.8 fl (80.0-94.0); Mean Platelet Volume 8.9 fL (7.4-10.4); Platelet Count 211 thou/uL (130-400); RBC Distribution Width 16.2 % (11.5-14.5); Red Blood Cell (RBC) Count 3.08 mill/uL (4.70-6.10); White Blood Cell (WBC) Count 4.3 thou/uL (4.8-10.8)
[2017-11-13 06:07] LABS: Anion Gap 13 mmol/L (10-20); BUN (Urea Nitrogen) 71 mg/dL (8.4-25.7); Calc. Creatinine Clearance 60 mL/min (70-130); Calcium 7.7 mg/dL (7.8-10.44); Carbon Dioxide 18 mmol/L (22-29); Chloride 100 mmol/L (98-107); Estimated GFR-MDRD 60; Glucose 198 mg/dL (70-105); Potassium 4.9 mmol/L (3.5-5.1); Sodium 126 mmol/L (136-145)
[2017-11-13] MEDS: traMADol HCl 50 MG TAB PO PRN ×4 (06:07→22:33)
[2017-11-13] MEDS: Nitroglycerin 2% Ointment 1 INCH/1 GM Packet TOP SCH ×3 (06:30→22:41)
[2017-11-13] MEDS: Aspirin 325 MG TAB PO SCH (08:44)
[2017-11-13] MEDS: hydrALAZINE 25 MG TAB PO SCH ×2 (08:44→22:33)
[2017-11-13] MEDS: NIFEdipine XL 60 MG TAB PO SCH (08:45)
[2017-11-13] MEDS: Carvedilol 25 MG TAB PO SCH ×2 (08:46→16:38)
[2017-11-13] MEDS ORDERED: Enoxaparin Sodium 60 MG/0.6 ML SYRINGE SC SCH (09:00)
[2017-11-13] MEDS ORDERED: Insulin Detemir 100 UNITS/ML 30 UNITS in Pre-Filled Syringe 1 EACH SC SCH (09:30)
[2017-11-13] MEDS ORDERED: HYDROcodone/Acetaminophen 10/325 mg Tablet PO PRN (10:17)
[2017-11-13 11:18] LABS: Iron 12 ug/dL (65-175); Iron Binding Capacity, Total 260 mcg/dL (261-462)
[2017-11-13] MEDS ORDERED: Dextrose 5% in Water 1,000 ML IV PRN (11:32)
[2017-11-13] MEDS: methylPREDNISolone 4 mg Tablet PO SCH ×3 (12:14→22:42)
[2017-11-13] MEDS: HYDROcodone/Acetaminophen 10/325 mg Tablet PO PRN ×2 (15:20→19:26)
[2017-11-13] MEDS: Insulin Regular 300 UNITS/3 ML VIAL SC PRN ×2 (16:38→22:40)
--- NOTE | 2017-11-13 17:00 | PDOC.PN ---
- Subjective Encounter Start Date: 11/13/17 Encounter Start Time: 08:00 Patient is seen today, alert and oriented. No other Concerns noted. he still c/ o Chest pain and leg pains asking for IV narcotics. - Objective Resuscitation Status: Resuscitation Status FULL:Full Resuscitation MAR Reviewed: Yes Vital Signs & Weight: Vital Signs (12 hours) Temp Pulse Resp BP BP Pulse Ox 11/13/17 15:41 97.7 F 59 L 17 100/51 L 90 L 11/13/17 11:40 97.8 F 59 L 17 101/54 L 11/13/17 08:45 61 152/78 H 11/13/17 08:44 63 152/78 H 11/13/17 08:00 97.9 F 61 18 99 11/13/17 07:52 97.9 F 61 18 152/78 H 99 Weight Weight 139 lb 11.2 oz I&O: 11/12/17 11/13/17 11/14/17 06:59 06:59 06:59 Intake Total 890 Output Total 150 Balance 740 Result Diagrams: 11/13/17 04:43 11/13/17 04:43 Additional Labs: Accuchecks 11/13/17 11/13/17 11/13/17 16:27 10:46 07:59 POC Glucose 446 H 252 H 147 H 11/13/17 11/13/17 11/13/17 06:58 05:57 05:08 POC Glucose 138 H 158 H 212 H 11/13/17 11/13/17 11/13/17 04:17 03:04 02:04 POC Glucose 274 H 307 H 375 H 11/13/17 11/12/17 11/12/17 01:32 23:52 23:06 POC Glucose 400 H 508 H 470 H 11/12/17 11/12/17 11/12/17 22:05 21:15 19:50 POC Glucose 486 H Greater than 550 H* 532 H 11/12/17 18:25 POC Glucose 509 H Radiology Reviewed by me: Yes Phys Exam - Physical Examination HEENT: PERRLA, moist MMs Neck: no nodes, no JVD Respiratory: wheezing present Cardiovascular: RRR, no significant murmur Gastrointestinal: soft, non-tender Musculoskeletal: no edema, pulses present Neurological: non-focal, normal sensation Lymphatic: no nodes Psychiatric: normal affect, A&O x 3 Skin: no rash, normal turgor Dx/Plan (1) Hyperglycemia due to type 2 diabetes mellitus Code(s): E11.65 - TYPE 2 DIABETES MELLITUS WITH HYPERGLYCEMIA Status: Acute (2) Acute on chronic diastolic (congestive) heart failure Code(s): I50.33 - ACUTE ON CHRONIC DIASTOLIC (CONGESTIVE) HEART FAILURE Status : Acute Comment: Improved with resuming home diuretics. (3) Hyperkalemia Code(s): E87.5 - HYPERKALEMIA Status: Acute (4) CAD (coronary artery disease) Code(s): I25.10 - ATHSCL HEART DISEASE OF [place] CORONARY ARTERY W/O ANG PCTRS Status: Chronic Qualifiers: Coronary Disease-Associated Artery/Lesion type: [place] artery [place] vs. transplanted heart: [place] heart Associated angina: without angina Qualified Code(s): I25.10 - Atherosclerotic heart disease of [place] coronary artery without angina pectoris (5) CKD (chronic kidney disease) stage 3, GFR 30-59 ml/min Code(s): N18.3 - CHRONIC KIDNEY DISEASE, STAGE 3 (MODERATE) Status: Chronic (6) DM type 2, uncontrolled, with renal complications Code(s): E11.29 - TYPE 2 DIABETES MELLITUS W OTH DIABETIC KIDNEY COMPLICATION; E11.65 - TYPE 2 DIABETES MELLITUS WITH HYPERGLYCEMIA Status: Chronic Qualifiers: Diabetes mellitus complication detail: with chronic kidney disease Diabetes mellitus care home insulin use: without care home use Chronic kidney disease stage: stage 3 (moderate) Qualified Code(s): E11.22 - Type 2 diabetes mellitus with diabetic chronic kidney disease; E11.65 - Type 2 diabetes mellitus with hyperglycemia; E11.65 - Type 2 diabetes mellitus with hyperglycemia; E11.65 - Type 2 diabetes mellitus with hyperglycemia; E11.65 - Type 2 diabetes mellitus with hyperglycemia; N18.3 - Chronic kidney disease, stage 3 (moderate); N18.3 - Chronic kidney disease, stage 3 (moderate) Comment: [facility] (7) Acute kidney injury Code(s): N17.9 - ACUTE KIDNEY FAILURE, UNSPECIFIED Status: Resolved (8) Chest pain not due to acute coronary syndrome Code(s): R07.89 - OTHER CHEST PAIN Status: Resolved Comment: Non-cardiac, CM neg x3. - Plan cont current plan of care, continue antibiotics, PT/OT, respiratory therapy, incentive spirometry, DVT proph w/lovenox * . Plan:\ Patent is on Insulin Drip which is stopped last night, Will start pt on Levemir 15mg sc BID, with SSI. keep BG 140-180. mayra has persistant Chest pain, waiting on cardiology evalaution elevated Troponins, on lovenox 1mg BID, which pt is refusing. Hyperkalemia is improved after IV insulin. Hyponatremia is improved with correction of hyperglycemia, has baseline Hyponatremia with metalazone, will keep it on hold unless fluid overloaded. CHRISTINA is improved with IBV fluids. Chronic opiode use asking for pain meds, will increase oral narcotics 10/ 325 po q 6hrs. DVT prophylaxis: Lovenox. - Discharge Day Encounter end time: 08:30 Review of Systems - Review of Systems Constitutional: weakness, malaise Eyes: negative: Pain, Vision Change, Conjunctivae Inflammation, Eyelid Inflammation, Redness, Other ENT: negative: Ear Pain, Ear Discharge, Nose Pain, Nose Discharge, Nose Congestion, Mouth Pain, Mouth Swelling, Throat Pain, Throat Swelling, Other Respiratory: Shortness of Breath, SOB with Excertion. negative: Cough, Dry, Hemoptysis, Pleuritic Pain, Sputum, Wheezing Cardiovascular: chest pain. negative: palpitations, orthopnea, paroxysmal nocturnal dyspnea, edema, light headedness, other Gastrointestinal: negative: Nausea, Vomiting, Abdominal Pain, Diarrhea, Constipation, Melena, Hematochezia, Other Genitourinary: negative: Dysuria, Frequency, Incontinence, Hematuria, Retention , Other Musculoskeletal: negative: Neck Pain, Shoulder Pain, Arm Pain, Back Pain, Hand Pain, Leg Pain, Foot Pain, Other Skin: negative: Rash, Lesions, Kevin, Bruising, Other Neurological: negative: Weakness, Numbness, Incoordination, Change in Speech, Confusion, Seizures, Other - Medications/Allergies Allergies/Adverse Reactions: Allergies Allergy/AdvReac Type Severity Reaction Status Date / Time celecoxib [From Celebrex] Allergy Verified 10/07/17 04:55 clindamycin Allergy Verified 10/07/17 04:55 NSAIDS (Non-Steroidal Allergy Verified 10/07/17 04:55 Anti-Inflamma Penicillins Allergy Verified 10/07/17 04:55 vancomycin Allergy Verified 07/11/16 22:46 midazolam HCl [From Versed] AdvReac Intermediate Verified 10/07/17 04:55 Medications: Current Medications Acetaminophen (Tylenol) 650 mg PO Q4H PRN PRN Reason: Headache/Fever or Pain Hydrocodone Bitart/Acetaminophen ([place] 5/325) 2 tab PO Q4H PRN PRN Reason: Severe Pain (7-10) Last Admin: 11/13/17 08:43 Dose: 2 tab Hydrocodone Bitart/Acetaminophen ([place] 10/325) 1 tab PO Q4H PRN PRN Reason: Mild-Moderate Pain (1-5) Last Admin: 11/13/17 11:14 Dose: 1 tab Hydrocodone Bitart/Acetaminophen ([place] 10/325) 2 tab PO Q4H PRN PRN Reason: Moderate to Severe Pain (6-10) Last Admin: 11/13/17 15:20 Dose: 2 tab Aspirin (Aspirin) 325 mg PO DAILY [facility] Last Admin: 11/13/17 08:44 Dose: 325 mg Atorvastatin Calcium (Lipitor) 10 mg PO HS [facility] Last Admin: 11/12/17 21:07 Dose: 10 mg Bisacodyl (Dulcolax) 10 mg PO DAILYPRN PRN PRN Reason: Constipation Carvedilol (Coreg) 25 mg PO BID-[facility] Last Admin: 11/13/17 16:38 Dose: 25 mg Dextrose/Water (Dextrose 50%) 25 gm IVP PRN PRN PRN Reason: HYPOGLYCEMIA PROTOCOL Famotidine (Pepcid) 20 mg SLOW IVP 2100 [facility] Last Admin: 11/12/17 21:06 Dose: 20 mg Glucagon (Glucagon) 1 mg IM PRN PRN PRN Reason: HYPOGLYCEMIA PROTOCOL Hydralazine HCl (Apresoline) 50 mg PO BID [facility] Last Admin: 11/13/17 08:44 Dose: 50 mg Insulin Detemir 15 units/ (Miscellaneous Medication) 0.15 mls @ 0 mls/hr SC BID [facility] Dextrose/Water (D5w) 1,000 mls @ 0 mls/hr IV INF PRN; As Directed PRN Reason: HYPOGLYCEMIA PROTOCOL Insulin Human Regular (Humulin R) 0 units SC .MODERATE SLIDING SC PRN; Protocol PRN Reason: MODERATE SLIDING SCALE Last Admin: 11/13/17 16:38 Dose: 10 unit Isosorbide Mononitrate (Imdur Er) 120 mg PO DAILY [facility] Last Admin: 11/13/17 08:45 Dose: 120 mg Methylprednisolone (Medrol) 8 mg PO 1200,1700,2100 [facility] Stop: 11/13/17 21:01 Last Admin: 11/13/17 16:38 Dose: 8 mg Methylprednisolone (Medrol) 4 mg PO 0800,1300,1800 [facility] Stop: 11/14/17 18:01 Methylprednisolone (Medrol) 8 mg PO 2100 [facility] Stop: 11/14/17 21:01 Methylprednisolone (Medrol) 4 mg PO 0800,1200,1700,2100 [facility] Stop: 11/15/17 21:01 Methylprednisolone (Medrol) 4 mg PO 0800,1200,1700 [facility] Stop: 11/16/17 17:01 Methylprednisolone (Medrol) 4 mg PO 0800,1700 [facility] Stop: 11/17/17 17:01 Methylprednisolone (Medrol) 4 mg PO 0800 [facility] Stop: 11/18/17 08:01 Nifedipine (Procardia Xl) 60 mg PO DAILY [facility] Last Admin: 11/13/17 08:45 Dose: 60 mg Nitroglycerin (Nitro-Bid 2% Ointment) 0.5 inch TOP Q8HR [facility] Last Admin: 11/13/17 13:21 Dose: Not Given Ondansetron HCl (Zofran Odt) 4 mg PO Q6H PRN PRN Reason: Nausea/Vomiting Ondansetron HCl (Zofran) 4 mg IVP Q6H PRN PRN Reason: Nausea/Vomiting Promethazine HCl (Phenergan) 12.5 mg PO Q6H PRN PRN Reason: Nausea Senna (Senokot) 2 tab PO HSPRN PRN PRN Reason: Constipation Tramadol HCl (Ultram) 50 mg PO Q6H PRN PRN Reason: Pain Last Admin: 11/13/17 11:15 Dose: 50 mg
[2017-11-13] MEDS: Famotidine 20 MG TAB PO SCH (22:39)
[2017-11-13] MEDS: Insulin Detemir 100 UNITS/ML 15 UNITS in Pre-Filled Syringe 1 EACH SC SCH (22:40)
[2017-11-13] MEDS: Atorvastatin Calcium 10 MG TAB PO SCH (22:40)
[2017-11-13] MEDS: Famotidine/PF 20 mg/2ml Vial SLOW IVP SCH (22:56)
[2017-11-14] MEDS: HYDROcodone/Acetaminophen 10/325 mg Tablet PO PRN ×6 (00:31→20:35)
--- NOTE | 2017-11-14 01:49 | CON ---
DATE OF CONSULTATION: 11/13/2017 Juni Robles is a 57-year-old white male admitted with chest pain, leg pain and weakness. He is very noncompliant with medications and continues to smoke. He does state that he has not run out of any of his medications recently. In 07/2009, he was admitted with chest pain and underwent Lexiscan Cardiolite testing and no ischemia was found. Again in 04/2015, he was admitted with chest pain and underwent Lexiscan Cardiolite testing, which revealed no evidence of ischemia. In 07/2015, he was admitted to [facility] with acute coronary syndrome. He underwent cardiac catheterization by Dr. Liu and was found to have 3-vessel coronary artery disease. He then underwent CABG x4 by Dr. Forrester with MARAVILLA to the LAD, vein graft to diagonal, obtuse marginal, and distal right coronary artery. The proximal diagonal graft was anastomosed to the goff of the proximal obtuse marginal graft. He was admitted here in 11/2015 with substernal chest pressure that would last 30 seconds and then 5 or 10 minutes later would recur. He had multiple such episodes. During that admission, he underwent repeat catheterization. Ejection fraction was 50-55% with normal left ventricular function. Left main was normal. The LAD had a 60% proximal stenosis and competitive filling from the MARAVILLA. There was a dual ramus system with the distal portion of an occluded graft seen on the larger of the branches. There was a 90% mid circumflex stenosis. The right coronary artery had 80% followed by 70% mid stenosis and a 50% followed by another 50% distal stenosis. Bypass grafts revealed MARAVILLA to the LAD to be patent. The ramus graft (not diagonal) piggy backed onto the obtuse marginal graft, was occluded. The obtuse marginal graft was patent, but just the right coronary artery graft was patent. He has had multiple admissions for chest discomfort since that time. He continues to have squeezing chest pain that will come on at rest, lasts for 10 seconds, resolve, and then recurs several minutes later. He has chronically elevated troponin I's and on every admission, these are elevated. His problems are also complicated by the fact that he has some type of back problem with progressive weakness of his legs to where he is not able to get out of bed to the bedside commode without help. He again had the same type chest discomfort lasting 5-10 seconds with multiple recurrences and is admitted and again his chronically elevated troponin I remains elevated. He denies any melena or hematochezia. 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 He had cardiac arrest in 2005. Chronic joint low back pain, anxiety, depression, hypercholesterolemia, history of nephrotic syndrome and anasarca. MEDICATIONS: At home include baby aspirin 1 daily, atorvastatin 10 mg at bedtime, carvedilol 25 mg b.i.d., furosemide 20 mg b.i.d., hydralazine 50 mg b.i.d., Humulin 70/30, 15 units b.i.d., isosorbide mononitrate 120 q.a.m., prednisolone, Medrol Dosepak 4 mg as directed, Zaroxolyn 5 mg daily, nifedipine 60 mg daily, promethazine 12.5 daily, tramadol 50 q.6 h. p.r.n. ALLERGIES: CELEBREX, CLINDAMYCIN, ALL NSAIDS, PENICILLIN, VANCOMYCIN, VERSED. SOCIAL HISTORY: He smoked one and half pack per day prior to CABG, but now smokes 5-10 cigarettes per day. He was a heavy alcohol abuser until 2000. FAMILY HISTORY: Negative for coronary artery disease. REVIEW OF SYSTEMS: A 12 point review of systems unremarkable except as noted in the HPI. PHYSICAL EXAMINATION: VITAL SIGNS: BP 105/53 and pulse of 59. HEENT: PERRL. NECK: Supple. CHEST: Clear. CARDIAC: S1 and S2 are normal, without any S3, S4 or murmurs. ABDOMEN: Normal bowel sounds, without tenderness or organomegaly. EXTREMITIES: Revealed no clubbing, cyanosis or edema. NEUROLOGIC: Grossly intact. SKIN: Warm and dry. LABORATORY DATA: EKG revealed normal sinus rhythm, probable left ventricular hypertrophy with repolarization abnormalities. Hemoglobin 8.0, hematocrit 24.6 , white count 4600, platelets 211,000. INR 0.9. Sodium 126, potassium 4.9, chloride 100, carbon dioxide 18, BUN 71, creatinine 1.24. Iron 12, TIBC 260. Troponin I is 0.382, CK-MB is normal. IMPRESSION: 1. Somewhat atypical chest discomfort lasting 5-10 seconds at a time. 2. Chronically elevated troponin I. 3. Chronic kidney disease with history of nephrotic syndrome. 4. Status post coronary artery bypass graft x4 with ramus (not diagonal) graft occluded. 5. Diabetes. 6. Hyponatremia. 7. Hypertension. 8. Hyperlipidemia. 9. Iron deficiency anemia. 10. Leg pain, weakness, probably due to lumbar radiculopathy. 11. History in the past of gastrointestinal bleeding. PLAN: From a cardiac standpoint, I do not feel any further evaluation is warranted. He has chronically elevated troponin I's. Catheterization 2 years ago showed 3 of 4 grafts to be patent. Mainly his anemia needs to be further evaluated. He was placed on Protonix 40 p.o. b.i.d. and GI consultation will be requested. JENNIFFER
[2017-11-14 06:28] LABS: #Lymphocytes 0.4 thou/uL (1.20-3.40); #Monocytes 0.4 thou/uL (0.11-0.59); #Neutrophils 7.9 thou/uL (1.40-6.50); %Basophils 0.2 % (0.0-1.0); %Eosinophils 0.2 % (0.0-10.0); %Monocytes 4.7 % (0.0-10.0); %Neutrophils 89.9 % (42.0-75.0); Hemoglobin 8.5 g/dL (14.0-18.0); Mean Corpuscular HGB CONC 32.6 g/dL (32.0-36.0); Mean Corpuscular Hemoglobin 26.3 pg (27.0-31.0); Mean Corpuscular Volume 80.7 fl (80.0-94.0); Mean Platelet Volume 8.8 fL (7.4-10.4); Platelet Count 230 thou/uL (130-400); RBC Distribution Width 16.3 % (11.5-14.5); Red Blood Cell (RBC) Count 3.24 mill/uL (4.70-6.10); White Blood Cell (WBC) Count 8.7 thou/uL (4.8-10.8)
[2017-11-14 06:46] LABS: Anion Gap 12 mmol/L (10-20); BUN (Urea Nitrogen) 73 mg/dL (8.4-25.7); Calc. Creatinine Clearance 50 mL/min (70-130); Calcium 7.6 mg/dL (7.8-10.44); Carbon Dioxide 16 mmol/L (22-29); Chloride 99 mmol/L (98-107); Estimated GFR-MDRD 50; Glucose 320 mg/dL (70-105); Potassium 5.7 mmol/L (3.5-5.1); Sodium 121 mmol/L (136-145)
[2017-11-14] MEDS: traMADol HCl 50 MG TAB PO PRN ×3 (07:27→20:21)
[2017-11-14] MEDS: Nitroglycerin 2% Ointment 1 INCH/1 GM Packet TOP SCH ×4 (07:28→20:55)
[2017-11-14] MEDS ORDERED: methylPREDNISolone 4 mg Tablet PO SCH ×2 (08:00→21:00)
[2017-11-14] MEDS: Aspirin 325 MG TAB PO SCH (08:07)
[2017-11-14] MEDS: hydrALAZINE 25 MG TAB PO SCH ×2 (08:07→20:26)
[2017-11-14] MEDS: NIFEdipine XL 60 MG TAB PO SCH (08:07)
[2017-11-14] MEDS: Carvedilol 25 MG TAB PO SCH ×2 (08:08→16:42)
[2017-11-14] MEDS: Insulin Regular 300 UNITS/3 ML VIAL SC PRN ×4 (08:08→20:29)
--- NOTE | 2017-11-14 09:15 | PDOC.PN ---
- Subjective Encounter Start Date: 11/14/17 Encounter Start Time: 09:13 Subjective: Seen and examined feeling ok - Objective Resuscitation Status: Resuscitation Status FULL:Full Resuscitation Vital Signs & Weight: Vital Signs (12 hours) Temp Pulse Resp BP BP Pulse Ox 11/14/17 08:07 64 193/85 H 11/14/17 08:00 97.7 F 64 16 193/85 H 92 L 11/14/17 04:40 93 L 11/14/17 04:00 97.8 F 70 18 158/70 H 93 L 11/13/17 23:45 97.9 F 61 16 133/63 91 L 11/13/17 22:33 59 L 127/62 Weight Weight 140 lb 3.2 oz I&O: 11/13/17 11/14/17 11/15/17 06:59 06:59 06:59 Intake Total 890 1830 Output Total 150 Balance 740 1830 Result Diagrams: 11/14/17 05:44 11/14/17 05:44 Additional Labs: Accuchecks 11/14/17 11/13/17 11/13/17 06:52 20:49 16:27 POC Glucose 356 H 446 H 446 H 11/13/17 11/12/17 10:46 18:25 POC Glucose 252 H 509 H Phys Exam - Physical Examination Constitutional: NAD HEENT: PERRLA, moist MMs, sclera anicteric, TM's clear Neck: no nodes, no JVD, supple, full ROM Respiratory: no wheezing, no rales, no rhonchi, clear to auscultation bilateral Cardiovascular: RRR, no significant murmur, no rub Gastrointestinal: soft, non-tender, no distention, positive bowel sounds Musculoskeletal: no edema, pulses present Dx/Plan (1) Hyperglycemia due to type 2 diabetes mellitus Code(s): E11.65 - TYPE 2 DIABETES MELLITUS WITH HYPERGLYCEMIA Status: Acute (2) Acute on chronic diastolic (congestive) heart failure Code(s): I50.33 - ACUTE ON CHRONIC DIASTOLIC (CONGESTIVE) HEART FAILURE Status : Acute Comment: Improved with resuming home diuretics. (3) Secondary hyperparathyroidism of renal origin Code(s): N25.81 - SECONDARY HYPERPARATHYROIDISM OF RENAL ORIGIN Status: Acute (4) Anasarca associated with disorder of kidney Code(s): N04.9 - NEPHROTIC SYNDROME WITH UNSPECIFIED MORPHOLOGIC CHANGES Status: Chronic (5) Anemia of renal disease Code(s): D63.1 - ANEMIA IN CHRONIC KIDNEY DISEASE Status: Chronic (6) Anxiety and depression Code(s): F41.9 - ANXIETY DISORDER, UNSPECIFIED; F32.9 - MAJOR DEPRESSIVE DISORDER, SINGLE EPISODE, UNSPECIFIED Status: Chronic (7) CAD (coronary artery disease) Code(s): I25.10 - ATHSCL HEART DISEASE OF [place] CORONARY ARTERY W/O ANG PCTRS Status: Chronic Qualifiers: Coronary Disease-Associated Artery/Lesion type: [place] artery [place] vs. transplanted heart: [place] heart Associated angina: without angina Qualified Code(s): I25.10 - Atherosclerotic heart disease of [place] coronary artery without angina pectoris (8) CKD (chronic kidney disease) stage 3, GFR 30-59 ml/min Code(s): N18.3 - CHRONIC KIDNEY DISEASE, STAGE 3 (MODERATE) Status: Chronic (9) Chronic diastolic (congestive) heart failure Code(s): I50.32 - CHRONIC DIASTOLIC (CONGESTIVE) HEART FAILURE Status: Chronic (10) DM type 2, uncontrolled, with renal complications Code(s): E11.29 - TYPE 2 DIABETES MELLITUS W OTH DIABETIC KIDNEY COMPLICATION; E11.65 - TYPE 2 DIABETES MELLITUS WITH HYPERGLYCEMIA Status: Chronic Qualifiers: Diabetes mellitus complication detail: with chronic kidney disease Diabetes mellitus long chain beamer insulin use: without long chain beamer use Chronic kidney disease stage: stage 3 (moderate) Qualified Code(s): E11.22 - Type 2 diabetes mellitus with diabetic chronic kidney disease; E11.65 - Type 2 diabetes mellitus with hyperglycemia; E11.65 - Type 2 diabetes mellitus with hyperglycemia; E11.65 - Type 2 diabetes mellitus with hyperglycemia; E11.65 - Type 2 diabetes mellitus with hyperglycemia; N18.3 - Chronic kidney disease, stage 3 (moderate); N18.3 - Chronic kidney disease, stage 3 (moderate) Comment: CCM (11) Dyslipidemia Code(s): E78.5 - HYPERLIPIDEMIA, UNSPECIFIED Status: Chronic (12) Hypertension, uncontrolled Code(s): I10 - ESSENTIAL (PRIMARY) HYPERTENSION Status: Chronic Comment: continue home meds (13) Metabolic acidosis Code(s): E87.2 - ACIDOSIS Status: Chronic (14) Nephrotic syndrome Code(s): N04.9 - NEPHROTIC SYNDROME WITH UNSPECIFIED MORPHOLOGIC CHANGES Status: Chronic (15) Chest pain Code(s): R07.9 - CHEST PAIN, UNSPECIFIED Status: Resolved Qualifiers: Chest pain type: precordial pain Qualified Code(s): R07.2 - Precordial pain (16) Acidosis, metabolic Code(s): E87.2 - ACIDOSIS Status: Acute - Plan plan discussed w/ family, PT/OT, addiction social worker, respiratory therapy Work up the hyponatremia and anemia -: adjust antihypertensive meds -: D/c sterpoids -dont know why pt is on it-ziggy with high blood sugar -: May need renal evaluation * .
[2017-11-14] MEDS: Insulin Detemir 100 UNITS/ML 15 UNITS in Pre-Filled Syringe 1 EACH SC SCH ×2 (09:50→20:28)
[2017-11-14 09:52] LABS: Iron 10 ug/dL (65-175); Iron Binding Capacity, Total 301 mcg/dL (261-462)
[2017-11-14 10:10] LABS: Ferritin 130.63 ng/mL (22-322); Thyroid Stimulating Hormone 3.66 uIU/mL (0.35-4.94)
[2017-11-14] MEDS: Atorvastatin Calcium 10 MG TAB PO SCH (20:22)
[2017-11-14] MEDS: Famotidine 20 MG TAB PO SCH (20:35)
[2017-11-15] MEDS ORDERED: Morphine 5 mg/5 ml in 0.9% NaCl/PF SYRINGE SLOW IVP SCH (00:30)
--- NOTE | 2017-11-15 02:54 | CON ---
DATE OF CONSULTATION: 11/14/2017 HISTORY OF PRESENT ILLNESS: The patient is a 57-year-old male admitted for lower extremity weakness and pain. It was noted he was anemic and consultation was obtained for his anemia. He den ies any melena or hematochezia. Denies any nausea or vomiting. He has had a large amount of weight. He states he is eating less because he does not want to have bowel movements, because he has incont inence and his has to help clean him up. The patient was seen by my partner, Dr. Santana, approx imately 1 year ago for anemia with a hemoglobin of 5. At that time, he underwent EGD, which showed l inear esophagitis with erosions, felt secondary to reflux. Otherwise, his EGD was normal. He previo usly had GI bleeding, which he attributes to taking Celebrex. PAST MEDICAL HISTORY: Includes diabetes mellitus; chronic renal insufficiency; nephrotic syndrome; a nasarca; anemia; coronary artery disease, status post coronary artery bypass; diabetic neuropathy; hy perlipidemia; hypertension; severe peripheral artery disease. PAST SURGICAL HISTORY: Coronary artery bypass surgery, shoulder surgery, knee surgery, cholecystecto my, appendectomy. MEDICATIONS: Include hydralazine 50 mg p.o. b.i.d., atorvastatin 10 mg p.o. at bedtime, aspirin 81 m g p.o. daily, methylprednisolone 4 mg p.o. daily, promethazine 12.5 mg p.o. q.6 hours p.r.n., Procard ia XL 60 mg p.o. daily, Zaroxolyn 5 mg p.o. daily, isosorbide mononitrate 120 mg p.o. b.i.d., insulin 15 units subcutaneously b.i.d., Lasix 40 mg p.o. b.i.d., Coreg 25 mg p.o. b.i.d., tramadol 50 mg p.o . q.6 hours p.r.n. ALLERGIES: CELEBREX, CLINDAMYCIN, NSAIDs, PENICILLIN, VANCOMYCIN, AND VERSED. SOCIAL HISTORY: He smokes very little. Does not drink alcohol. FAMILY HISTORY: Negative for GI or liver disease. REVIEW OF SYSTEMS: Constitutional: Positive for weight loss. Negative for fever or chills. Eyes: No blurred vision or double vision. ENT: No sore throat or earaches. Cardiovascular: No chest pa in or palpitation. Pulmonary: No shortness of breath, cough, or wheezing. Gastrointestinal: See devyn gallardo. Genitourinary: No hematuria or dysuria. Musculoskeletal: Positive for lower extremity pain and weakness. Skin: No rashes. Neurologic: No numbness or seizure activity. PHYSICAL EXAMINATION: GENERAL: Shows a thin white male in no acute distress. VITAL SIGNS: Temperature 97.4, pulse 61, respiratory rate 20, blood pressure 145/66. HEENT: Unremarkable. NECK: Supple. CHEST: Clear. Shows a well-healed surgical scar in the chest. ABDOMEN: Soft and nontender without organomegaly or masses. Bowel sounds are present. RECTAL: Deferred. EXTREMITIES: Normal. NEUROLOGIC: Nonfocal. LABORATORY DATA: Shows a hemoglobin on admission of 8.7 with an MCV of 79. PT is 12.6, INR 0.9. Ch emistries showed a sodium of 120, potassium 5.2, chloride 93, CO2 of 19, BUN 73, creatinine 1.43, glu cose 728, ALT of 102, alkaline phosphatase 239, total protein 5.6, albumin 2.5. Iron is 10, TIBC is 260, and ferritin is 130. ASSESSMENT: 1. Anemia - iron-deficiency anemia versus anemia of chronic disease. 2. Coronary artery disease. 3. Peripheral vascular disease. 4. Diabetic neuropathy. 5. Hypertension. 6. Chronic leg pain. RECOMMENDATIONS: 1. We will consider colonoscopy either tomorrow or day after tomorrow. 2. Keep the patient on PPI.
[2017-11-15] MEDS: HYDROcodone/Acetaminophen 10/325 mg Tablet PO PRN ×5 (04:29→21:59)
[2017-11-15] MEDS: traMADol HCl 50 MG TAB PO PRN ×2 (06:12→16:34)
[2017-11-15] MEDS: Nitroglycerin 2% Ointment 1 INCH/1 GM Packet TOP SCH (06:16)
[2017-11-15] MEDS ORDERED: methylPREDNISolone 4 mg Tablet PO SCH (08:00)
[2017-11-15] MEDS ORDERED: Sodium Chloride 0.9% 10 ML ONE ×2 (08:02→18:01)
[2017-11-15] MEDS: Aspirin 325 MG TAB PO SCH (08:48)
[2017-11-15] MEDS: hydrALAZINE 25 MG TAB PO SCH ×2 (08:48→21:58)
[2017-11-15] MEDS: Carvedilol 25 MG TAB PO SCH ×2 (08:49→16:34)
[2017-11-15 08:58] LABS: #Basophils 0.1 thou/uL (0.0-0.2); #Lymphocytes 0.8 thou/uL (1.20-3.40); #Monocytes 0.5 thou/uL (0.11-0.59); #Neutrophils 5.8 thou/uL (1.40-6.50); %Basophils 0.8 % (0.0-1.0); %Eosinophils 0.1 % (0.0-10.0); %Lymphocytes 10.5 % (21.0-51.0); %Monocytes 6.7 % (0.0-10.0); %Neutrophils 81.9 % (42.0-75.0); Hemoglobin 8.1 g/dL (14.0-18.0); Mean Corpuscular HGB CONC 32.4 g/dL (32.0-36.0); Mean Corpuscular Hemoglobin 26.3 pg (27.0-31.0); Mean Corpuscular Volume 81.3 fl (80.0-94.0); Mean Platelet Volume 8.6 fL (7.4-10.4); Platelet Count 246 thou/uL (130-400); RBC Distribution Width 16.3 % (11.5-14.5); Red Blood Cell (RBC) Count 3.08 mill/uL (4.70-6.10); White Blood Cell (WBC) Count 7.1 thou/uL (4.8-10.8)
[2017-11-15] MEDS: Insulin Detemir 100 UNITS/ML 15 UNITS in Pre-Filled Syringe 1 EACH SC SCH ×2 (08:58→20:49)
[2017-11-15] MEDS ORDERED: NIFEdipine XL 90 MG TAB PO SCH (09:00)
[2017-11-15 09:07] LABS: Anion Gap 12 mmol/L (10-20); BUN (Urea Nitrogen) 74 mg/dL (8.4-25.7); Calc. Creatinine Clearance 54 mL/min (70-130); Calcium 7.5 mg/dL (7.8-10.44); Carbon Dioxide 17 mmol/L (22-29); Chloride 103 mmol/L (98-107); Estimated GFR-MDRD 52; Glucose 72 mg/dL (70-105); Potassium 5.9 mmol/L (3.5-5.1); Sodium 126 mmol/L (136-145)
--- NOTE | 2017-11-15 11:42 | PDOC.PN ---
- Subjective Encounter Start Date: 11/15/17 Encounter Start Time: 11:40 Subjective: Seen and examined -labile hemodynamics and blood sugar noted - Objective Resuscitation Status: Resuscitation Status FULL:Full Resuscitation Vital Signs & Weight: Vital Signs (12 hours) Temp Pulse Resp BP Pulse Ox 11/15/17 08:48 60 11/15/17 08:25 97.7 F 60 17 144/69 H 93 L 11/15/17 04:00 97.1 F L 61 16 129/69 Weight Weight 145 lb 1.6 oz I&O: 11/14/17 11/15/17 11/16/17 06:59 06:59 06:59 Intake Total 1830 1852 Balance 1830 1852 Result Diagrams: 11/15/17 08:35 11/15/17 08:35 Additional Labs: Accuchecks 11/15/17 11/14/17 11/14/17 06:14 19:46 17:16 POC Glucose 82 307 H 272 H 11/14/17 11:37 POC Glucose 371 H Phys Exam - Physical Examination Constitutional: NAD HEENT: PERRLA, moist MMs, sclera anicteric, TM's clear, oral pharynx no lesions Neck: no nodes, no JVD, supple, full ROM Respiratory: no wheezing, no rales, no rhonchi, clear to auscultation bilateral Cardiovascular: RRR, no significant murmur, no rub Gastrointestinal: soft, non-tender, no distention, positive bowel sounds Musculoskeletal: no edema, pulses present Dx/Plan (1) Hyperglycemia due to type 2 diabetes mellitus Code(s): E11.65 - TYPE 2 DIABETES MELLITUS WITH HYPERGLYCEMIA Status: Acute (2) Acute on chronic diastolic (congestive) heart failure Code(s): I50.33 - ACUTE ON CHRONIC DIASTOLIC (CONGESTIVE) HEART FAILURE Status : Acute Comment: Improved with resuming home diuretics. (3) Secondary hyperparathyroidism of renal origin Code(s): N25.81 - SECONDARY HYPERPARATHYROIDISM OF RENAL ORIGIN Status: Acute (4) Anasarca associated with disorder of kidney Code(s): N04.9 - NEPHROTIC SYNDROME WITH UNSPECIFIED MORPHOLOGIC CHANGES Status: Chronic (5) Anemia of renal disease Code(s): D63.1 - ANEMIA IN CHRONIC KIDNEY DISEASE Status: Chronic (6) Anxiety and depression Code(s): F41.9 - ANXIETY DISORDER, UNSPECIFIED; F32.9 - MAJOR DEPRESSIVE DISORDER, SINGLE EPISODE, UNSPECIFIED Status: Chronic (7) CAD (coronary artery disease) Code(s): I25.10 - ATHSCL HEART DISEASE OF [place] CORONARY ARTERY W/O ANG PCTRS Status: Chronic Qualifiers: Coronary Disease-Associated Artery/Lesion type: [place] artery [place] vs. transplanted heart: [place] heart Associated angina: without angina Qualified Code(s): I25.10 - Atherosclerotic heart disease of [place] coronary artery without angina pectoris (8) CKD (chronic kidney disease) stage 3, GFR 30-59 ml/min Code(s): N18.3 - CHRONIC KIDNEY DISEASE, STAGE 3 (MODERATE) Status: Chronic (9) Chronic diastolic (congestive) heart failure Code(s): I50.32 - CHRONIC DIASTOLIC (CONGESTIVE) HEART FAILURE Status: Chronic (10) DM type 2, uncontrolled, with renal complications Code(s): E11.29 - TYPE 2 DIABETES MELLITUS W OTH DIABETIC KIDNEY COMPLICATION; E11.65 - TYPE 2 DIABETES MELLITUS WITH HYPERGLYCEMIA Status: Chronic Qualifiers: Diabetes mellitus complication detail: with chronic kidney disease Diabetes mellitus moth exterminator insulin use: without intermediate use Chronic kidney disease stage: stage 3 (moderate) Qualified Code(s): E11.22 - Type 2 diabetes mellitus with diabetic chronic kidney disease; E11.65 - Type 2 diabetes mellitus with hyperglycemia; E11.65 - Type 2 diabetes mellitus with hyperglycemia; E11.65 - Type 2 diabetes mellitus with hyperglycemia; E11.65 - Type 2 diabetes mellitus with hyperglycemia; N18.3 - Chronic kidney disease, stage 3 (moderate); N18.3 - Chronic kidney disease, stage 3 (moderate) Comment: [facility] (11) Dyslipidemia Code(s): E78.5 - HYPERLIPIDEMIA, UNSPECIFIED Status: Chronic (12) Hypertension, uncontrolled Code(s): I10 - ESSENTIAL (PRIMARY) HYPERTENSION Status: Chronic Comment: continue home meds (13) Metabolic acidosis Code(s): E87.2 - ACIDOSIS Status: Chronic (14) Nephrotic syndrome Code(s): N04.9 - NEPHROTIC SYNDROME WITH UNSPECIFIED MORPHOLOGIC CHANGES Status: Chronic (15) Acidosis, metabolic Code(s): E87.2 - ACIDOSIS Status: Acute (16) Hyperkalemia Code(s): E87.5 - HYPERKALEMIA Status: Acute - Plan PT/OT, social services aide, respiratory therapy Will start him on sodium bicarbonate -: Hold procardia -: Low potassium diet -: Hyponatremia work up in progress -: Mark * .
[2017-11-15 12:00] LABS: Osmolality, Urine 358 mOsm/kg (300-900)
[2017-11-15 12:03] LABS: Sodium, Urine 32 mmol/L (Not Available)
--- NOTE | 2017-11-15 17:44 | PRG ---
DATE OF SERVICE: 11/15/2017 SUBJECTIVE: The patient continues to complain of lower extremity pain. I discussed colonoscopy with the patient and recommended we perform that. He says he would not do it unless we were able to john te him for the prep. I told him that that was not possible. OBJECTIVE: VITAL SIGNS: Temperature 97.6, pulse 59, respiratory rate 18, blood pressure 134/72. CHEST: Clear. CARDIOVASCULAR: Regular rate and rhythm. ABDOMEN: Soft and nontender without organomegaly or masses. LABORATORY DATA: Shows a hemoglobin of 8.1, hematocrit of 25. Sodium was 126, potassium 5.9, BUN 74 , creatinine 1.42. ASSESSMENT: 1. Anemia - iron deficiency versus anemia of chronic disease. 2. Coronary artery disease. 3. Peripheral vascular disease. 4. Diabetic neuropathy. 5. Chronic leg pain. RECOMMENDATIONS: 1. I have discussed colonoscopy with the patient; however, he does not want the prep and therefore d oes not want to proceed with the colonoscopy. I recommended to let me know if he changes his mind. 2. Continue PPI. 3. We will sign off. Please re-consult if the patient changes his mind.
[2017-11-15] MEDS ORDERED: Atorvastatin Calcium 10 MG TAB PO SCH (21:28)
[2017-11-15] MEDS ORDERED: Atorvastatin Calcium 40 MG TAB PO SCH (21:45)
[2017-11-15] MEDS: Sodium Bicarbonate Tab 325 MG TAB PO SCH (21:57)
[2017-11-15] MEDS: Famotidine 20 MG TAB PO SCH (21:58)
[2017-11-15] MEDS ORDERED: ALPRAZolam 0.5 MG TAB PO SCH (22:00)
[2017-11-16] MEDS: HYDROcodone/Acetaminophen 10/325 mg Tablet PO PRN ×6 (01:36→22:02)
[2017-11-16] MEDS: Atorvastatin Calcium 10 MG TAB PO SCH (01:38)
[2017-11-16] MEDS ORDERED: methylPREDNISolone 4 mg Tablet PO SCH (08:00)
--- NOTE | 2017-11-16 08:01 | PDOC.PN ---
- Subjective Encounter Start Date: 11/16/17 Encounter Start Time: 07:59 Subjective: Seen and examined feeling ok-demanding pain medications - Objective Resuscitation Status: Resuscitation Status FULL:Full Resuscitation Vital Signs & Weight: Vital Signs (12 hours) Temp Pulse Resp BP BP Pulse Ox 11/16/17 04:00 98.2 F 73 20 127/63 93 L 11/16/17 00:00 97.7 F 75 20 161/80 H 93 L 11/15/17 21:58 72 164/81 H 11/15/17 21:55 97.8 F 72 18 164/81 H 92 L Weight Weight 145 lb 1.6 oz I&O: 11/15/17 11/16/17 11/17/17 06:59 06:59 06:59 Intake Total 1852 Balance 1852 Result Diagrams: 11/15/17 08:35 11/15/17 08:35 Additional Labs: Accuchecks 11/16/17 11/15/17 11/15/17 05:36 20:18 17:06 POC Glucose 263 H 189 H 147 H 11/15/17 11/15/17 12:57 11:20 POC Glucose 132 H 68 L Phys Exam - Physical Examination Constitutional: NAD HEENT: PERRLA, moist MMs, sclera anicteric, TM's clear Neck: no nodes, supple, full ROM Respiratory: no wheezing, no rales, no rhonchi, clear to auscultation bilateral Cardiovascular: RRR, no significant murmur, no rub Gastrointestinal: soft, non-tender Musculoskeletal: no edema, pulses present Dx/Plan (1) Hyperglycemia due to type 2 diabetes mellitus Code(s): E11.65 - TYPE 2 DIABETES MELLITUS WITH HYPERGLYCEMIA Status: Acute (2) Acute on chronic diastolic (congestive) heart failure Code(s): I50.33 - ACUTE ON CHRONIC DIASTOLIC (CONGESTIVE) HEART FAILURE Status : Acute Comment: Improved with resuming home diuretics. (3) Secondary hyperparathyroidism of renal origin Code(s): N25.81 - SECONDARY HYPERPARATHYROIDISM OF RENAL ORIGIN Status: Acute (4) Anasarca associated with disorder of kidney Code(s): N04.9 - NEPHROTIC SYNDROME WITH UNSPECIFIED MORPHOLOGIC CHANGES Status: Chronic (5) Anemia of renal disease Code(s): D63.1 - ANEMIA IN CHRONIC KIDNEY DISEASE Status: Chronic (6) Anxiety and depression Code(s): F41.9 - ANXIETY DISORDER, UNSPECIFIED; F32.9 - MAJOR DEPRESSIVE DISORDER, SINGLE EPISODE, UNSPECIFIED Status: Chronic (7) CAD (coronary artery disease) Code(s): I25.10 - ATHSCL HEART DISEASE OF [place] CORONARY ARTERY W/O ANG PCTRS Status: Chronic Qualifiers: Coronary Disease-Associated Artery/Lesion type: [place] artery [place] vs. transplanted heart: [place] heart Associated angina: without angina Qualified Code(s): I25.10 - Atherosclerotic heart disease of [place] coronary artery without angina pectoris (8) CKD (chronic kidney disease) stage 3, GFR 30-59 ml/min Code(s): N18.3 - CHRONIC KIDNEY DISEASE, STAGE 3 (MODERATE) Status: Chronic (9) Chronic diastolic (congestive) heart failure Code(s): I50.32 - CHRONIC DIASTOLIC (CONGESTIVE) HEART FAILURE Status: Chronic (10) DM type 2, uncontrolled, with renal complications Code(s): E11.29 - TYPE 2 DIABETES MELLITUS W OTH DIABETIC KIDNEY COMPLICATION; E11.65 - TYPE 2 DIABETES MELLITUS WITH HYPERGLYCEMIA Status: Chronic Qualifiers: Diabetes mellitus complication detail: with chronic kidney disease Diabetes mellitus mcc insulin use: without mcc use Chronic kidney disease stage: stage 3 (moderate) Qualified Code(s): E11.22 - Type 2 diabetes mellitus with diabetic chronic kidney disease; E11.65 - Type 2 diabetes mellitus with hyperglycemia; E11.65 - Type 2 diabetes mellitus with hyperglycemia; E11.65 - Type 2 diabetes mellitus with hyperglycemia; E11.65 - Type 2 diabetes mellitus with hyperglycemia; N18.3 - Chronic kidney disease, stage 3 (moderate); N18.3 - Chronic kidney disease, stage 3 (moderate) Comment: [facility] (11) Dyslipidemia Code(s): E78.5 - HYPERLIPIDEMIA, UNSPECIFIED Status: Chronic (12) Hypertension, uncontrolled Code(s): I10 - ESSENTIAL (PRIMARY) HYPERTENSION Status: Chronic Comment: continue home meds (13) Metabolic acidosis Code(s): E87.2 - ACIDOSIS Status: Chronic (14) Nephrotic syndrome Code(s): N04.9 - NEPHROTIC SYNDROME WITH UNSPECIFIED MORPHOLOGIC CHANGES Status: Chronic (15) Acidosis, metabolic Code(s): E87.2 - ACIDOSIS Status: Acute (16) Hyperkalemia Code(s): E87.5 - HYPERKALEMIA Status: Acute - Plan PT/OT, group social worker pain seeking -: dispo challenge * .
[2017-11-16] MEDS: Aspirin 325 MG TAB PO SCH (08:32)
[2017-11-16] MEDS: hydrALAZINE 25 MG TAB PO SCH ×2 (08:32→20:03)
[2017-11-16] MEDS: Carvedilol 25 MG TAB PO SCH ×2 (08:32→16:50)
[2017-11-16] MEDS: Insulin Detemir 100 UNITS/ML 15 UNITS in Pre-Filled Syringe 1 EACH SC SCH ×2 (08:33→20:05)
[2017-11-16] MEDS: Sodium Bicarbonate Tab 325 MG TAB PO SCH ×2 (15:54→20:03)
[2017-11-16] MEDS: traMADol HCl 50 MG TAB PO PRN ×2 (16:49→22:59)
[2017-11-16] MEDS: Atorvastatin Calcium 40 MG TAB PO SCH (20:03)
[2017-11-16] MEDS: Famotidine 20 MG TAB PO SCH (21:31)
[2017-11-17] MEDS: HYDROcodone/Acetaminophen 10/325 mg Tablet PO PRN ×5 (01:53→20:31)
[2017-11-17] MEDS: traMADol HCl 50 MG TAB PO PRN ×3 (05:01→17:47)
[2017-11-17] MEDS ORDERED: methylPREDNISolone 4 mg Tablet PO SCH (08:00)
[2017-11-17] MEDS: Aspirin 325 MG TAB PO SCH (08:55)
[2017-11-17] MEDS: Sodium Bicarbonate Tab 325 MG TAB PO SCH ×2 (08:55→20:33)
[2017-11-17] MEDS: hydrALAZINE 25 MG TAB PO SCH ×2 (08:56→20:33)
[2017-11-17] MEDS: Carvedilol 25 MG TAB PO SCH ×2 (08:56→15:30)
[2017-11-17] MEDS: Insulin Detemir 100 UNITS/ML 15 UNITS in Pre-Filled Syringe 1 EACH SC SCH ×2 (08:58→20:00)
[2017-11-17 09:53] LABS: Anion Gap 14 mmol/L (10-20); BUN (Urea Nitrogen) 77 mg/dL (8.4-25.7); Calc. Creatinine Clearance 54 mL/min (70-130); Calcium 7.2 mg/dL (7.8-10.44); Carbon Dioxide 18 mmol/L (22-29); Chloride 105 mmol/L (98-107); Estimated GFR-MDRD 52; Glucose 175 mg/dL (70-105); Potassium 5.4 mmol/L (3.5-5.1); Sodium 132 mmol/L (136-145)
[2017-11-17] MEDS: Insulin Regular 300 UNITS/3 ML VIAL SC PRN (11:23)
[2017-11-17] MEDS: Ferrous Sulfate 325 MG TAB PO SCH (15:30)
--- NOTE | 2017-11-17 19:09 | PDOC.PN ---
- Subjective Encounter Start Date: 11/17/17 Encounter Start Time: 19:08 Subjective: seen and examined no new complaint except pain - Objective Resuscitation Status: Resuscitation Status FULL:Full Resuscitation Vital Signs & Weight: Vital Signs (12 hours) Temp Pulse Resp BP BP Pulse Ox 11/17/17 16:00 97.6 F 72 20 177/78 H 89 L 11/17/17 12:00 97.7 F 68 20 157/75 H 93 L 11/17/17 08:56 70 146/69 H 11/17/17 08:00 97.5 F L 70 22 H 146/69 H 93 L Weight Weight 145 lb 1.6 oz I&O: 11/16/17 11/17/17 11/18/17 06:59 06:59 06:59 Intake Total 510 720 Output Total 450 Balance 60 720 Result Diagrams: 11/15/17 08:35 11/17/17 08:50 Additional Labs: Accuchecks 11/17/17 11/17/17 11/17/17 16:49 11:19 06:04 POC Glucose 159 H 240 H 158 H 11/16/17 20:09 POC Glucose 221 H Phys Exam - Physical Examination Constitutional: NAD HEENT: PERRLA, moist MMs, sclera anicteric, TM's clear Neck: no nodes, no JVD, supple, full ROM Respiratory: no wheezing, no rales, no rhonchi, clear to auscultation bilateral Cardiovascular: RRR, no significant murmur, no rub Gastrointestinal: soft, non-tender, no distention, positive bowel sounds Musculoskeletal: no edema, pulses present Dx/Plan (1) Hyperglycemia due to type 2 diabetes mellitus Code(s): E11.65 - TYPE 2 DIABETES MELLITUS WITH HYPERGLYCEMIA Status: Acute (2) Acute on chronic diastolic (congestive) heart failure Code(s): I50.33 - ACUTE ON CHRONIC DIASTOLIC (CONGESTIVE) HEART FAILURE Status : Acute Comment: Improved with resuming home diuretics. (3) Secondary hyperparathyroidism of renal origin Code(s): N25.81 - SECONDARY HYPERPARATHYROIDISM OF RENAL ORIGIN Status: Acute (4) Anasarca associated with disorder of kidney Code(s): N04.9 - NEPHROTIC SYNDROME WITH UNSPECIFIED MORPHOLOGIC CHANGES Status: Chronic (5) Anemia of renal disease Code(s): D63.1 - ANEMIA IN CHRONIC KIDNEY DISEASE Status: Chronic (6) Anxiety and depression Code(s): F41.9 - ANXIETY DISORDER, UNSPECIFIED; F32.9 - MAJOR DEPRESSIVE DISORDER, SINGLE EPISODE, UNSPECIFIED Status: Chronic (7) CAD (coronary artery disease) Code(s): I25.10 - ATHSCL HEART DISEASE OF [place] CORONARY ARTERY W/O ANG PCTRS Status: Chronic Qualifiers: Coronary Disease-Associated Artery/Lesion type: [place] artery [place] vs. transplanted heart: [place] heart Associated angina: without angina Qualified Code(s): I25.10 - Atherosclerotic heart disease of [place] coronary artery without angina pectoris (8) CKD (chronic kidney disease) stage 3, GFR 30-59 ml/min Code(s): N18.3 - CHRONIC KIDNEY DISEASE, STAGE 3 (MODERATE) Status: Chronic (9) Chronic diastolic (congestive) heart failure Code(s): I50.32 - CHRONIC DIASTOLIC (CONGESTIVE) HEART FAILURE Status: Chronic (10) DM type 2, uncontrolled, with renal complications Code(s): E11.29 - TYPE 2 DIABETES MELLITUS W OTH DIABETIC KIDNEY COMPLICATION; E11.65 - TYPE 2 DIABETES MELLITUS WITH HYPERGLYCEMIA Status: Chronic Qualifiers: Diabetes mellitus complication detail: with chronic kidney disease Diabetes mellitus intermodal truck driver insulin use: without intermodal truck driver use Chronic kidney disease stage: stage 3 (moderate) Qualified Code(s): E11.22 - Type 2 diabetes mellitus with diabetic chronic kidney disease; E11.65 - Type 2 diabetes mellitus with hyperglycemia; E11.65 - Type 2 diabetes mellitus with hyperglycemia; E11.65 - Type 2 diabetes mellitus with hyperglycemia; E11.65 - Type 2 diabetes mellitus with hyperglycemia; N18.3 - Chronic kidney disease, stage 3 (moderate); N18.3 - Chronic kidney disease, stage 3 (moderate) Comment: [facility] (11) Dyslipidemia Code(s): E78.5 - HYPERLIPIDEMIA, UNSPECIFIED Status: Chronic (12) Hypertension, uncontrolled Code(s): I10 - ESSENTIAL (PRIMARY) HYPERTENSION Status: Chronic Comment: continue home meds (13) Metabolic acidosis Code(s): E87.2 - ACIDOSIS Status: Chronic (14) Nephrotic syndrome Code(s): N04.9 - NEPHROTIC SYNDROME WITH UNSPECIFIED MORPHOLOGIC CHANGES Status: Chronic (15) Acidosis, metabolic Code(s): E87.2 - ACIDOSIS Status: Acute (16) Hyperkalemia Code(s): E87.5 - HYPERKALEMIA Status: Acute - Plan PT/OT, social media community manager Dispo planning -: reconsult case coordinator for dispo planning * .
[2017-11-17] MEDS: Atorvastatin Calcium 40 MG TAB PO SCH (20:33)
[2017-11-17] MEDS: Famotidine 20 MG TAB PO SCH (22:54)
[2017-11-17] MEDS ORDERED: Morphine 2 MG/ML SYRINGE SLOW IVP SCH (23:30)
[2017-11-18] MEDS ORDERED: Morphine 2 MG/ML SYRINGE SLOW IVP SCH (01:30)
[2017-11-18] MEDS: HYDROcodone/Acetaminophen 10/325 mg Tablet PO PRN ×2 (04:19→08:48)
[2017-11-18] MEDS: traMADol HCl 50 MG TAB PO PRN (06:15)
[2017-11-18] MEDS ORDERED: methylPREDNISolone 4 mg Tablet PO SCH (08:00)
[2017-11-18] MEDS: hydrALAZINE 25 MG TAB PO SCH (08:43)
[2017-11-18] MEDS: Sodium Bicarbonate Tab 325 MG TAB PO SCH (08:43)
[2017-11-18] MEDS: Ferrous Sulfate 325 MG TAB PO SCH ×2 (08:43→17:00)
[2017-11-18] MEDS: Aspirin 325 MG TAB PO SCH (08:43)
[2017-11-18] MEDS: Carvedilol 25 MG TAB PO SCH ×2 (08:43→17:00)
[2017-11-18] MEDS: Insulin Detemir 100 UNITS/ML 15 UNITS in Pre-Filled Syringe 1 EACH SC SCH (08:49)
[2017-11-18] MEDS: Dextrose 50% Abboject 50 ML SYRINGE IVP PRN (15:11)
--- NOTE | 2017-11-18 19:22 | PDOC.PN ---
- Subjective Encounter Start Date: 11/18/17 Encounter Start Time: 19:20 Subjective: Seen and examined -always asking for pain meds and somewhat disruptive - Objective Resuscitation Status: Resuscitation Status FULL:Full Resuscitation Vital Signs & Weight: Vital Signs (12 hours) Temp Pulse Resp BP Pulse Ox 11/18/17 08:43 71 11/18/17 08:00 98.2 F 64 16 126/64 97 Weight Weight 145 lb 1.6 oz I&O: 11/17/17 11/18/17 11/19/17 06:59 06:59 06:59 Intake Total 510 720 720 Output Total 450 Balance 60 720 720 Result Diagrams: 11/15/17 08:35 11/17/17 08:50 Additional Labs: Accuchecks 11/18/17 11/18/17 11/18/17 18:15 15:31 15:08 POC Glucose 66 L 140 H Less than 35 L* 11/18/17 11/18/17 11/17/17 11:01 04:46 19:41 POC Glucose 104 126 H 141 H Phys Exam - Physical Examination HEENT: PERRLA, moist MMs, sclera anicteric, TM's clear, oral pharynx no lesions Neck: no nodes, no JVD, supple, full ROM Respiratory: no wheezing, no rales, no rhonchi Cardiovascular: RRR, no significant murmur, no rub, gallop Gastrointestinal: soft, non-tender, no distention, positive bowel sounds Musculoskeletal: pulses present, edema present Dx/Plan (1) Hyperglycemia due to type 2 diabetes mellitus Code(s): E11.65 - TYPE 2 DIABETES MELLITUS WITH HYPERGLYCEMIA Status: Acute (2) Acute on chronic diastolic (congestive) heart failure Code(s): I50.33 - ACUTE ON CHRONIC DIASTOLIC (CONGESTIVE) HEART FAILURE Status : Acute Comment: Improved with resuming home diuretics. (3) Secondary hyperparathyroidism of renal origin Code(s): N25.81 - SECONDARY HYPERPARATHYROIDISM OF RENAL ORIGIN Status: Acute (4) Anasarca associated with disorder of kidney Code(s): N04.9 - NEPHROTIC SYNDROME WITH UNSPECIFIED MORPHOLOGIC CHANGES Status: Chronic (5) Anemia of renal disease Code(s): D63.1 - ANEMIA IN CHRONIC KIDNEY DISEASE Status: Chronic (6) Anxiety and depression Code(s): F41.9 - ANXIETY DISORDER, UNSPECIFIED; F32.9 - MAJOR DEPRESSIVE DISORDER, SINGLE EPISODE, UNSPECIFIED Status: Chronic (7) CAD (coronary artery disease) Code(s): I25.10 - ATHSCL HEART DISEASE OF [place] CORONARY ARTERY W/O ANG PCTRS Status: Chronic Qualifiers: Coronary Disease-Associated Artery/Lesion type: [place] artery [place] vs. transplanted heart: [place] heart Associated angina: without angina Qualified Code(s): I25.10 - Atherosclerotic heart disease of [place] coronary artery without angina pectoris (8) CKD (chronic kidney disease) stage 3, GFR 30-59 ml/min Code(s): N18.3 - CHRONIC KIDNEY DISEASE, STAGE 3 (MODERATE) Status: Chronic (9) Chronic diastolic (congestive) heart failure Code(s): I50.32 - CHRONIC DIASTOLIC (CONGESTIVE) HEART FAILURE Status: Chronic (10) DM type 2, uncontrolled, with renal complications Code(s): E11.29 - TYPE 2 DIABETES MELLITUS W OTH DIABETIC KIDNEY COMPLICATION; E11.65 - TYPE 2 DIABETES MELLITUS WITH HYPERGLYCEMIA Status: Chronic Qualifiers: Diabetes mellitus complication detail: with chronic kidney disease Diabetes mellitus local company intermodal truck driver insulin use: without local company intermodal truck driver use Chronic kidney disease stage: stage 3 (moderate) Qualified Code(s): E11.22 - Type 2 diabetes mellitus with diabetic chronic kidney disease; E11.65 - Type 2 diabetes mellitus with hyperglycemia; E11.65 - Type 2 diabetes mellitus with hyperglycemia; E11.65 - Type 2 diabetes mellitus with hyperglycemia; E11.65 - Type 2 diabetes mellitus with hyperglycemia; N18.3 - Chronic kidney disease, stage 3 (moderate); N18.3 - Chronic kidney disease, stage 3 (moderate) Comment: [facility] (11) Dyslipidemia Code(s): E78.5 - HYPERLIPIDEMIA, UNSPECIFIED Status: Chronic (12) Hypertension, uncontrolled Code(s): I10 - ESSENTIAL (PRIMARY) HYPERTENSION Status: Chronic Comment: continue home meds (13) Metabolic acidosis Code(s): E87.2 - ACIDOSIS Status: Chronic (14) Nephrotic syndrome Code(s): N04.9 - NEPHROTIC SYNDROME WITH UNSPECIFIED MORPHOLOGIC CHANGES Status: Chronic (15) Acidosis, metabolic Code(s): E87.2 - ACIDOSIS Status: Acute (16) Hyperkalemia Code(s): E87.5 - HYPERKALEMIA Status: Acute - Plan PT/OT, social welfare clerk manager cardiology consult for placement * .
[2017-11-19] MEDS: Insulin Detemir 100 UNITS/ML 15 UNITS in Pre-Filled Syringe 1 EACH SC SCH ×2 (00:37→08:57)
[2017-11-19] MEDS: Dextrose 50% Abboject 50 ML SYRINGE IVP PRN (00:41)
[2017-11-19] MEDS: HYDROcodone/Acetaminophen 10/325 mg Tablet PO PRN ×3 (02:25→10:18)
[2017-11-19] MEDS: Atorvastatin Calcium 40 MG TAB PO SCH (04:48)
[2017-11-19] MEDS: hydrALAZINE 25 MG TAB PO SCH ×2 (04:48→08:56)
[2017-11-19] MEDS: Famotidine 20 MG TAB PO SCH (04:49)
[2017-11-19] MEDS: Sodium Bicarbonate Tab 325 MG TAB PO SCH ×2 (04:49→08:56)
[2017-11-19] MEDS: Aspirin 325 MG TAB PO SCH (08:55)
[2017-11-19] MEDS: Carvedilol 25 MG TAB PO SCH (08:56)
[2017-11-19] MEDS: Ferrous Sulfate 325 MG TAB PO SCH (10:19)
[2017-11-19 11:25] VITALS: BP 147/70; TEMP 98.7
--- NOTE | 2017-11-20 15:22 | DIS ---
For the details of the history and physical and the consultative notes, please refer to dictations on record. SUMMARY: A 57-year-old gentleman who presented here with chest pain and got diagnosed with non-ST el evation NH and severe hyperglycemia. The patient's main concern and preoccupation is always with req uesting for pain medications. The patient was consulted upon by both Cardiology and Gastroenterology , but could not do much as the patient seems not to be interested in any of their recommendations. I n any way, colonoscopy was recommended by Gastroenterology, but the patient does not want to go throu gh the bowel prep and therefore does not want to proceed with the colonoscopy. Gastroenterology da mmended continue with proton pump inhibitor. Evaluation by Cardiology is pretty much unremarkable as the patient has chronically elevated troponin; therefore no intervention recommended. In any case, the patient initially was managed with insulin to address the severe hyperglycemia though the patient seems to be somewhat resistant to medical recommendations. The patient continued to have some susta ined clinical improvement, continued to be mindful of the medications, somewhat disruptive to an exte nded until the time of discharge. The following diagnoses were managed during this hospitalization: 1. Non-ST elevation myocardial infarction for which Cardiology felt is more or less chronic. 2. Severe hyperglycemia in the context of poorly controlled diabetes type 2. 3. Severe hyponatremia. 4. Hyperkalemia. 5. Hypertension, uncontrolled. 6. Chronic kidney disease stage 3/4. 7. Anemia, likely iron deficiency plus or minus anemia of chronic kidney disease. For the details of the physical findings, please refer to the progress note that I documented in the chart. The patient was subsequently discharged on the following medications: Aspirin 81 mg, Lipitor 10 mg p .o. at bedtime, Coreg 25 mg p.o. b.i.d., furosemide 40 mg p.o. b.i.d., hydralazine 50 mg p.o. b.i.d., insulin 70/30 50 units subcu b.i.d., Imdur 120 mg p.o. daily, Procardia-XL 60 mg p.o. daily, Florast or 250 mg p.o. daily. DISCHARGE INSTRUCTIONS: 1. Stay compliant with medication. 2. Represent here in case of any relapse or deterioration in clinical condition. 3. Follow up with the primary care physician. Total time spent including the [id number] encounter totaled 32 minutes.
--- NOTE | 2017-12-06 21:50 | EKG ---
Test Reason : Blood Pressure : / mmHG Vent. Rate : 081 BPM Atrial Rate : 081 BPM P-R Int : 178 ms QRS Dur : 124 ms QT Int : 390 ms P-R-T Axes : 054 -07 146 degrees QTc Int : 453 ms Normal sinus rhythm Possible Left atrial enlargement Left ventricular hypertrophy with QRS widening and repolarization abnormality Abnormal ECG Confirmed by ANNA MARIE PANCHAL ([id number]), video news editor LAURA GODDARD ([id number]) on 12/06/2017 9:49:48 PM Referred By: Confirmed By:ANNA MARIE PACNHAL
== END 2017-11-19 15:15 | disposition home or self-care (01) | DRG 291 ==
LOC: ERS 11:07 → IMCU/EMU 13:52 → 2NO 11-13 23:24 → T4-A 11-16 18:39
PROVIDERS: ADMIT Family Medicine; ATTEND Family Medicine
DX: I13.0 Hypertensive heart and chronic kidney disease with heart failure and stage 1 through stage 4 chronic kidney disease, or unspecified chronic kidney disease (principal); I50.33 Acute on chronic diastolic (congestive) heart failure; E11.42 Type 2 diabetes mellitus with diabetic polyneuropathy; E11.21 Type 2 diabetes mellitus with diabetic nephropathy; N17.9 Acute kidney failure, unspecified; E87.2 Acidosis; E11.65 Type 2 diabetes mellitus with hyperglycemia; N18.3 Chronic kidney disease, stage 3 (moderate); E87.1 Hypo-osmolality and hyponatremia; F17.210 Nicotine dependence, cigarettes, uncomplicated; D50.9 Iron deficiency anemia, unspecified; N04.9 Nephrotic syndrome with unspecified morphologic changes; N25.81 Secondary hyperparathyroidism of renal origin; E11.22 Type 2 diabetes mellitus with diabetic chronic kidney disease; I25.10 Atherosclerotic heart disease of native coronary artery without angina pectoris; Z95.1 Presence of aortocoronary bypass graft; D63.1 Anemia in chronic kidney disease; F41.9 Anxiety disorder, unspecified; F32.9 Major depressive disorder, single episode, unspecified; E78.5 Hyperlipidemia, unspecified; Z79.82 Long term (current) use of aspirin; Z79.4 Long term (current) use of insulin; Z88.1 Allergy status to other antibiotic agents; Z88.5 Allergy status to narcotic agent; Z88.0 Allergy status to penicillin; E87.5 Hyperkalemia; Z79.891 Long term (current) use of opiate analgesic; R07.89 Other chest pain; Z91.14 Patient's other noncompliance with medication regimen; I25.2 Old myocardial infarction; I16.0 Hypertensive urgency; M79.606 Pain in leg, unspecified
CPT/HCPCS: 36415; 36416; 71045; 80048; 80053; 80061; 82274; 82553; 82728; 83540; 83550; 83930; 83935; 84300; 84443; 84484; 85025; 85610; 85730; 93005; 93306; 94760; 96361; 96374; 96375; A4216; G8978-GP-CN; G8979-GP-CL; J1610; J1815; J2270; J2405; J7050; Q0162; S0028

== ENCOUNTER 2017-12-01 13:51 | Inpatient (IN) | payer OTHER ==
[2017-12-01 14:31] LABS: #Basophils 0.1 thou/uL (0.0-0.2); #Lymphocytes 0.9 thou/uL (1.20-3.40); #Monocytes 0.4 thou/uL (0.11-0.59); #Neutrophils 8.8 thou/uL (1.40-6.50); %Basophils 0.6 % (0.0-1.0); %Lymphocytes 8.9 % (21.0-51.0); %Monocytes 3.5 % (0.0-10.0); Mean Corpuscular HGB CONC 31.6 g/dL (32.0-36.0); Mean Corpuscular Hemoglobin 24.6 pg (27.0-31.0); Mean Corpuscular Volume 78.1 fl (80.0-94.0); Mean Platelet Volume 8.8 fL (7.4-10.4); Platelet Count 339 thou/uL (130-400); RBC Distribution Width 17.7 % (11.5-14.5); Red Blood Cell (RBC) Count 3.26 mill/uL (4.70-6.10); White Blood Cell (WBC) Count 10.1 thou/uL (4.8-10.8)
[2017-12-01 14:37] LABS: INR-International Normal Ratio 1.2; PTT 24.1 SEC (22.9-36.1)
--- NOTE | 2017-12-01 14:39 | RAD ---
PORTABLE AP CHEST: Date: 12/01/17 HISTORY: Chest pain after drinking fluids. COMPARISON: 11/12/17. FINDINGS: Postsurgical changes related to median sternotomy noted. Vascular calcifications seen in thoracic aor ta. There is increased density seen at the right lung base, likely related to right pleural effusion and atelectasis. Superimposed infiltrate is a possibility. Left lung is clear. No other interval hernández ge. IMPRESSION: Right pleural effusion and atelectasis. Additional patchy densities seen at the right lung base, whic h could be related to either superimposed pneumonia or aspiration pneumonitis. Follow-up to [facility] is recommended. POS: [facility]
[2017-12-01 14:53] LABS: ALT (SGPT) 52 U/L (8-55); AST (SGOT) 20 U/L (5-34); Albumin 2.6 g/dL (3.5-5.0); Alkaline Phosphatase 485 U/L (40-150); Anion Gap 17 mmol/L (10-20); BUN (Urea Nitrogen) 97 mg/dL (8.4-25.7); Bilirubin, Total 0.3 mg/dL (0.2-1.2); CK (CPK) 99 U/L (30-200); Calc. Creatinine Clearance 0 mL/min (70-130); Calcium 7.8 mg/dL (7.8-10.44); Carbon Dioxide 20 mmol/L (22-29); Chloride 95 mmol/L (98-107); Estimated GFR-MDRD 37; Glucose 433 mg/dL (70-105); Lipase 5 U/L (8-78); Potassium 5.5 mmol/L (3.5-5.1); Protein, Total 5.6 g/dL (6.0-8.3); Sodium 126 mmol/L (136-145)
[2017-12-01] MEDS ORDERED: Morphine 4 MG/ML Carpuject ONE (14:55)
[2017-12-01] MEDS ORDERED: Ondansetron HCl/PF 4 MG/2 ML Vial ONE (14:55)
[2017-12-01 14:56] LABS: CKMB 5.7 ng/mL (0-6.6); Troponin I 0.276 ng/mL (< 0.028)
[2017-12-01] MEDS ORDERED: Lorazepam 2 MG/ML VIAL ONE (15:18)
--- NOTE | 2017-12-01 16:02 | CT ---
EXAM: ABDOMEN CT WITH CONTRAST PELVIC CT WITH CONTRAST: COMPARISON: 10/07/17. HISTORY: Epigastric and abdominal pain. Midsternal pain. TECHNIQUE: An abdomen and pelvic CT is performed with IV contrast. Enteric contrast was not administered. Viktoriya nal reformatted images are submitted for interpretation. FINDINGS: ABDOMEN CT: Redemonstration of right-sided pleural effusions. Lung parenchymal changes due to infiltrate are exp ected. Stable configuration of the cardiac silhouette. Visualized aorta has an overall normal calib er and is unchanged. Intra- and extrahepatic portal vein is patent. Gallbladder is surgically absent. Limited evaluation of the solid organs due to technique. Grossly, no abnormality of the liver, splee n, or either adrenal gland. There is persistent calcification and atrophy of the pancreas. Symmetric enhancement of the kidneys. Stable hypodensity in the left kidney. Bilaterally, no defini te obstructive uropathy. No mesenteric mass, lymphadenopathy, free air, or free fluid. Limited evaluation of the alimentary canal due to lack of oral contrast. There is air attenuation in the right hemicolon which may represent the interface of air and fecal material. There does appear to be some air in the nondependent portion, raising the possibility of pneumatosis. Diverticulosis i s noted. PELVIC CT: Limited evaluation. Markedly distended urinary bladder, similar to the prior exam. No lytic or blastic lesions in the osseous structures. IMPRESSION: 1. Pleural and parenchymal changes in the right lung base. Note, the degree of pleural fluid has de creased when compared to the chest CT from 10/22/17. 2. Markedly distended urinary bladder. 3. Limited evaluation of the solid organs due to decreased volume of IV contrast. 4. Abnormal air attenuation in the right hemicolon. The possibility of pneumotosis cannot be comple tely excluded. Consider better interrogation after administration of oral contrast. 5. Diverticulosis, without definite evidence of diverticulitis. POS: [facility]
[2017-12-01] MEDS ORDERED: ISOVUE-370 76%-LOCM 1 ML ONE (16:24)
--- NOTE | 2017-12-01 16:56 | ULT ---
ULTRASOUND ABDOMEN LIMITED: (RIGHT UPPER QUADRANT) Date: 12/01/17 HISTORY: 57-year-old male with upper abdominal pain. FINDINGS: There is a right pleural effusion. There is a small amount of free fluid around the liver. The right renal parenchyma has diffusely, homogeneously increased echogenicity, consistent with medical renal d isease. Hepatic echogenicity is within normal limits. Gallbladder is surgically absent. Common duct i s dilated to 9 mm caliber. Pancreas is atrophic and very poorly visualized. IMPRESSION: 1. Status post cholecystectomy. 2. Dilated common duct and mild dilation of intrahepatic biliary tree. This is presumably due to res ervoir effect due to status post cholecystectomy. If there is clinical concern for biliary obstructio n, recommend correlation with bilirubin levels. 3. Evidence for medical renal disease. 4. Small volume of ascites. 5. Right pleural effusion. DIOGO William POS: DESIREE
[2017-12-01] MEDS ORDERED: Acetaminophen 325 MG TAB PO PRN (17:01)
--- NOTE | 2017-12-01 17:01 | PDOC.EVN ---
Event Note - Event Note Event Note: [id number] H&P Dictated 1. Hyperkalemia 2. CHRISTINA 3. CKD stage 3 4. Chest pain 5. Abdominal pain plan: see orders
[2017-12-01 17:03] LABS: Base Excess-Venous -3.4 mmol/L (-30.0-30.0); Bicarbonate (HCO3v) 21.9 mmol/L (1.0-85.0); CO2 Tension (PvCO2) 39.5 mmHg (41.0-51.0); Calcium, Ionized 0.97 mmol/L (1.12-1.32); Hemoglobin - Calc 7.4 g/dL (12.0-18.0); O2 Tension (PvO2) 53.7 mmHg (35.0-45.0); Potassium 5.2 mmol/L (3.4-4.7); T. Carbon Dioxide 23.1 mmol/L (1.0-85.0); pH (Venous) 7.352 (7.35-7.45)
[2017-12-01] MEDS ORDERED: Sodium Chloride 0.9% 1,000 ML IV SCH (17:15)
[2017-12-01] MEDS ORDERED: Dextrose 50% Abboject 50 ML SYRINGE SLOW IVP PRN (17:17)
[2017-12-01] MEDS ORDERED: Dextrose 5% in Water 1,000 ML IV PRN (17:17)
[2017-12-01] MEDS ORDERED: HumaLOG 300 UNITS/3 ML VIAL SC PRN (17:17)
[2017-12-01] MEDS ORDERED: Mag-Al 1200 mg/1200 mg/30 ML UDCUP ONE (17:20)
[2017-12-01] MEDS ORDERED: Lidocaine Viscous Sol 2% 15 ml UD Cup ONE (17:20)
[2017-12-01] MEDS ORDERED: Furosemide 40 MG/4 ML VIAL ONE (17:20)
[2017-12-01] MEDS ORDERED: Insulin Regular 300 UNITS/3 ML VIAL ONE (17:22)
[2017-12-01] MEDS ORDERED: Enoxaparin Sodium 40 MG/0.4 ML SYRINGE SC SCH (17:30)
[2017-12-01] MEDS ORDERED: metroNIDAZOLE 500 MG in Premix Bag 1 BAG IVPB SCH (17:45)
[2017-12-01 17:56] LABS: Troponin I 0.262 ng/mL (< 0.028)
[2017-12-01] MEDS: HumaLOG 300 UNITS/3 ML VIAL SC PRN (20:44)
[2017-12-01 20:47] LABS: Troponin I 0.282 ng/mL (< 0.028)
[2017-12-01] MEDS ORDERED: Atorvastatin Calcium 10 MG TAB PO SCH (21:00)
[2017-12-01 21:03] VITALS: BMI 21.7
[2017-12-01] MEDS: metroNIDAZOLE 500 MG in Premix Bag 1 BAG IVPB SCH (21:54)
[2017-12-01] MEDS ORDERED: hydrALAZINE 20 MG/ML VIAL SLOW IVP PRN (22:40)
--- NOTE | 2017-12-01 23:35 | HP ---
DATE OF ADMISSION: 12/01/2017 CHIEF COMPLAINT: Chest pain. HISTORY OF PRESENT ILLNESS: The patient is a 57-year-old male with past medical history of hypertens ion, hyperlipidemia, anxiety, depression, nephrotic syndrome, CKD stage 3, diabetes type 2, came toda y complaining of epigastric pain and chest pain. History was obtained from the ED nurse practitioner and ED physician as the patient is currently lethargic at this time and not able to get any history from them. According to them, the patient came complaining of epigastric pain and chest pain, did no t radiate anywhere, so the patient was given morphine and then patient went to further CT scan. At t he time, the patient was given another 1 mg of Ativan. The patient is completely lethargic and not a ble to get any history at this time. Per records, the patient was recently discharged from the hospital approximately 2 weeks back with a diagnosis of hemoglobin. PAST MEDICAL HISTORY: As per HPI. PAST SURGICAL HISTORY: CABG, right knee surgery. SOCIAL HISTORY: Positive for smoking, no alcohol, no drugs. His past histories were obtained entirely from the medical records. REVIEW OF SYSTEMS: The patient is currently lethargic, not able to get much history. PHYSICAL EXAMINATION: VITAL SIGNS: Pulse ox 100% on room air, blood pressure is 110/70, afebrile. GENERAL: The patient appears tired and in lethargic. HEENT: Right eye prominent. Tongue dry. Oral cavity, poor dentition. NECK: Supple, no JVD. CARDIOVASCULAR: S1, S2 present. Regular rate and rhythm. No murmurs, no rubs, no gallops. RESPIRATORY SYSTEM: No wheezing, no rhonchi. Breath sounds bilaterally. ABDOMEN: Nontender to palpate. No guarding. No organomegaly. MUSCULOSKELETAL: No edema. CRANIAL NERVE SYSTEM: Lethargic, not following commands. PSYCHIATRIC: Mood calm at this time. INTEGUMENTARY: Chronic skin changes seen. LABORATORY DATA: At the time of H&P performed, white count 10.1, hemoglobin 8, platelet count is 339 . PT 15, INR 1.2. White count 126, potassium 5.5, chloride 95, CO2 20, BUN 97, creatinine 1.90, tro ponin is 0.276. BNP is 9800. Serum total protein 5.6, glucose 484. ASSESSMENT AND PLAN: The patient is a 57-year-old male, 1. Acute kidney injury with chronic kidney disease stage 3. Creatinine baseline was 1.6, currently worsening. Worsening creatinine might be due to uncontrolled diabetes mellitus, but need to rule out the etiology. We will monitor creatinine closely. We will consult Nephrology to evaluate the patie nt. 2. Hypokalemia, treated medically. We will avoid Kayexalate. We will give insulin 5 units IV x1 an d we will monitor potassium. 3. Abdominal pain plus chest pain. We will check serial cardiac enzymes. Plan to consult Cardiolog y to evaluate the patient. The patient has indeterminate troponin. We will wait for the second set of cardiac enzymes. EKG, no acute ST changes and we will consult Cardiology to evaluate the patient. 4. Abdominal pain. CT showed nonspecific findings. We will go ahead and start empirically Cipro an d Flagyl. We will consult General Surgery as the ED physician already spoke to the general surgeon a t this time. 5. Diabetes mellitus type 2, uncontrolled. Monitor blood sugars. We will do insulin sliding scale. 6. Pseudohyponatremia plus mild hyponatremia. Monitor sodium level closely. Repeat BMP in a.m. The case was discussed in detail with the patient and ED physician also. As the patient is currently lethargic, we will monitor the patient closely. We will admit patient to tele. I will check an ABG now. If the ABG shows worsening acidosis, I will go ahead and admit patient to the IMU for close mo nitoring.
[2017-12-01 23:59] LABS: Troponin I 0.279 ng/mL (< 0.028)
[2017-12-02 05:25] LABS: #Eosinphils 0.1 thou/uL (0.0-0.7); #Lymphocytes 1.1 thou/uL (1.20-3.40); #Monocytes 0.6 thou/uL (0.11-0.59); #Neutrophils 10.2 thou/uL (1.40-6.50); %Basophils 0.1 % (0.0-1.0); %Eosinophils 0.5 % (0.0-10.0); %Lymphocytes 9.5 % (21.0-51.0); %Monocytes 5.1 % (0.0-10.0); %Neutrophils 84.8 % (42.0-75.0); Hemoglobin 9.9 g/dL (14.0-18.0); Mean Corpuscular Hemoglobin 23.7 pg (27.0-31.0); Mean Corpuscular Volume 78.9 fl (80.0-94.0); Mean Platelet Volume 8.5 fL (7.4-10.4); Platelet Count 308 thou/uL (130-400); RBC Distribution Width 17.5 % (11.5-14.5); Red Blood Cell (RBC) Count 4.19 mill/uL (4.70-6.10)
[2017-12-02 05:39] LABS: Anion Gap 17 mmol/L (10-20); BUN (Urea Nitrogen) 94 mg/dL (8.4-25.7); Calc. Creatinine Clearance 46 mL/min (70-130); Calcium 7.7 mg/dL (7.8-10.44); Carbon Dioxide 18 mmol/L (22-29); Chloride 99 mmol/L (98-107); Estimated GFR-MDRD 40; Glucose 193 mg/dL (70-105); Potassium 5.2 mmol/L (3.5-5.1); Sodium 129 mmol/L (136-145)
[2017-12-02] MEDS: metroNIDAZOLE 500 MG in Premix Bag 1 BAG IVPB SCH ×3 (06:11→22:33)
--- NOTE | 2017-12-02 09:07 | PDOC.PN ---
- Subjective Encounter Start Date: 12/02/17 Encounter Start Time: 10:00 Subjective: Continued Abdominal pain radiating to chest. Got morphine in ER with -: ativan but completely snowed. Requesting pain meds and to eat food -: now. Takes [place] 10/325 q4h at home for back/leg pain. - Objective MAR Reviewed: Yes Vital Signs & Weight: Vital Signs (12 hours) Temp Pulse Resp BP Pulse Ox 12/02/17 08:00 98.4 F 82 20 158/81 H 95 12/02/17 04:00 97.5 F L 76 20 147/79 H 97 12/02/17 00:00 97.6 F 77 20 142/90 H 99 12/01/17 22:43 80 Weight Weight 151 lb 11.2 oz I&O: 12/01/17 12/02/17 12/03/17 06:59 06:59 06:59 Intake Total 420 Output Total 2200 Balance -1780 Result Diagrams: 12/02/17 04:51 12/02/17 04:51 Additional Labs: Accuchecks 12/02/17 12/01/17 12/01/17 06:34 23:44 20:20 POC Glucose 195 H 270 H 437 H 12/01/17 19:19 POC Glucose 400 H Phys Exam - Physical Examination Constitutional: NAD HEENT: moist MMs Respiratory: no wheezing, no rales, no rhonchi Cardiovascular: RRR Gastrointestinal: soft, positive bowel sounds TTP GUERO, no mass Neurological: non-focal, moves all 4 limbs Psychiatric: normal affect, A&O x 3 Dx/Plan (1) Abdominal pain Code(s): R10.9 - UNSPECIFIED ABDOMINAL PAIN Status: Acute Qualifiers: Abdominal location: upper abdomen, unspecified Qualified Code(s): R10.10 - Upper abdominal pain, unspecified Comment: CT non-diagnostic with question of pneumatosis coli, surgery consulted , CT with oral contrast ordered (2) Chest pain Code(s): R07.9 - CHEST PAIN, UNSPECIFIED Status: Acute Qualifiers: Comment: Chronically elevated troponins, cardiology consulted (3) Acute on chronic systolic (congestive) heart failure Code(s): I50.23 - ACUTE ON CHRONIC SYSTOLIC (CONGESTIVE) HEART FAILURE Status : Acute Comment: EF 25-30% Nov 2017 (4) CKD (chronic kidney disease) stage 3, GFR 30-59 ml/min Code(s): N18.3 - CHRONIC KIDNEY DISEASE, STAGE 3 (MODERATE) Status: Chronic Comment: Creatinine slightly worse recently with hyperkalemia, renal consulted (5) Hyperkalemia Code(s): E87.5 - HYPERKALEMIA Status: Acute Comment: mild improvement this AM (6) CAD (coronary artery disease) Code(s): I25.10 - ATHSCL HEART DISEASE OF [place] CORONARY ARTERY W/O ANG PCTRS Status: Chronic Qualifiers: Coronary Disease-Associated Artery/Lesion type: [place] artery [place] vs. transplanted heart: [place] heart Associated angina: without angina Qualified Code(s): I25.10 - Atherosclerotic heart disease of [place] coronary artery without angina pectoris Comment: s/p CABG (7) Diabetes mellitus type 2 in nonobese Code(s): E11.9 - TYPE 2 DIABETES MELLITUS WITHOUT COMPLICATIONS Status: Chronic - Plan cont current plan of care, continue antibiotics, DVT proph w/SCDs * . - Discharge Day Encounter end time: 10:30
[2017-12-02] MEDS ORDERED: HYDROcodone/Acetaminophen 5/325 mg Tablet PO PRN (10:01)
[2017-12-02] MEDS: HYDROcodone/Acetaminophen 5/325 mg Tablet PO PRN ×4 (10:36→23:33)
[2017-12-02] MEDS: NIFEdipine XL 60 MG TAB PO SCH (10:38)
[2017-12-02] MEDS: Furosemide 40 MG/4 ML VIAL SLOW IVP SCH (10:39)
--- NOTE | 2017-12-02 13:01 | CON ---
DATE OF CONSULTATION: 12/02/2017 CHIEF COMPLAINT: Chest pain, abdominal pain. HISTORY OF PRESENT ILLNESS: This is a 57-year-old male with a history of coronary artery disease, CH F, peripheral vascular disease, type 2 diabetes, and chronic anemia, who presents with a history of s evere substernal chest pain as well as upper abdominal pain, admitted to the hospitalist service. CT scan without enteric contrast showed question pneumatosis in the right colon. I have been consulted for this. The patient notes diffuse mild pain in his abdomen, he points to the epigastric area, com plaining of substernal chest pain still. Previous admission, he was found to be quite anemic and rec ommendation was for colonoscopy, but the patient would not do that prep, so this was thought it woul d be done as an outpatient. Denies any blood in his stool. Denies any diarrhea. He has not had a b owel movement in 5 days. PAST MEDICAL HISTORY: Diabetes type 2, hyperlipidemia, hypertension, anxiety, depression, nephrotic syndrome, and chronic kidney failure. PAST SURGICAL HISTORY: CABG, right knee. SOCIAL HISTORY: He smokes. No alcohol or other drugs. REVIEW OF SYSTEMS: Ten system review of systems is otherwise negative unless described above. MEDICINES: See list. ALLERGIES: CELECOXIB, CLINDAMYCIN, NSAIDs. PHYSICAL EXAMINATION: VITAL SIGNS: Blood pressure is 158/81, pulse 82, respirations 20. He is afebrile. HEENT: Sclerae are anicteric. Oropharynx clear. NECK: No lymphadenopathy. CHEST: Clear. HEART: Regular rate and rhythm. ABDOMEN: Soft. Mildly tender diffusely, more in the epigastric area. LABORATORY DATA: White blood cell count is 12, hemoglobin 9.9, platelet count is 308. Sodium 129, p otassium 5.2. Creatinine 1.76, it is down from 1.9 last night. Glucose 193. X-RAY FINDINGS: CT scan performed last night showed questionable pneumatosis. Ultrasound of the abd omen and pneumatosis in the right colon, although no anterior contrast was given. Ultrasound of the abdomen revealed dilated common ducts consistent with previous cholecystectomy, small volume ascites. Chest x-ray: Right pleural effusion and atelectasis. Patchy density at the right lung base. ASSESSMENT: Abdominal pain, nonspecific with a history of reviewing the chart previous history of ga stritis, esophagitis as well as chronic anemia with recommendation for previous colonoscopy. PLAN: We will repeat his CT scan with oral and contrast to further evaluate the right colon. I do n ot suspect he has ischemia to the right colon given his symptoms. If that is normal, then I would re commend GI consultation for colonoscopy to workup this chronic anemia. Differential would be inflamm ation of the colon intestine versus malignancy versus upper GI gastritis, esophagitis, peptic ulcer d isease. We will follow with you.
[2017-12-02] MEDS ORDERED: Iopamidol 370 76% 50 ML VIAL FS ONE (14:01)
--- NOTE | 2017-12-02 14:31 | CON ---
DATE OF CONSULTATION: 12/02/2017 SERVICE: Pulmonary Medicine REASON FOR CONSULTATION: Pneumonia. HISTORY OF PRESENT ILLNESS: The patient is a 57-year-old white male. He has got an unfortunate past medical history that includes horrendous peripheral vascular disease, coronary artery disease, systo lic heart failure, nephrotic proteinuria, and volume overloaded states. He presented to the hospital with a 3-day history of increasing chest pain, abdominal pain, arm pain, leg pain, and back pain. Doron conway was also having episodes of shortness of breath that would get worse whenever he had his chest pain got worse. He denies having a cough or any sputum production. The patient is extraordinarily decon ditioned and debilitated. He indicates to me that he has been in a bed basically confined there for the past 6 months associated with his chronic back pain and lower extremity weakness. He had an MRI of the back several months ago. At that time, it suggested that he had multilevel lumbar degeneratio n with areas in which there was canal stenosis associated with disk excursions. He presented to the hospital yesterday. Despite the fact that he has no shortness of breath, cough or difficulty with br eathing outside of his episodes of atypical chest discomfort, he was initiated on some therapy for a community-acquired pneumonia. He has undergone multiple laboratory and diagnostic studies which are reviewed below. He is asking me for a little bit of additional pain medication as his pain is curren tly not under control, though that being said, he is a little somnolent today on my exam. PAST MEDICAL HISTORY: 1. Hypertension. 2. Dyslipidemia. 3. Anxiety disorder. 4. Major depressive disorder. 5. Nephrotic syndrome. 6. Chronic kidney disease, stage 3. 7. Type 2 diabetes mellitus. 8. Coronary artery disease. 9. Peripheral vascular disease. 10. Lumbar stenosis. PAST SURGICAL HISTORY: 1. Coronary bypass graft. 2. Right knee surgery. SOCIAL HISTORY: Positive for continued smoking. Denies alcohol or illicit drugs. He has no exposur e to chemicals, asbestos or tuberculosis. FAMILY HISTORY: Noncontributory. ALLERGIES: 1. NONSTEROIDAL ANTI-INFLAMMATORY DRUGS. 2. CLINDAMYCIN. 3. PENICILLIN. 4. VANCOMYCIN. 5. VERSED. MEDICATIONS: A list of his inpatient medications were reviewed. No specific updates were made at th is time. REVIEW OF SYSTEMS: General, head, ears, eyes, nose, throat, cardiovascular, respiratory, GI, , mus culoskeletal, neurologic and skin were negative except as mentioned in the HPI. PHYSICAL EXAMINATION: VITAL SIGNS: Afebrile, pulse 82, blood pressure 158/81, respirations 20, saturation 95% on room air. GENERAL: The patient is a little somnolent, but when he wakes up is perfectly appropriate and answer s all questions normally. HEENT: Normocephalic, atraumatic. Sclerae are white, conjunctivae pink. Oral mucosa is moist witho ut lesions. LUNGS: Decent air entry. There is absolutely no prolonged expiratory phase. Minimal crackles are p resent dependently. He prefers to lie on his right side. HEART: Normal rate, regular. ABDOMEN: Soft, nontender, nondistended. Bowel sounds are positive. MUSCULOSKELETAL: No cyanosis or clubbing. There is diffuse 2-3+ pitting throughout. GENITOURINARY: Flaherty catheter in place. NEUROLOGIC: Grossly nonfocal. LABORATORY DATA: WBC 12.0, hemoglobin 9.9, platelets 308,000. Neutrophil count is down trending 85% . INR 1.2. PH 7.35, pCO2 of 39, pO2 of 53 on a VBG. Creatinine is down trending to 1.76. BUN 94 a nd also down trending. Bicarbonate is 18, chloride 99, sodium 129 and improving. Potassium 5.7, whi ch is also trending downward. Troponin is improving to 0.279. Glucose ranges from 195-247. BNP 980 0. Liver function studies are unremarkable except for an elevated alkaline phosphatase of 485. IMAGIN. Abdominal ultrasound demonstrates common bile duct measuring 9 mm, status post cholecystectomy. Small volume ascites. Right pleural effusion: 2. Chest x-ray demonstrates right lower lobe infiltrate. There are bilateral pleural effusions evid ent. 3. CT of the abdomen and pelvis demonstrates markedly distended bladder. There are bilateral pleura l effusions which have actually improved compared to 10/22/2017. There is ground glass opacification s and some minimal changes possibly consistent with consolidation versus atelectasis at the right bas e. There is a question of pneumatosis coli in the right hemicolon. ASSESSMENT: 1. Acute hypoxic respiratory failure. 2. Nephrotic syndrome. 3. Acute kidney injury on chronic kidney disease, secondary to postrenal azotemia. 4. Non-ST elevation myocardial infarction. 5. Acute on chronic systolic and diastolic heart failure. 6. Anasarca state. 7. Abnormal CT of the chest including bilateral pleural effusions, and right lower lobe atelectasis with ground glass opacifications, likely consistent with his anasarca state. 8. Peripheral vascular disease, severe. 9. Lumbar stenosis. 10. Type 2 diabetes mellitus, poorly controlled, DISCUSSION AND PLAN: The patient is not likely to have any significant health-care associated pneumo ellyn, or empyema. I do believe that the pleural effusions that we see are from his anasarca state. T he ground glass opacifications may very well be secondary to overt aspiration related diseases. Eith er way, I do not think that antibiotics are currently indicated directed at lung issues. Once the pa tient returns to euvolemia, a repeat chest x-ray will need to be performed in order to verify the inf iltrate, effusions are improved. This is my first time meeting this gentleman, but based on what I a m reviewing through his history, and what he is telling me about his quality of life, goals of care m oving forward may need to be established. I will invite Palliative Care to have a conversation with the patient about what he wants from the medical community if we can provide it for him.
--- NOTE | 2017-12-02 16:11 | CT ---
CT ABDOMEN NONCONTRAST CT PELVIS NONCONTRAST: (urolithiasis protocol) DATE: 12/02/17 TIME: 3:31 p.m. HISTORY: 57-year-old male with generalized abdominal pain. Question of pneumatosis coli was mentioned on the r eport of the CT of the abdomen and pelvis of 12/01/17. COMPARISON: Contrast enhanced CT of 12/01/17. TECHNIQUE: IV injection of iodinated contrast media: none Oral contrast media: administered, with long bowel prep. Although evaluation for colitis would be best performed with IV contrast, the patient has compromised renal function. Because he received IV contrast yesterday, the current study was elected to be perfo rmed without IV contrast, despite the decreased sensitivity. FINDINGS: There is interval progression of a region of consolidation in the right lower lobe. This is probably atelectasis, although pneumonia is possible. There is another new area of consolidation at the anter ior base of the right lung. The moderate to large right pleural effusion is again noted. The moderate sized left pleural effusion is probably slightly larger. Again noted is the severe diffuse anasarca throughout soft tissues superficial to the abdominal cavity and pelvis. Flaherty catheter has been inser gus, decompressing the previously severely distended urinary bladder. Heavy atherosclerotic calcifica tion of the abdominal aorta. No hydronephrosis. Because of the anasarca, it is difficult to evaluate for ascites. There probably is ascites but it is difficult to estimate the volume. There is no small bowel dilation. The oral contrast material has reached the colon. What was questioned to be possible pneumatosis in the right hemicolon was probably due to patient breathing motion artifact. There is le ss such artifact on the current CT, and there is no convincing evidence of pneumatosis on the current study. No focal abnormality of the liver is identified. The liver has abnormally slightly higher att enuation diffusely, compared to the spleen and kidneys. Very extensive calcifications throughout the pancreas is evidence for chronic pancreatitis. IMPRESSION: 1. No convincing evidence of pneumatosis coli. 2. Bilateral pleural effusions, moderate to large on the right and moderate on the left. 3. Interval worsening of consolidations at the right lung base. 4. Anasarca. 5. Decompression of the previously very distended urinary bladder by placement of Flaherty catheter . 6. Ascites. 7. Nonspecific, increased attenuation of the liver. JN R POS: [facility]
--- NOTE | 2017-12-02 16:24 | CON ---
DATE OF CONSULTATION: 12/02/2017 HISTORY OF PRESENT ILLNESS: The patient is an unfortunate 57-year-old gentleman who presented with c hest and abdominal discomfort. The patient has a long history of cardiac disease. Please see previo us H and P's for complete details. He has a history of coronary artery bypass graft surgery x4, he h ad MARAVILLA placed to the LAD, saphenous vein graft to diagonal, obtuse marginal and distal right coronar y artery. The patient also was admitted approximately two years ago with chest pain and he underwent a followup catheterization, which revealed an occluded graft to the three patent coronary bypass gra fts and occluded graft to the ramus vessel. The patient admitted on multiple occasions with atypical chest pain. He presents once again with recurrent chest discomfort. He states this occurs on a carlos ly basis. He states this discomforts last up to an hour and also reports having abdominal discomfort . PAST MEDICAL HISTORY: 1. Coronary artery disease. 2. Diabetes mellitus. 3. Hypertension. 4. Dyslipidemia. 5. Noncompliance. 6. Chronic renal insufficiency. 7. Depression. PAST SURGICAL HISTORY: He has had appendectomy, knee surgery, shoulder surgery, and coronary bypass graft surgery. ALLERGIES: CELEBREX, CLINDAMYCIN, NONSTEROIDAL, PENICILLIN, VANCOMYCIN, VERSED. SOCIAL HISTORY: Long history of tobacco abuse. REVIEW OF SYSTEMS: No history of easy bruising or bleeding, bright red blood per rectum. PHYSICAL EXAMINATION: GENERAL: This is an ill-appearing gentleman who reports being in significant discomfort with a blood pressure of 158/81. NECK: Full. LUNGS: Clear to auscultation. HEART: Regular rate and rhythm, normal S1, S2, no murmurs. ABDOMEN: Nondistended. EXTREMITIES: Show moderate bilateral edema. SKIN: Warm and dry. NEUROLOGIC: Nonfocal. VASCULAR: Radial pulses 2+. LABORATORY DATA: Sodium was 129, potassium 5.2, chloride 99, bicarbonate 18, BUN 94, creatinine 1.7, and glucose 193. White blood cell count 12.0, hemoglobin 9.9, hematocrit 33.1, and his platelets ar e 308. EKG revealed normal sinus rhythm with low voltage QRS, nonspecific interventricular conductio n delay. IMPRESSION: 1. Chest pain, atypical. 2. Possible pneumatosis. 3. History of coronary artery bypass surgery. 4. Diabetes mellitus. 5. Hypertension. 6. Chronic renal insufficiency. 7. Tobacco abuse. This gentleman presents with atypical chest pain. His cardiac enzymes are not suggestive of myocardi al infarction. EKG shows no acute changes. The patient would undergo a GI evaluation. We will foll ow this patient with you through his hospitalization.
--- NOTE | 2017-12-02 17:21 | CON ---
DATE OF CONSULTATION: 12/02/2017 CONSULTING PHYSICIAN: Dr. Radha Palacio. REQUESTING PHYSICIAN: Dr. Breen. REASON FOR CONSULTATION: Acute kidney injury as well as hyponatremia. IMPRESSION: 1. Acute on chronic disease versus progression of baseline chronic kidney disease, which I do think this is more progression of the patient's baseline chronic kidney disease. 2. Hyponatremia in the context of syndrome of inappropriate antidiuretic hormone secretion. PLAN: 1. The patient to be on free water restriction. 2. When patient is able to tolerate p.o. intake, I would strongly recommend high protein diet in thi s patient in the context of increased animal meat. 3. Further management will be dependent on the clinical course. HISTORY OF PRESENT ILLNESS: This is a 57-year-old gentleman who was recently here in the hospital, [facility] in back again with chest pain. The patient does have history of chronic kidney disease stage 3, type 2 diabetic, depression, hypertension, and nephrotic syndrome. The patient on presentation, was noted with a sodium of 130, started on gentle rehydration with normal saline and sodium drifted down. From the previous clinical evaluation of the patient's urine chemistry, the patient does have syndr ome of inappropriate ADH secretion. Patient also noted with slightly elevated creatinine above his b aseline creatinine. All these put together necessitated the need for renal consultation. PAST MEDICAL HISTORY: Significant to chronic kidney disease stage 3, type 2 diabetic, depression, ne phrotic syndrome, dyslipidemia, hypertension and chronic pain syndrome. SOCIAL HISTORY: Significant for tobacco usage. No alcohol or illicit drug use. FAMILY HISTORY: Not significantly related to the presenting illness. REVIEW OF SYSTEMS: As documented in the body of the history, otherwise all the other systems were re viewed and were found not to be significantly related to the presenting illness. LABORATORY INVESTIGATION: As documented in the body of the history. PHYSICAL EXAMINATION: GENERAL: The patient was found not to be in any obvious distress, but constantly asking for pain med ication, noted with the following. VITAL SIGNS: Afebrile with temperature of 98.4, pulse 82, respiratory rate of 20 and O2 sat 95% on 2 liters. HEENT: Unremarkable with moist oral mucosa. No conjunctival injection or icterus. NECK: Supple. CARDIOVASCULAR SYSTEM: First and second heart sounds were heard. RESPIRATORY SYSTEM: Clear to auscultation. DIGESTIVE SYSTEM: Revealed a benign abdomen with positive bowel sounds. EXTREMITIES: No peripheral edema. SKIN: No new gross rash. LYMPHATICS: No peripheral lymphadenopathy. SUMMARY: A 57-year-old gentleman who presented here with slightly elevated creatinine, which I do be lieve is in keeping with the patient's baseline chronic kidney disease as well as hyponatremia due to syndrome of inappropriate ADH secretion. Thank you for this consultation. We will follow with you.
[2017-12-02] MEDS: Carvedilol 25 MG TAB PO SCH (18:22)
[2017-12-02] MEDS: Atorvastatin Calcium 40 MG TAB PO SCH (20:27)
[2017-12-03] MEDS: HYDROcodone/Acetaminophen 5/325 mg Tablet PO PRN ×6 (03:19→23:09)
[2017-12-03] MEDS ORDERED: guaiFENesin ER 600 MG TAB PO SCH ×2 (04:00→21:00)
[2017-12-03] MEDS: metroNIDAZOLE 500 MG in Premix Bag 1 BAG IVPB SCH ×3 (05:36→20:06)
--- NOTE | 2017-12-03 08:03 | PDOC.GSPN ---
Surgery Progress Note: Subj - Subjective Narrative: Still complaining of pain in the upper abdomen and low chest. Wants to eat Surgery Progress Note: Obj - Vital signs Vital signs: Vital Signs - Most Recent Temp Pulse Resp BP Pulse Ox 97.9 F 61 20 119/61 91 L 12/03/17 04:00 12/03/17 04:00 12/03/17 04:00 12/03/17 04:00 12/03/17 04:00 - Physical Exam General: no distress Abdomen: soft, other (minimal distention and diffusely mildy tender without guarding or rebound) Surgery Progress Note: Results - Labs Result Diagrams: 12/02/17 04:51 12/02/17 04:51 Lab results: Laboratory Results - last 24 hr 12/02/17 12/03/17 21:10 05:37 POC Glucose 336 H 263 H - Radiology Interpretation CT scan - abdomen Additional comments: CT shows ascites but no pneumotosis of the right colon, no other pathology Surgery Progress Note: A/P - Problem (1) Abdominal pain Current Visit: Yes Code(s): R10.9 - UNSPECIFIED ABDOMINAL PAIN Status: Acute Qualifiers: Abdominal location: generalized Qualified Code(s): R10.84 - Generalized abdominal pain Assessment and Plan: CT normal except ascites. No obvious need for surgery. If pain persists I recommend GI consult.
[2017-12-03] MEDS ORDERED: Artificial Tears 18 DROP/0.9 ML EA EYE PRN (08:05)
[2017-12-03] MEDS ORDERED: Chloraseptic Spray 180 ml Bottle PO PRN (08:05)
[2017-12-03] MEDS ORDERED: Mag-Al 1200 mg/1200 mg/30 ML UDCUP PO PRN (08:05)
[2017-12-03] MEDS ORDERED: Ondansetron HCl/PF 4 MG/2 ML Vial IVP PRN (08:05)
[2017-12-03] MEDS ORDERED: Loratadine 10 MG TAB PO PRN (08:05)
[2017-12-03] MEDS ORDERED: Benzonatate 100 MG CAP PO PRN (08:05)
[2017-12-03] MEDS ORDERED: Diabetic Tussin 200 MG/10 ML UDCUP PO PRN (08:05)
[2017-12-03] MEDS ORDERED: Ondansetron ODT 4 MG TAB PO PRN (08:05)
[2017-12-03] MEDS ORDERED: Eucerin (Mineral Oil/Petrolatum,White) 30 gm Jar TOP PRN (08:05)
[2017-12-03] MEDS ORDERED: Senokot 8.6 MG TAB PO PRN (08:05)
[2017-12-03] MEDS ORDERED: Sodium Chloride 0.65% Nasal 44 ML BOT EA NARE PRN (08:05)
[2017-12-03] MEDS ORDERED: Milk Of Magnesia 30 ML UDCUP PO PRN (08:05)
[2017-12-03] MEDS ORDERED: Temazepam 15 MG CAP PO PRN (08:05)
[2017-12-03 08:34] LABS: #Lymphocytes 0.9 thou/uL (1.20-3.40); #Monocytes 0.4 thou/uL (0.11-0.59); #Neutrophils 9.5 thou/uL (1.40-6.50); %Basophils 0.1 % (0.0-1.0); %Eosinophils 0.1 % (0.0-10.0); %Lymphocytes 8.5 % (21.0-51.0); %Monocytes 3.7 % (0.0-10.0); %Neutrophils 87.6 % (42.0-75.0); Hemoglobin 7.5 g/dL (14.0-18.0); Mean Corpuscular HGB CONC 30.4 g/dL (32.0-36.0); Mean Corpuscular Hemoglobin 24.4 pg (27.0-31.0); Mean Corpuscular Volume 80.1 fl (80.0-94.0); Mean Platelet Volume 7.7 fL (7.4-10.4); Platelet Count 259 thou/uL (130-400); RBC Distribution Width 17.1 % (11.5-14.5); Red Blood Cell (RBC) Count 3.07 mill/uL (4.70-6.10); White Blood Cell (WBC) Count 10.9 thou/uL (4.8-10.8)
[2017-12-03 08:49] LABS: ALT (SGPT) 30 U/L (8-55); AST (SGOT) 12 U/L (5-34); Albumin 2.1 g/dL (3.5-5.0); Alkaline Phosphatase 338 U/L (40-150); Anion Gap 10 mmol/L (10-20); BUN (Urea Nitrogen) 87 mg/dL (8.4-25.7); Bilirubin, Total 0.2 mg/dL (0.2-1.2); Calc. Creatinine Clearance 48 mL/min (70-130); Calcium 7.2 mg/dL (7.8-10.44); Carbon Dioxide 25 mmol/L (22-29); Chloride 100 mmol/L (98-107); Estimated GFR-MDRD 44; Globulin 2.3 g/dL (2.4-3.5); Glucose 225 mg/dL (70-105); Phosphorus 5.1 mg/dL (2.3-4.7); Potassium 4.4 mmol/L (3.5-5.1); Protein, Total 4.4 g/dL (6.0-8.3); Sodium 131 mmol/L (136-145)
[2017-12-03] MEDS: Carvedilol 25 MG TAB PO SCH ×2 (09:07→17:51)
[2017-12-03] MEDS: Saccharomyces boulardii 250 MG CAP PO SCH (09:07)
[2017-12-03] MEDS: guaiFENesin ER 600 MG TAB PO SCH ×2 (09:08→20:05)
[2017-12-03] MEDS: Famotidine/PF 20 mg/2ml Vial SLOW IVP SCH (09:08)
[2017-12-03] MEDS: Furosemide 40 MG/4 ML VIAL SLOW IVP SCH (09:08)
[2017-12-03] MEDS: NIFEdipine XL 60 MG TAB PO SCH (09:10)
[2017-12-03 09:46] LABS: Reticulocyte Count 3.5 % (0.5-1.5)
[2017-12-03 10:04] LABS: Iron 12 ug/dL (65-175); Iron Binding Capacity, Total 259 mcg/dL (261-462)
[2017-12-03] MEDS: Insulin NPH/Reg Insulin Hm 300 UNITS/3 ML VIAL SC SCH ×2 (11:03→20:05)
--- NOTE | 2017-12-03 11:27 | PDOC.PN ---
- Subjective Encounter Start Date: 12/03/17 Encounter Start Time: 07:40 -: old records requested/rev c/o upper abdominal pain, no dyspnea Patient seen and examined. No overnight events - Objective MAR Reviewed: Yes Vital Signs & Weight: Vital Signs (12 hours) Temp Pulse Resp BP Pulse Ox 12/03/17 09:10 66 12/03/17 08:00 98.7 F 66 17 136/65 99 12/03/17 04:00 97.9 F 61 20 119/61 91 L Weight Weight 149 lb 3.2 oz I&O: 12/02/17 12/03/17 12/04/17 06:59 06:59 06:59 Intake Total 420 2080 Output Total 2200 2150 Balance -178 -70 Result Diagrams: 12/03/17 08:13 12/03/17 08:13 Additional Labs: Accuchecks 12/03/17 12/02/17 12/02/17 05:37 21:10 16:30 POC Glucose 263 H 336 H 237 H 12/02/17 11:23 POC Glucose 251 H EKG Reviewed by me: Yes Phys Exam - Physical Examination Constitutional: NAD HEENT: PERRLA, moist MMs, sclera anicteric Neck: no JVD, supple Respiratory: no wheezing, no rales, no rhonchi reduced air entry both base Cardiovascular: RRR, no significant murmur, no rub Gastrointestinal: soft, no distention, positive bowel sounds subjective discomfort Musculoskeletal: edema present Neurological: non-focal, normal sensation, moves all 4 limbs Psychiatric: normal affect, A&O x 3 Skin: no rash, normal turgor Dx/Plan (1) Abdominal pain Code(s): R10.9 - UNSPECIFIED ABDOMINAL PAIN Status: Acute Qualifiers: Abdominal location: generalized Qualified Code(s): R10.84 - Generalized abdominal pain (2) Acute on chronic combined systolic and diastolic CHF (congestive heart failure) Code(s): I50.43 - ACUTE ON CHRONIC COMBINED SYSTOLIC AND DIASTOLIC HRT FAIL Status: Acute (3) Chest pain Code(s): R07.9 - CHEST PAIN, UNSPECIFIED Status: Acute Qualifiers: Comment: (4) Hyperkalemia Code(s): E87.5 - HYPERKALEMIA Status: Acute Comment: (5) Anasarca associated with disorder of kidney Code(s): N04.9 - NEPHROTIC SYNDROME WITH UNSPECIFIED MORPHOLOGIC CHANGES Status: Chronic (6) Anemia of renal disease Code(s): D63.1 - ANEMIA IN CHRONIC KIDNEY DISEASE Status: Chronic (7) Anxiety and depression Code(s): F41.9 - ANXIETY DISORDER, UNSPECIFIED; F32.9 - MAJOR DEPRESSIVE DISORDER, SINGLE EPISODE, UNSPECIFIED Status: Chronic (8) CAD (coronary artery disease) Code(s): I25.10 - ATHSCL HEART DISEASE OF [place] CORONARY ARTERY W/O ANG PCTRS Status: Chronic Qualifiers: Coronary Disease-Associated Artery/Lesion type: [place] artery [place] vs. transplanted heart: [place] heart Associated angina: without angina Qualified Code(s): I25.10 - Atherosclerotic heart disease of [place] coronary artery without angina pectoris Comment: s/p CABG (9) CKD (chronic kidney disease) stage 3, GFR 30-59 ml/min Code(s): N18.3 - CHRONIC KIDNEY DISEASE, STAGE 3 (MODERATE) Status: Chronic Comment: (10) Chronic diastolic (congestive) heart failure Code(s): I50.32 - CHRONIC DIASTOLIC (CONGESTIVE) HEART FAILURE Status: Chronic (11) DM type 2, uncontrolled, with renal complications Code(s): E11.29 - TYPE 2 DIABETES MELLITUS W OTH DIABETIC KIDNEY COMPLICATION; E11.65 - TYPE 2 DIABETES MELLITUS WITH HYPERGLYCEMIA Status: Chronic Qualifiers: Diabetes mellitus complication detail: with chronic kidney disease Diabetes mellitus critical systems technician insulin use: without critical systems technician use Chronic kidney disease stage: stage 3 (moderate) Qualified Code(s): E11.22 - Type 2 diabetes mellitus with diabetic chronic kidney disease; E11.65 - Type 2 diabetes mellitus with hyperglycemia; E11.65 - Type 2 diabetes mellitus with hyperglycemia; E11.65 - Type 2 diabetes mellitus with hyperglycemia; E11.65 - Type 2 diabetes mellitus with hyperglycemia; N18.3 - Chronic kidney disease, stage 3 (moderate); N18.3 - Chronic kidney disease, stage 3 (moderate) Comment: (12) Diabetes mellitus type 2 in nonobese Code(s): E11.9 - TYPE 2 DIABETES MELLITUS WITHOUT COMPLICATIONS Status: Chronic (13) Diabetic neuropathy Code(s): E11.40 - TYPE 2 DIABETES MELLITUS WITH DIABETIC NEUROPATHY, UNSP Status: Chronic Qualifiers: Diabetes mellitus type: type 2 (14) Dyslipidemia Code(s): E78.5 - HYPERLIPIDEMIA, UNSPECIFIED Status: Chronic (15) Elevated troponin Code(s): R74.8 - ABNORMAL LEVELS OF OTHER SERUM ENZYMES Status: Chronic (16) Hypertension, uncontrolled Code(s): I10 - ESSENTIAL (PRIMARY) HYPERTENSION Status: Chronic Comment: continue home meds (17) Lumbar spinal stenosis Code(s): M48.061 - SPINAL STENOSIS, LUMBAR REGION WITHOUT NEUROGENIC JACOB Status: Chronic (18) Metabolic acidosis Code(s): E87.2 - ACIDOSIS Status: Chronic (19) Nephrotic syndrome Code(s): N04.9 - NEPHROTIC SYNDROME WITH UNSPECIFIED MORPHOLOGIC CHANGES Status: Chronic (20) PAD (peripheral artery disease) Code(s): I73.9 - PERIPHERAL VASCULAR DISEASE, UNSPECIFIED Status: Chronic (21) Secondary hyperparathyroidism of renal origin Code(s): N25.81 - SECONDARY HYPERPARATHYROIDISM OF RENAL ORIGIN Status: Chronic (22) Tobacco abuse Code(s): Z72.0 - TOBACCO USE Status: Chronic - Plan cont current plan of care, continue antibiotics * will change cipro to renal dose of levaquin * continue flagyl * DC tele * transfer to medical * no active cardiac issue * he needs diuresis and needs to monitor renal function * he is extremely noncompliant and has chronic pain * prognosis is very poor * palliative care consulted * continue selected home meds. Review of Systems - Review of Systems Constitutional: negative: fever, chills, sweats, weakness, malaise, other Eyes: negative: Pain, Vision Change, Conjunctivae Inflammation, Eyelid Inflammation, Redness, Other ENT: negative: Ear Pain, Ear Discharge, Nose Pain, Nose Discharge, Nose Congestion, Mouth Pain, Mouth Swelling, Throat Pain, Throat Swelling, Other Respiratory: negative: Cough, Dry, Shortness of Breath, Hemoptysis, SOB with Excertion, Pleuritic Pain, Sputum, Wheezing Cardiovascular: chest pain, edema. negative: palpitations, orthopnea, paroxysmal nocturnal dyspnea, light headedness, other Gastrointestinal: Abdominal Pain. negative: Nausea, Vomiting, Diarrhea, Constipation, Melena, Hematochezia, Other Genitourinary: negative: Dysuria, Frequency, Incontinence, Hematuria, Retention , Other Musculoskeletal: negative: Neck Pain, Shoulder Pain, Arm Pain, Back Pain, Hand Pain, Leg Pain, Foot Pain, Other - Medications/Allergies Allergies/Adverse Reactions: Allergies Allergy/AdvReac Type Severity Reaction Status Date / Time celecoxib [From Celebrex] Allergy Verified 10/07/17 04:55 clindamycin Allergy Verified 10/07/17 04:55 NSAIDS (Non-Steroidal Allergy Verified 10/07/17 04:55 Anti-Inflamma Penicillins Allergy Verified 10/07/17 04:55 vancomycin Allergy Verified 07/11/16 22:46 midazolam HCl [From Versed] AdvReac Intermediate Verified 10/07/17 04:55 Medications: Current Medications Acetaminophen (Tylenol) 650 mg PO Q4H PRN PRN Reason: Headache/Fever or Pain Hydrocodone Bitart/Acetaminophen ([place] 5/325) 1 tab PO Q4H PRN PRN Reason: Pain 1-5 Hydrocodone Bitart/Acetaminophen ([place] 5/325) 2 tab PO Q4H PRN PRN Reason: Pain 6-10 Last Admin: 12/03/17 11:11 Dose: 2 tab Al Hydroxide/Mg Hydroxide (Maalox) 15 ml PO Q4H PRN PRN Reason: Heartburn or Indigestion Albuterol/Ipratropium (Duoneb) 3 ml NEB Q4H PRN PRN Reason: SOB &/or Wheezing Artificial Tears (Tears Naturale) 0 drop EA EYE PRN PRN PRN Reason: Dry Eyes Aspirin (Aspirin Chewable) 81 mg PO DAILY [facility] Last Admin: 12/03/17 09:07 Dose: 81 mg Atorvastatin Calcium (Lipitor) 40 mg PO [facility] Last Admin: 12/02/17 20:27 Dose: 40 mg Benzonatate (Tessalon) 100 mg PO Q4H PRN PRN Reason: Cough Carvedilol (Coreg) 25 mg PO BID-[facility] Last Admin: 12/03/17 09:07 Dose: 25 mg Dextrose/Water (Dextrose 50%) 25 gm SLOW IVP PRN PRN PRN Reason: Hypoglycemia Famotidine (Pepcid) 20 mg SLOW IVP DAILY [facility] Last Admin: 12/03/17 09:08 Dose: 20 mg Ferrous Sulfate (Feosol) 325 mg PO QAM-[facility] Furosemide (Lasix) 40 mg SLOW IVP DAILY [facility] Last Admin: 12/03/17 09:08 Dose: 40 mg Glucagon (Glucagon) 1 mg IM PRN PRN PRN Reason: Hypoglycemia Guaifenesin (Robitussin Sf) 200 mg PO Q4H PRN PRN Reason: Cough Guaifenesin (Mucinex) 600 mg PO Q12HR [facility] Last Admin: 12/03/17 09:08 Dose: 600 mg Hydralazine HCl (Apresoline) 10 mg SLOW IVP Q3H PRN PRN Reason: SBP Greater Than 170 Last Admin: 12/01/17 22:43 Dose: 10 mg Dextrose/Water (D5w) 1,000 mls @ 0 mls/hr IV .Q0M PRN; As Directed PRN Reason: Hypoglycemia Metronidazole 500 mg/ Device 100 mls @ 100 mls/hr IVPB Q8HR [facility] Last Admin: 12/03/17 05:36 Dose: 100 mls Levofloxacin 250 mg/ Device 50 mls @ 100 mls/hr IVPB Q24HR [facility] Last Admin: 12/03/17 09:08 Dose: 50 mls Insulin Human Isoph/Insulin Regular (Humulin 70/30) 15 units SC BID [facility] Last Admin: 12/03/17 11:03 Dose: 15 unit/kg Insulin Human Lispro (Humalog) 0 units SC .MODERATE SLIDING SC PRN PRN Reason: Moderate Correctional Scale Last Admin: 12/01/17 20:44 Dose: 10 unit Insulin Human Lispro (Humalog) 0 units SC .BEDTIME SLIDING SC PRN PRN Reason: Bedtime Correctional Scale Isosorbide Mononitrate (Imdur) 60 mg PO DAILY [facility] Last Admin: 12/03/17 09:07 Dose: 60 mg Loratadine (Claritin) 10 mg PO DAILYPRN PRN PRN Reason: Sinus Symptoms Magnesium Hydroxide (Milk Of Magnesium) 30 ml PO DAILYPRN PRN PRN Reason: Constipation Mineral Oil/White Petrolatum (Eucerin Cream) 0 gm TOP BIDPRN PRN PRN Reason: Dry Skin Nifedipine (Procardia Xl) 60 mg PO DAILY [facility] Last Admin: 12/03/17 09:10 Dose: 60 mg Ondansetron HCl (Zofran Odt) 4 mg PO Q6H PRN PRN Reason: Nausea/Vomiting Ondansetron HCl (Zofran) 4 mg IVP Q6H PRN PRN Reason: Nausea/Vomiting Phenol (Chloraseptic [place] 180 Ml Bot) 0 ml PO PRN PRN PRN Reason: Sore Throat Saccharomyces Boulardii (Florastor) 250 mg PO DAILY [facility] Last Admin: 12/03/17 09:07 Dose: 250 mg Senna (Senokot) 2 tab PO HSPRN PRN PRN Reason: Constipation Sodium Chloride ([place] Nasal [place] 0.65%) 0 ml EA NARE QIDPRN PRN PRN Reason: Nasal Congestion Sodium Chloride (Flush - Normal Saline) 10 ml IVF Q12HR [facility] Last Admin: 12/03/17 09:08 Dose: 10 ml Sodium Chloride (Flush - Normal Saline) 10 ml IVF PRN PRN PRN Reason: Saline Flush Temazepam (Restoril) 15 mg PO HSPRN PRN PRN Reason: Insomnia
[2017-12-03] MEDS ORDERED: IRON SUCROSE COMPLEX 100 MG/5 ML SLOW IVP SCH (17:00)
--- NOTE | 2017-12-03 17:10 | PRG ---
DATE OF SERVICE: 12/03/2017 SUBJECTIVE: The patient was seen and examined with no new complaint noted with the following. PHYSICAL EXAMINATION: VITAL SIGNS: Afebrile with temperature 97.4, pulse 62, respiratory rate 18, O2 sat 99%, blood pressu re 105/47. HEENT: Unremarkable. Moist oral mucosa. Neck was supple. No conjunctival injection or icterus. CARDIOVASCULAR SYSTEM: First and second heart sounds were heard. RESPIRATORY SYSTEM: Clear to auscultation. DIGESTIVE SYSTEM: Revealed a benign abdomen with positive bowel sounds. EXTREMITIES: No peripheral edema. SKIN: No new gross rash. LYMPHATICS: No peripheral lymphadenopathy. LABORATORY INVESTIGATION: Significant for sodium that has improved to 131, creatinine has gone down to 1.64, calcium 7.2 with phosphorus of 5.1. Iron saturation of 5 with iron level of 12 and ferritin of 73.24. CBC showed hemoglobin of 7.5. IMPRESSION: 1. Acute kidney injury, improved back to his baseline chronic kidney disease stage 3. 2. Hyponatremia in the context of syndrome of inappropriate antidiuretic hormone, improving on medic al free water restriction. 3. Anemia in the context of iron deficiency anemia. PLAN: 1. We will continue with free water restriction. 2. Patient to benefit from iron infusion and subsequently to continue with oral iron. 3. Further management to be dependent on the clinical course.
[2017-12-03] MEDS ORDERED: SODIUM CHLORIDE 0.9% IVPB SCH (18:30)
[2017-12-03] MEDS ORDERED: SODIUM FERRIC GLUCONATE IVPB SCH (18:30)
[2017-12-03] MEDS ORDERED: Sodium Ferric Gluconate 250 MG in Sodium Chloride 0.9% 100 ML IVPB SCH (18:45)
[2017-12-03] MEDS: Atorvastatin Calcium 40 MG TAB PO SCH (20:05)
--- NOTE | 2017-12-03 23:37 | CON ---
DATE OF CONSULTATION: 12/03/2017 REASON FOR CONSULTATION: Epigastric pain, anemia. CONSULTING PHYSICIAN: Dr. Fabian Pope. HISTORY OF PRESENT ILLNESS: Patient is a 57-year-old male with a past medical history of hypertension, hyperlipidemia, anxiety, major depressive disorder, nephrotic syndrome, chronic kidney disease stage 3, diabetes, peripheral arterial disease, chronic pancreatitis, coronary artery disease, status post CABG, and anemia of chronic disease, who initially presented to the hospital with complaints of abdominal pain. Initially when admitted to the hospital, he underwent a CT scan with enteric contrast, which showed pneumatosis within the right colon. General Surgery was consulted with evaluation concerning for possible perforation and/or infection; however, repeat CT scan done on 2016 did not show any evidence of pneumatosis; however, he continues to have a periumbilical abdominal pain characterizes squeezing/twisting in character. The pain is constant with waxing and waning severity, 8/10 in severity at its worst better with having a bowel movement and coffee and no clear exacerbating factors. He also complains of significant leg pain and back pain that he says has been present for the last 2 months, for which, he is taking narcotic medications at home. Upon further questioning, he states that his last bowel movement was approximately 2-3 days ago, although he has been having small volume solid stools while inpatient here. He adds that he does not like having a bowel movement at home due to concerns that his is a sole caregiver and that his would have to clean up his stooling, because he is unable to care for himself at the current time. Currently requesting additional narcotic pain medications for the pain in his legs and lower back and was perseverating on this particular subject throughout the course of the interview. Of note, he was seen by the GI service in the beginning of 11/2017 for evaluation of his anemia. He refused colonoscopy at that time due to concerns of the prep and being unable to be sedated for the prep. He continues to reiterate that he would not like to undergo the prep at this time. PAST MEDICAL HISTORY: As per HPI. PAST SURGICAL HISTORY: CABG, right knee surgery. FAMILY HISTORY: No GI malignancies. SOCIAL HISTORY: Current smoker. Denies any alcohol or illicit drug use. REVIEW OF SYSTEMS: A 12-category review of systems was obtained with all responses negative except for the pertinent positive as listed in the HPI. INPATIENT MEDICATIONS: Reviewed. ALLERGIES: CELECOXIB, CLINDAMYCIN, NSAIDs. PHYSICAL EXAMINATION: VITAL SIGNS: Temperature of 97.4, pulse 62, blood pressure 105/47, respiratory rate 18, satting 99% on room air. GENERAL: Patient is in no acute distress, lying comfortably in bed, alert and oriented x4. NECK: Supple. No JVD noted. CARDIOVASCULAR: Regular rate and rhythm with no discernible murmurs, gallops, or rubs. RESPIRATORY: Clear to auscultation bilaterally with no wheezes or rales. ABDOMEN: Normoactive bowel sounds. Soft, tenderness to palpation in all abdominal quadrants. No guarding or rebound. EXTREMITIES: No cyanosis, clubbing, or edema. LABORATORY DATA: CBC with a white blood cell count of 10.9, hemoglobin 7.5, hematocrit 24.6, platelets 259. Iron 12, TIBC 259, ferritin 73. Retic count 3.5%. Chemistry with sodium of 131, potassium 4.4, chloride 100, CO2 of 25, BUN 87, creatinine 1.64, glucose 263. AST 12, ALT 30, total bilirubin 0.2, alkaline phosphatase 338. IMAGING STUDIES: CT abdomen and pelvis obtained on 12/02/2017, showed interval progression of consolidation in his right lower lobe, probably atelectasis as well as a new area of consolidation at the anterior base of the right lung. Bilateral pleural effusions also noted was severe diffuse anasarca throughout the soft tissue, superficial to the abdominal cavity, and pelvis. Although it is difficult to ascertain for ascites, extensive calcifications throughout the pancreas consistent with chronic pancreatitis, there was no further evidence of pneumatosis within the right colon as seen on prior imaging. No focal abnormality of the liver was identified. ASSESSMENT AND PLAN: The patient is a 57-year-old male with past medical history of hypertension; hyperlipidemia; anxiety; major depressive disorder; nephrotic syndrome; chronic kidney disease, stage 3; diabetes; coronary artery disease, status post coronary artery bypass graft; peripheral arterial disease; chronic pancreatitis; and anemia of chronic disease, presenting with periumbilical abdominal pain most likely due to constipation and anemia. Abdominal pain. Patient is presenting with epigastric/periumbilical abdominal pain characterizes squeezing/twisting in nature that is constant with waxing and waning severity. His pain is alleviated somewhat with having a bowel movement and drinking coffee. Upon further questioning during the interview, he related that he does not have frequent bowel movements for the sole purpose of attempting to save his discomfort from cleaning up his stooling, as he is bedbound and unable to care for himself. Given this withholding pattern on admission and having approximately 1 solid bowel movement every 3-5 days as an outpatient, constipation is more likely. During the hospitalization here, he has had a few small volume solid bowel movements per nursing staff, but nothing significant. He is also on significant amount of narcotics at home, which could further contribute to a constipation type picture. Differential could also include narcotic bowel syndrome, constipation, or spontaneous bacterial peritonitis (unlikely) given the presence of possible ascites. RECOMMENDATIONS: 1. Would start patient on naloxegol 12.5 mg daily for reversal of the opiate effects on the bowel and facilitate having a bowel movement. 2. Would add MiraLax 1 capful daily as part of the bowel regimen to facilitate having a bowel movement. 3. Would consider paracentesis to obtain fluid within the abdomen for possible SBP. Anemia. The patient is presenting with a significant anemia noted on routine labs on admission; however, upon review of his chart, he has been noted to have an anemia that has been present since at least mid-2016. His baseline hemoglobin is roughly 8.5-10 with his current H&H only minimally decreased from his baseline. He currently denies any active or recent GI bleeding. Upon review of his iron indices, he is noted to have low iron, normal ferritin, and a low TIBC, which is more indicative of anemia of chronic disease/anemia of renal disease. Given the severity of his renal illness, the anemia of renal disease is more likely to contribute his further anemia. However, with a possible mixed or iron deficiency component associated with it, given his low iron, a GI bleed cannot be ruled out at this time. I further discussed possible endoscopic evaluation with him today and he refused any procedures at this time. RECOMMENDATIONS: 1. Would continue to trend H&H and transfuse as necessary to maintain an H&H of 05/30. 2. We try to minimize lab draws if possible to prevent iatrogenic anemia. 3. We will continue to discuss with patient the possibility of endoscopic evaluation for his anemia. We will continue to follow. Please call with any questions. JENNIFFER
[2017-12-04] MEDS: HYDROcodone/Acetaminophen 5/325 mg Tablet PO PRN ×5 (03:06→21:07)
[2017-12-04] MEDS: metroNIDAZOLE 500 MG in Premix Bag 1 BAG IVPB SCH ×3 (05:39→21:08)
--- NOTE | 2017-12-04 08:06 | CON ---
DATE OF CONSULTATION: 12/04/2017 REASON FOR CONSULTATION: Low back pain and leg pain. Consultation by Williams Turner PA-C. HISTORY OF PRESENT ILLNESS: This is a 57-year-old male with a past medical history of hypertension; hyperlipidemia; anxiety; major depressive disorder; nephrotic syndrome; chronic kidney disease, stage 3; diabetes; peripheral arterial disease; chronic pancreatitis; coronary artery disease; status post CABG; and anemia of chronic disease; who initially presents to the hospital with complaints of abdom inal pain. He has also been complaining of low back and leg pain and is requesting narcotic medicati on for this pain. He complains of a fall on his job site in 02/2017, and he said his back and neck h as hurt ever since. Neurosurgery was consulted for these findings and to follow up. There is no juan ging at [facility] at this time; however, the patient has an MRI on CD from another outside source. PAST MEDICAL HISTORY: As per HPI. PAST SURGICAL HISTORY: CABG and right knee surgery. FAMILY HISTORY: No malignant GI malignancies. SOCIAL HISTORY: Patient is a current smoker. He denies any alcohol and admits to illicit drug use. REVIEW OF SYSTEMS: A 12-point review of systems completed and is otherwise negative unless stated in the above HPI. ALLERGIES: CELECOXIB, CLINDAMYCIN, NSAIDs. PHYSICAL EXAMINATION: HEENT: Normocephalic, atraumatic. Hearing intact. Moist mucous membranes. Trachea is midline. VITAL SIGNS: Stable. GENERAL: The patient is in no acute distress, appears stated age. He is alert and oriented x4. NECK: Supple, no JVD noted. CARDIOVASCULAR: Patient has regular rate and rhythm, normal S1 and S2 heart sounds, no distal cyanos is or clubbing. RESPIRATORY: The patient has bilateral symmetric chest rise. Appears to have no shortness of breath . EXTREMITIES: No distal cyanosis or clubbing noted. LOW BACK EXAM: No step-offs noted. SKIN: Normal. The patient has tenderness to palpation of midline lumbar spine. IMPRESSION: This is a 57-year-old male with past medical history as stated in the above HPI. He is presenting to the hospital with periumbilical abdominal pain most likely due to constipation and anem ia, and has complaints of low back and neck pain. PLAN: The low back and neck pain according to the patient is a chronic finding. There is no neurosu rgical indication at this time. We can follow up in our office at a regular office clinic appointmen t and review MRI imaging and make further recommendations for the neck and back pain. If there are a ny further questions at this time, please feel free to contact Neurosurgery.
[2017-12-04] MEDS ORDERED: NIFEdipine XL 60 MG TAB PO SCH (08:31)
[2017-12-04] MEDS: guaiFENesin ER 600 MG TAB PO SCH ×2 (08:54→21:07)
[2017-12-04] MEDS: Furosemide 40 MG/4 ML VIAL SLOW IVP SCH (08:55)
[2017-12-04] MEDS: Famotidine/PF 20 mg/2ml Vial SLOW IVP SCH (08:55)
[2017-12-04] MEDS: Ferrous Sulfate 325 MG TAB PO SCH (08:55)
[2017-12-04] MEDS: Carvedilol 25 MG TAB PO SCH ×2 (08:55→16:57)
[2017-12-04] MEDS: Saccharomyces boulardii 250 MG CAP PO SCH (08:55)
[2017-12-04] MEDS ORDERED: Iron Sucrose Complex 100 MG in Sodium Chloride 0.9% 100 ML IVPB SCH (09:00)
[2017-12-04] MEDS: hydrALAZINE 25 MG TAB PO SCH ×2 (09:00→21:07)
[2017-12-04] MEDS: Polyethylene Glycol 3350 17 GM Packet PO SCH (09:01)
--- NOTE | 2017-12-04 09:02 | PRG ---
DATE OF SERVICE: 12/03/2017 SERVICE: Pulmonary Medicine. INTERVAL HISTORY: The patient is doing fine from a respiratory standpoint. He has oxygen on him, bu t took it off. His saturations are actually doing fine without it. He denies any current fevers, ch ills, nausea, vomiting or diarrhea. He continues to have persistent chest discomfort, abdominal disc omfort, back discomfort, and neck discomfort. He has been seen by multiple specialists, who are inte rested in seeing him in the outpatient setting. He remains significantly volume overloaded. Otherwi se, there has been no interval change to his condition. PHYSICAL EXAMINATION: VITAL SIGNS: Afebrile, pulse 57, blood pressure 105/47, respirations 18, and saturation 91% on room air. GENERAL: Patient is awake and alert, in no apparent distress. LUNGS: Decent air entry. There is no prolonged expiratory phase or wheezing present. Crackles are there. HEART: Normal rate, regular. ABDOMEN: Soft. Tender to palpation. No rebound or guarding. Bowel sounds are present, but hypoact vinicius. GENITOURINARY: Flaherty catheter in place. NEUROLOGIC: Grossly nonfocal. LABORATORY DATA: Retic count 3.5%. Iron 12, TIBC 259, present saturation 5%. Ferritin is 73. Magn esium 1.6. Creatinine 1.64 and downtrending, BUN 87. ASSESSMENT: 1. Acute hypoxic respiratory failure. 2. Acute kidney injury on chronic kidney disease, possibly secondary to post-renal azotemia. 3. Non-ST elevation myocardial infarction. 4. Abnormal CT of the chest to include bilateral pleural effusions, right lower lobe atelectasis wit h ground glass opacifications 5. Peripheral vascular disease, severe. 6. Lumbar stenosis. 7. Type 2 diabetes mellitus, poorly controlled. DISCUSSION AND PLAN: Once the patient returns to euvolemic state, repeat chest x-ray needs to be rep eated in the outpatient setting. If he has persistent infiltrates and/or effusions, additional inves tigation may be warranted. At this point, the patient has no specific requirements for Pulmonary or Critical Care opinion. As such, I will sign off. Please call with additional questions or concerns.
[2017-12-04] MEDS: Insulin NPH/Reg Insulin Hm 300 UNITS/3 ML VIAL SC SCH ×2 (09:09→21:09)
[2017-12-04] MEDS: NIFEdipine XL 30 MG TAB PO SCH (09:10)
[2017-12-04] MEDS: Sodium Ferric Gluconate 125 MG in Sodium Chloride 0.9% 100 ML IVPB SCH (12:49)
--- NOTE | 2017-12-04 13:52 | PDOC.PN ---
- Subjective Encounter Start Date: 12/04/17 Encounter Start Time: 13:47 Subjective: feels Ok.no new complaints other than chr backpain - Objective MAR Reviewed: Yes Vital Signs & Weight: Vital Signs (12 hours) Temp Pulse Resp BP BP Pulse Ox 12/04/17 09:10 72 136/64 12/04/17 09:00 72 136/64 12/04/17 08:00 97.9 F 72 22 H 136/64 94 L Weight Weight 149 lb 3.2 oz I&O: 12/03/17 12/04/17 12/05/17 06:59 06:59 06:59 Intake Total 2080 540 Output Total 2150 1250 Balance -70 -710 Result Diagrams: 12/03/17 08:13 12/03/17 08:13 Additional Labs: Accuchecks 12/04/17 12/03/17 12/03/17 11:42 20:12 16:11 POC Glucose 110 143 H 144 H 12/03/17 11:06 POC Glucose 306 H Laboratory Tests 10/22/17 11/15/17 11/17/17 09:13 08:35 08:50 Hgb Sodium Potassium Creatinine 1.42 H 1.42 H Iron TIBC % Saturation B-Natriuretic Peptide 8577.4 H 12/01/17 12/01/17 12/01/17 14:15 14:15 14:15 Hgb 8.0 L Sodium 126 L Potassium 5.5 H Creatinine 1.90 H Iron TIBC % Saturation B-Natriuretic Peptide 9832.2 H 12/02/17 12/02/17 12/03/17 04:51 04:51 08:13 Hgb 9.9 L Sodium 129 L 131 L Potassium 5.2 H 4.4 Creatinine 1.76 H 1.64 H Iron TIBC % Saturation B-Natriuretic Peptide 12/03/17 12/03/17 08:13 09:35 Hgb 7.5 L Sodium Potassium Creatinine Iron 12 L TIBC 259 L % Saturation 5 L B-Natriuretic Peptide Phys Exam - Physical Examination Constitutional: NAD HEENT: PERRLA, moist MMs, sclera anicteric, oral pharynx no lesions Neck: no JVD Respiratory: no wheezing, no rales, no rhonchi, clear to auscultation bilateral Cardiovascular: RRR, no significant murmur Gastrointestinal: soft, non-tender, no distention, positive bowel sounds Musculoskeletal: no edema, pulses present Neurological: non-focal, normal sensation, moves all 4 limbs Psychiatric: normal affect, A&O x 3 Skin: no rash Dx/Plan (1) Acute on chronic combined systolic and diastolic CHF (congestive heart failure) Code(s): I50.43 - ACUTE ON CHRONIC COMBINED SYSTOLIC AND DIASTOLIC HRT FAIL Status: Acute (2) DM2 (diabetes mellitus, type 2) Status: Chronic Qualifiers: Diabetes mellitus complication status: with hyperglycemia (3) Abdominal pain Code(s): R10.9 - UNSPECIFIED ABDOMINAL PAIN Status: Acute Qualifiers: Abdominal location: upper abdomen, unspecified Qualified Code(s): R10.10 - Upper abdominal pain, unspecified Comment: Rylan D/t heavy narcotic use.GI and GS following.cont Naloxogl.no pneumatosis on repeat CT (4) Pleural effusion Code(s): J90 - PLEURAL EFFUSION, NOT ELSEWHERE CLASSIFIED Status: Acute (5) Anasarca associated with disorder of kidney Code(s): N04.9 - NEPHROTIC SYNDROME WITH UNSPECIFIED MORPHOLOGIC CHANGES Status: Chronic (6) Anemia of renal disease Code(s): D63.1 - ANEMIA IN CHRONIC KIDNEY DISEASE Status: Chronic (7) Anxiety and depression Code(s): F41.9 - ANXIETY DISORDER, UNSPECIFIED; F32.9 - MAJOR DEPRESSIVE DISORDER, SINGLE EPISODE, UNSPECIFIED Status: Chronic (8) CAD (coronary artery disease) Code(s): I25.10 - ATHSCL HEART DISEASE OF [place] CORONARY ARTERY W/O ANG PCTRS Status: Chronic Qualifiers: Coronary Disease-Associated Artery/Lesion type: [place] artery [place] vs. transplanted heart: [place] heart Associated angina: without angina Qualified Code(s): I25.10 - Atherosclerotic heart disease of [place] coronary artery without angina pectoris Comment: s/p CABG (9) CKD (chronic kidney disease) stage 3, GFR 30-59 ml/min Code(s): N18.3 - CHRONIC KIDNEY DISEASE, STAGE 3 (MODERATE) Status: Chronic Comment: (10) DM type 2, uncontrolled, with renal complications Code(s): E11.29 - TYPE 2 DIABETES MELLITUS W OTH DIABETIC KIDNEY COMPLICATION; E11.65 - TYPE 2 DIABETES MELLITUS WITH HYPERGLYCEMIA Status: Chronic Qualifiers: Diabetes mellitus complication detail: with chronic kidney disease Diabetes mellitus buttermaker insulin use: without assisted use Chronic kidney disease stage: stage 3 (moderate) Qualified Code(s): E11.22 - Type 2 diabetes mellitus with diabetic chronic kidney disease; E11.65 - Type 2 diabetes mellitus with hyperglycemia; E11.65 - Type 2 diabetes mellitus with hyperglycemia; E11.65 - Type 2 diabetes mellitus with hyperglycemia; E11.65 - Type 2 diabetes mellitus with hyperglycemia; N18.3 - Chronic kidney disease, stage 3 (moderate); N18.3 - Chronic kidney disease, stage 3 (moderate) Comment: (11) Dyslipidemia Code(s): E78.5 - HYPERLIPIDEMIA, UNSPECIFIED Status: Chronic (12) Hypertension, uncontrolled Code(s): I10 - ESSENTIAL (PRIMARY) HYPERTENSION Status: Chronic Comment: continue home meds (13) Lumbar spinal stenosis Code(s): M48.061 - SPINAL STENOSIS, LUMBAR REGION WITHOUT NEUROGENIC JACOB Status: Chronic (14) Metabolic acidosis Code(s): E87.2 - ACIDOSIS Status: Chronic (15) Nephrotic syndrome Code(s): N04.9 - NEPHROTIC SYNDROME WITH UNSPECIFIED MORPHOLOGIC CHANGES Status: Chronic (16) PAD (peripheral artery disease) Code(s): I73.9 - PERIPHERAL VASCULAR DISEASE, UNSPECIFIED Status: Chronic (17) Secondary hyperparathyroidism of renal origin Code(s): N25.81 - SECONDARY HYPERPARATHYROIDISM OF RENAL ORIGIN Status: Chronic (18) Tobacco abuse Code(s): Z72.0 - TOBACCO USE Status: Chronic - Plan PT/OT, social worker delinquency prevention, incentive spirometry, DVT proph w/SCDs cont diuresis.discussed w nephrology. -: pt seen by palliative team,agreeable for hospice. -: iv iron for low iron.h/h stable. -: multiple subspecialities following. -: poor assisted prognosis. * . Review of Systems - Review of Systems Constitutional: weakness, malaise. negative: fever, chills, sweats, other Respiratory: negative: Cough, Dry, Shortness of Breath, Hemoptysis, SOB with Excertion, Pleuritic Pain, Sputum, Wheezing Cardiovascular: negative: chest pain, palpitations, orthopnea, paroxysmal nocturnal dyspnea, edema, light headedness, other Gastrointestinal: negative: Nausea, Vomiting, Abdominal Pain, Diarrhea, Constipation, Melena, Hematochezia, Other Genitourinary: negative: Dysuria, Frequency, Incontinence, Hematuria, Retention , Other Musculoskeletal: Back Pain, Leg Pain Skin: negative: Rash, Lesions, Kevin, Bruising, Other - Medications/Allergies Allergies/Adverse Reactions: Allergies Allergy/AdvReac Type Severity Reaction Status Date / Time celecoxib [From Celebrex] Allergy Verified 10/07/17 04:55 clindamycin Allergy Verified 10/07/17 04:55 NSAIDS (Non-Steroidal Allergy Verified 10/07/17 04:55 Anti-Inflamma Penicillins Allergy Verified 10/07/17 04:55 vancomycin Allergy Verified 07/11/16 22:46 midazolam HCl [From Versed] AdvReac Intermediate Verified 10/07/17 04:55 Medications: Current Medications Acetaminophen (Tylenol) 650 mg PO Q4H PRN PRN Reason: Headache/Fever or Pain Hydrocodone Bitart/Acetaminophen ([place] 5/325) 1 tab PO Q4H PRN PRN Reason: Pain 1-5 Hydrocodone Bitart/Acetaminophen ([place] 5/325) 2 tab PO Q4H PRN PRN Reason: Pain 6-10 Last Admin: 12/04/17 12:48 Dose: 2 tab Al Hydroxide/Mg Hydroxide (Maalox) 15 ml PO Q4H PRN PRN Reason: Heartburn or Indigestion Albuterol/Ipratropium (Duoneb) 3 ml NEB Q4H PRN PRN Reason: SOB &/or Wheezing Artificial Tears (Tears Naturale) 0 drop EA EYE PRN PRN PRN Reason: Dry Eyes Aspirin (Aspirin Chewable) 81 mg PO DAILY [facility] Last Admin: 12/04/17 08:55 Dose: 81 mg Atorvastatin Calcium (Lipitor) 40 mg PO [facility] Last Admin: 12/03/17 20:05 Dose: 40 mg Benzonatate (Tessalon) 100 mg PO Q4H PRN PRN Reason: Cough Carvedilol (Coreg) 25 mg PO BID-[facility] Last Admin: 12/04/17 08:55 Dose: 25 mg Dextrose/Water (Dextrose 50%) 25 gm SLOW IVP PRN PRN PRN Reason: Hypoglycemia Famotidine (Pepcid) 20 mg SLOW IVP DAILY [facility] Last Admin: 12/04/17 08:55 Dose: 20 mg Ferrous Sulfate (Feosol) 325 mg PO QAM-[facility] Last Admin: 12/04/17 08:55 Dose: 325 mg Furosemide (Lasix) 40 mg PO 0900,1400 [facility] Glucagon (Glucagon) 1 mg IM PRN PRN PRN Reason: Hypoglycemia Guaifenesin (Robitussin Sf) 200 mg PO Q4H PRN PRN Reason: Cough Guaifenesin (Mucinex) 600 mg PO Q12HR [facility] Last Admin: 12/04/17 08:54 Dose: 600 mg Hydralazine HCl (Apresoline) 10 mg SLOW IVP Q3H PRN PRN Reason: SBP Greater Than 170 Last Admin: 12/01/17 22:43 Dose: 10 mg Hydralazine HCl (Apresoline) 25 mg PO BID [facility] Last Admin: 12/04/17 09:00 Dose: 25 mg Dextrose/Water (D5w) 1,000 mls @ 0 mls/hr IV .Q0M PRN; As Directed PRN Reason: Hypoglycemia Metronidazole 500 mg/ Device 100 mls @ 100 mls/hr IVPB Q8HR [facility] Last Admin: 12/04/17 05:39 Dose: 100 mls Levofloxacin 250 mg/ Device 50 mls @ 100 mls/hr IVPB Q24HR [facility] Last Admin: 12/04/17 09:01 Dose: 50 mls Ferric Sodium Gluconate Complex 125 mg/ Sodium Chloride 110 mls @ 110 mls/hr IVPB DAILY [facility] Last Admin: 12/04/17 12:49 Dose: 110 mls Insulin Human Isoph/Insulin Regular (Humulin 70/30) 15 units SC BID [facility] Last Admin: 12/04/17 09:09 Dose: Not Given Insulin Human Lispro (Humalog) 0 units SC .MODERATE SLIDING SC PRN PRN Reason: Moderate Correctional Scale Last Admin: 12/01/17 20:44 Dose: 10 unit Insulin Human Lispro (Humalog) 0 units SC .BEDTIME SLIDING SC PRN PRN Reason: Bedtime Correctional Scale Isosorbide Mononitrate (Imdur) 60 mg PO DAILY [facility] Last Admin: 12/04/17 08:54 Dose: 60 mg Loratadine (Claritin) 10 mg PO DAILYPRN PRN PRN Reason: Sinus Symptoms Magnesium Hydroxide (Milk Of Magnesium) 30 ml PO DAILYPRN PRN PRN Reason: Constipation Mineral Oil/White Petrolatum (Eucerin Cream) 0 gm TOP BIDPRN PRN PRN Reason: Dry Skin Miscellaneous Medication (Movantik) 12.5 mg PO DAILY-AC [facility] Last Admin: 12/04/17 08:55 Dose: 12.5 mg Nifedipine (Procardia Xl) 30 mg PO DAILY [facility] Last Admin: 12/04/17 09:10 Dose: 30 mg Ondansetron HCl (Zofran Odt) 4 mg PO Q6H PRN PRN Reason: Nausea/Vomiting Ondansetron HCl (Zofran) 4 mg IVP Q6H PRN PRN Reason: Nausea/Vomiting Phenol (Chloraseptic [place] 180 Ml Bot) 0 ml PO PRN PRN PRN Reason: Sore Throat Polyethylene Glycol (Miralax) 17 gm PO DAILY [facility] Last Admin: 12/04/17 09:01 Dose: 17 gm Saccharomyces Boulardii (Florastor) 250 mg PO DAILY [facility] Last Admin: 12/04/17 08:55 Dose: 250 mg Senna (Senokot) 2 tab PO HSPRN PRN PRN Reason: Constipation Sodium Chloride ([place] Nasal [place] 0.65%) 0 ml EA NARE QIDPRN PRN PRN Reason: Nasal Congestion Sodium Chloride (Flush - Normal Saline) 10 ml IVF Q12HR [facility] Last Admin: 12/04/17 09:04 Dose: 10 ml Sodium Chloride (Flush - Normal Saline) 10 ml IVF PRN PRN PRN Reason: Saline Flush Temazepam (Restoril) 15 mg PO HSPRN PRN PRN Reason: Insomnia
[2017-12-04] MEDS: Furosemide 40 MG TAB PO SCH (14:58)
--- NOTE | 2017-12-04 17:15 | PRG ---
DATE OF SERVICE: 12/04/2017 SUBJECTIVE: The patient was seen and examined, still complaining of pain, noted with the following v ital signs. PHYSICAL EXAMINATION: VITAL SIGNS: Afebrile with temperature 97.9, pulse 72, respiratory rate 22, blood pressure 136/54, O 2 sat 94% on 2 liters. HEENT: Unremarkable with moist oral mucosa. No conjunctival injection or icterus. NECK: Supple. CARDIOVASCULAR: First and second heart sounds were heard. RESPIRATORY: Clear to auscultation. DIGESTIVE: Revealed a benign abdomen with positive bowel sounds. EXTREMITIES: No significant peripheral edema. SKIN: No new gross rash. IMPRESSION: 1. Hyponatremia in the context of syndrome of inappropriate antidiuretic hormone. 2. Chronic kidney disease stage 3. PLAN: 1. We will continue with free water restriction as the treatment for syndrome of inappropriate antid iuretic hormone secretion. 2. Patient was encouraged to eat more, especially as it relates to animal meat. 3. Further management will be dependent on the clinical course.
--- NOTE | 2017-12-04 18:22 | PRG ---
DATE OF SERVICE: 12/04/2017 REASON FOR CONSULTATION: Epigastric pain, anemia. SUBJECTIVE: Overnight, the patient did well with no acute problems or events. However, he does cont inue to complain of increased lower extremity back pain and abdominal pain that is unchanged from pre vious. Throughout the course of the interview, he asked repeated times for increased pain medication surrounding his current condition. He also states that he had approximately 2 bowel movements today larger in volume and semi-solid in consistency. He denies any blood in his stool that was further c onfirmed by nursing staff. Currently, denies any nausea, vomiting, fevers or chills. When asked abo ut possible endoscopic procedures, he replied to the negative. OBJECTIVE: VITAL SIGNS: Temperature 97.9, heart rate 72, blood pressure 136/64, respiratory rate 22, satting 94 % on 2 liters nasal cannula. GENERAL: The patient is lying in bed, in no acute distress. Alert and oriented x4. CARDIOVASCULAR: Regular rate and rhythm with no discernible murmurs, gallops or rubs. RESPIRATORY: Clear to auscultation bilaterally with no wheezes or rales. ABDOMEN: Normoactive bowel sounds, soft, tenderness to palpation in all abdominal quadrants without evidence of guarding or rebound. EXTREMITIES: No cyanosis or clubbing. LABORATORY DATA: No current labs are available for review. IMAGING STUDIES: No current imaging studies are available for review. ASSESSMENT AND PLAN: The patient is a 57-year-old male with past medical history of hypertension; hy perlipidemia; anxiety; major depressive disorder; nephrotic syndrome; chronic kidney disease, stage 3 ; diabetes; coronary artery disease, status post coronary artery bypass graft; peripheral arterial di sease; chronic pancreatitis; and anemia of chronic disease; presenting with periumbilical abdominal p ain most likely due to constipation as well as anemia noted on labs. Abdominal pain: The patient is presenting with epigastric/periumbilical abdominal pain, characterize d as a squeezing twisting sensation that is constant with waxing and waning severity. His pain is al leviated somewhat with having a bowel movement and drinking coffee and had not been having frequent b owel movements at home due to concerns of not creating more work for his who is the sole caregiv er for the patient. He did have two semi-solid bowel movements today with seemingly no change in his abdominal pain. Given his withholding pattern as an outpatient, constipation was the more likely ex planation for his increased abdominal pain as an inpatient. Given his significant narcotic burden at home, it could also be reminiscent of narcotic bowel syndrome, creating pain, which then worsened wi th continued administration of narcotics. However, he also does have diffuse anasarca and ascites, m ost likely due to his nephrotic syndrome, which could potentially become infected and generate a pict ure of spontaneous bacterial peritonitis. RECOMMENDATIONS: 1. Would continue the patient on naloxegol 12.5 mg daily for reversal of the opiate effects on the b owel. 2. Would continue MiraLax 1 capful daily as part of bowel regimen, but would discontinue if having i ncreased diarrhea. 3. Would consider paracentesis to obtain fluid for possible SBP. Anemia: The patient presenting with a significant anemia noted on routine labs on admission; however , upon review of his chart, this is not too far from his baseline of a hemoglobin of roughly 8.5-10. Currently, denies any active or recent GI bleeding and upon review of his iron indices he was noted to have a pattern more indicative of anemia of chronic disease/anemia of renal disease. There is a p ossible mixed component or iron deficiency component with his iron indices, which may be indicative o f GI bleed, but it is unlikely at this time. I discussed possible endoscopic evaluation with him carline wilson and he refused any procedures until he obtained more pain medication. RECOMMENDATIONS: Would continue to trend H&H and transfuse as necessary to maintain H&H of 7/. Tr y to minimize lab draws if possible to prevent iatrogenic anemia. We will continue to discuss the po ssibility of endoscopic evaluation with the patient. We will continue to follow. Please call with any questions.
[2017-12-04] MEDS: Atorvastatin Calcium 40 MG TAB PO SCH (21:07)
[2017-12-05] MEDS: HYDROcodone/Acetaminophen 5/325 mg Tablet PO PRN ×4 (01:08→12:41)
[2017-12-05] MEDS: HumaLOG 300 UNITS/3 ML VIAL SC PRN ×2 (04:59→12:21)
[2017-12-05] MEDS: metroNIDAZOLE 500 MG in Premix Bag 1 BAG IVPB SCH ×2 (05:00→12:42)
[2017-12-05 05:28] LABS: Anion Gap 11 mmol/L (10-20); BUN (Urea Nitrogen) 74 mg/dL (8.4-25.7); Calc. Creatinine Clearance 50 mL/min (70-130); Calcium 7.1 mg/dL (7.8-10.44); Carbon Dioxide 24 mmol/L (22-29); Chloride 102 mmol/L (98-107); Estimated GFR-MDRD 45; Glucose 317 mg/dL (70-105); Potassium 4.4 mmol/L (3.5-5.1); Sodium 133 mmol/L (136-145)
[2017-12-05] MEDS: NIFEdipine XL 30 MG TAB PO SCH (08:30)
[2017-12-05] MEDS: Carvedilol 25 MG TAB PO SCH (08:31)
[2017-12-05] MEDS: hydrALAZINE 25 MG TAB PO SCH (08:31)
[2017-12-05] MEDS: Saccharomyces boulardii 250 MG CAP PO SCH (08:31)
[2017-12-05] MEDS: Furosemide 40 MG TAB PO SCH (08:31)
[2017-12-05] MEDS: guaiFENesin ER 600 MG TAB PO SCH (08:31)
[2017-12-05] MEDS: Ferrous Sulfate 325 MG TAB PO SCH (08:31)
[2017-12-05] MEDS: Insulin NPH/Reg Insulin Hm 300 UNITS/3 ML VIAL SC SCH (08:32)
[2017-12-05] MEDS: Famotidine/PF 20 mg/2ml Vial SLOW IVP SCH (08:32)
[2017-12-05] MEDS: Polyethylene Glycol 3350 17 GM Packet PO SCH (08:32)
[2017-12-05] MEDS ORDERED: hydrALAZINE 25 MG TAB PO SCH ×2 (09:00→21:00)
[2017-12-05] MEDS: Sodium Ferric Gluconate 125 MG in Sodium Chloride 0.9% 100 ML IVPB SCH (09:57)
--- NOTE | 2017-12-05 10:11 | PRG ---
DATE OF SERVICE: 12/05/2017 REASON FOR CONSULTATION: Epigastric pain, anemia. SUBJECTIVE: Overnight, the patient had two additional bowel movements that were semi-solid in consis tency with no difficulty with defecation. No stated occurrence of melena or hematochezia with either of these bowel movements. He also states that his abdominal pain is improved from previous. Paige sanches, denies any nausea, vomiting, fevers or chills. He also stated to the affirmative that he was ex pecting to be discharged from the hospital soon and placed on hospice care. OBJECTIVE: VITAL SIGNS: Temperature 98.8, pulse 82, blood pressure 173/87, satting 94% on room air. GENERAL: The patient is lying in bed, in no acute distress. Alert and oriented x4. ABDOMEN: Normoactive bowel sounds, soft, tenderness to palpation in the right upper and lower quadra nts without evidence of rebound or guarding. EXTREMITIES: No cyanosis or clubbing. LABORATORY DATA: Chemistry with a sodium of 133, potassium 4.4, chloride 102, CO2 24, BUN 74, creati nine 1.59, glucose 317. IMAGING STUDIES: No current imaging studies are available for review. ASSESSMENT AND PLAN: The patient is a 57-year-old male with past medical history of hypertension, hy perlipidemia, anxiety, major depressive disorder, nephrotic syndrome, chronic kidney disease stage 3, diabetes, coronary artery disease, status post coronary artery bypass graft, peripheral arterial dis ease, chronic pancreatitis, and anemia of chronic disease, presenting with periumbilical abdominal pa in most likely due to constipation as well as anemia. Abdominal pain: The patient initially presented with epigastric/periumbilical abdominal pain charact erized as a squeezing/twisting sensation that was constant with waxing and waning severity. He had a history of constipation as an outpatient with significant withholding due to concerns for his sole c aregiver. During this hospitalization, he was placed on the naloxegol, MiraLax and senna and has si nce had 4 semisolid bowel movements with improvement in his abdominal pain. Currently, tolerating a diet without any additional pain. At this point, the most likely reason for his abdominal pain would be increased constipation/withholding that could be due to a variety of different reasons including psychosocial stressors, increased narcotic burden as well as iatrogenic with medications he has been given. At this point, he is responding well to naloxegol administration, but is having increased rickey quency of bowel movements, concerning for quite the opposite with diarrhea. RECOMMENDATIONS: 1. We would continue the patient on naloxegol 12.5 mg daily for reversal of the opposite effects on the bowel. 2. We will discontinue MiraLax and senna today given increased diarrhea. Anemia: The patient presented with a significant anemia noted on routine labs on admission; however, upon review of his chart, this is not a significant decrease from his baseline hemoglobin of roughly 8.5-10. Currently, denies any active or recent gastrointestinal bleeding with iron indices obtained during this admission more indicative of anemia of chronic disease or rather anemia of renal disease . Currently, not interested in endoscopic evaluation with plans for the patient to be placed in hosp ice care upon discharge. RECOMMENDATIONS: 1. We did recommend both upper and lower endoscopy, but given the likelihood of placement on hospice care, the utility is questionable at this time. 2. We will continue to monitor H&H. We will sign off at this time. Please call with any additional questions.
--- NOTE | 2017-12-05 13:39 | PRG ---
DATE OF SERVICE: 12/05/2017 He was seen and examined. PHYSICAL EXAMINATION: VITAL SIGNS: Temperature 98.8, pulse 82, blood pressure 173/87, respiratory rate 22, O2 sat 94%. HEENT: Unremarkable with moist oral mucosa. Neck is supple. No conjunctival injection or icterus. CARDIOVASCULAR: First and second heart sounds were heard. RESPIRATORY: Clear to auscultation. DIGESTIVE: Revealed a benign abdomen with positive bowel sounds. EXTREMITIES: No peripheral edema. SKIN: No new gross rash. LYMPHATICS: No peripheral lymphadenopathy. LABORATORY: Significant for sodium of 133, creatinine 1.59 with BUN of 74, blood sugar 317, making t he sodium of 133 falsely low. IMPRESSION: 1. Hyponatremia, which seems to have improved. 2. Syndrome of inappropriate antidiuretic hormone secretion. PLAN: We will continue current conservative management of the hyponatremia.
--- NOTE | 2017-12-05 14:48 | PDOC.PN ---
- Subjective Encounter Start Date: 12/05/17 Encounter Start Time: 14:46 Subjective: wants pain meds and nothing else -: multiple loose stools since yesterday - Objective MAR Reviewed: Yes Vital Signs & Weight: Vital Signs (12 hours) Temp Pulse Resp BP BP Pulse Ox 12/05/17 08:31 82 173/87 H 12/05/17 08:30 80 173/87 H 12/05/17 08:00 98.8 F 82 22 H 94 L 12/05/17 07:17 98.8 F 82 22 H 173/87 H 94 L Weight Weight 149 lb 3.2 oz I&O: 12/04/17 12/05/17 12/06/17 06:59 06:59 06:59 Intake Total 540 1340 Output Total 1250 2700 Balance -710 -1360 Result Diagrams: 12/03/17 08:13 12/05/17 04:48 Additional Labs: Accuchecks 12/05/17 12/05/17 12/04/17 11:25 06:03 19:47 POC Glucose 412 H 316 H 175 H 12/04/17 16:48 POC Glucose 122 H Microbiology 10/24/17 16:55 Sputum - Aspirate Acid Fast Bacilli Smear - Final 10/22/17 10:16 Venous blood - Right Arm Blood Culture - Final NO GROWTH IN 5 DAYS 10/22/17 10:05 Venous blood - Right Hand Blood Culture - Final NO GROWTH IN 5 DAYS 10/17/16 13:15 Stool C. difficile GDH Antigen & Toxins - Final 05/21/15 18:15 Urine clean catch Urine Culture - Final NO GROWTH AT 36 HOURS 11/19/15 04:20 Urine clean catch Urine Culture - Final Beta-hemolytic Streptococcus 11/16/17 10:30 Stool Stool Occult Blood (BHAVANA) - Final 10/24/17 16:55 Sputum - Aspirate Acid Fast Bacilli Culture - Preliminary Laboratory Tests 12/01/17 12/02/17 12/03/17 14:15 04:51 08:13 Sodium 126 L 129 L 131 L Creatinine 1.90 H 1.76 H 1.64 H 12/05/17 04:48 Sodium 133 L Creatinine 1.59 H Phys Exam - Physical Examination Constitutional: NAD HEENT: PERRLA, moist MMs, sclera anicteric, oral pharynx no lesions Neck: no nodes, no JVD, supple, full ROM Respiratory: no wheezing, no rales, no rhonchi, clear to auscultation bilateral Cardiovascular: RRR, no significant murmur Gastrointestinal: soft, non-tender, no distention, positive bowel sounds Musculoskeletal: no edema, pulses present Neurological: non-focal, normal sensation, moves all 4 limbs Psychiatric: normal affect, A&O x 3 Skin: no rash Dx/Plan (1) Acute on chronic combined systolic and diastolic CHF (congestive heart failure) Code(s): I50.43 - ACUTE ON CHRONIC COMBINED SYSTOLIC AND DIASTOLIC HRT FAIL Status: Acute Comment: on Lasix (2) Abdominal pain Code(s): R10.9 - UNSPECIFIED ABDOMINAL PAIN Status: Acute Qualifiers: Abdominal location: upper abdomen, unspecified Qualified Code(s): R10.10 - Upper abdominal pain, unspecified Comment: Rylan D/t heavy narcotic use.GI and GS following.cont Naloxogl.no pneumatosis on repeat CT (3) DM2 (diabetes mellitus, type 2) Status: Chronic Qualifiers: Diabetes mellitus complication status: with hyperglycemia (4) Pleural effusion Code(s): J90 - PLEURAL EFFUSION, NOT ELSEWHERE CLASSIFIED Status: Acute (5) Anasarca associated with disorder of kidney Code(s): N04.9 - NEPHROTIC SYNDROME WITH UNSPECIFIED MORPHOLOGIC CHANGES Status: Chronic Comment: improved (6) Anemia of renal disease Code(s): D63.1 - ANEMIA IN CHRONIC KIDNEY DISEASE Status: Chronic Comment: s /p IV iron (7) Anxiety and depression Code(s): F41.9 - ANXIETY DISORDER, UNSPECIFIED; F32.9 - MAJOR DEPRESSIVE DISORDER, SINGLE EPISODE, UNSPECIFIED Status: Chronic (8) CAD (coronary artery disease) Code(s): I25.10 - ATHSCL HEART DISEASE OF [place] CORONARY ARTERY W/O ANG PCTRS Status: Chronic Qualifiers: Coronary Disease-Associated Artery/Lesion type: [place] artery [place] vs. transplanted heart: [place] heart Associated angina: without angina Qualified Code(s): I25.10 - Atherosclerotic heart disease of [place] coronary artery without angina pectoris Comment: s/p CABG (9) CKD (chronic kidney disease) stage 3, GFR 30-59 ml/min Code(s): N18.3 - CHRONIC KIDNEY DISEASE, STAGE 3 (MODERATE) Status: Chronic Comment: (10) DM type 2, uncontrolled, with renal complications Code(s): E11.29 - TYPE 2 DIABETES MELLITUS W OTH DIABETIC KIDNEY COMPLICATION; E11.65 - TYPE 2 DIABETES MELLITUS WITH HYPERGLYCEMIA Status: Chronic Qualifiers: Diabetes mellitus complication detail: with chronic kidney disease 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 use Chronic kidney disease stage: stage 3 (moderate) Qualified Code(s): E11.22 - Type 2 diabetes mellitus with diabetic chronic kidney disease; E11.65 - Type 2 diabetes mellitus with hyperglycemia; E11.65 - Type 2 diabetes mellitus with hyperglycemia; E11.65 - Type 2 diabetes mellitus with hyperglycemia; E11.65 - Type 2 diabetes mellitus with hyperglycemia; N18.3 - Chronic kidney disease, stage 3 (moderate); N18.3 - Chronic kidney disease, stage 3 (moderate) Comment: (11) Dyslipidemia Code(s): E78.5 - HYPERLIPIDEMIA, UNSPECIFIED Status: Chronic (12) Hypertension, uncontrolled Code(s): I10 - ESSENTIAL (PRIMARY) HYPERTENSION Status: Chronic Comment: continue home meds (13) Lumbar spinal stenosis Code(s): M48.061 - SPINAL STENOSIS, LUMBAR REGION WITHOUT NEUROGENIC JACOB Status: Chronic (14) Metabolic acidosis Code(s): E87.2 - ACIDOSIS Status: Chronic (15) Nephrotic syndrome Code(s): N04.9 - NEPHROTIC SYNDROME WITH UNSPECIFIED MORPHOLOGIC CHANGES Status: Chronic (16) PAD (peripheral artery disease) Code(s): I73.9 - PERIPHERAL VASCULAR DISEASE, UNSPECIFIED Status: Chronic (17) Secondary hyperparathyroidism of renal origin Code(s): N25.81 - SECONDARY HYPERPARATHYROIDISM OF RENAL ORIGIN Status: Chronic (18) Tobacco abuse Code(s): Z72.0 - TOBACCO USE Status: Chronic - Plan Pt wants to go home w hospice.arranged per CM.will DC -: advised against use of pain meds but pt belligerent -: Home meds reconciled * . Review of Systems - Review of Systems Constitutional: negative: fever, chills, sweats, weakness, malaise, other Respiratory: negative: Cough, Dry, Shortness of Breath, Hemoptysis, SOB with Excertion, Pleuritic Pain, Sputum, Wheezing Cardiovascular: negative: chest pain, palpitations, orthopnea, paroxysmal nocturnal dyspnea, edema, light headedness, other Gastrointestinal: negative: Nausea, Vomiting, Abdominal Pain, Diarrhea, Constipation, Melena, Hematochezia, Other Genitourinary: negative: Dysuria, Frequency, Incontinence, Hematuria, Retention , Other Musculoskeletal: Back Pain, Leg Pain. negative: Neck Pain, Shoulder Pain, Arm Pain, Hand Pain, Foot Pain, Other Neurological: negative: Weakness, Numbness, Incoordination, Change in Speech, Confusion, Seizures, Other - Medications/Allergies Allergies/Adverse Reactions: Allergies Allergy/AdvReac Type Severity Reaction Status Date / Time celecoxib [From Celebrex] Allergy Verified 10/07/17 04:55 clindamycin Allergy Verified 10/07/17 04:55 NSAIDS (Non-Steroidal Allergy Verified 10/07/17 04:55 Anti-Inflamma Penicillins Allergy Verified 10/07/17 04:55 vancomycin Allergy Verified 07/11/16 22:46 midazolam HCl [From Versed] AdvReac Intermediate Verified 10/07/17 04:55 Medications: Current Medications Acetaminophen (Tylenol) 650 mg PO Q4H PRN PRN Reason: Headache/Fever or Pain Hydrocodone Bitart/Acetaminophen ([place] 5/325) 1 tab PO Q4H PRN PRN Reason: Pain 1-5 Hydrocodone Bitart/Acetaminophen ([place] 5/325) 2 tab PO Q4H PRN PRN Reason: Pain 6-10 Last Admin: 12/05/17 12:41 Dose: 2 tab Al Hydroxide/Mg Hydroxide (Maalox) 15 ml PO Q4H PRN PRN Reason: Heartburn or Indigestion Albuterol/Ipratropium (Duoneb) 3 ml NEB Q4H PRN PRN Reason: SOB &/or Wheezing Artificial Tears (Tears Naturale) 0 drop EA EYE PRN PRN PRN Reason: Dry Eyes Aspirin (Aspirin Chewable) 81 mg PO DAILY [facility] Last Admin: 12/05/17 08:31 Dose: 81 mg Atorvastatin Calcium (Lipitor) 40 mg PO HS [facility] Last Admin: 12/04/17 21:07 Dose: 40 mg Benzonatate (Tessalon) 100 mg PO Q4H PRN PRN Reason: Cough Carvedilol (Coreg) 25 mg PO BID-[facility] Last Admin: 12/05/17 08:31 Dose: 25 mg Dextrose/Water (Dextrose 50%) 25 gm SLOW IVP PRN PRN PRN Reason: Hypoglycemia Famotidine (Pepcid) 20 mg PO DAILY [facility] Ferrous Sulfate (Feosol) 325 mg PO QAM-WM [facility] Last Admin: 12/05/17 08:31 Dose: 325 mg Furosemide (Lasix) 40 mg PO DAILY-AC [facility] Glucagon (Glucagon) 1 mg IM PRN PRN PRN Reason: Hypoglycemia Guaifenesin (Robitussin Sf) 200 mg PO Q4H PRN PRN Reason: Cough Guaifenesin (Mucinex) 600 mg PO Q12HR [facility] Last Admin: 12/05/17 08:31 Dose: 600 mg Hydralazine HCl (Apresoline) 10 mg SLOW IVP Q3H PRN PRN Reason: SBP Greater Than 170 Last Admin: 12/01/17 22:43 Dose: 10 mg Hydralazine HCl (Apresoline) 50 mg PO BID [facility] Dextrose/Water (D5w) 1,000 mls @ 0 mls/hr IV .Q0M PRN; As Directed PRN Reason: Hypoglycemia Metronidazole 500 mg/ Device 100 mls @ 100 mls/hr IVPB Q8HR [facility] Last Admin: 12/05/17 12:42 Dose: 100 mls Ferric Sodium Gluconate Complex 125 mg/ Sodium Chloride 110 mls @ 110 mls/hr IVPB DAILY [facility] Last Admin: 12/05/17 09:57 Dose: 110 mls Insulin Human Isoph/Insulin Regular (Humulin 70/30) 15 units SC BID [facility] Last Admin: 12/05/17 08:32 Dose: 15 unit/kg Insulin Human Lispro (Humalog) 0 units SC .MODERATE SLIDING SC PRN PRN Reason: Moderate Correctional Scale Last Admin: 12/05/17 12:21 Dose: 10 unit Insulin Human Lispro (Humalog) 0 units SC .BEDTIME SLIDING SC PRN PRN Reason: Bedtime Correctional Scale Isosorbide Mononitrate (Imdur) 60 mg PO DAILY [facility] Last Admin: 12/05/17 08:31 Dose: 60 mg Loratadine (Claritin) 10 mg PO DAILYPRN PRN PRN Reason: Sinus Symptoms Magnesium Hydroxide (Milk Of Magnesium) 30 ml PO DAILYPRN PRN PRN Reason: Constipation Mineral Oil/White Petrolatum (Eucerin Cream) 0 gm TOP BIDPRN PRN PRN Reason: Dry Skin Miscellaneous Medication (Movantik) 12.5 mg PO DAILY-AC [facility] Last Admin: 12/05/17 08:31 Dose: Not Given Nifedipine (Procardia Xl) 30 mg PO DAILY [facility] Last Admin: 12/05/17 08:30 Dose: 30 mg Ondansetron HCl (Zofran Odt) 4 mg PO Q6H PRN PRN Reason: Nausea/Vomiting Ondansetron HCl (Zofran) 4 mg IVP Q6H PRN PRN Reason: Nausea/Vomiting Phenol (Chloraseptic [place] 180 Ml Bot) 0 ml PO PRN PRN PRN Reason: Sore Throat Saccharomyces Boulardii (Florastor) 250 mg PO DAILY [facility] Last Admin: 12/05/17 08:31 Dose: 250 mg Sodium Chloride ([place] Nasal [place] 0.65%) 0 ml EA NARE QIDPRN PRN PRN Reason: Nasal Congestion Sodium Chloride (Flush - Normal Saline) 10 ml IVF Q12HR [facility] Last Admin: 12/05/17 08:32 Dose: 10 ml Sodium Chloride (Flush - Normal Saline) 10 ml IVF PRN PRN PRN Reason: Saline Flush Last Admin: 12/05/17 05:01 Dose: 10 ml Temazepam (Restoril) 15 mg PO HSPRN PRN PRN Reason: Insomnia Last Admin: 12/04/17 21:07 Dose: 15 mg
[2017-12-05 15:31] VITALS: BP 131/63; TEMP 98.4
[2017-12-06] MEDS ORDERED: Furosemide 40 MG TAB PO SCH (07:30)
[2017-12-06] MEDS ORDERED: Famotidine 20 MG TAB PO SCH (09:00)
--- NOTE | 2017-12-08 09:18 | DIS ---
DATE OF ADMISSION: 12/01/2017 DATE OF DISCHARGE: 12/05/2017 PHYSICIAN CARE PHYSICIAN: [facility]. DISCHARGE DISPOSITION: Home with [facility]. DISCHARGE DIAGNOSES: 1. Acute on chronic combined heart failure. 2. Chronic abdominal pain due to constipation related to heavy narcotic use. 3. Chronic narcotic dependence. 4. Diabetes. 5. Chronic pleural effusion. 6. Acute on chronic kidney disease with anasarca. 7. Coronary artery disease. 8. Dyslipidemia. 9. Hypertension. 10. Peripheral arterial disease. 11. Secondary hyperparathyroidism of renal origin. 12. Tobacco abuse. DISCHARGE MEDICATIONS: As per the hospice. The patient may resume his home medications as follows: Hydralazine 50 mg p.o. b.i.d., nifedipine 60 mg daily, isosorbide 120 mg daily, Humulin 70/30 of 15 units b.i.d., Lasix 40 mg b.i.d., Coreg 25 mg p.o. b.i.d., Lipitor 10 mg daily, aspirin 81 mg daily, Florastor 250 mg daily, and carvedilol 25 mg p.o. b.i.d. CONSULTATIONS DONE IN THE HOSPITAL: Include, 1. Nephrology, Dr. Garcia. 2. Pulmonary medicine, Dr. Chung. 3. Gastroenterology, Dr. Kaye. 4. General Surgery, Dr. Fabian Pope. 5. Cardiology, Dr. Kartik Sarah. 6. Neurosurgery. PROCEDURES DONE IN THE HOSPITAL: Include CT scan of the abdomen and pelvis on 12/01/2017 which showe d a distended gallbladder and abnormal air in the right hemicolon possibility of pneumatosis. Repeat CT scan of the abdomen and pelvis on 12/02/2017 which did not show the same. There was no evidence of pneumatosis coli. He did have bilateral pleural effusion and moderate to large on the right and m oderate on the left as well as an anasarca. HISTORY OF PRESENTING ILLNESS: Mr. Robles is a 57-year-old male who has been heavily dependent on narcotics due to chronic pain syndrome as well as history of hypertension, dyslipidemia, chronic kid rd disease who came to the emergency room complaining of epigastric and chest pain. He was found to be somewhat hypokalemic and acute renal failure as well as acute CHF with a BNP of 9800. His creati nine was 1.90 with a BUN of 97. He was admitted and a CT scan of the abdomen and pelvis was done for abdominal pain complaints. Cardiology was consulted as well. Serial cardiac enzymes were ordered. General Surgery was consulted with regard to CT scan findings of the abdomen. Please see admission history and physical for further details. HOSPITAL COURSE: The patient was seen by General Surgery, Dr. Pope and a CT scan of the abdomen w as repeated which did not show any further pneumatosis coli. They recommended consulting Gastroenter ology and Dr. Kaye from Gastroenterology department saw the patient. It was found out that the min ent has significant constipation and abdominal pain because of possible obstipation. All of the pain medications were stopped at this time and he was started naloxegol by the rn telemetry with si gnificant improvement in his symptoms and does regular stool. They did recommend some upper and lowe r endoscopy for chronic anemia, but this was deferred as the patient chose hospice instead and refuse d further invasive workup. He was seen by Cardiology department for his chest pain. Serial cardiac enzymes were done and they w ere in the indeterminate range. EKG was unremarkable and Cardiology suggested continuation of medica l management. The patient was otherwise asymptomatic with regards to that. In regards to his low ba ck pain and leg pain, he was seen by Neurosurgery Department as well. They did not have any new da mmendations. There was no need for any neurosurgical indications as his pain is rather chronic. The y recommended outpatient followup if the patient follows up. He was also seen by Nephrology, Dr. Garcia for his acute on chronic kidney insufficiency and anas arca and was managed with a free water restriction and monitored diuresis. He was found to have some hyponatremia in the context of SIADH which was also monitored and it improved from 126-133. Eventually, the patient was stabilized and was back to his usual self. He continued to be verbally a busive to the staff and continuously demanded pain medications. Then, it was made clear to him that we are avoiding narcotics. He decided to consider hospice for the pain management. This was arrange d for him and once he was accepted, he was discharged back home under the care of hospice. He was se en and examined prior to discharge. Please see hospitalist progress note from the date of discharge for [id number] interaction.
== END 2017-12-05 14:55 | disposition hospice, home (50) | DRG 280 ==
LOC: ERS 13:51 → 2NO 17:16 → T4-B 12-03 12:09
PROVIDERS: ADMIT Internal Medicine; ATTEND Internal Medicine
DX: I13.0 Hypertensive heart and chronic kidney disease with heart failure and stage 1 through stage 4 chronic kidney disease, or unspecified chronic kidney disease (principal); I50.43 Acute on chronic combined systolic (congestive) and diastolic (congestive) heart failure; I21.4 Non-ST elevation (NSTEMI) myocardial infarction; J96.01 Acute respiratory failure with hypoxia; E22.2 Syndrome of inappropriate secretion of antidiuretic hormone; J90 Pleural effusion, not elsewhere classified; K86.1 Other chronic pancreatitis; E87.2 Acidosis; N17.9 Acute kidney failure, unspecified; J98.11 Atelectasis; N25.81 Secondary hyperparathyroidism of renal origin; F17.210 Nicotine dependence, cigarettes, uncomplicated; D50.9 Iron deficiency anemia, unspecified; N18.3 Chronic kidney disease, stage 3 (moderate); E11.21 Type 2 diabetes mellitus with diabetic nephropathy; E11.22 Type 2 diabetes mellitus with diabetic chronic kidney disease; E87.6 Hypokalemia; F41.9 Anxiety disorder, unspecified; F32.9 Major depressive disorder, single episode, unspecified; Z95.1 Presence of aortocoronary bypass graft; I25.10 Atherosclerotic heart disease of native coronary artery without angina pectoris; D63.1 Anemia in chronic kidney disease; K59.00 Constipation, unspecified; E11.51 Type 2 diabetes mellitus with diabetic peripheral angiopathy without gangrene; M48.061 Spinal stenosis, lumbar region without neurogenic claudication; K63.89 Other specified diseases of intestine; Z91.19 Patient's noncompliance with other medical treatment and regimen; E11.65 Type 2 diabetes mellitus with hyperglycemia; R10.9 Unspecified abdominal pain; T40.605A Adverse effect of unspecified narcotics, initial encounter; E11.40 Type 2 diabetes mellitus with diabetic neuropathy, unspecified
CPT/HCPCS: 36415; 36416; 51702; 71045; 74176; 74177; 76705; 80048; 80053; 82330; 82550; 82553; 82728; 82803; 83540; 83550; 83690; 83735; 83880; 84100; 84484; 85025; 85046; 85610; 85730; 93005; 94760; 96361; 96365; 96375; A4216; G8996-GN-CL; G8997-GN-CJ; J0360; J0744; J1650; J1815; J1940; J1956; J2060; J2270; J2405; J2916; J7050; S0028